=== PATIENT | female | born 1990 | race Caucasian/White ===

== ENCOUNTER 2020-02-15 14:23 | Outpatient (CLI) | payer OTHER, SELFPAY ==
--- NOTE | ~2020-02-15 | US_ITS ---
EXAMINATION: US thyroid DATE: 02/15/2020 15:30 INDICATION: Goiter TECHNIQUE: Multiple ultrasound images of the thyroid were obtained. COMPARISON: None. FINDINGS: The right thyroid lobe measures 4.7 x 1.2 x 1.5 cm. The left thyroid lobe measures 3.0 x 1.4 x 1.3 c m. The thyroid isthmus measures 3 mm in thickness. No discrete nodules identified. There is normal ec hotexture, echogenicity and vascular flow throughout the thyroid gland. IMPRESSION: 1. Normal thyroid ultrasound. Reviewed, dictated and finalized at location A.
--- NOTE | ~2020-02-15 | US_ITS ---
EXAMINATION: US pelvic complete w TV DATE: 02/15/2020 15:30 INDICATION: Pelvic and perineal pain TECHNIQUE: Multiple transabdominal and endovaginal sonographic images of the pelvis were obtained. COMPARISON: 04/13/2018 FINDINGS: The uterus measures 8.0 x 3.9 x 5.5 cm. The endometrial complex measures 4.1 mm. The right ovary measures 3.0 x 1.4 x 2.4 cm. The left ovary measures 3.1 x 1.7 x 2.6 cm. There is normal vascul ar flow in the ovaries. There is no free fluid in the pelvis. IMPRESSION: 1. No sonographic correlate for the patient's symptoms. Reviewed, dictated and finalized at location A.
== END 2020-02-15 14:24 | disposition home or self-care (01) ==
PROVIDERS: PCP Physician Assistant
DX: E04.9 Nontoxic goiter, unspecified (principal)
CPT/HCPCS: 76536; 76830; 76856

== ENCOUNTER 2020-02-24 11:02 | Emergency (ER) | payer OTHER, SELFPAY ==
[2020-02-24 11:05] VITALS: BP 145/97; PULSE 86; RESP 16; TEMP 36.6; O2SAT 100
[2020-02-24 11:31] LABS: Eosinophils Absolute Auto 0.1 K/mm3 (0-0.3); Eosinophils Percent Auto 0.8 % (0-4.4); Hematocrit 39.1 % (37.0-47.0); Immature Granulocyte Absolute 0.05 K/mm3 (0.00-0.031); Immature Granulocyte Percent A 0.5 % (0-0.5); Lymphocytes Absolute Auto 2.67 K/mm3 (0.9-3.2); Lymphocytes Percent Auto 25.7 % (18.3-44.2); Mean Corpuscular HGB Conc 33.2 g/dl (32-36); Mean Corpuscular Hemoglobin 28.3 pg (26-34); Mean Corpuscular Volume 85.2 fl (80-100); Mean Platelet Volume 9.4 fl (7.4-10.4); Monocytes Absolute Auto 0.6 K/mm3 (0.1-0.6); Platelet Count Result 281 k/mm3 (150-375); Red Blood Count 4.59 M/mm3 (4.2-5.4); Red Cell Distribution Width 11.9 % (11.5-14.5); White Blood Count 10.4 K/mm3 (4.5-10.0)
[2020-02-24 11:42] LABS: Prothrombin Time 12.7 Seconds (11.1-14.7)
[2020-02-24 11:43] LABS: Partial Thromboplastin Time 26.9 SECONDS (22.3-36.8)
[2020-02-24 11:44] LABS: Alanine Aminotransferase 24 U/L (4-35); Albumin Level 4.2 g/dL (3.5-5.1); Alkaline Phosphatase 94 U/L (38-126); Anion Gap 6 mmol/L (8-16); Aspartate Amino Transferase 31 U/L (14-36); Bilirubin,Total 0.6 mg/dL (0.2-1.3); Blood Urea Nitrogen 16 mg/dL (7-17); Carbon Dioxide 26 mmol/L (22-30); Chloride 104 mmol/L (98-107); Estimated CRCL calculation 99 ml/min; Estimated Glomerular Filt Rate > 60; Glucose 97 mg/dL (65-105); Sodium 136 mmol/L (137-145)
[2020-02-24 11:48] VITALS: BP 136/88; PULSE 92
[2020-02-24 11:49] VITALS: BP 135/94; BP 153/91; PULSE 91; PULSE 94
--- NOTE | 2020-02-24 12:50 | ED.GIBLEED ---
HPI - GI Bleed General Chief complaint: GI Bleed Stated complaint: blood in stool x 4 days Time Seen by Provider: 02/24/20 12:18 Source: patient and family Mode of arrival: ambulatory Limitations: no limitations History of Present Illness HPI Narrative: 29-year-old with no major medical problems here with complaints of rectal bleeding for past 5 days. Patient states that she has bright red blood per rectum every time she has a bowel movement. She states that on the first 2 days she had few clots while she was wiping. She denies any abdominal pain. Denies being lightheaded or dizzy. No previous history of GI bleeds. complaint: blood streaked stool Onset (ago): day(s) (5) Pain Consistency: constant Severity: mild Relieving factors: none Exacerbating factors: none Treatments Prior to Arrival: none Related Data Home Medications Medication Instructions Recorded Confirmed fluoxetine 10 mg PO 02/24/20 norelgestromin-ethin.estradiol 150 patch 02/24/20 [Xulane] Allergies Allergy/AdvReac Type Severity Reaction Status Date / Time amoxicillin AdvReac Unknown Diarrhea Verified 02/24/20 11:47 Review of Systems Review of Systems: All systems reviewed & are unremarkable except as noted in HPI and below Constitutional: Constitutional: Reports as per HPI Eyes: Eyes: Reports no additional eye complaints ENT: Reports system reviewed and no additional complaints, except as documented Cardiovascular: Cardiovascular: Reports no additional cardiovascular complaints Respiratory: Respiratory: Reports no additional respiratory complaints Genitourinary: Genitourinary: Reports no additional female genitourinary complaints Neurologic: Reports system reviewed and no additional complaints, except as documented Endocrine: Endocrine: Reports no additional endocrine complaints Hematologic/Lymphatic: Hematologic/Lymphatic: Reports no additional hematologic/lymphatic complaints PMFSH Family History Family History Grandparent Hypertension Family history of malignant neoplasm Family history of malignant neoplasm of breast Father Family history of cardiac disorder Other Cerebrovascular accident Family history of kidney disease Family history of lung cancer Social History Social History Smoking status: Former smoker Second hand tobacco smoke exposure: No Smoking end date: 06/27/15 Alcohol intake: never Exam Narrative: Exam Narrative: GENERAL: Well-appearing, well-nourished, and in no acute distress. HEAD: Normocephalic, atraumatic. EYES: PERRLA and EOMI. ENT: Nares clear, no rhinorrhea or epistaxis. Mucous membranes moist. NECK: Supple. CHEST: Clear to auscultation. No respiratory distress. HEART: Regular rate and rhythm. No murmur heard. Normal peripheral pulses. ABDOMEN: Soft, nontender, nondistended, normal active bowel sounds. Rectal no obvious external hemorrhoids however there is a small hemorrhoid at 5 o'clock position. No fissures noted EXTREMITIES: Normal range of motion. No edema. SKIN: Warm, dry, no rash. NEURO: No focal deficits. Alert and oriented x3. PSYCH: Normal mood and affect. Course Vital Signs Vital signs: Vital Signs Temperature 36.6 C 02/24/20 11:05 Pulse Rate 86 02/24/20 11:05 Respiratory Rate 16 02/24/20 11:05 Blood Pressure 145/97 H 02/24/20 11:05 Pulse Oximetry 100 02/24/20 11:05 Temperature 36.6 C 02/24/20 11:05 Pulse Rate 94 02/24/20 11:49 Respiratory Rate 16 02/24/20 11:05 Blood Pressure 153/91 H 02/24/20 11:49 Pulse Oximetry 100 02/24/20 11:05 MDM - GI Bleed Lab Data Result diagrams: 02/24/20 11:14 02/24/20 11:14 Labs: Lab Results 02/24/20 02/24/20 02/24/20 Range/Units 11:14 11:14 11:14 WBC 10.4 H (4.5-10.0) K/mm3 RBC 4.59 (4.2-5.4) M/mm3 Hgb 13.0 (12.0-15.0) g/dL
== END 2020-02-24 13:20 | disposition home or self-care (01) ==
PROVIDERS: Emergency Medicine; Emergency Provider Family Medicine; PCP Physician Assistant
DX: K64.9 Unspecified hemorrhoids (principal); Z87.891 Personal history of nicotine dependence
CPT/HCPCS: 36415; 80053; 85025; 85610; 85730; 86850; 86900; 86901; 99283

== ENCOUNTER 2020-11-11 11:09 | Outpatient (CLI) | payer OTHER, SELFPAY ==
[2020-11-11 18:34] LABS: Hematocrit 40.7 % (37.0-47.0); Hemoglobin 12.9 g/dL (12.0-15.0); Mean Corpuscular HGB Conc 31.7 g/dl (32-36); Mean Corpuscular Hemoglobin 27.9 pg (26-34); Mean Corpuscular Volume 87.9 fl (80-100); Platelet Count Result 338 k/mm3 (150-375); Red Blood Count 4.63 M/mm3 (4.2-5.4); Red Cell Distribution Width 11.8 % (11.5-14.5); White Blood Count 12.8 K/mm3 (4.5-10.0)
== END 2020-11-11 11:10 | disposition home or self-care (01) ==
LOC: ANHBWCLAB 11:10
PROVIDERS: PCP Physician Assistant; Visit Provider Obstetrics & Gynecology
DX: N92.1 Excessive and frequent menstruation with irregular cycle (principal)
CPT/HCPCS: 36415; 84443; 85027

== ENCOUNTER 2021-07-01 09:05 | Emergency (ER) | payer OTHER, SELFPAY ==
[2021-07-01 09:16] VITALS: BP 141/68; PULSE 100; RESP 16; TEMP 37.2; O2SAT 100
--- NOTE | 2021-07-01 09:47 | ED.URI ---
HPI - URI/Sore Throat General Chief Complaint: Upper Respiratory Infection Stated Complaint: Fever/Sore Throat/Congestion Time Seen by Provider: 07/01/21 09:47 Source: patient, RN notes reviewed and old records reviewed Mode of arrival: ambulatory Limitations: no limitations History of Present Illness HPI Narrative: 30-year-old female presents to the [facility] with fever, sore throat and congestion since Related Data Home Medications Medication Instructions Recorded Confirmed clonidine HCl 07/01/21 dexamethasone 07/01/21 ondansetron 07/01/21 promethazine-DM ml 07/01/21 Allergies Allergy/AdvReac Type Severity Reaction Status Date / Time amoxicillin AdvReac Unknown Diarrhea Verified 07/01/21 10:16 Review of Systems Review of Systems: All systems reviewed & are unremarkable except as noted in HPI and below Constitutional: Constitutional: Reports as per HPI and Reports fever(s) Eyes: Eyes: Reports no additional eye complaints ENT: Reports as per HPI and Reports sore throat Cardiovascular: Cardiovascular: Reports no additional cardiovascular complaints, Denies chest pain and Denies radiating jaw, neck or arm pain Respiratory: Respiratory: Reports no additional respiratory complaints, Denies cough and Denies dyspnea Gastrointestinal: Gastrointestinal: Reports no additional gastrointestinal complaints, Denies abdominal pain, Denies nausea and Denies vomiting Musculoskeletal: Musculoskeletal: Reports no additional musculoskeletal complaints Integumentary/Breasts: Skin/Breast: Reports system reviewed and no additional complaints, except as docu Neurologic: Reports system reviewed and no additional complaints, except as documented Psychiatric: Psychiatric: Reports no additional psychiatric complaints Allergic/Immunologic: Allergic/Immunologic: Reports no additional allergic/immunologic complaints PMF Past Medical History Medical History Atherosclerosis Chemical 2018 Enlarged thyroid Heart murmur Menometrorrhagia PCOS (polycystic ovarian syndrome) Vaginal delivery x3 Surgical History Surgical History History of cholecystectomy 2018 Family History Family History Grandparent Hypertension Family history of malignant neoplasm Family history of malignant neoplasm of breast History of blood clots grandmother, grandfather Diabetes mellitus grandmother Father Family history of cardiac disorder Other Cerebrovascular accident Family history of kidney disease Family history of lung cancer Social History Social History Smoking status: Former smoker Second hand tobacco smoke exposure: No Smoking end date: 06/27/15 Alcohol intake: never Substance use: former Substance use type: marijuana Last use: 5 years ago Comments At the time of my signature, I reviewed and agree with the nursing past medical, surgical, social, and family history. There is no relevant family history pertinent to the patient complaint. Exam Const: General: no acute distress, alert and ill appearing acutely (Mild) Nutritional Appearance: well nourished Orientation/consciousness: patient oriented x3 Limitations: no limitations HENMT: Head: normal to inspection Ears: external ears normal, EAC's normal and TM abnormal with fluid behind the TM bilateral General nose exam: Nasal discharge present clear Mouth: Yes moist mucous membranes Throat: uvula midline, posterior oropharynx abnormal erythema and postnasal drainage Eyes: Pupils: Equal, round and reactive pupils present Neck: Neck: normal visual inspection, no lymphadenopathy and no meningeal signs Chest: Chest palpation & inspection: normal inspection of the chest Resp: Effort & Inspection: normal respiratory effort and no us
== END 2021-07-01 10:45 | disposition home or self-care (01) ==
PROVIDERS: Emergency Provider Nurse Practitioner; PCP Nurse Practitioner Family
DX: J02.0 Streptococcal pharyngitis (principal); Z87.891 Personal history of nicotine dependence; E28.2 Polycystic ovarian syndrome; I70.90 Unspecified atherosclerosis; R01.1 Cardiac murmur, unspecified
CPT/HCPCS: 87804; 87880; 99213; G0463

== ENCOUNTER 2021-08-12 15:52 | Outpatient (CLI) | payer OTHER, SELFPAY ==
--- NOTE | ~2021-08-12 | US_ITS ---
EXAMINATION: US soft tissue head and neck DATE: 08/12/2021 16:37 INDICATION: Cervical lymphadenopathy TECHNIQUE: Multiple grayscale and Doppler ultrasound images of the region of concern at the posterior right neck were obtained. COMPARISON: None FINDINGS: There are 3 ovoid hypoechoic lymph nodes in the abdomen with echogenic hilum in the region of concern which per notation the departmental shipping clerk there is be located in the region of the right posterior triangle . These measure 1.1 x 0.7 x 0.9 cm, 1.0 x 0.7 x 0.3 cm and 1.2 x 1.1 x 0.4 cm, which remain within no rmal limits. No other abnormal masses or fluid collections identified. IMPRESSION: 1. 3 prominent but not yet pathologically enlarged cervical lymph nodes which are likely reactive. Reviewed, dictated and finalized at location A. CURER IMPRESSION: 1. 3 prominent but not yet pathologically enlarged cervical lymph nodes which a re likely reactive.
== END 2021-08-12 15:53 | disposition home or self-care (01) ==
PROVIDERS: PCP Nurse Practitioner Family; Visit Provider Nurse Practitioner Family
DX: N63.20 Unspecified lump in the left breast, unspecified quadrant (principal)
CPT/HCPCS: 76536

== ENCOUNTER 2021-11-19 09:11 | Outpatient (CLI) | payer OTHER, SELFPAY ==
--- NOTE | ~2021-11-19 | US_ITS ---
EXAMINATION: US soft tissue head and neck DATE: 11/19/2021 10:30 INDICATION: Cervical lymphadenopathy. TECHNIQUE: Multiple grayscale and Doppler ultrasound images of the neck were obtained. COMPARISON: Ultrasound 08/12/2021 FINDINGS: There is no abnormal mass or lymphadenopathy in the patient's area of concern in right neck . IMPRESSION: 1. No abnormal mass or lymphadenopathy in the patient's area of concern in right neck. Reviewed, dictated and finalized at location A. IMPRESSION: 1. No abnormal mass or lymphadenopathy in the patient's area of concern in righ t neck.
--- NOTE | ~2021-11-19 | US_ITS ---
EXAMINATION: US OB <= 14 weeks fetus DATE: 11/19/2021 10:28 INDICATION: Routine care. TECHNIQUE: Real-time transabdominal pelvic ultrasound was performed. COMPARISON: None. FINDINGS: The uterus measures 13.4 x 5.0 x 6.8 cm. There is an intrauterine gestational sac. The crown ru mp length measures 2.2 cm, which correlates with an estimated gestational age of 8 weeks and 6 day(s) (+/-) 6 day(s). heart motion is identified measuring 169 beats per minute (bpm) by M-mode Dopp ler. The right ovary measures 3.8 x 2.2 x 2.5 cm. The left ovary is not visualized. There is no free fluid in the pelvis. IMPRESSION: 1. Single living intrauterine gestation with estimated date of delivery of 06/25/2022. Reviewed, dictated and finalized at location A. IMPRESSION: 1. Single living intrauterine gestation with estimated date of delivery of .
== END 2021-11-19 09:12 | disposition home or self-care (01) ==
PROVIDERS: PCP Nurse Practitioner Family
DX: Z34.91 Encounter for supervision of normal pregnancy, unspecified, first trimester (principal); Z3A.01 Less than 8 weeks gestation of pregnancy
CPT/HCPCS: 76536; 76801

== ENCOUNTER → 2022-02-17 09:18 | Outpatient (CLI) | payer OTHER, SELFPAY ==
--- NOTE | ~2022-02-17 | US_ITS ---
EXAMINATION:US venous doppler LE LT INDICATION:Redness and pain. TECHNIQUE: Multiple grayscale, color flow and Doppler images of the left lower extremity deep venous systems were obtained and reviewed. COMPARISON:No prior studies for comparison. FINDINGS: The common femoral, superficial femoral and popliteal veins demonstrate normal respiratory variation, augmentation and compressibility. Color flow is also seen within the posterior tibial, pe roneal, greater saphenous and profunda veins. In the area of palpable concern there are thrombosed va ricose veins. IMPRESSION: 1: No lower extremity deep venous thrombosis. 2: Thrombosed varicose veins in the area of palpable concern. Reviewed, dictated and finalized at location A.
== END ==
PROVIDERS: PCP Obstetrics & Gynecology; Visit Provider Obstetrics & Gynecology
DX: M79.89 Other specified soft tissue disorders (principal); I82.812 Embolism and thrombosis of superficial veins of left lower extremity
CPT/HCPCS: 93971

== ENCOUNTER 2022-02-18 22:04 | Observation (INO) | payer OTHER, SELFPAY ==
[2022-02-18 22:43] LABS: Appearance Urine Clear (Clear); Bilirubin Urine Negative (Negative); Blood Urine Negative (Negative); Color Urine Yellow (Yellow); Glucose Urine UA Negative (Negative); Ketones Urine Negative (Negative); Leukocyte Esterase Ur Negative LEU/UL (NEGATIVE); Nitrate Urine Negative (Negative); Protein Urine Negative (Negative); Urobilinogen Urine 0.2 mg/dL (<2.0)
[2022-02-18 22:47] LABS: Add Urine Microscopic? NO
--- NOTE | 2022-03-16 11:40 | P.PNOB_ITS ---
OB - Triage/Final Diagnosis Visit Information Comments/Additional reasons for admission: I have assessed the risk for this patient, Barby Juárez, and determined that she would benefit from observation care. Evaluation Laboratory results: Laboratory Tests 02/18/22 22:35 Urine Color Yellow Urine Appearance Clear Urine pH 7.0 Ur Specific [place] 1.010 Urine Protein Negative Urine Glucose (UA) Negative Urine Ketones Negative Ur Blood (Man) Negative Urine Nitrate Negative Urine Bilirubin Negative Urine Urobilinogen 0.2 Ur Leukocyte Esterase Negative Final Diagnosis (1) False labor: Code(s): O47.9 - False labor, unspecified Status: Acute
== END 2022-02-19 00:05 | disposition home or self-care (01) ==
PROVIDERS: Obstetrics & Gynecology; Admitting Provider Obstetrics & Gynecology; Visit Provider Obstetrics & Gynecology
DX: O47.02 False labor before 37 completed weeks of gestation, second trimester (principal); Z3A.22 22 weeks gestation of pregnancy
CPT/HCPCS: 81003; 87086; 87088; G0378; G0379

== ENCOUNTER 2022-02-21 20:06 | Observation (INO) | payer OTHER, SELFPAY ==
--- NOTE | 2022-02-21 20:06 | OBADM ---
This patient, Barby Juárez, admitted to the OB room OB Post 113 for observation. Patient/family oriented to hospital policies and general routines including ID bracelet, bed and alarms, visiting hours, pain management, procedures, bathroom and other care routines, personal items, smoking policy, room service/diet, and visiting hours. Patient/Family are encouraged to report perceived risks to care and to ask questions if they do not understand what they are told or what they should do.
[2022-02-21 20:42] VITALS: BP 119/66; PULSE 84
[2022-02-21 20:45] VITALS: BP 120/55; PULSE 83
[2022-02-21 21:00] VITALS: BP 110/67; PULSE 79
--- NOTE | 2022-02-21 21:00 | PC.NURSE ---
Patient offered immodium for diarrhea, patient refused immodium and states I do not need that and will take some at home if I think I need it
[2022-02-21 21:15] VITALS: BP 114/60; PULSE 78
[2022-02-21 21:27] LABS: Appearance Urine Clear (Clear); Bilirubin Urine Negative (Negative); Blood Urine Negative (Negative); Color Urine Yellow (Yellow); Glucose Urine UA Negative (Negative); Ketones Urine Negative (Negative); Leukocyte Esterase Ur Negative LEU/UL (Negative); Nitrate Urine Negative (Negative); Protein Urine Negative (Negative); Urobilinogen Urine 0.2 mg/dL (<2.0); pH Urine 6.5 (5.0-9.0)
[2022-02-21 21:31] LABS: Mucus Urine Rare /lpf; RBC Urine 0-2 /hpf (0-2); Squamous Epithelial Cell Urine Occasional /hpf (Few); WBC Urine 0-3 /hpf
[2022-02-21 21:34] LABS: Add Urine Microscopic? NO
[2022-02-21 21:38] VITALS: BMI 37.5
--- NOTE | 2022-02-21 22:55 | PC.NURSE ---
Updated Dr. Jorge on maternal assessment. No contractions noted via toco monitor of per patient. Abdomen palpates soft. VSS. UA result given to Dr. Jorge. Discharge orders received.
--- NOTE | 2022-02-21 22:56 | PC.NURSE ---
Plan of care discussed with patient. Discharge plan discussed. Patient agrees to discharge and denies questions.
--- NOTE | 2022-03-16 11:39 | PM.OBTRLD ---
OB - Triage/Final Diagnosis Visit Information Comments/Additional reasons for admission: I have assessed the risk for this patient, Barby Juráez, and determined that she would benefit from observation care. Evaluation Laboratory results: Laboratory Tests 02/21/22 21:00 Urine Color Yellow Urine Appearance Clear Urine pH 6.5 Ur Specific [place] 1.010 Urine Protein Negative Urine Glucose (UA) Negative Urine Ketones Negative Ur Blood (Man) Negative Urine Nitrate Negative Urine Bilirubin Negative Urine Urobilinogen 0.2 Leukocyte Esterase Rfl Negative Urine RBC 0-2 Urine WBC 0-3 Ur Squamous Epith Cells Occasional Urine Mucus Rare Final Diagnosis (1) False labor: Code(s): O47.9 - False labor, unspecified Status: Acute
== END 2022-02-21 23:19 | disposition home or self-care (01) ==
PROVIDERS: Admitting Provider Obstetrics & Gynecology; Visit Provider Obstetrics & Gynecology
DX: O47.02 False labor before 37 completed weeks of gestation, second trimester (principal); Z3A.22 22 weeks gestation of pregnancy
CPT/HCPCS: 81003; G0378; G0379

== ENCOUNTER 2022-06-08 10:58 | Outpatient (CLI) | payer OTHER, SELFPAY ==
[2022-06-08 11:15] VITALS: BP 147/86; PULSE 77
[2022-06-08 11:27] LABS: Basophils Percent Auto 0.2 % (0.2-1.2); Eosinophils Percent Auto 0.3 % (0-4.4); Hematocrit 34.9 % (37.0-47.0); Hemoglobin 11.7 g/dL (12.0-15.0); Immature Granulocyte Absolute 0.04 K/mm3 (0.00-0.031); Immature Granulocyte Percent A 0.4 % (0-0.5); Lymphocytes Absolute Auto 1.85 K/mm3 (0.9-3.2); Lymphocytes Percent Auto 19.5 % (18.3-44.2); Mean Corpuscular HGB Conc 33.5 g/dl (32-36); Mean Corpuscular Hemoglobin 30.1 pg (26-34); Mean Corpuscular Volume 89.7 fl (80-100); Mean Platelet Volume 9.8 fl (7.4-10.4); Monocytes Absolute Auto 0.9 K/mm3 (0.1-0.6); Monocytes Percent Auto 9.4 % (2.6-8.5); Neutrophils Absolute Auto 6.7 K/mm3 (1.3-6.7); Neutrophils Percent Auto 70.2 % (45.5-73.1); Platelet Count Result 219 k/mm3 (150-375); Red Blood Count 3.89 M/mm3 (4.2-5.4); Red Cell Distribution Width 12.6 % (11.5-14.5); White Blood Count 9.5 K/mm3 (4.5-10.0)
[2022-06-08 11:31] VITALS: BP 144/77; PULSE 73
[2022-06-08 11:34] LABS: Creatinine Urine 73.1 mg/dL; Total Protein Urine Random 15 mg/dL; Ur Ttl Prot Creatinine Ratio 0.21 mg/mg (0-0.20)
[2022-06-08 11:40] LABS: Alanine Aminotransferase 18 U/L (6-35); Albumin Level 3.6 g/dL (3.5-5.1); Alkaline Phosphatase 279 U/L (38-126); Anion Gap 4 mmol/L (8-16); Aspartate Amino Transferase 26 U/L (14-36); Bilirubin,Total 0.5 mg/dL (0.2-1.3); Blood Urea Nitrogen 12 mg/dL (7-17); Calcium 8.5 mg/dL (8.4-10.2); Carbon Dioxide 24 mmol/L (22-30); Chloride 106 mmol/L (98-107); Estimated Glomerular Filt Rate > 60; Glucose 85 mg/dL (65-110); Potassium 4.3 mmol/L (3.4-5.0); Sodium 134 mmol/L (137-145); Uric Acid 7.3 mg/dL (2.5-7.5)
[2022-06-08 11:46] VITALS: BP 137/71; PULSE 71
--- NOTE | 2022-06-08 11:47 | P.PNOB_ITS ---
OB - Triage/Final Diagnosis Visit Information Date of evaluation: 06/08/22 Reason for evaluation: decreased movement and other (gest htn) Comments/Additional reasons for admission: I have assessed the risk for this patient, Barby Juárez, and determined that she would benefit from observation care. Evaluation Laboratory results: Laboratory Tests 06/08/22 06/08/22 06/08/22 11:16 11:16 11:16 WBC 9.5 RBC 3.89 L Hgb 11.7 L Hct 34.9 L MCV 89.7 MCH 30.1 MCHC 33.5 RDW 12.6 Plt Count 219 MPV 9.8 Immature Gran % (Auto) 0.4 Neut % (Auto) 70.2 Lymph % (Auto) 19.5 [place] % (Auto) 9.4 H Eos % (Auto) 0.3 Baso % (Auto) 0.2 Lymph # (Auto) 1.85 [place] # (Auto) 0.9 H Eos # (Auto) 0.0 Baso # (Auto) 0.0 Abs Immat Gran (auto) 0.04 H Absolute Neuts (auto) 6.7 Absolute Nucleated RBC 0.0 Nucleated RBC % 0.0 Sodium 134 L Potassium 4.3 Chloride 106 Carbon Dioxide 24 Anion Gap 4 L BUN 12 Creatinine 0.70 Estim Creat Clear Calc Not Reportable Estimated GFR > 60 Glucose 85 Uric Acid 7.3 Calcium 8.5 Total Bilirubin 0.5 AST 26 ALT 18 Alkaline Phosphatase 279 H Total Protein 7.0 Albumin 3.6 U Random Total Protein 15 Urine Creatinine 73.1 Protein/Creat Ratio 2 0.21 H Vital signs: Vital Signs - 24 hr 06/08/22 11:15 06/08/22 11:31 06/08/22 11:46 Pulse Rate 77 73 71 Blood Pressure 147/86 H 144/77 H 137/71
--- NOTE | 2022-06-08 11:50 | PC.NURSE ---
Dr. Eric Younger on unit. Lab result and BPs given. Lots of movement noted per pt and on tracing. October D/C home. Pt to return for induction of labor 06/09/22 at 0500.
== END 2022-06-08 12:00 | disposition home or self-care (01) ==
LOC: ANHOBOP 11:04 → ANHOBPP 11:05
PROVIDERS: Visit Provider Obstetrics & Gynecology
DX: O36.8190 Decreased fetal movements, unspecified trimester, not applicable or unspecified (principal); O24.419 Gestational diabetes mellitus in pregnancy, unspecified control
CPT/HCPCS: 36415; 59025; 80053; 82570; 84156; 84550; 85025; 99199

== ENCOUNTER 2022-06-09 05:04 | Inpatient (IN) | payer OTHER, SELFPAY ==
[2022-06-09] VITALS (60 sets, daily range): BP systolic 105–175; BP diastolic 58–104; PULSE 55–126; RESP 16; TEMP 36.2–37.3; O2SAT 98–100
--- NOTE | 2022-06-09 05:33 | LDADM ---
This patient, Barby Juárez, was admitted to Labor/Delivery/Recovery 104 on 06/09/22 at 05:04. Plans for labor, pain management and were discussed with patient. Patient/family oriented to hospital policies and general routines including ID bracelet, bed and alarms, visiting hours, pain management, procedures, bathroom and other care routines, personal items, smoking policy, room service/diet and guest tray routines, infant security routines, and visiting hours. Patient/Family are encouraged to report perceived risks to care and to ask questions if they do not understand what they are told or what they should do. See OBIX for further documentation.
--- NOTE | 2022-06-09 05:54 | PM.IMHP ---
H&P: HPI History of Present Illness Date/Time: 06/09/22 05:54 Chief Complaint: Elevated blood pressure at term Narrative: 31-year-old 4 para 3 whose last menstrual period was 09/21/2021, EDC is 06/22/2022, presents at 38 weeks gestation for induction of labor secondary to elevated blood pressure. She is positive for group B strep. Her blood pressure has broad been rising and PIH labs were drawn. [facility] Past Medical History Medical History Atherosclerosis Chemical 2018 Enlarged thyroid Heart murmur Menometrorrhagia PCOS (polycystic ovarian syndrome) Vaginal delivery x3 Surgical History Surgical History History of cholecystectomy 2018 Family History Family History Grandparent History of blood clots grandmother, grandfather FH: kidney cancer Diabetes mellitus grandmother Family history of malignant neoplasm Family history of malignant neoplasm of breast Cirrhosis of liver Family history of lung cancer Hypertension Cerebrovascular accident Parkinson disease Father Family history of cardiac disorder Mother Endometriosis Social History Social History Smoking status: Former smoker Tobacco type: cigarettes Second hand tobacco smoke exposure: No Smoking end date: 06/27/15 Alcohol intake: never Substance use: never Substance use type: marijuana Last use: 5 years ago Lack of Transportation: No Lack of Food: Never True Current Housing: I Have Housing Concerned About Future Housing: No Difficulty Paying Gas/Electric Bills: No Difficulty Paying for Meds: No Currently Unemployed: YES Education: High School Diploma/GED Difficulty w/ Childcare or Family Care: YES Spiritual care concerns: No Meds Home Medications and Allergies Allergies Allergy/AdvReac Type Severity Reaction Status Date / Time amoxicillin AdvReac Unknown Diarrhea Verified 06/08/22 13:39 Vital Signs Vital Signs - 24 hr 06/09/22 05:19 06/09/22 05:30 06/09/22 05:45 Temperature 98.2 F Pulse Rate 126 H 119 H 111 H Blood Pressure 140/104 H 135/91 H 130/75 Oxygen Delivery 06/09/22 05:32 Temperature Pulse Rate Blood Pressure Oxygen Delivery Room Air Exam Const: General: cooperative, healthy appearing and comfortable Nutritional Appearance: overweight Orientation/consciousness: oriented to person, oriented to place and oriented to time HENMT: Head: normal to inspection Resp: Effort & Inspection: normal respiratory effort Cardio: Rate: regular rate Rhythm: regular rhythm Heart sounds: S1 normal heart sound present and S2 normal heart sound present GI: Inspection: normal to inspection ( Gravid soft uterus) : External Female Exam: normal external appearance Speculum Exam - Vagina: normal appearance of the vagina Speculum Exam - Cervix: normal appearance of the cervix ( cervix 2/75/2. AROM clear. FHTs reassuring) Assessment and Plan Assessment and plan (1) Term : Code(s): Z34.90 - Encounter for supervision of normal , unspecified, unspecified trimester Status: Acute (2) induced hypertension: Code(s): O13.9 - Gestational [-induced] hypertension without significant proteinuria, unspecified trimester Status: Acute (3) Positive testing for group B Streptococcus: Code(s): B95.1 - Streptococcus, group B, as the cause of diseases classified elsewhere Status: Acute Plan PIH labs drawn. Medical induction of labor. Group B strep prophylaxis. Spontaneous vaginal delivery expected. She is an epidural candidate
[2022-06-09 05:57] LABS: Basophils Percent Auto 0.2 % (0.2-1.2); Eosinophils Percent Auto 0.3 % (0-4.4); Hematocrit 33.8 % (37.0-47.0); Hemoglobin 11.4 g/dL (12.0-15.0); Immature Granulocyte Absolute 0.05 K/mm3 (0.00-0.031); Immature Granulocyte Percent A 0.5 % (0-0.5); Lymphocytes Absolute Auto 2.64 K/mm3 (0.9-3.2); Lymphocytes Percent Auto 26.3 % (18.3-44.2); Mean Corpuscular HGB Conc 33.7 g/dl (32-36); Mean Corpuscular Hemoglobin 30.1 pg (26-34); Mean Corpuscular Volume 89.2 fl (80-100); Mean Platelet Volume 10.1 fl (7.4-10.4); Monocytes Absolute Auto 0.7 K/mm3 (0.1-0.6); Monocytes Percent Auto 7.1 % (2.6-8.5); Neutrophils Absolute Auto 6.6 K/mm3 (1.3-6.7); Neutrophils Percent Auto 65.6 % (45.5-73.1); Platelet Count Result 222 k/mm3 (150-375); Red Blood Count 3.79 M/mm3 (4.2-5.4); Red Cell Distribution Width 12.5 % (11.5-14.5)
[2022-06-09 06:16] LABS: Alanine Aminotransferase 31 U/L (6-35); Albumin Level 3.5 g/dL (3.5-5.1); Alkaline Phosphatase 259 U/L (38-126); Anion Gap 8 mmol/L (8-16); Aspartate Amino Transferase 31 U/L (14-36); Bilirubin,Total 0.6 mg/dL (0.2-1.3); Blood Urea Nitrogen 11 mg/dL (7-17); Calcium 8.5 mg/dL (8.4-10.2); Carbon Dioxide 19 mmol/L (22-30); Chloride 105 mmol/L (98-107); Estimated Glomerular Filt Rate > 60; Glucose 134 mg/dL (65-110); Potassium 3.8 mmol/L (3.4-5.0); Sodium 132 mmol/L (137-145); Uric Acid 7.8 mg/dL (2.5-7.5)
[2022-06-09] MEDS: LACTATED RINGERS 1,000 ML 125 ML IV CONT (06:29)
[2022-06-09] MEDS: AMPICILLIN 2 GM/NS 100 ML 2 GM/100 ML BAG IVPB (06:29)
[2022-06-09] MEDS: OXYTOCIN 30 UNITS/NS 500 ML 30 UNITS/500 ML BAG IV CONT (06:29)
--- NOTE | 2022-06-09 09:06 | WPDANESEPP ---
Anes - Eval Pre Procedure Procedure: labor epidural Date/Time: 06/09/22 09:06 Surgeon: brandan Preop Diagnosis: pain during labor Pre Op Diagnosis: IOL Patient Data Age: 31 Gender: F Height: Weight: Last Vital Signs Temp 36.6 C 06/09/22 07:30 Pulse 87 06/09/22 09:01 BP 175/102 H 06/09/22 09:01 O2 Del Method Room Air 06/09/22 05:32 Allergies Allergy/AdvReac Type Severity Reaction Status Date / Time amoxicillin AdvReac Unknown Diarrhea Verified 06/09/22 06:09 Home Medications Medication Instructions Recorded Confirmed Type cetirizine 10 mg tablet (Zyrtec) 10 mg PO DAILY PRN Allergy Symptoms 06/09/22 06/09/22 History omeprazole 20 mg capsule,delayed 20 mg PO DAILY 06/09/22 06/09/22 History release Laboratory Tests 06/09/22 06/09/22 06/09/22 05:39 05:39 05:39 WBC 10.0 K/mm3 K/mm3 (4.5-10.0) RBC 3.79 M/mm3 L M/mm3 (4.2-5.4) Hgb 11.4 g/dL L g/dL (12.0-15.0) Hct 33.8 % L % (37.0-47.0) MCV 89.2 fl fl (80-100) MCH 30.1 pg pg (26-34) MCHC 33.7 g/dl g/dl (32-36) RDW 12.5 % % (11.5-14.5) Plt Count 222 k/mm3 k/mm3 (150-375) MPV 10.1 fl fl (7.4-10.4) Immature Gran % (Auto) 0.5 % % (0-0.5) Neut % (Auto) 65.6 % % (45.5-73.1) Lymph % (Auto) 26.3 % % (18.3-44.2) [place] % (Auto) 7.1 % % (2.6-8.5) Eos % (Auto) 0.3 % % (0-4.4) Baso % (Auto) 0.2 % % (0.2-1.2) Lymph # (Auto) 2.64 K/mm3 K/mm3 (0.9-3.2) [place] # (Auto) 0.7 K/mm3 H K/mm3 (0.1-0.6) Eos # (Auto) 0.0 K/mm3 K/mm3 (0-0.3) Baso # (Auto) 0.0 K/mm3 K/mm3 (0.0-0.1) Abs Immat Gran (auto) 0.05 K/mm3 H K/mm3 (0.00-0.031) Absolute Neuts (auto) 6.6 K/mm3 K/mm3 (1.3-6.7) Absolute Nucleated RBC 0.0 K/mm3 K/mm3 (0.0-0.012) Nucleated RBC % 0.0 % % (0.0-0.2) Sodium Potassium Chloride Carbon Dioxide Anion Gap BUN Creatinine Estim Creat Clear Calc Estimated GFR Glucose Uric Acid Calcium Total Bilirubin AST ALT Alkaline Phosphatase Total Protein Albumin RPR Pending Blood Type A Positive Antibody Screen Negative 06/09/22 05:48 WBC RBC Hgb Hct MCV MCH MCHC RDW Plt Count MPV Immature Gran % (Auto) Neut % (Auto) Lymph % (Auto) [place] % (Auto) Eos % (Auto) Baso % (Auto) Lymph # (Auto) [place] # (Auto) Eos # (Auto) Baso # (Auto) Abs Immat Gran (auto) Absolute Neuts (auto) Absolute Nucleated RBC Nucleated RBC % Sodium 132 mmol/L L mmol/L (137-145) Potassium 3.8 mmol/L mmol/L (3.4-5.0) Chloride 105 mmol/L mmol/L (98-107) Carbon Dioxide 19 mmol/L L mmol/L (22-30) Anion Gap 8 mmol/L mmol/L (8-16) BUN 11 mg/dL mg/dL (7-17) Creatinine 0.70 mg/dL mg/dL (0.7-1.0) Estim Creat Clear Calc Not Reportable Estimated GFR > 60 (59 - ) Glucose 134 mg/dL H mg/dL (65-110) Uric Acid 7.8 mg/dL H mg/dL (2.5-7.5) Calcium 8.5 mg/dL mg/dL (8.4-10.2) Total Bilirubin 0.6 mg/dL mg/dL (0.2-1.3) AST 31 U/L U/L (14-36) ALT 31 U/L U/L (6-35) Alkaline Phosphatase 259 U/L H U/L (38-126) Total Protein 6.0 g/dL L g/dL (6.3-8.2) Albumin 3.5 g/dL g/dL (3.5-5.1) RPR Blood Type Antibody Screen Patient hx anesthesia problems: none Family hx anesthesia problems: none Results Review: All pre-operative results and documents have been reviewed as part of the pre-operative evaluatio
--- NOTE | 2022-06-09 10:37 | PM.OBPRVD ---
OB - Delivery Note Procedure Delivery date: 06/09/22 Procedure: mil/ group B strep prophylaxis Events: Elective Induction of Labor and Gestational Hypertension Induction method: AROM Delivery augmentation: Pitocin Delivery monitor: External FHT and Internal Uterine Route of delivery: Episiotomy description: None Laceration Description: None Quantitative Blood Loss (ml): 60 Anesthesia type: Epidural Disposition: Floor Baby Date of : 06/09/22 Time of : 10:24 Weeks of gestation at delivery: 38 gender: Female presentation: vertex position: Left Occiput Anterior Placenta delivery description: Spontaneous Cord Vessel Description: 3 Vessels and Delayed Cord Clamping score one minute: 6 score five minutes: 8 Narrative: ampicillin x1 for group B strep prophylaxis
[2022-06-09 11:07] LABS: Rapid Plasma Reagin Non-Reactive (NonReactive)
--- NOTE | 2022-06-09 12:08 | PC.NURSE ---
1145 - Nursery RN requested assistance with initiating pumping for mother. Reviewed education of milk production, Pumping her inverted nipples for 1-2 minutes to pull them out and practicing while is opening mouth and rooting. Mother declined stating she is tired and pumping was initiated. Breast pump provided due to mothers request. Instructions given on cleaning, care, usage, that there should be no pain, pumping schedule for milk production, collection, and storage of human milk. Parents are encouraged to record pumping schedule on the feeding sheet. Patient was assessed for correct placement, flange size, to pump for comfort and nipple stretching/stimulation for adequate milk production every 3 hours (8 times in 24 hours) 1-2 times at night. Mother voiced understanding of the education shared along with mom and baby guide for additional resource information. Reported to the primary RN.
--- NOTE | 2022-06-09 13:51 | OBPPTRN ---
Patient transferred to post room #280 via wheelchair. Support person present. Oriented to unit, room, information board, rooming in, admission packet and security measures. Patient verbalizes understanding.
[2022-06-09] MEDS: IBUPROFEN 600 MG TABLET PO (17:44)
[2022-06-09] MEDS: DOCUSATE SODIUM 100 MG CAPSULE PO (17:44)
[2022-06-10 05:02] VITALS: BP 138/65; PULSE 55; RESP 16; TEMP 36.6; O2SAT 97
[2022-06-10 05:37] LABS: Hematocrit 31.4 % (37.0-47.0); Hemoglobin 10.3 g/dL (12.0-15.0)
[2022-06-10 08:20] VITALS: BP 138/72; PULSE 69; RESP 16; TEMP 36.6; O2SAT 99
[2022-06-10] MEDS: DOCUSATE SODIUM 100 MG CAPSULE PO ×2 (09:03→16:19)
[2022-06-10] MEDS: IBUPROFEN 600 MG TABLET PO ×2 (09:03→22:03)
[2022-06-10] MEDS: MULTIVIT/MIN/PREN/FOL AC/IRON TABLET 1 TAB PO (09:03)
--- NOTE | 2022-06-10 10:24 | WPDANLDPN2 ---
Anes-Prog Note L&D Date/Time: 06/10/22 10:24 Comfortable throughout: labor and delivery Neuraxial method: epidural Epidural/Spinal procedure site: clean & non-tender Neuro status: Neuro function grossly intact. Cardiovascular status: normal Respiratory status: normal Airway patency: baseline Mental status: baseline Post-Op hydration status: normal Vital Signs: Last Vital Signs Temp 36.6 C 06/10/22 08:20 Pulse 69 06/10/22 08:20 Resp 16 06/10/22 08:20 BP 138/72 06/10/22 08:20 Pulse Ox 99 06/10/22 08:20 O2 Del Method Room Air 06/09/22 20:00 Pain score (VAS): 07/06 I/O: Intake & Output 06/09/22 06/10/22 06/10/22 23:59 07:59 15:59 Intake Total 200 Output Total 280 Balance -80 Post-procedural complaints: none Patient feedback: Patient satisfied with anesthetic care.
--- NOTE | 2022-06-10 11:28 | PM.DS ---
DS: Admitting Diagnosis Discharge Date Admitting Diagnosis Term with positive group B strep and mildly elevated blood pressures DS: Discharge Diagnosis Discharge Diagnosis (1) Positive testing for group B Streptococcus: Code(s): B95.1 - Streptococcus, group B, as the cause of diseases classified elsewhere Status: Acute (2) induced hypertension: Code(s): O13.9 - Gestational [-induced] hypertension without significant proteinuria, unspecified trimester Status: Acute (3) Term : Code(s): Z34.90 - Encounter for supervision of normal , unspecified, unspecified trimester Status: Acute DS: Summary Hospital Course Reason for hospitalization: Induction of labor 38 weeks positive group B strep and elevated blood pressures Hospital Course: This is a 31-year-old 4 now para 3 4 who was admitted at term for induction of labor with positive group B strep and elevated blood pressures. PIH labs were okay. She underwent spontaneous vaginal delivery without remarkable of the. She did receive only 1 dose of ampicillin. She was watched for 48hours. Her hospital course unremarkable. She remained afebrile. She was up, voiding without difficulty, ambulating, generally without complaints. Time Spent with Patient Time attestation: Total time spent providing and/or coordinating discharge services: Exam Const: General: cooperative, healthy appearing, comfortable and overweight Orientation/consciousness: oriented to person, oriented to place and oriented to time HENMT: Head: normal to inspection Resp: Effort & Inspection: normal respiratory effort Cardio: Rate: regular rate Rhythm: regular rhythm Heart sounds: S1 normal heart sound present and S2 normal heart sound present GI: Inspection: normal to inspection (Fundus firm below umbilicus) DS: Data Data Completed and Pending Labs on day of discharge: Labs from last 24 hours 06/10/22 03:58 Hgb 10.3 L Hct 31.4 L Discharge Plan Discharge Attending physician on discharge: Doe Garcia Discharging Clinician: Doe Garcia Patient Disposition: Home, Self-Care Activity: may shower, no straining and pelvic rest Diet: heart healthy Wound Care Instructions: follow printed instructions Patient Instructions: Antibiotic Form Stand Alone Forms: General Discharge Information Follow-up/Referrals: Doe Garcia MD [Physician] - Discharge Medications: Continued cetirizine [Zyrtec] 10 mg Tablet 10 mg PO DAILY PRN (Reason: Allergy Symptoms) omeprazole 20 mg capsule,delayed release(DR/EC) 20 mg PO DAILY Date of admission: 06/09/22 05:04 Primary Care Provider: UNKNOWN,DOCTOR Admitting Provider: Doe Garcia Attending physician on admission: Doe Garcia Condition: Stable
[2022-06-10 12:40] VITALS: BP 136/74; PULSE 64; RESP 16; TEMP 37.2; O2SAT 97
[2022-06-10 16:30] VITALS: BP 120/65; PULSE 74; RESP 16; TEMP 36.6; O2SAT 97
[2022-06-10 19:37] VITALS: BP 128/63; PULSE 73; RESP 16; TEMP 36.9; O2SAT 98
--- NOTE | 2022-06-11 06:22 | PM.OBPNVD ---
OB - PN: Subj Subjective Date/time seen: 06/11/22 06:22 Patient comments: no complaints and pain well controlled baby status: doing well and nursing well OB - PN: Obj Data Labs 06/10/22 03:58 06/09/22 05:48 OB - PN A/P Plan day: 2 Plan: routine care, discharge home and follow up 6 weeks Comments: will have her fitted for Omar's secondary to large varicose vein Time Spent With Patient Time: Total time spent is greater than 50% in coordination of care (as documented) at patient's floor/unit and/or counseling patient: Time with patient: less than 15 minutes Exam Const: General: cooperative, healthy appearing and comfortable Orientation/consciousness: oriented to person, oriented to place and oriented to time HENMT: Head: normal to inspection Resp: Effort & Inspection: normal respiratory effort GI: Inspection: normal to inspection ( fundus firm below the umbilicus)
--- NOTE | 2022-06-11 06:23 | PM.OBPNVD ---
OB - PN: Subj Subjective Date/time seen: 06/11/22 06:23 Patient comments: no complaints and pain well controlled baby status: doing well OB - PN: Obj Data Labs 06/10/22 03:58 06/09/22 05:48 OB - PN A/P Plan day: 2 Plan: routine care, discharge home and follow up 6 weeks Time Spent With Patient Time: Total time spent is greater than 50% in coordination of care (as documented) at patient's floor/unit and/or counseling patient: Time with patient: less than 15 minutes Exam Const: General: cooperative, healthy appearing and comfortable Orientation/consciousness: oriented to person, oriented to place and oriented to time HENMT: Head: normal to inspection Resp: Effort & Inspection: normal respiratory effort GI: Inspection: normal to inspection ( fundus firm below the umbilicus) Skin: Nails: other ( bilateral large varicose veins)
[2022-06-11] MEDS: DOCUSATE SODIUM 100 MG CAPSULE PO (08:37)
[2022-06-11] MEDS: MULTIVIT/MIN/PREN/FOL AC/IRON TABLET 1 TAB PO (08:37)
[2022-06-11 09:10] VITALS: BP 139/62; PULSE 58; RESP 18; TEMP 36.7; O2SAT 99
--- NOTE | 2022-06-11 12:12 | PC.NURSE ---
Patient viewed the discharge video Mother & Baby Care, The First Two Weeks . Patient was given the opportunity and encouraged to ask questions. Patient verbalized understanding of information shared and has been given the mother/baby guide for home reference.
--- NOTE | 2022-06-11 13:34 | PC.NURSE ---
[id number] Consulted with patient with her request for assistance with . Mother made a decision before going home to try to breastfeed. Mother has inverted nipples and the size fills the barrel of a 27mm breast shield flange. Infant appears to have a sublingual frenulum that is tight and can extend it somewhat over the gumline. We had a discussion regarding working with her to stimulate to wake and feed. Encouraged understanding of the benefits of skin to skin (demonstrating unwrapping infant and placing vertically on her chest), responsive feeding, massage touch, burping and how to watch for early feeding signs, frequency of feeding on demand about every 8-12 times in 24 hours (every 2-3 hours), milk production, duration of feeding, signs of adequate intake/output and how to record on the feeding sheet. Reviewed positioning and ear, shoulder, hip alignment, supporting the breast, asymmetrical latch (off-center), and leading with the chin with a big open side gape. Infant latched to the right breast in football position with rocking motion and flanged lips. was able to maintain latch without discomfort to mother; however, the nipple was misshaped after detaching from the breast. Nipple care reviewed with optimal latch and good positioning. Reminding mother of comfort measures of healing with a warm and wet washcloth to rinse breast, then leave open to air-dry as needed. Reviewed good handwashing when or touching the breast/nipples to prevent infection. Resources used to facilitate learning were used with the visual handouts, tool, mom and baby guide. Mother states she had been guided to feeding her the bottle every 3-4 hours and she had been stimulating her breast with pumping every 4 hours and feeding her infant every 4 hours. Mother voiced understanding of responsive feedings, stimulating with skin to skin, massage touch, talking to infant to encourage if it has been 3 hours since the start of the last feeding, to call if does not latch, doesn't wake to feed or there is discomfort with . Reviewed pumping instructions from 06/09, risks and benefits of using a nipple shield, inverted nipples, RN repeated assessment of the flange fit, pumping, bottle feeding breast milk, formula, redirected the Vitamin D question to her ICP, jaundice what it is and how to manage. Mother is feeding appropriately for growth of and understands stimulating to eat if needed. Infant has had appropriate feedings in the last 24 hours meets the outcomes for weight, output and jaundice at this time. Mother states she is confident to continue feed her at home or when to call for assistance and denies any additional assistance or education at this time. Reinforced understanding of milk production, transition of milk, signs of adequate intake, prevention/relief of engorgement, responsive after visualizing feeding cues, the different methods of stimulating infant to breastfeed 2-3 hours after the start of the last feeding, community resources, medication information reviewed per [employer] and when to call a provider using the resource of the mom and baby guide. Mother voiced understanding of the education shared. Primary RN is present and given report of the discussion.
[2022-06-12 07:42] VITALS: BP 130/62; PULSE 80; RESP 20; TEMP 37.1; O2SAT 100
== END 2022-06-11 14:10 | disposition home or self-care (01) | DRG 560 ==
LOC: ANHLDR 05:46 → ANHOB2 13:53
PROVIDERS: Admitting Provider Obstetrics & Gynecology; Visit Provider Obstetrics & Gynecology
DX: O13.4 Gestational [pregnancy-induced] hypertension without significant proteinuria, complicating childbirth (principal); Z37.0 Single live birth; Z3A.38 38 weeks gestation of pregnancy; O99.824 Streptococcus B carrier state complicating childbirth; E28.2 Polycystic ovarian syndrome; O99.284 Endocrine, nutritional and metabolic diseases complicating childbirth
CPT/HCPCS: 36415; 80053; 84550; 85014; 85018; 85025; 86592; 86850; 86900; 86901; A9270; J0290; J2590; J2795; J7120

== ENCOUNTER 2022-06-12 09:25 | Outpatient (CLI) | payer OTHER, SELFPAY ==
--- NOTE | ~2022-06-12 | US_ITS ---
EXAMINATION: US venous doppler [facility] DATE: 06/12/2022 10:15 INDICATION: Left lower limb pain and swelling TECHNIQUE: Priest scale images without and with compression and Doppler images of the left lower extrem ity veins were obtained. COMPARISON: None FINDINGS: There is partial thrombosis of the left popliteal vein. The left common femoral vein, profu nda femoral vein, femoral vein, peroneal trunk, posterior tibial veins, and greater saphenous vein ar e patent. IMPRESSION: 1. Partial thrombosis of the left popliteal vein, otherwise patent left lower extremity veins. Reviewed, dictated and finalized at location A. ER ADMINISTRATOR IMPRESSION: 1. Partial thrombosis of the left popliteal vein, otherwise patent left lower e xtremity veins.
== END 2022-06-12 09:26 | disposition home or self-care (01) ==
PROVIDERS: Visit Provider Obstetrics & Gynecology
DX: M79.652 Pain in left thigh (principal); I82.432 Acute embolism and thrombosis of left popliteal vein
CPT/HCPCS: 93971

== ENCOUNTER 2022-06-12 10:42 | Observation (INO) | payer OTHER, SELFPAY ==
--- NOTE | ~2022-06-12 | CT_ITS ---
EXAMINATION: CTA chest PE protocol DATE: 06/12/2022 12:43 INDICATION: Shortness of breath TECHNIQUE: Computed tomography angiography (CTA) of the chest was performed with 100 mL Omnipaque-350 intravenous contrast timed to evaluate the pulmonary arteries. Coronal maximum intensity projection 3D-reconstructions were created by the technologist. The dose-length product (DLP) was 385.83 mGy-cm. Automated exposure control and iterative reconstruction technique were employed. COMPARISON: 02/12/2018 FINDINGS: The pulmonary arteries are moderately well-opacified. No pulmonary embolism is identified. The lungs are free of acute opacities. No pleural effusion or pneumothorax. No pathologically enlarge d thoracic lymph nodes are identified. The heart size is normal. The gallbladder is surgically absent . IMPRESSION: 1. No pulmonary embolism or acute cardiopulmonary abnormality. Reviewed, dictated and finalized at location A. MENT MECHANIC
[2022-06-12 11:25] VITALS: BP 153/73; PULSE 68; BMI 34.1
[2022-06-12 11:54] VITALS: PULSE 70; O2SAT 98
[2022-06-12 12:08] LABS: Basophils Percent Auto 0.3 % (0.2-1.2); Eosinophils Absolute Auto 0.1 K/mm3 (0-0.3); Hematocrit 34.1 % (37.0-47.0); Hemoglobin 11.5 g/dL (12.0-15.0); Immature Granulocyte Absolute 0.05 K/mm3 (0.00-0.031); Immature Granulocyte Percent A 0.5 % (0-0.5); Lymphocytes Absolute Auto 2.03 K/mm3 (0.9-3.2); Lymphocytes Percent Auto 22.2 % (18.3-44.2); Mean Corpuscular HGB Conc 33.7 g/dl (32-36); Mean Corpuscular Hemoglobin 29.3 pg (26-34); Mean Platelet Volume 9.7 fl (7.4-10.4); Monocytes Absolute Auto 0.7 K/mm3 (0.1-0.6); Monocytes Percent Auto 7.5 % (2.6-8.5); Neutrophils Absolute Auto 6.3 K/mm3 (1.3-6.7); Neutrophils Percent Auto 68.5 % (45.5-73.1); Platelet Count Result 195 k/mm3 (150-375); Red Blood Count 3.92 M/mm3 (4.2-5.4); Red Cell Distribution Width 12.5 % (11.5-14.5); White Blood Count 9.2 K/mm3 (4.5-10.0)
[2022-06-12 12:22] LABS: Alanine Aminotransferase 28 U/L (6-35); Albumin Level 3.7 g/dL (3.5-5.1); Alkaline Phosphatase 217 U/L (38-126); Anion Gap 4 mmol/L (8-16); Aspartate Amino Transferase 43 U/L (14-36); Bilirubin,Total 0.5 mg/dL (0.2-1.3); Blood Urea Nitrogen 12 mg/dL (7-17); Calcium 8.6 mg/dL (8.4-10.2); Carbon Dioxide 27 mmol/L (22-30); Chloride 106 mmol/L (98-107); Estimated Glomerular Filt Rate > 60; Glucose 86 mg/dL (65-110); Sodium 137 mmol/L (137-145)
[2022-06-12 12:43] LABS: INR 0.9; Prothrombin Time 11.7 Seconds (11.1-14.7)
[2022-06-12 12:44] LABS: Fibrinogen 358 mg/dl (215-510); Partial Thromboplastin Time 25.6 SECONDS (22.3-36.8)
--- NOTE | 2022-06-12 13:40 | OBADM ---
This patient, Barby Juárez, admitted to the OB room OB Post 116 for observation. Patient/family oriented to hospital policies and general routines including ID bracelet, bed and alarms, visiting hours, pain management, procedures, bathroom and other care routines, personal items, smoking policy, room service/diet, and visiting hours. Patient/Family are encouraged to report perceived risks to care and to ask questions if they do not understand what they are told or what they should do.
--- NOTE | 2022-06-12 14:00 | PC.NURSE ---
Pedal pulses strong bilaterally. Patient measured for support stockings.
--- NOTE | 2022-06-12 14:24 | PM.IMHP ---
H&P: HPI History of Present Illness Date/Time: 06/12/22 14:24 Chief Complaint: pain and left leg Narrative: this is a 31-year-old 4 now para 4 who was discharged yesterday who returned for her visit in Labor and delivery with left leg pain. None was noted and a Doppler was undertaken. A partial left popliteal DVT was seen. She is admitted for anticoagulation PMFSH Past Medical History Medical History Atherosclerosis Chemical 2018 Enlarged thyroid Heart murmur Menometrorrhagia PCOS (polycystic ovarian syndrome) Vaginal delivery x3 Surgical History Surgical History History of cholecystectomy 2018 Family History Family History Grandparent History of blood clots grandmother, grandfather FH: kidney cancer Diabetes mellitus grandmother Family history of malignant neoplasm Family history of malignant neoplasm of breast Cirrhosis of liver Family history of lung cancer Hypertension Cerebrovascular accident Parkinson disease Father Family history of cardiac disorder Mother Endometriosis Social History Social History Smoking status: Former smoker Tobacco type: cigarettes Second hand tobacco smoke exposure: No Smoking end date: 06/27/15 Alcohol intake: never Substance use: never Substance use type: marijuana Last use: 5 years ago Lack of Transportation: No Lack of Food: Never True Current Housing: I Have Housing Concerned About Future Housing: No Difficulty Paying Gas/Electric Bills: No Difficulty Paying for Meds: No Currently Unemployed: YES Education: High School Diploma/GED Difficulty w/ Childcare or Family Care: YES Spiritual care concerns: No Meds Home Medications and Allergies Home Medications Medication Instructions Recorded Confirmed Type cetirizine 10 mg tablet (Zyrtec) 10 mg PO DAILY PRN Allergy Symptoms 06/09/22 06/09/22 History omeprazole 20 mg capsule,delayed 20 mg PO DAILY 06/09/22 06/09/22 History release Allergies Allergy/AdvReac Type Severity Reaction Status Date / Time amoxicillin AdvReac Unknown Diarrhea Verified 06/09/22 06:09 Vital Signs Vital Signs - 24 hr 06/12/22 11:25 06/12/22 11:54 06/12/22 11:25 Pulse Rate 68 Blood Pressure 153/73 H Pulse Oximetry 98 Oxygen Delivery Room Air Exam Const: General: cooperative, healthy appearing, comfortable and overweight Orientation/consciousness: oriented to person, oriented to place and oriented to time HENMT: Head: normal to inspection Resp: Effort & Inspection: normal respiratory effort GI: Inspection: normal to inspection Neuro: Sensory Exam: Abnormal lower extremity sensory exam Extrem: General: normal exam except as noted (knot palpable in left popliteal area) H&P: Results Labs Labs: Short CBC 06/12/22 Range/Units 11:53 WBC 9.2 (4.5-10.0) K/mm3 Hgb 11.5 L (12.0-15.0) g/dL Hct 34.1 L (37.0-47.0) % Plt Count 195 (150-375) k/mm3 BMP 06/12/22 11:53 Sodium 137 Potassium 4.0 Chloride 106 Carbon Dioxide 27 BUN 12 Creatinine 0.60 L Glucose 86 Calcium 8.6 Liver Function 06/12/22 Range/Units 11:53 Total Bilirubin 0.5 (0.2-1.3) mg/dL AST 43 H (14-36) U/L ALT 28 (6-35) U/L Alkaline Phosphatase 217 H (38-126) U/L Albumin 3.7 (3.5-5.1) g/dL Assessment and Plan Assessment and plan (1) deep vein thrombosis: Code(s): O87.1 - Deep phlebothrombosis in the puerperium Status: Acute Plan CT was negative for PE. Lovenox 80mg subQ q.day started. Will grab labs and follow carefully
[2022-06-12 14:58] VITALS: BP 158/70; PULSE 55; PULSE 60; O2SAT 95
[2022-06-12] MEDS: ENOXAPARIN 80 MG/0.8 ML SYRINGE SUB-Q (16:18)
--- NOTE | 2022-06-12 18:45 | WPDCN ---
Assessment and Plan Assessment and plan (1) Deep venous thrombosis of left popliteal vein: Code(s): I82.432 - Acute embolism and thrombosis of left popliteal vein Status: Acute Assessment and Plan: Currently on Lovenox 1 mg/kg b.i.d.. She would like to continue breast-feeding and will be started on warfarin this evening. She will need to be discharged home with Lovenox as a bridge until her INR is therapeutic. We discussed the importance of having her blood drawn in a couple of days to monitor her INR and that she will need close follow-up with her primary care provider. (2) deep vein thrombosis: Code(s): O87.1 - Deep phlebothrombosis in the puerperium Status: Acute Assessment and Plan: Plan is as detailed above. (3) Varicose veins during : Code(s): O22.00 - Varicose veins of lower extremity in , unspecified trimester Status: Acute Assessment and Plan: Patient encouraged to follow-up with vascular surgery as an outpatient for definitive management. (4) induced hypertension: Code(s): O13.9 - Gestational [-induced] hypertension without significant proteinuria, unspecified trimester Status: Acute Assessment and Plan: Blood pressures have been running in the 140s to 150 systolic. Continue to trend; initiate antihypertensives if indicated. (5) Normocytic anemia: Code(s): D64.9 - Anemia, unspecified Status: Acute Assessment and Plan: Likely related to recent delivery. Repeat H&H in a.m. to ensure stability. Plan Thank you for allowing us to participate in this patient's care. Please do not hesitate to contact us with any questions. Case discussed with Dr. Osmany Baca who is in agreement with the above plan. HPI Data of Consult Date/Time: 06/12/22 18:45 Requesting Physician: Doe Younger MD Primary Care Provider: Jyothi Perez NP Consult Narrative Reason for consult: DVT. Narrative: This is a very pleasant 31-year-old female with history of GERD and polycystic ovarian syndrome whom the hospitalist service has been consulted after she was found to have a partial thrombosis of the left popliteal vein. She is 3 days following induction of labor for -induced hypertension. Her delivery was uncomplicated and both mom and baby did well and were discharged home yesterday. Last evening while feeding the baby she felt a sore spot on the left anterolateral thigh and this morning she noticed that there was a knot with overlying redness at that site. She mentioned that today at her routine checkup and a venous Doppler ultrasound showed a partial thrombosis of the left popliteal vein. She has had issues with varicose veins with each of her 4 pregnancies and in fact an ultrasound done on 02/17/2022 showed thrombosed varicose veins in the leg leg at the area of palpable concern. She was given a prescription for Omar hose though her insurance would not cover the 200 dollar cost and she could not afford them. She has not had any chest pain, pleuritic pain, or shortness of breath and it is noted that a CTA of the chest today was negative for PE. At the time my evaluation she is resting comfortably and has no complaints but is understandably anxious about her diagnosis. She is breast-feeding the baby and would like to continue to do so. No epistaxis, hematuria, blood in stools, or significant vaginal bleeding. She denies personal and family history of venous thromboembolism. Review of Systems Review of Systems: Twelve systems were reviewed and are negative except for as per HPI. [facility] Past Medical History Medical History (Updated 06/12/22 @ 23:51 by Adelia Ventura PA-C) Heart murmur Presumed benign flow murmur. Mild obstructive sleep apnea Polycystic ovarian syndrome induced hypertension Surgical History Surgical History (Updated
[2022-06-12] MEDS: WARFARIN (*PBKC) 5 MG TABLET PO (19:57)
[2022-06-12] MEDS: MULTIVIT/MIN/PREN/FOL AC/IRON TABLET 1 TAB PO (19:57)
[2022-06-12] MEDS: PANTOPRAZOLE SOD SESQUIHYDRATE 20 MG TAB PO (19:58)
[2022-06-12] MEDS: LOPERAMIDE HCL 2 MG CAPSULE PO (19:58)
[2022-06-12 22:24] VITALS: BP 149/68; PULSE 57; TEMP 36.8
[2022-06-13 04:13] VITALS: BP 156/79; PULSE 53
--- NOTE | 2022-06-13 07:26 | P.PNOB_ITS ---
OB - PN: Subj Subjective Date/time seen: 06/13/22 07:26 Patient comments: no complaints and pain well controlled baby status: doing well OB - PN: Obj Data Labs 06/12/22 11:53 06/12/22 11:53 Labs: Laboratory Results - last 24 hr 06/12/22 06/12/22 06/12/22 11:53 11:53 12:22 WBC 9.2 RBC 3.92 L Hgb 11.5 L Hct 34.1 L MCV 87.0 MCH 29.3 MCHC 33.7 RDW 12.5 Plt Count 195 MPV 9.7 Immature Gran % (Auto) 0.5 Neut % (Auto) 68.5 Lymph % (Auto) 22.2 Shoshone % (Auto) 7.5 Eos % (Auto) 1.0 Baso % (Auto) 0.3 Lymph # (Auto) 2.03 Shoshone # (Auto) 0.7 H Eos # (Auto) 0.1 Baso # (Auto) 0.0 Abs Immat Gran (auto) 0.05 H Absolute Neuts (auto) 6.3 Absolute Nucleated RBC 0.0 Nucleated RBC % 0.0 PT 11.7 INR 0.9 APTT 25.6 Fibrinogen 358 Sodium 137 Potassium 4.0 Chloride 106 Carbon Dioxide 27 Anion Gap 4 L BUN 12 Creatinine 0.60 L Estim Creat Clear Calc Not Reportable Estimated GFR > 60 Glucose 86 Calcium 8.6 Magnesium 2.0 Total Bilirubin 0.5 AST 43 H ALT 28 Alkaline Phosphatase 217 H Total Protein 7.0 Albumin 3.7 Imaging Radiologist's impression: Impressions Chest CTA 06/12/22 12:46 IMPRESSION: 1. No pulmonary embolism or acute cardiopulmonary abnormality. OB - PN A/P Plan day: 4 Plan: routine care and follow up 6 weeks (1) Time Spent With Patient Time: Total time spent is greater than 50% in coordination of care (as documented) at patient's floor/unit and/or counseling patient: Time with patient: less than 15 minutes Exam Const: General: cooperative, healthy appearing and comfortable Orientation/consciousness: oriented to person, oriented to place and oriented to time Resp: Effort & Inspection: normal respiratory effort Cardio: Rate: regular rate Rhythm: regular rhythm Heart sounds: S1 normal heart sound present and S2 normal heart sound present GI: Inspection: normal to inspection
--- NOTE | 2022-06-13 07:56 | P.DS_ITS ---
DS: Admitting Diagnosis Discharge Date S Admitting Diagnosis deep venous thrombosis the left lower limb DS: Discharge Diagnosis Discharge Diagnosis (1) Deep venous thrombosis of left popliteal vein: Code(s): I82.432 - Acute embolism and thrombosis of left popliteal vein Status: Acute DS: Summary Hospital Course Reason for hospitalization: patient was admitted with pain in the left lower limb Hospital Course: patient was admitted with left lower limb pain. She underwent a Doppler which showed popliteal clot. She was begun on 80mg of Lovenox and is being transitioned to warfarin. She is to follow-up in a week Time Spent with Patient Time attestation: Total time spent providing and/or coordinating discharge services: DS: Data Data Completed and Pending Labs on day of discharge: Labs from last 24 hours 06/12/22 06/12/22 06/12/22 12:22 11:53 11:53 WBC 9.2 RBC 3.92 L Hgb 11.5 L Hct 34.1 L MCV 87.0 MCH 29.3 MCHC 33.7 RDW 12.5 Plt Count 195 MPV 9.7 Immature Gran % (Auto) 0.5 Neut % (Auto) 68.5 Lymph % (Auto) 22.2 Mcleod % (Auto) 7.5 Eos % (Auto) 1.0 Baso % (Auto) 0.3 Lymph # (Auto) 2.03 Mcleod # (Auto) 0.7 H Eos # (Auto) 0.1 Baso # (Auto) 0.0 Abs Immat Gran (auto) 0.05 H Absolute Neuts (auto) 6.3 Absolute Nucleated RBC 0.0 Nucleated RBC % 0.0 PT 11.7 INR 0.9 APTT 25.6 Fibrinogen 358 Sodium 137 Potassium 4.0 Chloride 106 Carbon Dioxide 27 Anion Gap 4 L BUN 12 Creatinine 0.60 L Estim Creat Clear Calc Not Reportable Estimated GFR > 60 Glucose 86 Calcium 8.6 Magnesium 2.0 Total Bilirubin 0.5 AST 43 H ALT 28 Alkaline Phosphatase 217 H Total Protein 7.0 Albumin 3.7 Discharge Plan Discharge Attending physician on discharge: Doe Garcia Consulting providers: Tony Kent Discharging Clinician: Doe Garcia Patient Disposition: Home, Self-Care Activity: no straining and pelvic rest Diet: heart healthy Wound Care Instructions: follow printed instructions Patient Instructions: Antibiotic Form Stand Alone Forms: General Discharge Information Follow-up/Referrals: Doe Garcia MD [Physician] - Discharge Medications: No Action cetirizine [Zyrtec] 10 mg Tablet 10 mg PO DAILY PRN (Reason: Allergy Symptoms) omeprazole 20 mg capsule,delayed release(DR/EC) 20 mg PO DAILY Date of admission: 06/12/22 10:42 Primary Care Provider: UNKNOWN,DOCTOR Admitting Provider: Doe Garcia Attending physician on admission: Doe Garcia Condition: Stable
--- NOTE | 2022-06-13 07:59 | P.PNOB_ITS ---
OB - PN: Subj Subjective Date/time seen: 06/13/22 07:59 Patient comments: no complaints and pain well controlled OB - PN: Obj Data Labs 06/12/22 11:53 06/12/22 11:53 Labs: Laboratory Results - last 24 hr 06/12/22 06/12/22 06/12/22 11:53 11:53 12:22 WBC 9.2 RBC 3.92 L Hgb 11.5 L Hct 34.1 L MCV 87.0 MCH 29.3 MCHC 33.7 RDW 12.5 Plt Count 195 MPV 9.7 Immature Gran % (Auto) 0.5 Neut % (Auto) 68.5 Lymph % (Auto) 22.2 [place] % (Auto) 7.5 Eos % (Auto) 1.0 Baso % (Auto) 0.3 Lymph # (Auto) 2.03 [place] # (Auto) 0.7 H Eos # (Auto) 0.1 Baso # (Auto) 0.0 Abs Immat Gran (auto) 0.05 H Absolute Neuts (auto) 6.3 Absolute Nucleated RBC 0.0 Nucleated RBC % 0.0 PT 11.7 INR 0.9 APTT 25.6 Fibrinogen 358 Sodium 137 Potassium 4.0 Chloride 106 Carbon Dioxide 27 Anion Gap 4 L BUN 12 Creatinine 0.60 L Estim Creat Clear Calc Not Reportable Estimated GFR > 60 Glucose 86 Calcium 8.6 Magnesium 2.0 Total Bilirubin 0.5 AST 43 H ALT 28 Alkaline Phosphatase 217 H Total Protein 7.0 Albumin 3.7 Imaging Radiologist's impression: Impressions Chest CTA 06/12/22 12:46 IMPRESSION: 1. No pulmonary embolism or acute cardiopulmonary abnormality. OB - PN A/P Plan Plan: discharge home Time Spent With Patient Time: Total time spent is greater than 50% in coordination of care (as documented) at patient's floor/unit and/or counseling patient: Time with patient: less than 15 minutes
[2022-06-13 08:12] VITALS: BP 151/76; PULSE 61; PULSE 65; O2SAT 99
[2022-06-13 08:18] VITALS: RESP 16; TEMP 37
[2022-06-13] MEDS: ENOXAPARIN 100 MG/ML SYRINGE 82 MG SUB-Q (09:35)
[2022-06-13 09:52] LABS: Hematocrit 35.1 % (37.0-47.0); Hemoglobin 11.7 g/dL (12.0-15.0); Mean Corpuscular HGB Conc 33.3 g/dl (32-36); Mean Corpuscular Hemoglobin 29.4 pg (26-34); Mean Corpuscular Volume 88.2 fl (80-100); Mean Platelet Volume 9.4 fl (7.4-10.4); Platelet Count Result 199 k/mm3 (150-375); Red Blood Count 3.98 M/mm3 (4.2-5.4); Red Cell Distribution Width 12.4 % (11.5-14.5); White Blood Count 7.7 K/mm3 (4.5-10.0)
[2022-06-13 10:05] LABS: Anion Gap 3 mmol/L (8-16); Blood Urea Nitrogen 13 mg/dL (7-17); Calcium 8.6 mg/dL (8.4-10.2); Carbon Dioxide 26 mmol/L (22-30); Chloride 108 mmol/L (98-107); Estimated CRCL calculation 97 ml/min; Estimated Glomerular Filt Rate > 60; Glucose 88 mg/dL (65-110); Potassium 4.2 mmol/L (3.4-5.0); Prothrombin Time 12.4 Seconds (11.1-14.7); Sodium 137 mmol/L (137-145)
== END 2022-06-13 12:55 | disposition home or self-care (01) ==
PROVIDERS: Physician Assistant; Admitting Provider Obstetrics & Gynecology; Visit Provider Obstetrics & Gynecology
DX: O87.1 Deep phlebothrombosis in the puerperium (principal); I82.432 Acute embolism and thrombosis of left popliteal vein; O87.8 Other venous complications in the puerperium; O13.5 Gestational [pregnancy-induced] hypertension without significant proteinuria, complicating the puerperium; O90.81 Anemia of the puerperium; Z87.891 Personal history of nicotine dependence; O90.89 Other complications of the puerperium, not elsewhere classified; F12.90 Cannabis use, unspecified, uncomplicated; Z83.2 Family history of diseases of the blood and blood-forming organs and certain disorders involving the immune mechanism; Z79.899 Other long term (current) drug therapy
CPT/HCPCS: 36415; 71275; 80048; 80053; 83735; 85025; 85027; 85384; 85610; 85730; 93971; 96372; A9270; G0378; G0379; J1650; Q9967

== ENCOUNTER 2022-06-14 20:10 | Emergency (ER) | payer OTHER, SELFPAY ==
--- NOTE | ~2022-06-14 | US_ITS ---
US venous doppler [facility] DATE: 06/14/2022 23:14 INDICATION: Deep venous thrombosis TECHNIQUE: Real-time and color flow imaging and Doppler analysis of the veins of the left lower extre mity COMPARISON: 06/12/2022 venous duplex examination of the left lower extremity FINDINGS: There is spontaneous and phasic flow and normal augmentation and color flow signal and norm al compression of the deep veins of the left lower extremity There are some thrombosed superficial veins demonstrated in the distal thigh and posterior calf. IMPRESSION: No evidence of deep venous thrombosis; popliteal vein partial thrombosis noted on 022 is not currently demonstrated Reviewed, dictated and finalized at [facility]. Reviewed, dictated and finalized at location [facility]. IC COORDINATOR IMPRESSION: No evidence of deep venous thrombosis; popliteal vein partial throm bosis noted on 06/12/2022 is not currently demonstrated
[2022-06-14 20:19] VITALS: BP 178/82; PULSE 66; RESP 16; TEMP 37.1; O2SAT 100
[2022-06-14 21:06] LABS: Basophils Percent Auto 0.2 % (0.2-1.2); Eosinophils Absolute Auto 0.1 K/mm3 (0-0.3); Hemoglobin 11.5 g/dL (12.0-15.0); Immature Granulocyte Absolute 0.04 K/mm3 (0.00-0.031); Immature Granulocyte Percent A 0.5 % (0-0.5); Lymphocytes Absolute Auto 2.73 K/mm3 (0.9-3.2); Mean Corpuscular HGB Conc 32.9 g/dl (32-36); Mean Corpuscular Hemoglobin 29.6 pg (26-34); Mean Platelet Volume 9.2 fl (7.4-10.4); Monocytes Absolute Auto 0.8 K/mm3 (0.1-0.6); Monocytes Percent Auto 9.3 % (2.6-8.5); Neutrophils Absolute Auto 5.1 K/mm3 (1.3-6.7); Platelet Count Result 235 k/mm3 (150-375); Red Blood Count 3.89 M/mm3 (4.2-5.4); Red Cell Distribution Width 12.6 % (11.5-14.5); White Blood Count 8.8 K/mm3 (4.5-10.0)
[2022-06-14 21:18] LABS: Alanine Aminotransferase 33 U/L (6-35); Albumin Level 3.7 g/dL (3.5-5.1); Alkaline Phosphatase 180 U/L (38-126); Anion Gap 4 mmol/L (8-16); Aspartate Amino Transferase 35 U/L (14-36); Bilirubin,Total 0.4 mg/dL (0.2-1.3); Blood Urea Nitrogen 14 mg/dL (7-17); Calcium 8.2 mg/dL (8.4-10.2); Carbon Dioxide 26 mmol/L (22-30); Chloride 108 mmol/L (98-107); Estimated CRCL calculation 80 ml/min; Estimated Glomerular Filt Rate > 60; Glucose 99 mg/dL (65-110); Partial Thromboplastin Time 32.7 SECONDS (22.3-36.8); Potassium 3.8 mmol/L (3.4-5.0); Sodium 138 mmol/L (137-145)
[2022-06-14] MEDS: ACETAMINOPHEN 500 MG TABLET 1000 MG PO (21:30)
[2022-06-14 21:31] VITALS: BP 134/75; PULSE 63; RESP 18; O2SAT 100
[2022-06-14 22:34] LABS: Add Urine Microscopic? YES; Appearance Urine Clear (Clear); Bilirubin Urine Negative (Negative); Blood Urine 3+ (Negative); Color Urine Light Yellow (Yellow); Glucose Urine UA Negative (Negative); Ketones Urine Negative (Negative); Leukocyte Esterase Ur Trace LEU/UL (Negative); Nitrate Urine Negative (Negative); Protein Urine Trace mg/dL (Negative); Urobilinogen Urine 0.2 mg/dL (<2.0); pH Urine 6.5 (5.0-9.0)
[2022-06-14 22:41] VITALS: BP 149/67; PULSE 59; RESP 18; O2SAT 99
[2022-06-14 22:41] LABS: Mucus Urine Rare /lpf; RBC Urine 51-75 /hpf (0-2); Squamous Epithelial Cell Urine Few /hpf (Few); WBC Urine 16-20 /hpf
--- NOTE | 2022-06-14 23:58 | ED.EXTPRO ---
HPI - Extremity Problem General Chief complaint: Extremity Problem,Nontraumatic Stated complaint: DVT in left leg - on Warfarin and Lovenox Time Seen by Provider: 06/14/22 20:40 History of Present Illness HPI Narrative: Patient is a 31-year-old female who presents ER with concerns for possible extension of a DVT. Diagnosed with popliteal DVT left lower extremity on 06/12/22. Currently taking warfarin and is on Lovenox. She is post follow-up to have an INR level tomorrow. She reports her PCP will not manage her INR for her. She has had some mild headache intermittently over the last couple days. Reports history of chronic hypertension which improved during until it started to increase and she had to be delivered. No chest pain or chest pressure. No exertional dyspnea. No pain with deep breaths. No new swelling in the leg but there is a small knot that is developed over the left lateral calf that has her concerned. Her OB is Dr. Eric Younger. Related Data Home Medications Medication Instructions Recorded Confirmed cetirizine 10 mg tablet (Zyrtec) 10 mg PO DAILY PRN Allergy Symptoms 06/09/22 06/13/22 omeprazole 20 mg capsule,delayed 20 mg PO DAILY 06/09/22 06/13/22 release Allergies Allergy/AdvReac Type Severity Reaction Status Date / Time No Known Allergies Allergy Verified 06/14/22 20:12 Review of Systems Review of Systems: All systems reviewed & are unremarkable except as noted in HPI and below Constitutional: Constitutional: Denies chills, Denies fatigue and Denies fever(s) ENT: Denies nasal congestion and Denies sore throat Cardiovascular: Cardiovascular: Denies chest pain, Denies rapid heart rate and Denies radiating jaw, neck or arm pain Respiratory: Respiratory: Denies cough and Denies dyspnea Gastrointestinal: Gastrointestinal: Denies abdominal pain, Denies nausea and Denies vomiting Musculoskeletal: Musculoskeletal: Denies arthralgias and Denies joint swelling Comments: knot in left calf. Neurologic: Reports headache(s), Denies focal weakness and Denies numbness PMFSH Past Medical History Medical History (Updated 06/15/22 @ 00:35 by Frederick Wilkins MD) Deep venous thrombosis of left popliteal vein Heart murmur Presumed benign flow murmur. Mild obstructive sleep apnea Polycystic ovarian syndrome induced hypertension Surgical History Surgical History (Updated 06/12/22 @ 23:45 by Adelia Ventura PA-C) History of cholecystectomy (2018) History of nasal polypectomy Family History Family History Grandparent History of blood clots grandmother, grandfather FH: kidney cancer Diabetes mellitus grandmother Family history of malignant neoplasm Family history of malignant neoplasm of breast Cirrhosis of liver Family history of lung cancer Hypertension Cerebrovascular accident Parkinson disease Father Family history of cardiac disorder Mother Endometriosis Social History Social History (Updated 06/12/22 @ 23:46 by Adelia Ventura PA-C) Social History: Surrogate medical decision maker: Doe Maeay, spouse. Code status: Full code. Smoking status: Former smoker Tobacco type: cigarettes Second hand tobacco smoke exposure: No Smoking end date: 06/27/15 Alcohol intake: never Substance use: never Substance use type: marijuana Last use: 5 years ago Lack of Transportation: No Lack of Food: Never True Current Housing: I Have Housing Concerned About Future Housing: No Difficulty Paying Gas/Electric Bills: No Difficulty Paying for Meds: No Currently Unemployed: YES Education: High School Diploma/GED Difficulty w/ Childcare or Family Care: YES Additional living arrangements comments: Lives with in 4 children in [place]. Spiritual care concerns: No Exam Narrative: GENERAL: Well-appearing, well-nourished, and in no acu
[2022-06-15 00:14] VITALS: BP 115/70; PULSE 62; RESP 18; O2SAT 98
[2022-06-15 00:49] VITALS: BP 139/74; PULSE 66; RESP 16; O2SAT 98
== END 2022-06-15 00:50 | disposition home or self-care (01) ==
PROVIDERS: Emergency Provider Emergency Medicine
DX: I80.02 Phlebitis and thrombophlebitis of superficial vessels of left lower extremity (principal); R79.1 Abnormal coagulation profile; I10 Essential (primary) hypertension; G47.33 Obstructive sleep apnea (adult) (pediatric); E28.2 Polycystic ovarian syndrome; Z87.891 Personal history of nicotine dependence; Z86.718 Personal history of other venous thrombosis and embolism; Z79.01 Long term (current) use of anticoagulants
CPT/HCPCS: 36415; 80053; 81001; 85025; 85610; 85730; 87086; 87088; 93971; 99284; A9270

== ENCOUNTER 2022-06-25 23:19 | Emergency (ER) | payer OTHER, SELFPAY ==
[2022-06-25 23:25] VITALS: PULSE 57; RESP 16; TEMP 36.8; O2SAT 98
[2022-06-25 23:36] VITALS: BP 184/97; PULSE 65; RESP 20; O2SAT 100
[2022-06-25 23:47] VITALS: BP 176/94; PULSE 52; RESP 17; O2SAT 99
--- NOTE | 2022-06-25 23:50 | PC.NURSE ---
pt states she is 2 weeks post- and has salgado and nausea. states bp has been elevated today. also states she is currently taking lovenox and coumadin for bilateral DVT. states she took both doses of labetalol but bp remains elevated. denies any cp or sob.
--- NOTE | 2022-06-26 00:01 | ECG_ITS ---
Measurements Intervals [place] Rate: 53 P: 44 SC: 151 QRS: 9 QRSD: 86 T: 52 QT: 453 QTc: 427 Interpretive Statements SINUS BRADYCARDIA DELAYED PRECORDIAL R/S TRANSITION BORDERLINE T WAVE ABNORMALITY- ANTERIOR LEADS BORDERLINE ECG NO PREVIOUS ECG AVAILABLE FOR COMPARISON Electronically Signed On 06-27-2022 7:25:41 SURGICAL INSTRUMENT MAKER by iKn Dhillon D.O.
--- NOTE | 2022-06-26 00:18 | ED.GENADULT ---
HPI - General Adult General Chief complaint: Recheck/Abnormal Lab/Rx Stated complaint: hypertension Time Seen by Provider: 06/25/22 23:40 Source: patient and RN notes reviewed Mode of arrival: ambulatory Limitations: no limitations History of Present Illness HPI narrative: This is a 31 year old female who is 2 weeks who presents for evaluation of hypertension. She has been taking labetolol 200 mg BID for her hypertension. She has noticed today that her blood pressure has been systolic 180s. She also reports frontal headache with nausea that has been present all day. She denies chest pain, abdominal pain, sob, leg swelling. She has taken her medication as prescribed. She took tylenol 1000mg for her headache 2 hours ago . She reports her pain was 4/10. She states her blood pressure since her has been running in 140s and 150s. She called Dr. Eric Younger who recommended that patient come to ER for evaluation. Related Data Home Medications Medication Instructions Recorded Confirmed cetirizine 10 mg tablet (Zyrtec) 10 mg PO DAILY PRN Allergy Symptoms 06/09/22 06/13/22 omeprazole 20 mg capsule,delayed 20 mg PO DAILY 06/09/22 06/13/22 release Allergies Allergy/AdvReac Type Severity Reaction Status Date / Time No Known Allergies Allergy Verified 06/14/22 20:12 [facility] Past Medical History Medical History (Updated 06/26/22 @ 02:58 by Deanna Garza MD) Deep venous thrombosis of left popliteal vein Heart murmur Presumed benign flow murmur. Mild obstructive sleep apnea Polycystic ovarian syndrome induced hypertension Surgical History Surgical History (Updated 06/12/22 @ 23:45 by Adelia Ventura PA-C) History of cholecystectomy (2018) History of nasal polypectomy Family History Family History Grandparent History of blood clots grandmother, grandfather FH: kidney cancer Diabetes mellitus grandmother Family history of malignant neoplasm Family history of malignant neoplasm of breast Cirrhosis of liver Family history of lung cancer Hypertension Cerebrovascular accident Parkinson disease Father Family history of cardiac disorder Mother Endometriosis Social History Social History (Updated 06/12/22 @ 23:46 by Adelia Ventura PA-C) Social History: Surrogate medical decision maker: Doe Juárez, spouse. Code status: Full code. Smoking status: Former smoker Tobacco type: cigarettes Second hand tobacco smoke exposure: No Smoking end date: 06/27/15 Alcohol intake: never Substance use: never Substance use type: marijuana Last use: 5 years ago Lack of Transportation: No Lack of Food: Never True Current Housing: I Have Housing Concerned About Future Housing: No Difficulty Paying Gas/Electric Bills: No Difficulty Paying for Meds: No Currently Unemployed: YES Education: High School Diploma/GED Difficulty w/ Childcare or Family Care: YES Additional living arrangements comments: Lives with in 4 children in [place]. Spiritual care concerns: No Exam Const: General: healthy appearing, no acute distress and alert Nutritional Appearance: well nourished Orientation/consciousness: patient oriented x3 Limitations: no limitations HENMT: Head: normal to inspection Face/Nose/Sinus: Normal external nose present Face and sinus: normal facial exam Mouth: Yes Normal oral and palatal mucosa present Teeth and gingiva: dentition normal Throat: posterior oropharynx normal Eyes: Conjunctivae: conjunctivae normal Pupils: Equal, round and reactive pupils present EOM: EOMs intact bilaterally Neck: Neck: normal visual inspection Chest: Chest palpation & inspection: normal inspection of the chest Resp: Effort & Inspection: normal respiratory effort Auscultation: clear to auscultation bilaterally Cardio: Rate: regular rate Rhythm: regular rhythm
[2022-06-26] MEDS: hydrALAZINE HCL 20 MG/ML VIAL 10 MG IV PUSH ×2 (00:28→01:59)
[2022-06-26 00:29] VITALS: BP 182/89; PULSE 51; RESP 16; O2SAT 100
[2022-06-26 00:31] LABS: Basophils Percent Auto 0.5 % (0.2-1.2); Eosinophils Absolute Auto 0.1 K/mm3 (0-0.3); Eosinophils Percent Auto 1.1 % (0-4.4); Hematocrit 38.4 % (37.0-47.0); Hemoglobin 12.4 g/dL (12.0-15.0); Immature Granulocyte Absolute 0.01 K/mm3 (0.00-0.031); Immature Granulocyte Percent A 0.2 % (0-0.5); Lymphocytes Absolute Auto 2.63 K/mm3 (0.9-3.2); Lymphocytes Percent Auto 40.8 % (18.3-44.2); Mean Corpuscular HGB Conc 32.3 g/dl (32-36); Mean Corpuscular Hemoglobin 29.6 pg (26-34); Mean Corpuscular Volume 91.6 fl (80-100); Mean Platelet Volume 9.3 fl (7.4-10.4); Monocytes Absolute Auto 0.7 K/mm3 (0.1-0.6); Monocytes Percent Auto 10.4 % (2.6-8.5); Platelet Count Result 259 k/mm3 (150-375); Red Blood Count 4.19 M/mm3 (4.2-5.4); White Blood Count 6.5 K/mm3 (4.5-10.0)
[2022-06-26 00:39] VITALS: BP 176/84; PULSE 52
[2022-06-26 00:42] LABS: Alanine Aminotransferase 60 U/L (6-35); Albumin Level 3.8 g/dL (3.5-5.1); Alkaline Phosphatase 150 U/L (38-126); Anion Gap 4 mmol/L (8-16); Aspartate Amino Transferase 48 U/L (14-36); Bilirubin,Total 0.5 mg/dL (0.2-1.3); Blood Urea Nitrogen 12 mg/dL (7-17); Calcium 8.6 mg/dL (8.4-10.2); Carbon Dioxide 28 mmol/L (22-30); Chloride 104 mmol/L (98-107); Estimated CRCL calculation 76 ml/min; Estimated Glomerular Filt Rate > 60; Glucose 94 mg/dL (65-110); Sodium 136 mmol/L (137-145)
[2022-06-26 00:49] LABS: Magnesium 1.9 mg/dL (1.6-2.3)
[2022-06-26 00:50] LABS: Lactate Dehydrogenase 195 U/L (120-246)
[2022-06-26 00:53] LABS: Add Urine Microscopic? YES; Appearance Urine Clear (Clear); Bilirubin Urine Negative (Negative); Blood Urine 1+ (Negative); Color Urine Yellow (Yellow); Glucose Urine UA Negative (Negative); Ketones Urine Negative (Negative); Leukocyte Esterase Ur 1+ LEU/UL (Negative); Nitrate Urine Negative (Negative); Protein Urine Negative (Negative); Specific Grav Ur 1.015 (1.001-1.035); Urobilinogen Urine 0.2 mg/dL (<2.0)
[2022-06-26 00:57] LABS: Bacteria Urine Trace /hpf; Mucus Urine Rare /lpf; Squamous Epithelial Cell Urine Rare /hpf (Few)
[2022-06-26 01:19] LABS: INR 1.2; Prothrombin Time 15.1 Seconds (11.1-14.7)
[2022-06-26 01:20] LABS: Partial Thromboplastin Time 42.9 SECONDS (22.3-36.8)
[2022-06-26 01:50] VITALS: BP 169/81; PULSE 60
[2022-06-26 02:18] VITALS: BP 139/74; PULSE 61
[2022-06-26 03:12] VITALS: BP 136/74; PULSE 61; RESP 16
== END 2022-06-26 03:15 | disposition home or self-care (01) ==
PROVIDERS: Emergency Provider General Practice
DX: O13.5 Gestational [pregnancy-induced] hypertension without significant proteinuria, complicating the puerperium (principal); O99.355 Diseases of the nervous system complicating the puerperium; G47.33 Obstructive sleep apnea (adult) (pediatric); O99.285 Endocrine, nutritional and metabolic diseases complicating the puerperium; E28.2 Polycystic ovarian syndrome; O99.893 Other specified diseases and conditions complicating puerperium; R00.1 Bradycardia, unspecified; Z87.891 Personal history of nicotine dependence; R94.31 Abnormal electrocardiogram [ECG] [EKG]
CPT/HCPCS: 36415; 80053; 81001; 83615; 83735; 84550; 85025; 85610; 85730; 87077; 87086; 87088; 93005; 96374; 96376; 99284; J0360

== ENCOUNTER 2022-07-23 08:52 | Outpatient (CLI) | payer OTHER, SELFPAY ==
[2022-07-23 12:45] LABS: Prothrombin Time 12.4 Seconds (11.1-14.7)
== END 2022-07-23 08:53 | disposition home or self-care (01) ==
LOC: ANHLAB 08:53
PROVIDERS: Internal Medicine Hematology & Oncology; Visit Provider Internal Medicine Hematology & Oncology
DX: O87.1 Deep phlebothrombosis in the puerperium (principal)
CPT/HCPCS: 36415; 85610

== ENCOUNTER 2022-09-20 13:35 | Outpatient (CLI) | payer OTHER, SELFPAY ==
--- NOTE | ~2022-09-20 | US_ITS ---
EXAMINATION: US venous doppler [facility] DATE: 09/20/2022 14:14 INDICATION: Left lower limb deep vein thrombosis. TECHNIQUE: Grayscale ultrasound images without and with compression and Doppler ultrasound images of the left lower extremity veins were obtained. COMPARISON: Ultrasound 06/14/2022 FINDINGS: The visualized portions of left common femoral vein, profunda (deep) femoral vein, femoral vein, popl iteal vein, peroneal veins, posterior tibial veins, and greater saphenous vein outflow are patent. IMPRESSION: 1. No deep venous thrombosis. Reviewed, dictated and finalized at location [facility].
--- NOTE | ~2022-09-20 | CT_ITS ---
EXAMINATION: CT abdomen pelvis wo con DATE: 09/20/2022 14:01 INDICATION: Lost IUD TECHNIQUE: Computed tomography (CT) of the abdomen and pelvis was performed without intravenous contr ast. The dose-length product (DLP) was 801.89 mGy-cm. Automated exposure control and iterative recons truction technique were employed. COMPARISON: None FINDINGS: The lung bases are clear. The heart size is normal. The gallbladder is surgically absent. T he liver, spleen, pancreas, and adrenal glands are normal. The kidneys are unremarkable. No pathologi luís enlarged abdominal or pelvic lymph nodes are identified. No free intraperitoneal gas or evidenc e of bowel obstruction. The IUD is displaced from the uterus and is present in the left pelvis abutti ng the proximal aspect of the left internal iliac artery. IMPRESSION: 1. Extrauterine position of the IUD in the left pelvis. Reviewed, dictated and finalized at location [facility].
== END 2022-09-20 13:36 | disposition home or self-care (01) ==
PROVIDERS: PCP Nurse Practitioner Family; Visit Provider Internal Medicine Hematology & Oncology
DX: O87.1 Deep phlebothrombosis in the puerperium (principal)
CPT/HCPCS: 74176; 93971

== ENCOUNTER 2022-10-04 10:00 | Outpatient (CLI) | payer OTHER, SELFPAY ==
[2022-10-04 10:42] LABS: Prothrombin Time 12.8 Seconds (11.1-14.7)
== END 2022-10-04 10:01 | disposition home or self-care (01) ==
PROVIDERS: PCP Nurse Practitioner Family; Visit Provider Obstetrics & Gynecology
DX: I82.432 Acute embolism and thrombosis of left popliteal vein (principal); T83.32XA Displacement of intrauterine contraceptive device, initial encounter
CPT/HCPCS: 36415; 85610; 86850; 86900; 86901

== ENCOUNTER 2022-10-08 00:54 | Day surgery (SDC) | payer OTHER, SELFPAY ==
[2022-09-29 15:46] VITALS: BMI 34.5
--- NOTE | 2022-09-29 16:14 | PC.NURSE ---
Report to the Outpatient Waiting Room, entrance under the green pavilion located off [facility], at time _1400 on date _10/08/22. Planned Procedure Time: 1600 Time changes happen often and if your time is changed the preop area will call you the afternoon before. - You and your visitor will be asked to self-screen and do not enter if you have any COVID symptoms. - Only one visitor is requested with a max of two and NO children visitors are allowed at this time. - The patient visitor may be requested to leave or wait in car when not with patient due to distancing restrictions. - A mask is optional within the hospital at this time. Patients may have clear liquids (water, carbonated beverages, clear teas, apple juice) until 3 hours prior to surgery with a maximum of 20 ounces. - No food from midnight until time of surgery - Infants may have breast milk until 4 hours before surgery, formula 6 hours prior to surgery. - Children will be allowed to drink immediately following surgery. If applicable, please bring a bottle or sippy cup to assist with drinking. Juice, water, soda, and popsicles are readily available. For infants on formula, please bring formula the day of surgery. Pacifiers are allowed. Take the following medications with a SIP of water the morning of surgery: _zyrtec__ DO NOT STOP ANY OF YOUR OTHER PRESCRIPTION MEDICATIONS PRIOR TO SURGERY ?EXCEPT THE FOLLOWING Medications to discontinue per physician _karrie(pt seeing dr about medication this week) Date to take last dose Please no make-up, nail sa[place]ian, hairspray, perfume, deodorant, or body powder the day of surgery. No jewelry (including any body piercings) or valuables the day of surgery, leave them at home. Please take a shower or bath the night before, or the morning of, surgery with an antibacterial soap. Wear comfortable, loose fitting clothing. Children are encouraged to wear pajamas. - Jewelry must be removed prior to entering the operating room. Rings and piercings that are not removed may be cut off. - The hospital will not accept responsibility for valuables. - Please leave all valuables, including medications, at home the day of surgery. If you are going home after surgery, a licensed driver license reviewing officer must drive you home. - NO public transportation without another adult if you receive anesthesia. - We recommend that an adult stay with you for 24 hours following discharge. - We also recommend that you do not drive, make important decision, drink alcoholic beverages, or take any drugs that were not prescribed by your health care provider for at least 24 hours after your discharge time. For Pediatric surgeries, we recommend two adults accompany the child home. Follow any additional instructions given to you from your surgeon. If you or anyone in your household have experienced Covid symptoms in the past week, please notify your surgeon or the nurse liaison at the phone number below for possible testing. Telephone instructions given to Barby Juárez and asked if any additional questions and then verbalized understanding. Patient advised to call surgeon office or pre surgery nurse liaison [phone] if any additional questions.
--- NOTE | 2022-10-05 13:20 | PM.IMHP ---
H&P: HPI History of Present Illness Date/Time: 10/05/22 13:20 Chief Complaint: Permanent sterilization and removal of ectopic IUD Narrative: This 31-year-old female a long history of difficult obstetric complications who is admitted for laparoscopic removal of the lost IUD as well as removal of both tubes. Her recent was complicated by DVT and she recently stopped Eliquis. She has also had hypertension and difficulty caring pregnancies she understands this to be a permanent irreversible procedure. Risks and benefits reviewed in great detail. She had all questions answered. She asked to proceed PMF Past Medical History Medical History Deep venous thrombosis of left popliteal vein Heart murmur Presumed benign flow murmur. Mild obstructive sleep apnea Polycystic ovarian syndrome induced hypertension Surgical History Surgical History History of cholecystectomy (2018) History of nasal polypectomy Family History Family History Grandparent History of blood clots grandmother, grandfather FH: kidney cancer Diabetes mellitus grandmother Family history of malignant neoplasm Family history of malignant neoplasm of breast Cirrhosis of liver Family history of lung cancer Hypertension Cerebrovascular accident Parkinson disease Father Family history of cardiac disorder Mother Endometriosis Social History Social History Social History: Surrogate medical decision maker: Doe Maeay, spouse. Code status: Full code. Smoking packs per day: 0.5 Smoking cigarettes per day: 10.0 Years smoked: 8 Smoking pack-years: 4.00 Smoking status: Former smoker Tobacco type: cigarettes Second hand tobacco smoke exposure: No Smoking end date: 06/27/15 Alcohol intake: never Substance use: never Substance use type: marijuana Last use: 5 years ago Lack of Transportation: No Lack of Food: Never True Current Housing: I Have Housing Concerned About Future Housing: No Difficulty Paying Gas/Electric Bills: No Difficulty Paying for Meds: No Currently Unemployed: YES Education: High School Diploma/GED Difficulty w/ Childcare or Family Care: YES Living arrangements: with family Additional living arrangements comments: Lives with in 4 children in [place]. Spiritual care concerns: No Meds Home Medications and Allergies Home Medications Medication Instructions Recorded Confirmed Type cetirizine 10 mg tablet (Zyrtec) 10 mg PO DAILY PRN Allergy Symptoms 06/09/22 09/29/22 History omeprazole 20 mg capsule,delayed 20 mg PO DAILY 06/09/22 09/29/22 History release apixaban 5 mg tablet (Eliquis) 5 mg PO DAILY 09/29/22 09/29/22 History norethindrone (contraceptive) 0.35 0.35 mg PO DAILY 09/29/22 09/29/22 History mg tablet Allergies Allergy/AdvReac Type Severity Reaction Status Date / Time No Known Allergies Allergy Verified 06/14/22 20:12 Exam Const: General: cooperative, healthy appearing, comfortable and overweight Orientation/consciousness: oriented to person, oriented to place and oriented to time HENMT: Head: normal to inspection Resp: Effort & Inspection: normal respiratory effort Cardio: Rate: regular rate Rhythm: regular rhythm Heart sounds: S1 normal heart sound present and S2 normal heart sound present GI: Inspection: normal to inspection Auscultation: normal bowel sounds : External Female Exam: normal external appearance Speculum Exam - Vagina: normal appearance of the vagina Speculum Exam - Cervix: normal appearance of the cervix Bimanual exam- vagina & uterus: enlarged Bimanual Exam- Adnexa, other: normal adnexae Assessment and Plan Assessment and plan (1) Sterilizatio
--- NOTE | 2022-10-07 10:47 | WPDANESEPPF ---
Anes - Initial Pre Proc Eval Procedure: Operation Date: 10/08/22 16:00 Proposed Procedures p Laparoscopic Removal of Intrauterine Device with Bilateral Salpingectomy - Doe Younger MD Date/Time: 10/07/22 10:47 Surgeon: Doe Younger MD Pre Op Diagnosis: Lost IUD & Desires Sterilization Patient Data Age: 31 Gender: F Height: 1.55 m Weight: 83 kg Allergies Allergy/AdvReac Type Severity Reaction Status Date / Time No Known Allergies Allergy Verified 10/08/22 13:41 Home Medications Medication Instructions Recorded Confirmed Type cetirizine 10 mg tablet (Zyrtec) 10 mg PO DAILY PRN Allergy Symptoms 06/09/22 10/08/22 History omeprazole 20 mg capsule,delayed 20 mg PO DAILY 06/09/22 10/08/22 History release apixaban 5 mg tablet (Eliquis) 5 mg PO DAILY 09/29/22 10/08/22 History norethindrone (contraceptive) 0.35 0.35 mg PO DAILY 09/29/22 10/08/22 History mg tablet hydrocodone 5 mg-acetaminophen 325 1 tablet PO Q4H PRN pain #20 tabs 10/08/22 Rx mg tablet Patient hx anesthesia problems: none Family hx anesthesia problems: none Results Review: All pre-operative results and documents have been reviewed as part of the pre-operative evaluation. [facility] Past Medical History Medical History (Updated 10/07/22 @ 10:48 by Tony Basurto DO) Anxiety Asthma Deep venous thrombosis of left popliteal vein Depression Heart murmur Presumed benign flow murmur. Hyperlipidemia Hypertension Mild obstructive sleep apnea GABE (obstructive sleep apnea) Polycystic ovarian syndrome induced hypertension Surgical History Surgical History History of cholecystectomy (2018) History of nasal polypectomy Family History Family History Grandparent History of blood clots grandmother, grandfather FH: kidney cancer Diabetes mellitus grandmother Family history of malignant neoplasm Family history of malignant neoplasm of breast Cirrhosis of liver Family history of lung cancer Hypertension Cerebrovascular accident Parkinson disease Father Family history of cardiac disorder Mother Endometriosis Social History Social History Social History: Surrogate medical decision maker: Doe Juárez, spouse. Code status: Full code. Smoking packs per day: 0.5 Smoking cigarettes per day: 10.0 Years smoked: 8 Smoking pack-years: 4.00 Smoking status: Former smoker Tobacco type: cigarettes Second hand tobacco smoke exposure: No Smoking end date: 06/27/15 Alcohol intake: never Substance use: never Substance use type: marijuana Last use: 5 years ago Lack of Transportation: No Lack of Food: Never True Current Housing: I Have Housing Concerned About Future Housing: No Difficulty Paying Gas/Electric Bills: No Difficulty Paying for Meds: No Currently Unemployed: YES Education: High School Diploma/GED Difficulty w/ Childcare or Family Care: YES Living arrangements: with family Additional living arrangements comments: Lives with in 4 children in [place]. Spiritual care concerns: No Anes - Eval Final PreProcedure Day of Procedure 10/07/22 10:47 Patient weight: obese Heart: regular rate and rhythm Lungs: clear to auscultation Airway: Mallampati scale class III Neurological: alert and oriented Last oral intake: >/= 8 hours ASA classification: III Emergent: no Anesthetic plan: proceed Anesthesia type and monitoring: general ETT and standard monitoring Results Review: All pre-operative results and documents have been reviewed as part of the pre-operative evaluation. Informed Consent: The patient's anesthetic plan and its attendant risks and benefits were discussed with the patient/family/POA. Questions were solicited and answers provid
[2022-10-08] VITALS (12 sets, daily range): BP systolic 112–146; BP diastolic 66–81; PULSE 58–103; RESP 15–20; TEMP 36.6–37.1; O2SAT 97–100
--- NOTE | 2022-10-08 06:27 | WPDHPUPDATE1 ---
History and Physical Update Update Date/Time: 10/08/22 06:27 History and Physical has been reviewed, including an updated exam of the patient. There are NO changes in the patient's condition. Risks, benefits, and alternatives have been discussed and questions answered. Patient agrees to proceed with procedure.
[2022-10-08] MEDS: ACETAMINOPHEN 500 MG TABLET 1000 MG PO (13:48)
[2022-10-08] MEDS: LACTATED RINGERS 1,000 ML 30 ML IV CONT ×2 (13:53→16:55)
[2022-10-08] MEDS: KETOROLAC 15 MG/ML VIAL (*BKC) IV PUSH (13:55)
--- NOTE | 2022-10-08 16:44 | P.OP_ITS ---
Procedure Note - Detailed Date of Procedure 10/08/22 Pre-op Diagnosis Lost IUD & Desires Sterilization Post-op Diagnosis Same Procedure Performed Laparoscopic removal of ectopic IUD/bilateral salpingectomy Surgeon Doe Younger MD Anesthesia General Indications this is a 31-year-old multiparous female desires sterilization with an IUD that was noted by imaging outside the uterus. Findings The IUD was outside the left fallopian tube retrieved easily. Description of Procedure Patient was prepped draped in the normal sterile fashion placed in lithotomy position. Under excellent trach anesthesia weighted speculum placed in posterior fornix. Anterior lip of the cervix grasped with single-tooth tenaculum and the Gutierrez's cannula inserted the cervix attached to the single- tooth. These were used later for uterine manipulation. Bladder was emptied of [id number] of urine. The remainder the instruments removed from the vagina and the gloves were changed. A supraumbilical incision made the Veress needle passed in the abdomen. Abdomen filled with CO2 gas to 15 the 5mm trocar advanced with the Optiview under direct visualization assuring injury. Patient placed in Trendelenburg and a suprapubic incision made. The 5mm trocar advanced in the abdomen and the suprapubic area under direct visualization assuring no left lower quadrant incision made the 5mm trocar under direct visualization assuring injury. The fallopian tube the was left was noted to have extruded the IUD. This was removed through the left lower quadrant without difficulty in piece. The next step was to remove the fallopian tubes. These were sharply dissected using LigaSure it from ovary until it reached the base the uterus and then cross burned and removed through the right lower quadrant incision this was repeated on the contralateral side like fashion. Photo documentation was undertaken. Blood loss estimated 5cc the gas was released from the abdomen. The trocars removed and the incision s closed with 4-0 Monocryl glue. Instruments removed from vagina. Patient went to recovery in satisfactory condition. All sponge, needle, instrument counts were correct. There were no immediate complications Estimated Blood Loss 5 Drains No Packing No Pathology Yes Complications No immediate complications Condition Stable Disposition PACU
--- NOTE | 2022-10-08 19:12 | SUR.PHASEI ---
At about 1900 RN paged and called Dr. Eric Younger's phone in regards to a vaginal cream he prescribed to patient on Tuesday.
== END 2022-10-08 19:57 | disposition home or self-care (01) ==
PROVIDERS: PCP Nurse Practitioner Family; Visit Provider Obstetrics & Gynecology
PROC: (CPT 49320; principal; 2022-10-08 16:00)
DX: T83.32XA Displacement of intrauterine contraceptive device, initial encounter (principal); Z30.2 Encounter for sterilization; Y84.8 Other medical procedures as the cause of abnormal reaction of the patient, or of later complication, without mention of misadventure at the time of the procedure; N83.8 Other noninflammatory disorders of ovary, fallopian tube and broad ligament; G47.33 Obstructive sleep apnea (adult) (pediatric); Z79.891 Long term (current) use of opiate analgesic; Z86.718 Personal history of other venous thrombosis and embolism; Z87.891 Personal history of nicotine dependence; E66.9 Obesity, unspecified; Z68.34 Body mass index [BMI] 34.0-34.9, adult
CPT/HCPCS: 58661; 88302; A9270; J0330; J1100; J1885; J2250; J2405; J2704; J3010; J7030; J7120

== ENCOUNTER 2022-11-16 13:14 | Outpatient (CLI) | payer OTHER, SELFPAY ==
--- NOTE | ~2022-11-16 | US_ITS ---
EXAMINATION: US venous doppler [facility] DATE: 11/16/2022 13:45 INDICATION: Acute deep vein thrombosis of left lower extremity. TECHNIQUE: Grayscale ultrasound images without and with compression and Doppler ultrasound images of the left lower extremity veins were obtained. COMPARISON: Ultrasound 08/23/2022 FINDINGS: The visualized portions of left common femoral vein, profunda (deep) femoral vein, femoral vein, popl iteal vein, peroneal veins, posterior tibial veins, and greater saphenous vein outflow are patent. IMPRESSION: 1. No deep venous thrombosis. Reviewed, dictated and finalized at location A.
== END 2022-11-16 13:15 | disposition home or self-care (01) ==
PROVIDERS: PCP Nurse Practitioner Family; Visit Provider Internal Medicine Hematology & Oncology
DX: I82.4Y2 Acute embolism and thrombosis of unspecified deep veins of left proximal lower extremity (principal)
CPT/HCPCS: 93971

== ENCOUNTER 2023-07-28 11:08 | Outpatient (CLI) | payer OTHER, SELFPAY ==
[2023-07-28 11:28] LABS: Basophils Percent Auto 0.3 % (0.2-1.2); Eosinophils Absolute Auto 0.1 K/mm3 (0-0.3); Eosinophils Percent Auto 0.8 % (0-4.4); Hematocrit 37.6 % (37.0-47.0); Hemoglobin 12.3 g/dL (12.0-15.0); Immature Granulocyte Absolute 0.01 K/mm3 (0.00-0.031); Immature Granulocyte Percent A 0.1 % (0-0.5); Lymphocytes Absolute Auto 1.89 K/mm3 (0.9-3.2); Lymphocytes Percent Auto 24.5 % (18.3-44.2); Mean Corpuscular HGB Conc 32.7 g/dl (32-36); Mean Corpuscular Hemoglobin 28.5 pg (26-34); Mean Corpuscular Volume 87.2 fl (80-100); Mean Platelet Volume 9.1 fl (7.4-10.4); Monocytes Absolute Auto 0.6 K/mm3 (0.1-0.6); Monocytes Percent Auto 7.9 % (2.6-8.5); Neutrophils Absolute Auto 5.1 K/mm3 (1.3-6.7); Neutrophils Percent Auto 66.4 % (45.5-73.1); Platelet Count Result 206 k/mm3 (150-375); Red Blood Count 4.31 M/mm3 (4.2-5.4); Red Cell Distribution Width 11.8 % (11.5-14.5); White Blood Count 7.7 K/mm3 (4.5-10.0)
[2023-07-28 11:41] LABS: Alanine Aminotransferase 42 U/L (6-35); Albumin Level 4.2 g/dL (3.5-5.1); Alkaline Phosphatase 100 U/L (38-126); Anion Gap 7 mmol/L (8-16); Aspartate Amino Transferase 40 U/L (14-36); Bilirubin,Total 1.1 mg/dL (0.2-1.3); Blood Urea Nitrogen 13 mg/dL (7-17); Calcium 9.4 mg/dL (8.4-10.2); Carbon Dioxide 30 mmol/L (22-30); Chloride 103 mmol/L (98-107); Estimated Glomerular Filt Rate > 60; Glucose 96 mg/dL (65-110); Potassium 4.1 mmol/L (3.4-5.0); Sodium 140 mmol/L (137-145)
== END 2023-07-28 11:09 | disposition home or self-care (01) ==
LOC: ANHLAB 11:09
PROVIDERS: PCP Family Medicine; Visit Provider Physician Assistant Medical
DX: E78.2 Mixed hyperlipidemia (principal); F41.9 Anxiety disorder, unspecified; R53.83 Other fatigue
CPT/HCPCS: 36415; 80053; 84443; 85025

== ENCOUNTER 2024-09-04 19:02 | Emergency (ER) | payer OTHER, SELFPAY ==
--- NOTE | ~2024-09-04 | CT_ITS ---
CT Facial Bones Clinical Indication: Facial swelling Technique: Following intravenous administration of 75 cc of Omnipaque 350 contrast material, axial sc ans were obtained through the facial bones followed by coronal and sagittal reconstructions. Dose red uction technique was used on this scan by utilizing automated exposure control and iterative reconstr uction technique. The dose-length product (DLP) was 500.07 mGy-cm. Findings: No fractures are identified. The visualized paranasal sinuses are clear. Intraorbital soft tissues appear normal. Probable mild inflammatory/edematous change along the right side of the mandible Impression: Probable mild inflammatory/edematous change along the right side of the mandible the soft tissues, no nspecific. This could reflect nonspecific infectious/inflammatory process. No abscess. Reviewed, dictated and finalized at location . Impression: Probable mild inflammatory/edematous change along the right side of the mandibl e the soft tissues, nonspecific. This could reflect nonspecific infectious/infl ammatory process. No abscess.
--- OUTSIDE RECORDS SUMMARY | 2024-09-04 19:05 | XMS_ITS | Clinical Summary ---
Author Organization [facility] Address [address] [place] [phone] Phone Care Team Providers Care Physiology Teacher Name Role Phone Unavailable Primary Care Provider Unavailabl e Allergies Active Allergy Reactions Criticality Noted Date Comments Amoxicillin Nausea and Vomiting Low 06/24/2022 Medications cetirizine (ZyrTEC) 10 mg tablet Take 10 mg by mouth daily. Active omeprazole (PriLOSEC) 20 mg Capsule, Delayed Release(E.C.) 04/21/2022 Activ e Kyleena 17.5 mcg/24 hrs (5 yrs) 19.5 mg IUD 07/08/2022 Ac tive NIFEdipine (ADALAT CC) 30 mg Extended Release tablet 07/03/2022 Acti ve Eliquis 5 mg tablet TAKE ONE (1) TABLET (5 MG) BY MOUTH TWO (2) TIMES DAILY. 60 Tablet 2 10/18/2022 Active Active Problems Problem Noted Date Diagnosed Date deep vein thrombosis 06/25/2022 Family History Medical History Relation Name Comments No Known Problems Brother 1 Heart murmur Brother 2 No Known Problems Daughter Diabetes Father Heart murmur Father DVT Mother No Known Problems Son 1 No Known Problems Son 2 No Known Problems Son 3 Relation Name Status Comments Brother 1 Alive Brother 2 Alive Daughter Alive Father Alive Mother Alive Son 1 Alive Son 2 Alive Son 3 Alive Social History Tobacco Use Types Packs/Day Years Used Date Smoking Tobacco: Former Cigarettes 0.5 2 0 06/27/2011 - 06/27/2013 Smokeless Tobacco: Never Tobacco Cessation:Counseling Given: Not Answered Alcohol Use Standard Drinks/Week Comments Never 0 (1 standard drink = 0.6 oz pur e alcohol) Comments Unknown Sex and Gender Information Value Date Recorded Sex Assigned at Not on file Legal Sex Female 12:09 PM CDT Gender Identity Not on file Sexual Orientation Not on file Last Filed Vital Signs Vital Sign Reading Time Taken Comments Blood Pressure 135/82 10/01/2022 12:44 PM CDT Pulse 77 10/01/2022 12:44 PM CDT Temperature 36.6 C (97.8 F) 10/01/2022 12:44 PM CDT Respiratory Rate 10 10/01/2022 12:44 PM CDT Oxygen Saturation 100% 10/01/2022 12:44 PM CDT Inhaled Oxygen Concentration - - Weight 82.1 kg (181 lb) 10/01/2022 12:44 PM CDT Height 154.9 cm (5' 1 ) 06/24/2022 3:50 PM TABLE FILLER Body Mass Index 34.2 06/24/2022 3:50 PM TABLE FILLER Plan of Treatment Health Maintenance Due Date Last Done Comments HEPATITIS B VACCINES (1 of 3 - 19+ 3-dose series) 2009 CERVICAL CANCER SCREENING 2020 INFLUENZA VACCINE (#1) 2024 5, 05/07/2014 DTAP/TDAP/TD VACCINES (2 - Td or Tdap) 09/09/2026 09/09/2016 HPV VACCINES Aged Out No longer eligi ble based on patient's age to complete this topic [id number]
--- OUTSIDE RECORDS SUMMARY | 2024-09-04 19:05 | XMS_ITS | Referral Summary ---
Author Organization [facility] Address [address] [place] [address] Care Team Providers Care Cone Machine Feeder Name Role Phone Heron Cavazos MD Unavailable [phone] Shanelle Ramirez MD Primary Care Provider [phone] Encounters Date Type Department Care Team Description 08/30/2024 Telephone [facility] [address] [place] [address] Mirta Astorga, TERRENCE 08/23/2024 Telephone [facility] Gastroenterology at [address] [place] [address] Vannesa Camacho Colonoscopy Wait List 08/21/2024 Telephone [facility] Gastroenterology at [address] [place] [address] Vannesa Camacho Colonoscopy Reschedule 08/13/2024 Results Follow-Up [facility] Gastroenterology at [address] [place] [address] Juan Francisco Rhoades NP 08/13/2024 Results Follow-Up [facility] Gastroenterology at [address] [place] [address] Juan Francisco Rhoades NP 08/09/2024 Telephone [facility] Gastroenterology at [address] [place] [address] Ashleigh Quiñonez MA 08/09/2024 Telephone [facility] [address] [place] [address] Modesto Olmstead RN 08/08/2024 12:45 PM PACKAGE REINSPECTOR Lab [address] Elevated sed rate 08/08/2024 Orders Only [facility] Gastroenterology at [address] [place] [address] Juan Francisco Rhoades NP Elevated sed rate (Primary Dx) 08/08/2024 Telephone [facility] Gastroenterology at [address] [place] [address] Jack London MA 08/08/2024 9:25 AM PACKAGE REINSPECTOR Lab [address] Flatulence; Gastroesophageal reflux disease without esophagitis; Nausea without vomiting; Irritable bowel syndrome with both constipation and diarrhea; Hepatic steatosis; Family history of cirrhosis of liver 08/08/2024 9:10 AM PACKAGE REINSPECTOR Lab [address] Abnormal prolactin level 08/08/2024 11:30 AM PACKAGE REINSPECTOR - 08/08/2024 11:59 PM PACKAGE REINSPECTOR Hospital Encounter [address] [address] Galactorrhea Discharge Disposition: Discharge to home or self care 08/08/2024 10:28 AM PACKAGE REINSPECTOR - 08/08/2024 11:59 PM PACKAGE REINSPECTOR Hospital Encounter [address] [address] Galactorrhea Discharge Disposition: Discharge to home or self care 08/08/2024 8:15 AM PACKAGE REINSPECTOR Office Visit [facility] Gastroenterology at [address] [place] [address] Bilderback, Juan Francisco Nicole, LAST PICKER BRBPR (bright red blood per rectum) (Primary Dx); Irritable bowel syndrome with both constipation and diarrhea; Flatulence; Hepatic steatosis; Family history of cirrhosis of liver; Internal hemorrhoids; Gastroesophageal reflux disease without esophagitis; Nausea without vomiting; Pelvic congestion syndrome 08/05/2024 9:04 PM PACKAGE REINSPECTOR - 08/06/2024 12:01 AM PACKAGE REINSPECTOR Emergency [facility] Emergency Department [address] [place] [address] Ml Hickey MD Lower GI bleed (Primary Dx); Abdominal pain Discharge Disposition: Discharge to home or self care 07/23/2024 Telephone [facility] [address] [place] [address] Nirmala Hair MA Successful Phone Call (AWV SCHEDULING) 07/18/2024 [facility] [address] [address] Neha Acosta MA Test Results (Request for Lab results. ) 07/18/2024 10:00 AM PACKAGE REINSPECTOR Ancillary Procedure [address], [place] [address] Pelvic and perineal pain 07/16/2024 Telephone [facility] [address] [place] [address] Modesto Olmstead RN 07/03/2024 3:15 PM PACKAGE REINSPECTOR Lab [address] Galactorrhea 07/03/2024 2:00 PM PACKAGE REINSPECTOR Office Visit [address] [address] Carson Mi MD Well woman exam (Primary Dx); Pelvic congestion syndrome; Galactorrhea; Pelvic and perineal pain; PMS (premenstrual syndrome) from Last 3 Months Allergies No known active allergies Medications PROzac 10 mg tablet/capsule 06/08/20 24 Active senna 8.6 mg tablet 07/09/19 25 Active hydrocortisone (ANUSOL-HC) 25 mg suppository Insert 1 suppository (25 mg total) into the rectum 2 (two) times a day as needed for hemorrhoids (Rectal bleeding) 24 suppository 3 08/08/19 25 Active Active Problems Problem Noted Date Diagnosed Date Rectal bleeding 08/08/2024 History of gestational hypertension 0 07/29/2024 Pelvic congestion syndrome 02/17/2024 Assessment & Plan (03/08/2024 3:06 PM CDT): CT and her history consistent with pelvic congestion syndrome. I discussed the importance of further evaluation by her vp organizational development to rule out any gynecological causes of her symptoms otherwise I do think venography with possible intervention if all other gynecologic reasons has been ruled out would be appropriate. She will call to schedule another appointment with me after she has seen her vp organizational development. Varicose veins of leg with pain, left 12/21/2023 Assessment & Plan (03/08/2024 3:08 PM CDT): Left lower extremity CEAP C3 disease with symptomatic varicosities despite compression therapy. No evidence of reflux in the great saphenous vein however there is an accessory saphenous vein with reflux for which I do think she would benefit from intervention. We will discuss further after further evaluation of her pelvic congestion syndrome. Assessment & Plan (12/22/2023 1:54 PM CDT): Impression: Patient complains of pain to left lower extremity associated with varicose veins since her last . She reports varicose veins that extend to her labia. She reports discomfort with direct contact to her labia. She also reports painful intercourse and with prolong sitting. She states a history of DVT to her left lower extremities 3 days after delivery and was placed on Eliquis. She has varicosities to her right upper thigh extending to right later calf. Unable to perform a vulvar exam due to patient on her menstrual cycle. Plan: Prescription for compression stockings 20-30 mm Hg given to patient. - Recommend venous duplex for further evaluation. - Recommend CTA abdomen/pelvis with venous phase for further evaluation of pelvic congestion. - Follow up in 4 weeks to review results. Irritable bowel syndrome with diarrhea Internal hemorrhoids 09/14/2023 Family history of cirrhosis of liver 09/14/2023 Cardiac murmur 11/24/2022 Secondary hypercoagulable state 07/15/2022 Overview (06/14/2023): Eliquis 5 mg bid for dvt Last Assessment & Plan: Condition: stable Follow up in: if symptoms worsen or fail to improve Eliquis 5 mg bid for dvt Last Assessment & Plan: Condition: stable Follow up in: if symptoms worsen or fail to improve deep vein thrombosis 06/25/2022 GERD (gastroesophageal reflux disease) Overview (06/14/2023): Last Assessment & Plan: Condition: stable Reviewed use of antacid medication and/or diet modifications of decreasing caffeine, spicy foods, chocolate, and avoiding alcohol, tobacco, NSAIDs, and reducing citrus acids. Follow up in: if symptoms worsen or fail to improve Recurrent major depressive disorder, in partial remission 02/20/2022 Overview (06/14/2023): Currently not taking medications due to concerns with . Recommended discussing symptoms with HEALTH DATA ADMINISTRATOR at next visit scheduled 02/22/2022 Last Assessment & Plan: Condition: stable No recent mental health visit. Advised to follow up Medications: Not currently being managed with medications If taking medications, do not stop treatment without consulting healthcare provider. If symptoms worsen or do not improve/stabilize, notify health care provider right away. If thoughts of harming self or others notify health care provider immediately &/or seek urgent/emergent care including calling Suicide Hotline (397 or ) or 751. Follow up in if symptoms worsen or fail to improve with Psychologist/Counselor/SupportGroup/Psychiatrist and PCP Sensorineural hearing loss (SNHL) of both ears 0 02/19/2022 Assessment & Plan (09/05/2023 9:36 AM CDT): Call to arrange Hearing test Assessment & Plan (02/19/2022 9:20 AM CDT): Hearing and Balance testing after Delivery [facility] Continue Zyrtec 64 ounces of caffeine free and soda free fluid daily Check blood pressure when having dizziness Dizziness and giddiness 02/19/2022 Assessment & Plan (02/19/2022 9:20 AM CDT): Hearing and Balance testing after [facility] Continue Zyrtec 64 ounces of caffeine free and soda free fluid daily Check blood pressure when having dizziness Seasonal allergic rhinitis due to pollen 022 Overview (06/14/2023): Last Assessment & Plan: Condition: stable Follow up in: if symptoms worsen or fail to improve Last Assessment & Plan: Hearing and Balance testing after [facility] Continue Zyrtec 64 ounces of caffeine free and soda free fluid daily Check blood pressure when having dizziness Last Assessment & Plan: Condition: stable Follow up in: if symptoms worsen or fail to improve Assessment & Plan (09/05/2023 9:33 AM CDT): Flonase 2 sprays into each nostril while looking down over the sink, do not sniff in or blow nose after use for at least 30 minutes daily For at least one month Finish left sided dental work 64 ounces of caffeine free and soda free fluid daily Warm compresses to left side of face when ear fullness occurs CT head: 06/2022: Sinuses and middle ear and mastoid ear were clear, mild left nasal septum spurring Assessment & Plan (02/19/2022 9:20 AM CDT): Hearing and Balance testing after [facility] Continue Zyrtec 64 ounces of caffeine free and soda free fluid daily Check blood pressure when having dizziness Diverticulosis of colon 07/13/2021 Overview (06/14/2023): Last Assessment & Plan: Condition: stable Follow up in: if symptoms worsen or fail to improve COVID-19 virus infection 06/20/2021 Nausea and vomiting 06/20/2021 Hepatic steatosis 06/09/2021 Overview (06/14/2023): Last Assessment & Plan: Condition: stable Follow up in: if symptoms worsen or fail to improve Last Assessment & Plan: Advised weight loss Last Assessment & Plan: Condition: stable Follow up in: if symptoms worsen or fail to improve Assessment & Plan (06/09/2021 2:00 PM PACKAGE REINSPECTOR): Advised weight loss Essential hypertension 02/16/2018 Overview (06/14/2023): Last Assessment & Plan: Condition: stable Discussed target blood pressure. Continue medication as prescribed from PCP/specialist. Take medications at the same time every day. Lifestyle modification advised: DASH diet, reduce stress/anxiety, discussed health weight management, activity as tolerated or advised from PCP, try to avoid alcohol and nicotine. Follow up in: if symptoms worsen or fail to improve Asthma 09/06/2016 Overview (06/14/2023): Reports not using inhalers due to concerns Advised to follow up if symptoms develop Last Assessment & Plan: Condition: stable Reviewed trigger avoidance and reviewed proper use of inhalers and rescue medications. Reviewed concerning signs/symptoms and ER precautions. Follow up in: if symptoms worsen or fail to improve Resolved Problems Problem Noted Date Diagnosed Date Resolved Date Severe pre-eclampsia, 07/01/2022 07/29/2024 Right upper quadrant abdominal pain 06/09/2021 09/14/2022 Assessment & Plan (06/09/2021 2:00 PM PACKAGE REINSPECTOR): Increase dietay fiber and try Levsin SL prn Palpitations 05/02/2019 09/14/2022 Obesity (BMI 30.0-34.9) 09/06/201608/26 Immunizations Immunization Administration Dates Next Due Influenza, Quadrivalent, Spl it, Preservative Free, Intramuscular 05/07/2014 Influenza, Trivalent, Preser vative Free, Intramuscular 04/27/2015 Influenza, Unspecified 09/24/2022(Deferr ed: Patient Refused),06/14/2022(Deferred: Patient Refused) Tdap 09/09/2016 Social History Tobacco Use Types Packs/Day Years Used Date Smoking Tobacco: Former Cigarettes Smokeless Tobacco: Never Tobacco Cessation:Counseling Given: Not Answered Social Connection and Isolat ion Panel [NHANES] Answer Date Recorded In a typical week, how many times do you talk on the phone with family, friends, or neighbors? More than three times a week 07/02/2022 How often do you get togethe r with friends or relatives? More than three times a week 07/02/2022 How often do you attend chur ch or jain services? Never 07/02/2022 Do you belong to any clubs o r organizations such as anabaptism groups, unions, fraternal or athletic groups, or school groups? No 07/02/2022 How often do you attend meet ings of the clubs or organizations you belong to? Never 07/02/2022 Are you , , di vorced, , never , or living with a partner? 07/02/2022 AUDIT-C Answer Date Recorded Q1: How often do you have a drink containing alc ohol? Never 02/17/2024 Average Number of Drinks Not on file 024 Frequency of Binge Drinking Not on file 01/26 Overall Financial Resource Strain (CARDIA) Answe r Date Recorded How hard is it for you to pa y for the very basics like food, housing, medical care, and heating? Not very hard 07/02/2022 PHQ-2 Answer Date Recorded PHQ-2 Total Score (If total score is 3 or more points, staff should administer the PHQ-9) 0 12/07/2022 Hunger Vital Sign Answer Date Recorded Within the past 12 months, y ou worried that your food would run out before you got the money to buy more. Never true 07/02/19 23 Within the past 12 months, t he food you bought just didn't last and you didn't have money to get more. Never true 07/02/2022 PRAPARE - Transportation Answer Date Re corded In the past 12 months, has l ack of transportation kept you from medical appointments or from getting medications? No 11/2022 In the past 12 months, has l ack of transportation kept you from meetings, work, or from getting things needed for daily living? No 07/02/2022 Housing Stability Vital Sign Answer [place] Recorded In the last 12 months, was t here a time when you were not able to pay the mortgage or rent on time? No 07/02/2022 Number of Places Lived in the Last Year Not on f ile 07/02/2022 In the last 12 months, was t here a time when you did not have a steady place to sleep or slept in a chcf (including now)? No 07/02/2022 Personal Safety Answer Date Recorded Have you ever been in or are you currently in a harmful physical or emotional relationship or is someone making you feel afraid or unsafe? Denies 08/05/2024 Comments No Sex and Gender Information Value Date Recorded Sex Assigned at Not on file Legal Sex Female 7:56 PM CDT Gender Identity Not on file Sexual Orientation Not on file Last Filed Vital Signs Vital Sign Reading Time Taken Comments Blood Pressure 131/85 08/08/2024 8:16 AM PACKAGE REINSPECTOR Pulse 81 08/08/2024 8:16 AM PACKAGE REINSPECTOR Temperature 36.8 C (98.3 F) 08/05/2024 6:11 PM PACKAGE REINSPECTOR Respiratory Rate 16 08/05/2024 9:58 PM PACKAGE REINSPECTOR Oxygen Saturation 95% 08/08/2024 8:16 AM PACKAGE REINSPECTOR Inhaled Oxygen Concentration - - Weight 91.3 kg (201 lb 4.8 oz) 08/08/2024 8:16 A M PACKAGE REINSPECTOR Height 154.9 cm (5' 1 ) 08/08/2024 10:40 AM PACKAGE REINSPECTOR Body Mass Index 38.04 08/08/2024 8:16 AM PACKAGE REINSPECTOR Plan of Treatment Upcoming Encounters Date Type Department Care Team (Late st Contact Info) Description 09/18/2024 1:30 PM CDT Hospital Encounter [facility] [address] [place] [address] Marleni Ruvalcaba MD [address] [facility] [address] [place] [address] 09/18/2024 1:30 PM CDT - 09/18/2024 2:00 PM CDT Surgery [facility] [address] [place] [address] Marleni Ruvalcaba MD 4 [facility] [address] [place] [address] COLONOSCOPY Scheduled Procedures Name Priority Associated Diagnoses Date/Ti me COLONOSCOPY Rectal bleeding 09/18/2024 1:30 PM CDT Procedures Procedure Name Priority Date/Time Associated Diagnosis Comments CALPROTECTIN, FECAL Routine 08/08/2024 1 2:40 PM PACKAGE REINSPECTOR Elevated sed rate US BREAST BILATERAL LIMITED Schedule Routine, Read Routine (OP Routine) 08/08/2024 12:07 PM PACKAGE REINSPECTOR Galactorrhea DIAGNOSTIC MAMMOGRAM BILATERAL W ANGELA Schedule Routine, Read Routine (OP Routine) 08/08/2024 10:48 AM PACKAGE REINSPECTOR Galactorrhea TISSUE TRANSGLUTAMINASE, IGA Routine 08/08/2024 9:13 AM PACKAGE REINSPECTOR EGFR Routine 08/08/2024 9:13 AM PACKAGE REINSPECTOR Hepatic steatosis Family history of cirrhosis of liver DIFFERENTIAL AUTO Routine 08/08/2024 9:1 3 AM PACKAGE REINSPECTOR Hepatic steatosis Family history of cirrhosis of liver FIBRO TEST-ACTI TEST Routine 08/08/2024 9:13 AM PACKAGE REINSPECTOR Hepatic steatosis CBC WITH AUTO DIFFERENTIAL Routine 08/08/2024 9:13 AM PACKAGE REINSPECTOR Hepatic steatosis Family history of cirrhosis of liver COMPREHENSIVE METABOLIC PANEL Routine 08/08/2024 9:13 AM PACKAGE REINSPECTOR Hepatic steatosis Family history of cirrhosis of liver THYROID FUNCTION CASCADE Routine 08/08/2024 9:13 AM PACKAGE REINSPECTOR Hepatic steatosis Family history of cirrhosis of liver ERYTHROCYTE SEDIMENTATION RATE Routine 08/08/2024 9:13 AM PACKAGE REINSPECTOR Hepatic steatosis Family history of cirrhosis of liver CRP (ACUTE PHASE) Routine 08/08/2024 9:1 3 AM PACKAGE REINSPECTOR Hepatic steatosis Family history of cirrhosis of liver CELIAC REFLEX PANEL Routine 08/08/2024 9 :13 AM PACKAGE REINSPECTOR Irritable bowel syndrome with both constipation and diarrhea Flatulence Nausea without vomiting PROLACTIN Routine 08/08/2024 9:13 AM PACKAGE REINSPECTOR Abnormal prolactin level H. PYLORI BREATH TEST Routine 08/08/2024 9:10 AM PACKAGE REINSPECTOR Flatulence Gastroesophageal reflux disease without esophagitis Nausea without vomiting CT ABDOMEN PELVIS W CONTRAST ED 08/05/2024 10:15 PM PACKAGE REINSPECTOR URINALYSIS AND REFLEX TO MICROSCOPIC AND CULTURE STAT 08/05/2024 9:51 PM PACKAGE REINSPECTOR POCT HCG, URINE Routine 08/05/2024 9:49 PM PACKAGE REINSPECTOR EGFR STAT 08/05/2024 6:29 PM PACKAGE REINSPECTOR MANUAL DIFFERENTIAL STAT 08/05/2024 6 :29 PM PACKAGE REINSPECTOR LIPASE STAT 08/05/2024 6:29 PM PACKAGE REINSPECTOR COMPREHENSIVE METABOLIC PANEL STAT 08/05/2024 6:29 PM PACKAGE REINSPECTOR CBC WITH AUTO DIFFERENTIAL STAT 08/05/2024 6:29 PM PACKAGE REINSPECTOR US PELVIS W ENDOVAGINAL Routine 07/18/2024 11:40 AM PACKAGE REINSPECTOR Pelvic and perineal pain PROLACTIN Routine 07/03/2024 3:17 PM PACKAGE REINSPECTOR Galactorrhea PAP AND HPV, REFLEX TO HPV GENOTYPES Routine 07/03/2024 3:04 PM PACKAGE REINSPECTOR Well woman exam from Last 3 Months Results * Calprotectin, fecal (08/08/2024 12:40 PM PACKAGE REINSPECTOR) Calprotectin, fecal <50.0 <50.0 (Normal) mcg/g [place] [facility] Comment: Test Performed by: [facility] [address] [id number] Media Technician: Bere Damon Ph.D.; CLIA# [id number] Stool 08/08/2024 12:4 0 PM PACKAGE REINSPECTOR 08/08/2024 1:45 PM PACKAGE REINSPECTOR Juan Francisco Rhoades LAST PICKER LAB BODY FLUIDS AND STOOLS ORDERABLES Final Result [facility]) 1 [facility] [place] [address] [place] [facility] * US BREAST LIMITED BILATERAL (08/08/2024 12:07 PM PACKAGE REINSPECTOR) Anatomical Region Laterality Modality Breast Bilateral Ultrasound 08/08/2024 1:17 PM PACKAGE REINSPECTOR Impressions 08/08/2024 1:17 PM PACKAGE REINSPECTOR No mammographic or sonographic evidence of malignancy. Bilateral nipple discharge is likely physiologic in nature. OVERALL FINAL ASSESSMENT: BI-RADS Category 2: Benign. RECOMMENDATION: Continued clinical follow-up is recommended. Unless earlier screening is clinically indicated, recommend annual screening mammography beginning at 40 years of age. Electronically signed by: Jovanna Cross M.D. Narrative 08/08/2024 1:17 PM PACKAGE REINSPECTOR EXAMINATION: BILATERAL DIGITAL DIAGNOSTIC MAMMOGRAM INCLUDING CAD AND BILATERAL DIGITAL BREAST TOMOSYNTHESIS; BILATERAL BREAST SONOGRAM HISTORY: Bilateral milky nipple discharge spontaneous. Focal left breast pain COMPARISON: 08/20/2021 TECHNIQUE: Full field digital mammographic views of BOTH breasts were performed, including computer aided detection (CAD) and BILATERAL digital breast tomosynthesis (DBT). Directed ultrasound evaluation of BOTH breasts was performed. BREAST PARENCHYMAL COMPOSITION: There are scattered areas of fibroglandular density. MAMMOGRAM FINDINGS: A marker is placed at site of the focal left breast pain. No mammographic abnormalities appreciated associated with the marker. No focal abnormalities appreciated in the subareolar tissues. There is no dominant densities or suspicious microcalcifications bilaterally. SONOGRAM FINDINGS: Targeted right breast ultrasound was performed in the region of interest. Few mildly dilated ducts are identified in the retroareolar tissues with no solid lesions appreciated. Targeted left breast ultrasound was performed in the region of interest. Per the patient, focal left breast pain correlates as the 12 o'clock position 5 cm from the nipple. No sonographic abnormalities appreciated. Sonographic interrogation of the retroareolar tissues demonstrates mild dilated ducts without evidence of a solid lesion. Carson Mi MD IMG MAMMO PROCEDURES Final Result * DIAGNOSTIC MAMMOGRAM BILATERAL W ANGELA (08/08/2024 10:48 AM PACKAGE REINSPECTOR) Anatomical Region Laterality Modality Breast Bilateral Mammography 08/08/2024 1:17 PM PACKAGE REINSPECTOR Impressions 08/08/2024 1:17 PM PACKAGE REINSPECTOR No mammographic or sonographic evidence of malignancy. Bilateral nipple discharge is likely physiologic in nature. OVERALL FINAL ASSESSMENT: BI-RADS Category 2: Benign. RECOMMENDATION: Continued clinical follow-up is recommended. Unless earlier screening is clinically indicated, recommend annual screening mammography beginning at 40 years of age. Electronically signed by: Jovanna Cross M.D. Narrative 08/08/2024 1:17 PM PACKAGE REINSPECTOR EXAMINATION: BILATERAL DIGITAL DIAGNOSTIC MAMMOGRAM INCLUDING CAD AND BILATERAL DIGITAL BREAST TOMOSYNTHESIS; BILATERAL BREAST SONOGRAM HISTORY: Bilateral milky nipple discharge spontaneous. Focal left breast pain COMPARISON: 08/20/2021 TECHNIQUE: Full field digital mammographic views of BOTH breasts were performed, including computer aided detection (CAD) and BILATERAL digital breast tomosynthesis (DBT). Directed ultrasound evaluation of BOTH breasts was performed. BREAST PARENCHYMAL COMPOSITION: There are scattered areas of fibroglandular density. MAMMOGRAM FINDINGS: A marker is placed at site of the focal left breast pain. No mammographic abnormalities appreciated associated with the marker. No focal abnormalities appreciated in the subareolar tissues. There is no dominant densities or suspicious microcalcifications bilaterally. SONOGRAM FINDINGS: Targeted right breast ultrasound was performed in the region of interest. Few mildly dilated ducts are identified in the retroareolar tissues with no solid lesions appreciated. Targeted left breast ultrasound was performed in the region of interest. Per the patient, focal left breast pain correlates as the 12 o'clock position 5 cm from the nipple. No sonographic abnormalities appreciated. Sonographic interrogation of the retroareolar tissues demonstrates mild dilated ducts without evidence of a solid lesion. us Carson Mi MD IM MAMMO PROCEDURES Final Result * Fibro Test-Acti Test (08/08/2024 9:13 AM PACKAGE REINSPECTOR) FibroTest Score 0.02 [facility] Lab FibroTest Stage F0 [facility] ([place]) FibroTest Interpretation no fibrosis [facility] ([place]) Comment: FibroTest estimates liver fibrosis FibroTest Score Stage Interpretation 0.00-0.21 F0 no fibrosis 0.21-0.27 F0-F1 no fibrosis 0.27-0.31 F1 minimal fibrosis 0.31-0.48 F1-F2 minimal fibrosis 0.48-0.58 F2 moderate fibrosis 0.58-0.72 F3 advanced fibrosis 0.72-0.74 F3-F4 advanced fibrosis 0.74-1.00 F4 severe fibrosis (Cirrhosis) ActiTest Score 0.13 [facility] ([place]) ActiTest Grade A0 [facility] ([place]) ActiTest Interpretation no activity [facility] MONTER[facility] ([place]) Comment: ActiTest estimates necroinflammatory activity ActiTest Score Grade Interpretation 0.00-0.17 A0 no activity 0.17-0.29 A0-A1 no activity 0.29-0.36 A1 minimal activity 0.36-0.52 A1-A2 minimal activity 0.52-0.60 A2 significant activity 0.60-0.62 A2-A3 significant activity 0.62-1.00 A3 severe activity FibroTest-ActiTest Comment See Comment [facility] ([place]) Comment: The reliability of results is dependent on compliance with the preanalytical and analytical conditions recommended by [employer]. The tests have to be deferred for: acute hemolysis, acute hepatitis, acute inflammation, extra hepatic cholestasis. The advice of a specialist should be sought for interpretation in chronic hemolysis and Gilbert's syndrome. The test interpretation is not validated in liver transplant patients. Isolated extreme values of one of the components should lead to caution in interpreting the results. In case of discordance between a biopsy result and a test, it is recommended to seek advice of a specialist. The causes of these discordances could be due to a flaw of the test or to a flaw in the biopsy: i.e. a liver biopsy has a 33% variability rate for one fibrosis stage. FibroTest is interpretable for chronic hepatitis B and C, alcoholic and non alcoholic steatosis. ActiTest is interpretable for chronic hepatitis B and C. ADDITIONAL INFORMATION This test was developed and its performance characteristics determined by [facility] in a manner consistent with CLIA requirements. This test has not been cleared or approved by the U.S. Food and Drug Administration. payleven Serial Number [id number] [facility] ([place]) APOLIPOPROTEIN A1 151 >=140 mg/dL [facility] ([place]) Ytyea-3-Qaehjfbuvjmga, Ser 108 100 - 280 mg/dL [facility] ([place]) Haptoglobin, S 197 30 - 200 mg/dL [facility] ([place]) Alanine Aminotransferase (ALT), S 35 7 - 45 Units/L [facility] ([place]) Gamma Glutamyltransferase (GGT), S 16 5 - 36 Units/L [facility] ([place]) Bilirubin, Total, S 0.5 0.0 - 1.2 mg/dL [facility] ([place]) Comment: Test Performed by: [facility] [address] [address] Media Technician: Bere Damon Ph.D.; CLIA# [id number] Test Performed by: [facility] [address] [place] [address] Media Technician: Bere Damon Ph.D.; CLIA# [id number] Blood 08/08/2024 9:13 AM PACKAGE REINSPECTOR 08/08/2024 10:14 AM PACKAGE REINSPECTOR [facility] Nicole [facility]the [facility] LAB BLOOD ORDERABLE S Final Result ADDIS MONTERO ([place]) 1 [facility] [place] [address] [place] [facility] * eGFR (08/08/2024 9:13 AM PACKAGE REINSPECTOR) eGFR >90 >=60 mL/min/1. 73 m2 Comment: Interpretive Data Reference Interval Normal >/= 90 mL/min/1.73m2 Mildly decreased* 60 - 89 mL/min/1.73m2 Mildly to moderately decreased 45 - 59 mL/min/1.73m2 Moderately to severely decreased 30 - 44 mL/min/1.73m2 Severely decreased 15 - 29 mL/min/1.73m2 Kidney Failure < 15 mL/min/1.73m2 *Relative to young adult level Estimated glomerular filtration rate is determined by the 2020 CKD-EPI equation recommended by the National Kidney Foundation (A Unifying Approach to GFR Estimation: Recommendations of the NKF-ASK Task Force on Reassessing the Inclusion of Race in Diagnosing Kidney Disease, JASN 2020). The CKD-EPI equation should not be used for patients with unstable renal function and has not been validated in children and those over 70. Current interpretive data was last reviewed 2021. Blood 08/08/2024 9:13 AM PACKAGE REINSPECTOR 08/08/2024 10:14 AM PACKAGE REINSPECTOR Juan Franciscodragan Rivera Biljadthe [facility] LAB BLOOD ORDERABLE S Final Result ADDIS MONTERO ([place]) 1 [facility] [place] [address] * Differential, auto (08/08/2024 9:13 AM PACKAGE REINSPECTOR) Neutrophil abs 5.2 1.5 - 6.5 K/cumm Imm gran abs 0.0 0.0 - 0.1 K/cumm [facility] ([place]) Lymphocyte abs 2.6 0.8 - 3.3 K/cumm [facility] ([place]) Monocyte abs 0.5 0.2 - 0.8 K/cumm [facility] ([place]) Eosinophil abs 0.1 0.0 - 0.5 K/cumm [facility] ([place]) Basophil abs 0.0 0.0 - 0.1 K/cumm [facility] ([place]) Neutrophil pct 61.5 % [facility] ([place]) Comment: Interpretive Data Percent cell count reference ranges are not reported, since discordance with absolute values may lead to misinterpretation of CBC data. Current Interpretive Data was last revised on 2017. Imm gran pct 0.5 % [facility] ([place]) Comment: Interpretive Data Percent cell count reference ranges are not reported, since discordance with absolute values may lead to misinterpretation of CBC data. Current Interpretive Data was last revised on 2017. Lymphocyte pct 30.5 % [facility] ([place]) Comment: Interpretive Data Percent cell count reference ranges are not reported, since discordance with absolute values may lead to misinterpretation of CBC data. Current Interpretive Data was last revised on 2017. Monocyte pct 6.2 % [facility] ([place]) Comment: Interpretive Data Percent cell count reference ranges are not reported, since discordance with absolute values may lead to misinterpretation of CBC data. Current Interpretive Data was last revised on 2017. Eosinophil pct 1.1 % [facility] ([place]) Comment: Interpretive Data Percent cell count reference ranges are not reported, since discordance with absolute values may lead to misinterpretation of CBC data. Current Interpretive Data was last revised on 2017. Basophil pct 0.2 % [facility] ([place]) Comment: Interpretive Data Percent cell count reference ranges are not reported, since discordance with absolute values may lead to misinterpretation of CBC data. Current Interpretive Data was last revised on 2017. Blood 08/08/2024 9:13 AM PACKAGE REINSPECTOR 08/08/2024 10:14 AM PACKAGE REINSPECTOR [facility] IreneNicole Arm[facility] LAB BLOOD ORDERABLE S Final Result ADDIS MONTERO ([place]) 1 [facility] [place] [address] * Thyroid Function [place] (08/08/2024 9:13 AM PACKAGE REINSPECTOR) Pathologist [facility] TSH 1.61 0.30 - 4.20 mcIUnit/mL Blood 08/08/2024 9:13 AM PACKAGE REINSPECTOR 08/08/2024 10:14 AM PACKAGE REINSPECTOR [facility] BLOOD ORDERABLE S Final Result Performing Organization Address City/[facility] de Phone Number ADDIS MONTERO ([place]) 1 [facility] [place] [address] * CBC with auto differential (08/08/2024 9:13 AM PACKAGE REINSPECTOR) WBC 8.5 3.8 - 9.9 K/cumm Hgb 13.3 11.9 - 15.5 g/dL [facility] Hct 39.9 35.6 - 45.5 % [facility] Plt 224 150 - 400 K/cumm [facility] ([place]) MPV 9.2 9.1 - 12.3 fL [facility] ([place]) RBC 4.67 3.90 - 5.20 M/cumm [facility] ([place]) MCV 85.4 81.3 - 96.4 fL [facility] ([place]) MCH 28.5 27.1 - 33.3 pg [facility] ([place]) MCHC 33.3 32.3 - 35.7 g/dL [facility] ([place]) RDW CV 11.8 11.1 - 14.9 % [facility] RDW SD 35.8 35.7 - 48.1 fL [facility] ([place]) NRBC abs 0.00 0.00 - 0.01 K/cumm [facility] ([place]) Blood 08/08/2024 9:13 AM PACKAGE REINSPECTOR 08/08/2024 10:14 AM PACKAGE REINSPECTOR [facility] LAB BLOOD ORDERABLE S Final Result Performing Organization Address [facility] de Phone Number ADDIS MONTERO ([place]) 1 [place] [address] * Celiac reflex panel (08/08/2024 9:13 AM PACKAGE REINSPECTOR) Pathologist [facility] IgA 151 61 - 356 mg/dL [place] [facility] Celiac disease interpretation See Comment ADDIS MONTERO ([place]) Comment: See Comment: Negative serology. Celiac disease unlikely. However, approximately 10% of patients with celiac disease are seronegative. Also, patients who are already adhering to a gluten-free diet may be seronegative. If celiac disease is highly clinically suspected, consider HLA-DQ typing. Test Performed by: [place] [address] Media Technician: Bere Damon Ph.D.; CLIA# [id number] Blood 08/08/2024 9:13 AM PACKAGE REINSPECTOR 08/08/2024 10:14 AM PACKAGE REINSPECTOR Juan Francisco Rhoades LAB BLOOD ORDERABLE S Final Result Performing Organization Address [facility] de Phone Number ADDIS MONTERO ([place]) 1 [place] [address] [place] ref [facility] * Tissue transglutaminase IgA (TGG-IgA Ab) (08/08/2024 9:13 AM PACKAGE REINSPECTOR) TTG ab, IgA <1.2 <4.0 (Negative) units/mL Comment: Test Performed by: [place] [address] Media Technician: Bere Damon Ph.D.; CLIA# [id number] Interpretive data Negative: <15 units/mL Positive: > or equal to 15 units/mL Current interpretive data was last revised on 2016. Testing performed by: [facility], [address] [place] [address], [id number] Blood 08/08/2024 9:13 AM PACKAGE REINSPECTOR 08/08/2024 10:14 AM PACKAGE REINSPECTOR Juan Francisco Rhoades [facility] LAB BLOOD ORDERABLE S Final Result [facility] ([place]) 1 [facility] [place] [address] * Prolactin (08/08/2024 9:13 AM PACKAGE REINSPECTOR) Prolactin 17.8 4.8 - 23.3 ng/mL Comment:Testing performed by : [facility], [address] [place] [address], [address] Blood 08/08/2024 9:13 AM PACKAGE REINSPECTOR 08/08/2024 2:49 PM PACKAGE REINSPECTOR Carson Mi MD LAB BLOOD ORDERABLES Final Result Performing Organization Address City/[facility]/ZIP Co de Phone Number [facility] ([place]) 1 [facility] [place] [address] * (ABNORMAL) Erythrocyte sedimentation rate (08/08/2024 9:13 AM PACKAGE REINSPECTOR) Erythrocyte sedimentation rate 48(H) 1 - 20 mm/hr Blood 08/08/2024 9:13 AM PACKAGE REINSPECTOR 08/08/2024 10:14 AM PACKAGE REINSPECTOR Juan Francisco Rhoades [facility] LAB BLOOD ORDERABLE S Final Result [facility] ([place]) 1 [facility] Department [place] [address] * CRP (acute phase) (08/08/2024 9:13 AM PACKAGE REINSPECTOR) CRP 8.2 <=10.0 mg/L Blood 08/08/2024 9:13 AM PACKAGE REINSPECTOR 08/08/2024 10:14 AM PACKAGE REINSPECTOR Juan Francisco Rhoades [facility] LAB BLOOD ORDERABLE S Final Result [facility] ([place]) 1 [facility] [place] [address] * Comprehensive metabolic panel (08/08/2024 9:13 AM PACKAGE REINSPECTOR) Sodium 137 135 - 145 mmol/L Potassium, pl 4.5 3.3 - 4.9 mmol/L [facility] ([place]) Chloride 103 97 - 110 mmol/L [facility] ([place]) CO2 25 22 - 32 mmol/L [facility] ([place]) Anion gap 9 2 - 15 mmol/L [facility] ([place]) BUN 14 6 - 25 mg/dL [facility] ([place]) Creatinine 0.74 0.60 - 1.10 mg/dL [facility] ([place]) Glucose 105 70 - 199 mg/dL [facility] ([place]) Comment: Interpretive Data Fasting glucose >/= 126 mg/dl is diagnostic for diabetes. Fasting is defined as no caloric intake for at least 8 hours. Fasting glucose between 100 mg/dl to 125 mg/dl is diagnostic of prediabetes. In a patient with classic symptoms of hyperglycemia or hyperglycemic crisis, a random glucose >/= 200 mg/dl is diagnostic for diabetes. In the absence of unequivocal hyperglycemia, results should be confirmed by repeat testing. The classification and Diagnosis of Diabetes Diabetes Care 202; 46: S19-S40. Current interpretive data was last revised 2022. Calcium 9.5 8.5 - 10.3 mg/dL [facility] ([place]) Bilirubin, total 0.5 0.1 - 1.2 mg/dL [facility] ([place]) Protein, pl 7.3 6.5 - 8.5 g/dL [facility] ([place]) Albumin 4.4 3.5 - 5.0 g/dL [facility] ([place]) Alk phos 120 40 - 130 Units/L [facility] ([place]) ALT 31 7 - 45 Units/L [facility] ([place]) AST 24 10 - 45 Units/L [facility] ([place]) Blood 08/08/2024 9:13 AM PACKAGE REINSPECTOR 08/08/2024 10:14 AM PACKAGE REINSPECTOR Juan Francisco Rhoades [facility] LAB BLOOD ORDERABLE S Final Result Performing Organization Address [facility] Co de Phone Number ADDIS MONTERO ([place]) 1 [place] [address] * H. pylori breath test (08/08/2024 9:10 AM PACKAGE REINSPECTOR) H. pylori, breath test Negative Negative [place] [facility] Comment: Result indicates the absence of current Helicobacter pylori infection. Test Performed by: [place] [address] Media Technician: Bere Damon Ph.D.; CLIA# [id number] Breath 08/08/2024 9:10 AM PACKAGE REINSPECTOR 08/08/2024 10:13 AM PACKAGE REINSPECTOR [facility]oad[facility] LAB BODY FLUIDS AND STOOLS ORDERABLES Final Result Performing Organization Address [facility] de Phone Number ADDIS MONTERO ([place]) 1 [place] [address] [place] ref [facility] * CT Abdomen Pelvis W Contrast (08/05/2024 10:15 PM PACKAGE REINSPECTOR) Anatomical Region Laterality Modality Body N/A Computed Tomogra phy 08/05/2024 10:5 8 PM PACKAGE REINSPECTOR Narrative 08/05/2024 11:07 PM PACKAGE REINSPECTOR EXAM DESCRIPTION: CT ABDOMEN PELVIS W CONTRAST REASON FOR STUDY: Abdominal pain, acute, nonlocalized Abdominal pain and pressure with bright red rectal bleeding, patient states she has a known internal hemorrhoids but has never had bleeding like this. TECHNIQUE: CT scan of the abdomen and pelvis performed with intravenous and without oral contrast using helical scanning technique with dynamic intravenous contrast injection. Reconstructed coronal and sagittal MPR images reviewed. All images stored on PACS. Automated exposure control was used as a dose optimization technique for this examination. CONTRAST TYPE/DOSE: 100mL of IOVERSOL 350 MG IODINE/ML INTRAVENOUS SYRINGE injected via intravenous COMPARISON: 02/08/2024 FINDINGS: LOWER CHEST: No significant pulmonary abnormalities. No effusion. LIVER: Normal size. No identified cystic or solid masses. GALLBLADDER: Surgically absent. BILE DUCTS: No intrahepatic or extrahepatic ductal dilatation. SPLEEN: Normal size. No focal lesions. PANCREAS: No identified cystic or solid masses. No significant calcifications. No adjacent inflammation or peripancreatic fluid collections. Pancreatic duct not dilated. ADRENALS: Stable 9 mm left adrenal adenoma. The right adrenal gland is normal. KIDNEYS/URINARY TRACT: No identified significant cystic or solid masses. No visualized stones. No hydronephrosis or hydroureter. Symmetric enhancement. Urinary bladder is unremarkable. GI: No dilated bowel loops. No obvious wall thickening. Normal appendix. No significant diverticular disease. PERITONEUM: No ascites or free air. RETROPERITONEUM: No mass or adenopathy. REPRODUCTIVE: No significant abnormality. VASCULATURE: No abdominal aortic aneurysm. MUSCULOSKELETAL: No significant abnormality. OTHER: No other abnormality. IMPRESSION: No acute finding. Stable 9 mm left adrenal adenoma. THIS IS AN ELECTRONICALLY VERIFIED FINAL REPORT 08/05/2024 11:07 PM - Electronically signed by Tony Mosher M.D. KT: PAIGE Report ID: [id number] [place] Location: [id number] Procedure Note Tony Mosher MD - 08/05/2024 EXAM DESCRIPTION: CT ABDOMEN PELVIS W CONTRAST REASON FOR STUDY: Abdominal pain, acute, nonlocalized Abdominal pain and pressure with bright red rectal bleeding, patientstates she has a known internal hemorrhoids but has never had bleeding like this. TECHNIQUE: CT scan of the abdomen and pelvis performed with intravenousand without oral contrast using helical scanning technique with dynamic intravenous contrast injection. Reconstructed coronal and sagittal MPRimages reviewed. All images stored on PACS. Automated exposure control was usedas a dose optimization technique for this examination. CONTRAST TYPE/DOSE: 100mL of IOVERSOL 350 MG IODINE/ML INTRAVENOUSSYRINGE injected via intravenous COMPARISON: 02/08/2024 FINDINGS: LOWER CHEST: No significant pulmonary abnormalities. No effusion. LIVER: Normal size. No identified cystic or solid masses. GALLBLADDER: Surgically absent. BILE DUCTS: No intrahepatic or extrahepatic ductal dilatation. SPLEEN: Normal size. No focal lesions. PANCREAS: No identified cystic or solid masses. No significant calcifications. No adjacent inflammation or peripancreatic fluidcollections. Pancreatic duct not dilated. ADRENALS: Stable 9 mm left adrenal adenoma. The right adrenal gland is normal. KIDNEYS/URINARY TRACT: No identified significant cystic or solid masses.No visualized stones. No hydronephrosis or hydroureter. Symmetricenhancement. Urinary bladder is unremarkable. GI: No dilated bowel loops. No obvious wall thickening. Normalappendix. No significant diverticular disease. PERITONEUM: No ascites or free air. RETROPERITONEUM: No mass or adenopathy. REPRODUCTIVE: No significant abnormality. VASCULATURE: No abdominal aortic aneurysm. MUSCULOSKELETAL: No significant abnormality. OTHER: No other abnormality. IMPRESSION: No acute finding. Stable 9 mm left adrenal adenoma. THIS IS AN ELECTRONICALLY VERIFIED FINAL REPORT 08/05/2024 11:07 PM - Electronically signed by Tony Mosher M.D. KT: PAIGE Report ID: [id number] [place] Location: [place] [address] Ml Hickey MD IMG CT PROCEDURES Final Result * Urinalysis reflex to microscopic and culture Urine (08/05/2024 9:51 PM PACKAGE REINSPECTOR) Color, ur Yellow Yellow Clarity, ur Clear Clear ADDIS Rodriguez ([place]) Specific gravity, ur 1.019 1.003 - 1.030 [facility] ([place]) pH, urine 5.5 ADDIS MONTERO ([place]) Comment: Interpretive Data U rine pH is affected by diet, medications, systemic acid-base disturbances, and renal tubular function. pH may affect urinary stone formation. For example, urine pH below 6.0 may help reduce the tendency for calcium phosphate stones and pH greater than 6.0 may reduce the tendency for uric acid stone formation. Source: [place] [employer] Current Interpretive Data was last revised on 2017 Protein, ur ql Negative Negative [facility] ([place]) Glucose, ur ql Negative Negative [facility] ([place]) Ketones, ur Negative Negative [facility] ([place]) Bilirubin, ur Negative Negative [facility] ([place]) Blood, ur Negative Negative [facility] ([place]) Urobilinogen, ur <2.0 <2.0 mg/dL [facility] ([place]) Nitrite, ur Negative Negative [facility] ([place]) Leukocyte esterase, ur Negative Negative [facility] ([place]) UA reflex comment Reflex conditions for microscopic UA and culture not met. [facility] ([place]) Urine 08/05/2024 9:51 PM PACKAGE REINSPECTOR 08/05/2024 9:54 PM PACKAGE REINSPECTOR Ml Hickey MD LAB MICROBIOLOGY - GENERAL ORDER KASSI Final Result [facility] ([place]) 1 [facility] [place] [address] * POCT hCG, urine (08/05/2024 9:49 PM PACKAGE REINSPECTOR) HCG, ur, POC Negative Negative Lot Number [id number] QC Backgroud Clear Acceptable QC Control Line Acceptable Urine 08/05/2024 9:49 PM PACKAGE REINSPECTOR Ml Hickey MD POINT OF CARE TEST ORDERABLES Fi nal Result * eGFR (08/05/2024 6:29 PM PACKAGE REINSPECTOR) eGFR >90 >=60 mL/min/1. 73 m2 Comment: Interpretive Data Reference Interval Normal >/= 90 mL/min/1.73m2 Mildly decreased* 60 - 89 mL/min/1.73m2 Mildly to moderately decreased 45 - 59 mL/min/1.73m2 Moderately to severely decreased 30 - 44 mL/min/1.73m2 Severely decreased 15 - 29 mL/min/1.73m2 Kidney Failure < 15 mL/min/1.73m2 *Relative to young adult level Estimated glomerular filtration rate is determined by the 2020 CKD-EPI equation recommended by the National Kidney Foundation (A Unifying Approach to GFR Estimation: Recommendations of the NKF-ASK Task Force on Reassessing the Inclusion of Race in Diagnosing Kidney Disease, JASN 2020). The CKD-EPI equation should not be used for patients with unstable renal function and has not been validated in children and those over 70. Current interpretive data was last reviewed 2021. Blood 08/05/2024 6:29 PM PACKAGE REINSPECTOR 08/05/2024 6:42 PM PACKAGE REINSPECTOR us Ml Hickey MD LAB BLOOD ORDERABLES Final Resul t [facility] ([place]) 1 [facility] [place] [address] * (ABNORMAL) CBC with auto differential (08/05/2024 6:29 PM PACKAGE REINSPECTOR) WBC 7.7 3.8 - 9.9 K/cumm Hgb 13.2 11.9 - 15.5 g/dL [facility] ([place]) Hct 39.2 35.6 - 45.5 % [facility] ([place]) Plt 200 150 - 400 K/cumm [facility] ([place]) MPV 9.0(L) 9.1 - 12.3 fL [facility] ([place]) RBC 4.60 3.90 - 5.20 M/cumm [facility] ([place]) MCV 85.2 81.3 - 96.4 fL [facility] ([place]) MCH 28.7 27.1 - 33.3 pg [facility] ([place]) MCHC 33.7 32.3 - 35.7 g/dL [facility] ([place]) RDW CV 11.5 11.1 - 14.9 % [facility] ([place]) RDW SD 35.7 35.7 - 48.1 fL [facility] ([place]) NRBC abs 0.00 0.00 - 0.01 K/cumm [facility] ([place]) Blood Venous blood specimen / Unknown 08/05/2024 6:29 PM PACKAGE REINSPECTOR 08/05/2024 6:42 PM PACKAGE REINSPECTOR us Ml Hickey MD LAB BLOOD ORDERABLES Final Resul t ADDIS MONTERO ([place]) 1 [facility] Department of Laboratories [place], [place] [id number] * (ABNORMAL) Manual Differential (08/05/2024 6:29 PM PACKAGE REINSPECTOR) Differential Manual Cells Counted 100 [facility] ([place]) Neutrophil abs 3.8 1.5 - 6.5 K/cumm [facility] ([place]) Lymphocyte abs 3.5(H) 0.8 - 3.3 K/cumm [facility] ([place]) Monocyte abs 0.3 0.2 - 0.8 K/cumm [facility] ([place]) Eosinophil abs 0.1 0.0 - 0.5 K/cumm [facility] ([place]) Neutrophil pct 49.0 % [facility] ([place]) Comment: Interpretive Data Percent cell count reference ranges are not reported, since discordance with absolute values may lead to misinterpretation of CBC data. Current Interpretive Data was last revised on 2017. Lymphocyte pct 40.0 % [facility] ([place]) Comment: Interpretive Data Percent cell count reference ranges are not reported, since discordance with absolute values may lead to misinterpretation of CBC data. Current Interpretive Data was last revised on 2017. Monocyte pct 4.0 % [facility] ([place]) Comment: Interpretive Data Percent cell count reference ranges are not reported, since discordance with absolute values may lead to misinterpretation of CBC data. Current Interpretive Data was last revised on 2017. Eosinophil pct 1.0 % [facility] ([place]) Comment: Interpretive Data Percent cell count reference ranges are not reported, since discordance with absolute values may lead to misinterpretation of CBC data. Current Interpretive Data was last revised on 2017. Variant lymph pct 6.0(H) 0.0 - 0.0 % [facility] ([place]) RBC morphology Consistent with RBC Indicies [facility] ([place]) Platelet estimate Adequate [facility] ([place]) Platelet clumping Present(A) [facility] ([place]) Blood 08/05/2024 6:29 PM PACKAGE REINSPECTOR 08/05/2024 6:42 PM PACKAGE REINSPECTOR Ml Hickey MD LAB BLOOD ORDERABLES Final Resul t ADDIS SALDANAN) 1 [facility] [place] [address] * Lipase (08/05/2024 6:29 PM PACKAGE REINSPECTOR) Lipase 29 10 - 99 Units/L Blood Venous blood specimen / Unknown 08/05/2024 6:29 PM PACKAGE REINSPECTOR 08/05/2024 6:42 PM PACKAGE REINSPECTOR Ml Hickey MD LAB BLOOD ORDERABLES Final Resul t Performing Organization Address [facility] Co de Phone Number ADDIS MONTERO ([place]) 1 [facility] [place] [address] * Comprehensive metabolic panel (08/05/2024 6:29 PM PACKAGE REINSPECTOR) Sodium 137 135 - 145 mmol/L Potassium, pl 3.9 3.3 - 4.9 mmol/L [facility] ([place]) Chloride 100 97 - 110 mmol/L [facility] ([place]) CO2 26 22 - 32 mmol/L [facility] ([place]) Anion gap 11 2 - 15 mmol/L [facility] ([place]) BUN 13 6 - 25 mg/dL [facility] ([place]) Creatinine 0.66 0.60 - 1.10 mg/dL [facility] ([place]) Glucose 118 70 - 199 mg/dL [facility] ([place]) Comment: Interpretive Data Fasting glucose >/= 126 mg/dl is diagnostic for diabetes. Fasting is defined as no caloric intake for at least 8 hours. Fasting glucose between 100 mg/dl to 125 mg/dl is diagnostic of prediabetes. In a patient with classic symptoms of hyperglycemia or hyperglycemic crisis, a random glucose >/= 200 mg/dl is diagnostic for diabetes. In the absence of unequivocal hyperglycemia, results should be confirmed by repeat testing. The classification and Diagnosis of Diabetes Diabetes Care 2021; 46: S19-S40. Current interpretive data was last revised 2022. Calcium 9.8 8.5 - 10.3 mg/dL [facility] Bilirubin, total 0.4 0.1 - 1.2 mg/dL [facility] Protein, pl 7.4 6.5 - 8.5 g/dL [facility] Albumin 4.2 3.5 - 5.0 g/dL [facility] Alk phos 117 40 - 130 Units/L [facility] ALT 42 7 - 45 Units/L [facility] AST 29 10 - 45 Units/L [facility] Blood 08/05/2024 6:29 PM PACKAGE REINSPECTOR 08/05/2024 6:42 PM PACKAGE REINSPECTOR us Ml Hickey MD LAB BLOOD ORDERABLES Final Resul t [facility] ([place]) 1 [facility] [place] [address] * US Pelvis W Endovaginal (07/18/2024 11:40 AM PACKAGE REINSPECTOR) Cul de Sac No free fluid visualized VIEWPOINT Endometrial Thickness 4.2 mm&millim eters VIEWPOINT Anatomical Region Laterality Modality Pelvis N/A Ultrasound 07/18/2024 10:2 5 AM PACKAGE REINSPECTOR Impressions 07/18/2024 8:21 PM PACKAGE REINSPECTOR 1. Normal appearing uterus. 2. Normal appearing ovaries. 3. Pelvic vascularity is present but appears within the normal range. Narrative Procedure Note Carson Mi MD - 07/18/2024 IMPRESSION: 1. Normal appearing uterus. 2. Normal appearing ovaries. 3. Pelvic vascularity is present but appears within the normal range. us Carson Mi MD IMG US PROCEDURES Final Re sult * (ABNORMAL) Prolactin (07/03/2024 3:17 PM PACKAGE REINSPECTOR) Prolactin 26.6(H) 4.8 - 23.3 ng/mL Comment:Testing performed by : [facility], [address] [place] [address], [place]., [address] Blood 07/03/2024 3:17 PM PACKAGE REINSPECTOR 07/03/2024 8:00 PM PACKAGE REINSPECTOR Carson Mi MD LAB BLOOD ORDERABLES Final Result Performing Organization Address City/State/[facility] Co de Phone Number [facility] MONTERO ([place]) 1 [facility] [place] [address] * Pap and HPV, reflex to HPV Genotypes (07/03/2024 3:04 PM PACKAGE REINSPECTOR) CLINICAL INFORMATION: [email or web address] Comment:WELL WOMAN EXAM, SCR EENING LMP [facility] Comment:[id number] Previous Pap [facility] Comment:NONE GIVEN Prev. Bx [email or web address] Comment:NONE GIVEN SOURCE: [facility] Comment:Cervix, Endocervix Pap, specimen adequacy [email or web address] Comment: Satisfactory for evaluation. Endocervical/transformation zone component present. Partially obscuring inflammation HPV interp [facility] Comment: Cytology Results: Negative for intraepithelial lesion or malignancy. COMMENTS [facility] Comment: This Pap test has been evaluated with computer assisted technology. [facility] [employer] [facility] Comment: AUC, CT(ASCP) CT Screening Location: [facility] [address] [address] Comment [email or web address] Comment: EXPLANATORY NOTE: The Pap is a screening test for cervical cancer. It is not a diagnostic test and is subject to false negative and false positive results. It is most reliable when a satisfactory sample, regularly obtained, is submitted with relevant clinical findings and history, and when the Pap result is evaluated along with historic and current clinical information. Human papillomavirus DNA, High Risk E6/E7 Not Detected NOT DETECTED [email or web address] Comment: Not Detected High Risk HPV types (16,18,31,33,35,39,45,51,52, 56,58,59,66,68) were not detected. Other HPV types which cause anogenital lesions may be present. The significance of the other types of HPV in malignant processes has not been established. Methodology: Real Time PCR Thin prep-Endocervica l 07/03/2024 3:04 PM PACKAGE REINSPECTOR 07/05/2024 12:20 AM PACKAGE REINSPECTOR Carson Mi MD LAB CYTOLOGY ORDERABLES Fi nal Result [facility] [address] [place] [address] from Last [address] [place] [address] [facility] Advance Directives For more information, please contact: [phone] * Full Code (Latest Code Status on File) Date Activated Date Inactivated Comments 07/02/2022 8:00 AM 07/03/2022 11:09 PM Care Teams Cone Machine Feeder Relationship Specialty Start Date End Date Shanelle Ramirez MD [address] [address] PCP - General Family Medicine 08/05/24 Heron Cavazos MD [address] [place] [address] Family Medicine 11/29/23
--- OUTSIDE RECORDS SUMMARY | 2024-09-04 19:05 | XMS_ITS | CONTINUITY OF CARE DOCUMENT ---
Author Name jaxson puri Address Unknown Organization [facility] Address [address] [place] [address] Phone [phone] Care Team Providers Care Agency Appointments Supervisor Name Role Phone Narayan GORMAN, Ileana Unavailable IFTIKHAR GORMAN, NAPOLEON Unavailable [phone] BUITRAGO X RAY TECHNOLOGIST-C, JAMMIE Unavailable [phone] PROBLEMS Condition Status Date Provider Notes Family History of Hypertension: completed - Jose Cruz Boyd MD Shortness of breath completed - Jose Cruz Boyd MD HTN completed - Jose Cruz Boyd MD Snoring - nml sleep study 2018 active Ileana Busch MD Palpitations completed - Jose Cruz Boyd MD Tobacco use, quit active Jose Cruz Boyd MD Screening active Jose Cruz Boyd MD lwo dd a nd nml pro bnp and zerocalxium and high crp amd high trop and echo Obesity active Jose Cruz Boyd MD covid 19;2020 active Jose Cruz Boyd MD Hyperlipidemia;with high crp active Jose Cruz Boyd MD Asthma active Jose Cruz Boyd MD Diverticulosis, colon active Jose Cruz Boyd MD fatty liver;elevated lft active Jose Cruz Boyd MD HTN borderline active Jose Cruz Boyd MD Palpitations;NML TSH active Jose Cruz Santiago ENCOUNTERS Date Type Provider Location Encounter Diag nosis - In-person encounter Office Visit Jose Cruz Boyd MD [place] [facility] Family History of Hypertension:Shortness of breathHTNPalpitationsTobacco use, quitScreeningObesitycovid 19;2020Hyperlipidemia;with high crpAsthmaDiverticulosis, colonfatty liver;elevated lftHTN borderlinePalpitations;NML TSH - In-person encounter Office Visit Ileana Busch MD [place] [facility] Snoring - nml sleep study 2017 - In-person encounter Office Visit Ileana Busch MD [place] [facility] - In-person encounter Office Visit Ileana Busch MD [place] [facility] VITAL SIGNS Date Observation Value Provider Body Mass Index (Ratio) 37.22 kg/m2 Harley Boyd MD blood pressure, diastolic 91 mm[Hg] Kathe nkLogic blood pressure, systolic 136 mm[Hg] Sara kLogic blood pressure, cuff size regular Luís Neville RN blood pressure, diastolic 91 mm[Hg] Luís Neville RN blood pressure, systolic 136 mm[Hg] Javier Neville RN oxygen saturation, oximetry 98 % Javier Neville RN respiratory rate E&M 20 /min Javier gamboa RN pulse rate 108 /min Javier Neville RN weight E&M 197 [lb_av] Javier Neville RN Body Mass Index (Ratio) 37.03 kg/m2 Cyrus santana Kyte blood pressure, diastolic 80 mm[Hg] Br ittany Block blood pressure, systolic 100 mm[Hg] Erin ttany Block pulse rate 83 /min Shelly Block oxygen saturation, oximetry 98 % Shelly Block weight E&M 196 [lb_av] Shelly Block blood pressure, resting No Brit pascual Block respiratory rate E&M 16 /min Elvis archibald Block height E&M 61 [in_i] Shelly Block Body Mass Index (Ratio) 36.65 kg/m2 Jose Busch MD blood pressure, diastolic 70 mm[Hg] [facility], systolic 110 mm[Hg] Ramiro trujillo Abrams oxygen saturation, oximetry 98 % respiratory rate E&M 16 /min Octavia pulse rate 75 /min [facility] weight E&M 194 [lb_av] [facility] height E&M 61 [in_i] Octavia Abrams Body Mass Index (Ratio) 33.63 kg/m2 Jose Busch MD blood pressure, diastolic 70 mm[Hg] Da dre Brian blood pressure, systolic 122 mm[Hg] Dac ia Brian oxygen saturation, oximetry 98 % Tamar Brian respiratory rate E&M 16 /min Tamar V oss pulse rate 69 /min Tamar Brian weight E&M 178 [lb_av] Tamar Brian height E&M 61 [in_i] Tamar Brian ALLERGIES No Known Drug Allergies RESULTS Date Observation Value Provider Reference Range Interpretation Location activated partial thromboplastin time (aPTT) 34 s LinkLogic 27-37 Normal C, [place] [address] troponin T 0.016 ng/mL LinkLogic Units converted. See lab report for original value. High C, [place] [address] LDL CHOLESTEROL 126 mg/dL LinkLogic <=129 Normal C, [place] [address] C-reactive protein, by highly sensitive test 9.94 mg/L Link[facility] C, [place] [address] Estimated Glomerular Filtration Rate (calc) 122 mL/min/{ 1.73_m2} [facility] C, [place] [address] cholesterol, non-HDL, total 151 mg/dL [facility] C, [place] [address] HDL CHOLESTEROL 46 mg/dL Link[facility]ic >=40 Normal C, [place] [address] triglyceride, serum, fasting 139 mg/dL LinkLogic <=149 Normal C, [place] [address] cholesterol, serum 197 mg/dL [facility] 30-199 Normal C, [place] [address] NT-pro BNP 27 LinkLogic <=300 Normal C, [place] [address] aspartate aminotransferase (SGOT), serum 58 1/L [facility] 10-45 High C, [place] [address] alanine aminotransferase (SGPT), serum 64 1/L [facility]ic 7-45 High C, [place] [address] Alkaline phosphatase 120 Link[facility]ic 40-130 Normal C, [place] [address] albumin, serum 4.4 g/dL LinkLogic 3.5-5.0 Normal C, [place] [address] protein, total, serum 7.2 g/dL LinkLogic 6.5-8.5 Normal C, [place] [address] bilirubin, serum, total 0.7 mg/dL [facility]ic 0.1-1.2 Normal C, [place] [address] calcium, serum 9.8 mg/dL [facility]ic 8.5-10.3 Normal , [place] [address] blood glucose, random 85 mg/dL [facility]ic 70-199 Normal , [place] [address] creatine, serum 0.64 mg/dL Link[facility]ic 0.60-1.10 Normal , [place] [address] urea nitrogen, blood 13 mg/dL LinkLogic 8-25 Normal C, [place] [address] anion gap, serum 14 mmol/L LinkLogic 2-15 Normal , [place] [address] carbon dioxide, venous blood 26 mmol/L LinkLogic 22-32 Normal [place] [address] chloride, serum 100 mmol/L LinkLogic 97-110 Normal , [place] [address] potassium, serum 4.4 MMOL/L LinkLogic 3.3-4.9 Normal [place] [address] sodium, serum 140 mmol/L LinkLogic 135-145 Normal , [place] [address] Absolute Basophils 0.0 K/CUMM LinkLogic 0.0-0.1 Normal , [place] [address] Absolute Monocytes 0.7 K/CUMM LinkLogic 0.2-0.8 Normal [place] [address] Absolute Lymphocytes 2.1 K/CUMM LinkLogic 0.8-3.3 Normal [place] [address] Absolute Neutrophils 4.4 K/CUMM LinkLogic 1.7-6.5 Normal [place] [address] nucleated red blood cells as percent of blood leukocytes 0.00 K/CUMM LinkLogic 0.00-0.01 Normal red blood cell distribution width, size density 39.3 fL LinkLogic 35.7-48.1 Normal mean corpuscular hemoglobin concentration, RBC 31.2 G/DL [facility]ic 32.3-35.7 Low mean corpuscular hemoglobin, RBC 27.9 pg [facility]ic 27.1-33.3 Normal mean corpuscular volume, RBC 89.4 fL [facility]Logic 81.3-96.4 Normal erythrocyte count, whole blood 4.80 M/CUMM LinkLogic 3.90-5.20 Normal mean platelet volume 9.7 fL LinkLogic 9.1-12.3 Normal platelet count 287 10*3/uL LinkLogic 150-400 Normal hematocrit, blood 42.9 % LinkLogic 35.6-45.5 Normal hemoglobin, blood 13.4 g/dL LinkLogic 11.9-15.5 Normal C-reactive protein, serum 1 mg/dL LinkLogic Units converted. See lab report for original value. High D-dimer quantitative mcg/mL 0.37 MCG/ML FEU LinkLogic <0.50 Normal NT-pro BNP 82 LinkLogic Normal cholesterol, non-HDL, total 135 MG/DL (CALC) LinkLogic <130 High cholesterol/HDL ratio, serum, percent 3.8 (calc) LinkLogic <5.0 Normal LDL cholesterol, serum 107 MG/DL (CALC) LinkLogic High triglyceride, serum, fasting 166 mg/dL LinkLogic <150 High HDL cholesterol, serum 49 mg/dL LinkLogic > OR = 50 Low cholesterol, serum 184 mg/dL LinkLogic <200 Normal HISTORY OF MEDICATION USE Medication Status Instructions Dates Provider Indications Com ments Crestor 20 mg tablet active TAKE 1 TABLET DAILY Jose Crzu Boyd MD norethindrone (contraceptive) 0.35 mg tablet active TAKE 1 TABLET BY MOUTH DAILY Jose Cruz Boyd MD albuterol sulfate 90 mcg/actuation HFA aerosol inhaler active Jose Cruz Boyd MD clonidine HCl unspecified unspecified completed takes for b/p 170/110 - Javier Neville RN Xulane 150-35 mcg/24 hr patch weekly completed Apply 1 patch once a week - Jose Cruz Boyd MD Xulane 150-35 mcg/24 hr patch weekly completed Apply 1 patch once a week - Javier Neville RN FLUOXETINE HCL 20 MG ORAL CAPSULE completed TK 1 C PO QAM - Shelly Block #30, 30 days supply, Prescribed by AIDEN LUGO, Filled 11/01/2018 NUVARING 0.12-0.015 MG/24HR VAGINAL RING completed - Shelly Frazier #1, 28 days supply, Prescribed by LUIS GOLD, Filled 11/16/2018 NORVASC 5 MG ORAL TABLET completed take once daily - Octavia Abrams SOCIAL HISTORY Date Observation Value Provider quit smoking, stage quit Jose Cruz rueda MD social history reviewed E&M revi ewed - no changes required Jose Cruz Boyd MD social history E&M S moking History: Anny georges is a former smoker. Ileana Busch MD social history reviewed E&M revi ewed - no changes required Ileana Busch MD smoking, year quit 2012 Shelly Frazier number of years as a smoker 4 a Shelly Frazier smoking history, total pack/day 1/2 Shelly Frazier cigarette use yes Shelly Frazier smoking status Former smoker Shelly mccall social history E&M S moking History: P atovidio is a former smoker. Ileana Busch MD social history reviewed E&M revi ewed - no changes required Ileana Busch MD alcohol use, average drinks per day social Octavia Abrams alcohol use no Octavia Abrams smoking, year quit 2012 Octavia Butler ngram number of years as a smoker 4 a Octavia Abrams smoking history, total pack/day 1/2 Octavia Abrams cigarette use yes Octavia Abrams smoking status Former smoker Tinnie Ingr am smoking status Former smoker Tamar Brian number of grandchildren Ileana Busch MD social history E&M S moking History: Anny georges is a former smoker. Ileana Busch MD social history reviewed E&M revi ewed - no changes required Ileana Busch MD number of years as a smoker 4 a Tamar Brian alcohol use, average drinks per day social Tamar Brian alcohol use no Tamar Brian smoking, year quit 2012 Tamar Leia s smoking history, total pack/day 1/2 Tamar Brian cigarette use yes Tamar Brian smoking status Former smoker Tamar Brian FAMILY HISTORY Family Member Condition Mother Family History of Hy pertension: Maternal Grandmother Family History of H ypertension: Maternal Grandfather Family History of H ypertension: INSURANCE PROVIDERS Payer name Policy type / Coverage type [place] red green party ID TO MEDICAID Medicaid [id number] ADVANCE DIRECTIVES Name Date DISCUSSED - NO DECISION MADE TREATMENT PLAN Date Name Performer [id number],Jose Cruz Sharma MD [id number],Jose Cruz Sharma MD [id number],Jose Cruz Sharma MD [id number],Jose Cruz Sharma MD [id number],Jose Cruz Sharma a [id number],S, Jose Cruz Serot a [id number],S, Jose Cruz Serot a [id number],S,n l tsh and holtere and stress and eho, neg ct pe Jose Cruz Serota [id number],B, Jose Cruz Serot a Cardiology Jose Cruz Serota Cardiology Jose Cruz Serota Cardiology Jose Cruz Serota Cardiology Jose Cruz Serota Cardiology Jose Cruz Serota Cardiology Jose Cruz Serota Cardiology Jose Cruz Serota Cardiology:nl tsh an d holtere and stress and eho, neg ct pe Jose Cruz Serota Cardiology Jose Cruz Serota Cardiology:Sleep yrn dy was normal. The patient has been reassured. Ileana Busch MD Cardiology:Associate d with palpitations. Will arrange telesentry monitor. Ileana Busch MD Cardiology:Blood pre ssure controlled off medications. Advised to monitor regularly. Ileana Busch MD Cardiology:Episodes of palpitations with shortness of breath and near syncope. Will arrange holter monitor. Ileana Busch MD Cardiology:Much impr kenneth since last seen. PFTs showed obstruction with significant response to bronchodilators. I did discuss with her an inhlaer for her symptoms, which she declined. Ileana Busch MD Cardiology:Persists. Negative sleep study. Patient has been reassured. Ileana Busch MD Cardiology:Blood pre ssure control is satisfactory. She is off medications. She was advised to monitor her blood pressure regularly and reduce her sodium intake. Her echocardiogram and stress test were normal. The patient has been reassured. Ileana Busch MD Cardiology New Patie nt:Blood pressure control is satisfactory. Ileana Busch MD Cardiology New Patie nt:New onset of symptoms after her recent . The etiology remains unclear. There is a history of progesterone intake which has now been discontinued. The CT of the chest done in the ER is not available. Clinical exam is unremarkable. Will arrange echocardiogram to assess the right and left ventricular function, PFTs and oximetry and routine stress test. Her EKG shows sinus rhythm with nonspecific ST-T wave changes. She also gives a history of snoring and a home sleep study will be done. If all these tests are normal, she would benefit from a VQ scan of the lung which will be arranged if needed. Ileana Busch MD Date Name CT, Coronary Calcium Score D-DIMER, QUANTITATIV E RPM (remote patient monitoring) Monitor - Telemetry (Mobile Cardiac) C-REACTIVE PROTEIN LIPID PANEL PROBNP, N TERMINAL Complete Echo DLCO - 10059 FRC - 80606 FVC - 01968 Holter Monitor 48 hr STR - Routine 6 minute walk test DLCO - 56337 FRC - 08647 FVC - 50046 Sleep Study Home Complete Echo HISTORY OF PROCEDURES Procedure Date Procedure Name Provider Procedure Notes S tatus CT- Coronary CA score Jose Cruz Boyd MD completed EKG Jose Cruz Boyd MD complete d EKG Ileana Busch MD complet ed EKG Ileana Busch MD complet ed Stress EKG Pilar sharma MD completed FVC / MVV with bronchodilator - 24318 Ileana Busch MD completed FRC - 86227 Ileana Busch MD comple gunner DLCO - 99881 Ileana Busch MD compl eted EKG Ileana Busch MD complet ed
--- OUTSIDE RECORDS SUMMARY | 2024-09-04 19:05 | XMS_ITS | Encounter Summary ---
Author Organization [facility] Healthcare Address [address] [place] [address] Care Team Providers Care Secret Service Agent Name Role Phone Heron Cavazos MD Unavailable [phone] Shanelle Ramirez MD Primary Care Provider [phone] Encounter Details Date Type Department Care Team (Late st Contact Info) Description 08/13/2024 Results Follow-Up [facility] Gastroenterology at [address] [place] [address] Juan Francisco Rhoades NP [address] [place] [address] [address] [place] [address] Social History Tobacco Use Types Packs/Day Years Used Date Smoking Tobacco: Former Cigarettes Smokeless Tobacco: Never Social Connection and Isolat ion Panel [NHANES] Answer Date Recorded In a typical week, how many times do you talk on the phone with family, friends, or neighbors? More than three times a week 07/02/2022 How often do you get togethe r with friends or relatives? More than three times a week 07/02/2022 How often do you attend chur or restoration services? Never 07/02/2022 Do you belong to any clubs o r organizations such as mandaeism groups, unions, fraternal or athletic groups, or [...] place to sleep or slept in a half-way (including now)? No 07/02/2022 Personal Safety Answer [...] on file Sexual Orientation Not on file documented as of this encounter Miscellaneous Notes * Result Encounter Note - Juan Francisco Rhoades NP - 08/13/2024 8:36 AM CST Stool testing is normal indicating no active inflammation in the GI tract. 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 encounter Plan of Treatment Upcoming Encounters Date Type Department Care Team (Late st Contact Info) Description 09/18/2024 1:30 PM CDT Hospital Encounter [address] [address] Marleni Ruvalcaba MD [address] [facility] [address] [place] [address] [place] [address] 09/18/2024 1:30 PM CDT - 09/18/2024 2:00 PM CDT Surgery [address] [address] Marleni Ruvalcaba MD [address] [place] [address] DR [place] [address] [place] [id number] COLONOSCOPY Scheduled Procedures Name Priority Associated Diagnoses Date/Ti me COLONOSCOPY Rectal bleeding 09/18/2024 1:30 PM CDT documented as of this encounter Visit Diagnoses Not on filedocumented in this encounter Care Teams Secret Service Agent Relationship Specialty Start Date End Date Shanelle Ramirez MD [address] [place] [address] PCP - General Family Medicine 08/05/24 Heron Cavazos MD [address] [place] [address] Family Medicine 11/29/23 documented as of this encounter
--- OUTSIDE RECORDS SUMMARY | 2024-09-04 19:05 | XMS_ITS | Clinical Summary ---
Author Organization [facility] Address [address] [place] [address] Phone Care Team Providers Care Aircraft Cabin Cleaner Name Role Phone Provider, Unknown Primary Care Provider Unavaila ble Allergies No known active allergies Medications Vit-Fe Fumarate-FA ( multivitamin) 27-0.8 MG Tablet nightly. 11/04/2021 Ac tive omeprazole (PriLOSEC) 20 MG CAPSULE DELAYED RELEASE Take 20 mg by mouth nightly. 11/13/2021 Active metoclopramide (REGLAN) 10 MG Tablet Take 10 mg by mouth as needed. 12/07/2021 Active Pyridoxine HCl (VITAMIN B-6 PO) Take by mouth nightly. Active cetirizine (ZyrTEC) 10 MG Tablet Take 10 mg by mouth as needed. 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 Gender Identity Not on file Sexual Orientation Not on file Last Filed Vital Signs Vital Sign Reading Time Taken Comments Blood Pressure 116/70 12/25/2021 11:26 AM CDT Pulse 90 12/25/2021 11:26 AM CDT Temperature 36.3 C (97.3 F) 12/25/2021 11:26 AM CDT Respiratory Rate 16 12/25/2021 11:26 AM CDT Oxygen Saturation 99% 12/25/2021 11:26 AM CDT Inhaled Oxygen Concentration - - Weight 86.6 kg (191 lb) 12/25/2021 11:26 AM CDT Height 154.9 cm (5' 1 ) 12/25/2021 11:26 AM CDT Body Mass Index 36.09 12/25/2021 11:26 AM CDT Plan of Treatment Health Maintenance Due Date Last Done Comments Hepatitis C Virus (HCV) Screening 1990 Hepatitis B Immunization (1 of 3 - 19+ 3-dose series) 2009 Pap Smear 11/22/2011 Cervical Cancer Screening (CCS) 2020 HPV/Cotest 2020 Influenza Immunization (#1) 2024 05/07/2014 SARS-COV-2 Immunization ( - season) 2024 Respiratory Syncytial Virus (RSV) Immunization (Adult) (1 - 1-dose 75+ series) 2065 DTaP/Tdap/Td Immunization Discontinued 09/09/2016 TdaP Immunization Completed 09/09/2016 Meningococcal Immunization (ACWY) Aged Out No longer eligible based on patient's age to complete this topic Pneumococcal Immunization Combined Aged Out No longer eligible b ased on patient's age to complete this topic Rotavirus Immunization Aged Out No lo nger eligible based on patient's age to complete this topic Insurance MEDICAID [place] Care Teams Aircraft Cabin Cleaner Relationship Specialty Start Date End Date Provider, Unknown UNKNOWN PCP - General 05/22/24
--- OUTSIDE RECORDS SUMMARY | 2024-09-04 19:05 | XMS_ITS | Clinical Summary ---
Author Organization [facility] Office Center Address [address] [place] [address] Care Team Providers Care Money Room Supervisor Name Role Phone Heron Cavazos MD Unavailable [phone] Shanelle Ramirez MD Primary Care Provider [phone] Allergies No known active allergies Medications PROzac [...] the importance of further evaluation by her drafter apprentice to rule out any gynecological causes of her symptoms otherwise I do think venography with possible intervention if all other gynecologic reasons has been ruled out would be appropriate. She will call to schedule another appointment with me after she has seen her drafter apprentice. Varicose veins of leg with pain, left [...] review results. Irritable bowel syndrome with diarrhea 4 Internal hemorrhoids 09/14/2023 Family history of cirrhosis [...] vein thrombosis 06/25/2022 GERD (gastroesophageal reflux disease) 2 Overview (06/14/2023): Last Assessment & Plan: Condition: [...] concerns with . Recommended discussing symptoms with GAS APPLIANCE ADJUSTER at next visit scheduled 02/22/2022 Last Assessment [...] seek urgent/emergent care including calling Suicide Hotline (782 or ) or 338. Follow up in if symptoms worsen or fail to improve with Psychologist/Counselor/SupportGroup/Psychiatrist and PCP Sensorineural hearing loss (SNHL) of both ears 0 02/19/2022 Assessment & Plan (09/05/2023 9:36 AM CDT): Call to arrange Hearing test Assessment & Plan (02/19/2022 9:20 AM CDT): Hearing and Balance testing after Delivery [facility] Continue Zyrtec 64 ounces of caffeine free and soda free fluid daily Check blood pressure when having dizziness Dizziness and giddiness 02/19/2022 Assessment & Plan (02/19/2022 9:20 AM CDT): Hearing and Balance testing after Delivery [facility] Continue Zyrtec 64 ounces of caffeine free and soda free fluid daily Check blood pressure when having dizziness Seasonal allergic rhinitis due to pollen 022 Overview (06/14/2023): Last Assessment & Plan: Condition: stable Follow up in: if symptoms worsen or fail to improve Last Assessment & Plan: Hearing and Balance testing after Delivery [facility] Continue Zyrtec 64 ounces of caffeine free [...] AM CDT): Hearing and Balance testing after [facility] Continue Zyrtec 64 ounces of caffeine [...] improve Assessment & Plan (06/09/2021 2:00 PM VOCATIONAL REHAB CONSULTANT): Advised weight loss Essential hypertension 02/16/2018 Overview [...] 09/14/2022 Assessment & Plan (06/09/2021 2:00 PM VOCATIONAL REHAB CONSULTANT): Increase dietay fiber and try Levsin SL prn Palpitations 05/02/2019 09/14/2022 Obesity (BMI 30.0-34.9) 09/06/201608/26 Encounters Date Type Department Care Team Description 08/30/2024 Telephone [facility] GI Center [address] [place] [address] Mirta Astorga RN 08/23/2024 Telephone [facility] Gastroenterology at [address] [place] [address] Vannesa Camacho Colonoscopy Wait List 08/21/2024 Telephone [facility] Gastroenterology at [address] [place] [address] Vannesa Camacho Colonoscopy Reschedule 08/13/2024 Results Follow-Up [facility] Gastroenterology at [address] [place] [address] Juan Francisco Rhoades, PAUL 08/13/2024 Results Follow-Up [facility] Gastroenterology at [address] [place] [address] Juan Francisco Rhoades NP 08/09/2024 Telephone [facility] Gastroenterology at [address] [place] [address] Ashleigh Quiñonez MA 08/09/2024 Telephone [facility] GI Center [address] [place] [address] Modesto Olmstead RN 08/08/2024 12:45 PM VOCATIONAL REHAB CONSULTANT Lab [address] Elevated sed rate 08/08/2024 11:30 AM VOCATIONAL REHAB CONSULTANT - 08/08/2024 11:59 PM VOCATIONAL REHAB CONSULTANT Hospital Encounter [address] [address] Galactorrhea Discharge Disposition: Discharge to home or self care 08/08/2024 10:28 AM VOCATIONAL REHAB CONSULTANT - 08/08/2024 11:59 PM VOCATIONAL REHAB CONSULTANT Hospital Encounter [address] [address] Galactorrhea Discharge Disposition: Discharge to home or self care 08/08/2024 9:25 AM VOCATIONAL REHAB CONSULTANT Lab [address] Flatulence; Gastroesophageal reflux disease without esophagitis; Nausea without vomiting; Irritable bowel syndrome with both constipation and diarrhea; Hepatic steatosis; Family history of cirrhosis of liver 08/08/2024 9:10 AM VOCATIONAL REHAB CONSULTANT Lab [address] Abnormal prolactin level 08/08/2024 8:15 AM VOCATIONAL REHAB CONSULTANT Office Visit [facility] Gastroenterology at [address] [place] [address] Juan Francisco Rhoades NP BRBPR (bright red blood per rectum) (Primary Dx); Irritable bowel syndrome with both constipation and diarrhea; Flatulence; Hepatic steatosis; Family history of cirrhosis of liver; Internal hemorrhoids; Gastroesophageal reflux disease without esophagitis; Nausea without vomiting; Pelvic congestion syndrome 08/08/2024 Orders Only [facility] Gastroenterology at [address] [place] [address] Juan Francisco Rhoades NP Elevated sed rate (Primary Dx) 08/08/2024 Telephone [facility] Gastroenterology at [address] [place] [address] Jack London MA 08/05/2024 9:04 PM VOCATIONAL REHAB CONSULTANT - 08/06/2024 12:01 AM VOCATIONAL REHAB CONSULTANT Emergency [facility] Emergency Department [address] [place] [address] Ml Hickey MD Lower GI bleed (Primary Dx); Abdominal pain Discharge Disposition: Discharge to home or self care 07/23/2024 Telephone [facility] Accountable Care Organization [address] [place] [address] Nirmala Hair MA Successful Phone Call (AWV SCHEDULING) 07/18/2024 10:00 AM VOCATIONAL REHAB CONSULTANT Ancillary Procedure [address] [address] Pelvic and perineal pain 07/18/[address] [place] [address] Neha Acosta MA Test Results (Request for Lab results. ) 07/16/2024 Telephone [facility] GI Center [address] [place] [address] Modesto Olmstead RN 07/03/2024 3:15 PM VOCATIONAL REHAB CONSULTANT Lab [address] Galactorrhea 07/03/2024 2:00 PM VOCATIONAL REHAB CONSULTANT Office Visit [facility] [address] [place] [address] [address] [place] [address] Carson Mi MD Well woman exam (Primary Dx); Pelvic congestion syndrome; Galactorrhea; Pelvic and perineal pain; PMS (premenstrual syndrome) from Last 3 Months Immunizations Immunization Administration Dates Next Due Influenza, Quadrivalent, Spl it, Preservative Free, Intramuscular 05/07/2014 Influenza, Trivalent, Preser vative Free, Intramuscular 04/27/2015 Influenza, Unspecified 09/24/2022(Deferr ed: Patient Refused),06/14/2022(Deferred: Patient Refused) Tdap 09/09/2016 Surgical History Surgery Date Site/Laterality Comments NASAL POLYP SURGERY 06/27/2002 - 06/26/2003 CHOLECYSTECTOMY 06/27/2017 - 06/26/2018 TUBAL LIGATION 10/08/2022 COLONOSCOPY 5-6 years ago Medical History Medical History Date Comments Gallstones Hypertension Fibrocystic breast Non-alcoholic fatty liver disease PCOS (polycystic ovarian syndrome) Family History Medical History Relation Name Comments Heart murmur Brother 1 [place] Asthma Brother 2 Rah Heart disease Father Heart murmur Father Hypertension Father Mitral valve prolapse Father Breast cancer Maternal Grandmother Cirrhosis Maternal Grandmother Kidney cancer Maternal Grandmother Thyroid disease Mother Ovarian cancer Neg Hx Thyroid cancer Neg Hx Relation Name Status Comments Brother 1 [place] Alive Brother 2 Rah Alive Father Alive Maternal Grandmother Mother Alive Social History Tobacco Use Types Packs/Day [...] often do you attend chur ch or muslim services? Never 07/02/2022 Do you belong to any clubs o r organizations such as muslim groups, unions, fraternal or athletic groups, or [...] place to sleep or slept in a [place] care facility (including now)? No 07/02/2022 Personal Safety Answer [...] on file Sexual Orientation Not on file Obstetrics History Para Term AB IAB SAB Ectopic Multiple Livin g Live Births 4 4 1 3 3 3 Date Outcome GA Total Labor Labor/2nd/3rd Weight Sex Type Anes PTL Tammy A1 A5 Name Clin Term 2.807 kg (6 lb 3 oz) F Vag-S pont Living 5 2.778 kg (6 lb 2 oz) M Vag-S pont 7 2.24 kg (4 lb 15 oz) M Vag-S pont Living 8 2.268 kg (5 lb) M Vag-S pont Living Last Filed Vital Signs Vital Sign Reading Time Taken Comments Blood Pressure 131/85 08/08/2024 8:16 AM VOCATIONAL REHAB CONSULTANT Pulse 81 08/08/2024 8:16 AM VOCATIONAL REHAB CONSULTANT Temperature 36.8 C (98.3 F) 08/05/2024 6:11 PM VOCATIONAL REHAB CONSULTANT Respiratory Rate 16 08/05/2024 9:58 PM VOCATIONAL REHAB CONSULTANT Oxygen Saturation 95% 08/08/2024 8:16 AM VOCATIONAL REHAB CONSULTANT Inhaled Oxygen Concentration - - Weight 91.3 kg (201 lb 4.8 oz) 08/08/2024 8:16 A M VOCATIONAL REHAB CONSULTANT Height 154.9 cm (5' 1 ) 08/08/2024 10:40 AM VOCATIONAL REHAB CONSULTANT Body Mass Index 38.04 08/08/2024 8:16 AM VOCATIONAL REHAB CONSULTANT Plan of Treatment Upcoming Encounters Date Type Department Care Team (Late st Contact Info) Description 09/18/2024 1:30 PM CDT Hospital Encounter [address] [address] Marleni Ruvalcaba MD [address] [place] [address] DR SMILEY [address] [place] [address] 09/18/2024 1:30 PM CDT - 09/18/2024 2:00 PM CDT Surgery [address] [address] Marleni Ruvalcaba MD [address] [place] [address] [place] [address] COLONOSCOPY Scheduled Procedures Name Priority Associated Diagnoses Date/Ti me COLONOSCOPY Rectal bleeding 09/18/2024 1:30 PM CDT Health Maintenance Due Date Last Done Comments Hepatitis C Screening 1990 Varicella Vaccines (1 of 2 - 13+ 2-dose series) 11/22/2003 Hepatitis B Screening 2008 Pneumococcal vaccine <65 (1 of 2 - PCV) 2009 Depression Screening 12/08/2023 12/07/2022, 09/14/2022, 07/01/2022 Influenza Vaccine (#1) 2024 5, 05/07/2014 Cervical Cancer Screening 07/03/2025 07/03/2024 Regular Well Visit/Exam 18-64 07/03/2025 07/03/2024 DTaP/Tdap/Td Vaccine (2 - Td or Tdap) 09/09/2026 09/09/2016 HPV Vaccines Aged Out No longer eligi ble based on patient's age to complete this topic Procedures Procedure Name Priority Date/Time Associated Diagnosis Comments CALPROTECTIN, FECAL Routine 08/08/2024 1 2:40 PM VOCATIONAL REHAB CONSULTANT Elevated sed rate US BREAST BILATERAL LIMITED Schedule Routine, Read Routine (OP Routine) 08/08/2024 12:07 PM VOCATIONAL REHAB CONSULTANT Galactorrhea DIAGNOSTIC MAMMOGRAM BILATERAL W ANGELA Schedule Routine, Read Routine (OP Routine) 08/08/2024 10:48 AM VOCATIONAL REHAB CONSULTANT Galactorrhea TISSUE TRANSGLUTAMINASE, IGA Routine 08/08/2024 9:13 AM VOCATIONAL REHAB CONSULTANT EGFR Routine 08/08/2024 9:13 AM VOCATIONAL REHAB CONSULTANT Hepatic steatosis Family history of cirrhosis of liver DIFFERENTIAL AUTO Routine 08/08/2024 9:1 3 AM VOCATIONAL REHAB CONSULTANT Hepatic steatosis Family history of cirrhosis of liver FIBRO TEST-ACTI TEST Routine 08/08/2024 9:13 AM VOCATIONAL REHAB CONSULTANT Hepatic steatosis CBC WITH AUTO DIFFERENTIAL Routine 08/08/2024 9:13 AM VOCATIONAL REHAB CONSULTANT Hepatic steatosis Family history of cirrhosis of liver COMPREHENSIVE METABOLIC PANEL Routine 08/08/2024 9:13 AM VOCATIONAL REHAB CONSULTANT Hepatic steatosis Family history of cirrhosis of liver THYROID FUNCTION CASCADE Routine 08/08/2024 9:13 AM VOCATIONAL REHAB CONSULTANT Hepatic steatosis Family history of cirrhosis of liver ERYTHROCYTE SEDIMENTATION RATE Routine 08/08/2024 9:13 AM VOCATIONAL REHAB CONSULTANT Hepatic steatosis Family history of cirrhosis of liver CRP (ACUTE PHASE) Routine 08/08/2024 9:1 3 AM VOCATIONAL REHAB CONSULTANT Hepatic steatosis Family history of cirrhosis of liver CELIAC REFLEX PANEL Routine 08/08/2024 9 :13 AM VOCATIONAL REHAB CONSULTANT Irritable bowel syndrome with both constipation and diarrhea Flatulence Nausea without vomiting PROLACTIN Routine 08/08/2024 9:13 AM VOCATIONAL REHAB CONSULTANT Abnormal prolactin level H. PYLORI BREATH TEST Routine 08/08/2024 9:10 AM VOCATIONAL REHAB CONSULTANT Flatulence Gastroesophageal reflux disease without esophagitis Nausea without vomiting CT ABDOMEN PELVIS W CONTRAST ED 08/05/2024 10:15 PM VOCATIONAL REHAB CONSULTANT URINALYSIS AND REFLEX TO MICROSCOPIC AND CULTURE STAT 08/05/2024 9:51 PM VOCATIONAL REHAB CONSULTANT POCT HCG, URINE Routine 08/05/2024 9:49 PM VOCATIONAL REHAB CONSULTANT EGFR STAT 08/05/2024 6:29 PM VOCATIONAL REHAB CONSULTANT MANUAL DIFFERENTIAL STAT 08/05/2024 6 :29 PM VOCATIONAL REHAB CONSULTANT LIPASE STAT 08/05/2024 6:29 PM VOCATIONAL REHAB CONSULTANT COMPREHENSIVE METABOLIC PANEL STAT 08/05/2024 6:29 PM VOCATIONAL REHAB CONSULTANT CBC WITH AUTO DIFFERENTIAL STAT 08/05/2024 6:29 PM VOCATIONAL REHAB CONSULTANT US PELVIS W ENDOVAGINAL Routine 07/18/2024 11:40 AM VOCATIONAL REHAB CONSULTANT Pelvic and perineal pain PROLACTIN Routine 07/03/2024 3:17 PM VOCATIONAL REHAB CONSULTANT Galactorrhea PAP AND HPV, REFLEX TO HPV GENOTYPES Routine 07/03/2024 3:04 PM VOCATIONAL REHAB CONSULTANT Well woman exam from Last 3 Months Results * Calprotectin, fecal (08/08/2024 12:40 PM VOCATIONAL REHAB CONSULTANT) Calprotectin, fecal <50.0 <50.0 (Normal) mcg/g [facility] Comment: Test Performed by: [facility] [address] [id number] Social Media Coordinator: Bere Damon Ph.D.; CLIA# [id number] Stool 08/08/2024 12:4 0 PM VOCATIONAL REHAB CONSULTANT 08/08/2024 1:45 PM VOCATIONAL REHAB CONSULTANT Juan Francisco Rhoades MINE CAPTAIN LAB BODY FLUIDS AND STOOLS ORDERABLES Final Result [facility] ([place]) 1 [facility] Department [place] [address] [place] [facility] * US BREAST LIMITED BILATERAL (08/08/2024 12:07 PM VOCATIONAL REHAB CONSULTANT) Anatomical Region Laterality Modality Breast Bilateral Ultrasound 08/08/2024 1:17 PM VOCATIONAL REHAB CONSULTANT Impressions 08/08/2024 1:17 PM VOCATIONAL REHAB CONSULTANT No mammographic or sonographic evidence of malignancy. Bilateral nipple discharge is likely physiologic in nature. OVERALL FINAL ASSESSMENT: BI-RADS Category 2: Benign. RECOMMENDATION: Continued clinical follow-up is recommended. Unless earlier screening is clinically indicated, recommend annual screening mammography beginning at 40 years of age. Electronically signed by: Jovanna Cross M.D. Narrative 08/08/2024 1:17 PM VOCATIONAL REHAB CONSULTANT EXAMINATION: BILATERAL DIGITAL DIAGNOSTIC MAMMOGRAM INCLUDING CAD [...] a solid lesion. us Carson Mi MD IMG MAMMO PROCEDURES Final Result * DIAGNOSTIC MAMMOGRAM BILATERAL W ANGELA (08/08/2024 10:48 AM VOCATIONAL REHAB CONSULTANT) Anatomical Region Laterality Modality Breast Bilateral Mammography 08/08/2024 1:17 PM VOCATIONAL REHAB CONSULTANT Impressions 08/08/2024 1:17 PM VOCATIONAL REHAB CONSULTANT No mammographic or sonographic evidence of malignancy. Bilateral nipple discharge is likely physiologic in nature. OVERALL FINAL ASSESSMENT: BI-RADS Category 2: Benign. RECOMMENDATION: Continued clinical follow-up is recommended. Unless earlier screening is clinically indicated, recommend annual screening mammography beginning at 40 years of age. Electronically signed by: Jovanna Cross M.D. Narrative 08/08/2024 1:17 PM VOCATIONAL REHAB CONSULTANT EXAMINATION: BILATERAL DIGITAL DIAGNOSTIC MAMMOGRAM INCLUDING CAD [...] a solid lesion. us Carson Mi MD IMG MAMMO PROCEDURES Final Result * Fibro Test-Acti Test (08/08/2024 9:13 AM VOCATIONAL REHAB CONSULTANT) Pathologist [facility] FibroTest Score 0.02 [place] [facility] FibroTest Stage F0 [facility] ([place]) FibroTest Interpretation no fibrosis [facility] ([place]) Comment: FibroTest estimates liver fibrosis FibroTest Score Stage Interpretation 0.00-0.21 F0 no fibrosis 0.21-0.27 F0-F1 no fibrosis 0.27-0.31 F1 minimal fibrosis 0.31-0.48 F1-F2 minimal fibrosis 0.48-0.58 F2 moderate fibrosis 0.58-0.72 F3 advanced fibrosis 0.72-0.74 F3-F4 advanced fibrosis 0.74-1.00 F4 severe fibrosis (Cirrhosis) ActiTest Score 0.13 [facility] ([place]) ActiTest Grade A0 [facility] ([place]) ActiTest Interpretation no activity [facility] ([place]) Comment: ActiTest estimates necroinflammatory activity ActiTest Score Grade Interpretation 0.00-0.17 A0 no activity 0.17-0.29 A0-A1 no activity 0.29-0.36 A1 minimal activity 0.36-0.52 A1-A2 minimal activity 0.52-0.60 A2 significant activity 0.60-0.62 A2-A3 significant activity 0.62-1.00 A3 severe activity FibroTest-ActiTest Comment See Comment [facility] ([place]) Comment: The reliability of results is dependent on compliance with the preanalytical and analytical conditions recommended by [employer]. The tests have to be deferred for: [...] developed and its performance characteristics determined by [facility] in a manner consistent with CLIA requirements. This test has not been cleared or approved by the U.S. Food and Drug Administration. [employer] Serial Number [id number] [facility] ([place]) APOLIPOPROTEIN A1 151 >=140 mg/dL [facility] ([place]) Skmwi-5-Hnrkeohcgstdq, Ser 108 100 - 280 mg/dL [facility] ([place]) Haptoglobin, S 197 30 - 200 mg/dL [facility] ([place]) Alanine Aminotransferase (ALT), S 35 7 - 45 Units/L [facility] ([place]) Gamma Glutamyltransferase (GGT), S 16 5 - 36 Units/L [facility] ([place]) Bilirubin, Total, S 0.5 0.0 - 1.2 mg/dL [facility] ([place]) Comment: Test Performed by: [address] [address] Social Media Coordinator: Bere Damon Ph.D.; CLIA# [id number] Test Performed by: [facility] [address] [place] [address] Social Media Coordinator: Bere Damon Ph.D.; CLIA# [id number] Blood 08/08/2024 9:13 AM VOCATIONAL REHAB CONSULTANT 08/08/2024 10:14 AM VOCATIONAL REHAB CONSULTANT [facility]LOOD ORDERABLE S Final Result [facility] ([place]) 1 [facility] [place] [address] [place] [facility] * eGFR (08/08/2024 9:13 AM VOCATIONAL REHAB CONSULTANT) eGFR >90 >=60 mL/min/1. 73 m2 Comment: [...] last reviewed 2021. Blood 08/08/2024 9:13 AM VOCATIONAL REHAB CONSULTANT 08/08/2024 10:14 AM VOCATIONAL REHAB CONSULTANT [facility] BLOOD ORDERABLE S Final Result [facility] ([place]) 1 [facility] [place] [address] * Differential, auto (08/08/2024 9:13 AM VOCATIONAL REHAB CONSULTANT) Neutrophil abs 5.2 1.5 - 6.5 K/cumm Imm gran abs 0.0 0.0 - 0.1 K/cumm [facility] ([place]) Lymphocyte abs 2.6 0.8 - 3.3 K/cumm [facility] ([place]) Monocyte abs 0.5 0.2 - 0.8 K/cumm [facility] ([place]) Eosinophil abs 0.1 0.0 - 0.5 K/cumm [facility] ([place]) Basophil abs 0.0 0.0 - 0.1 K/cumm [facility] ([place]) Neutrophil pct 61.5 % [facility] ([place]) Comment: Interpretive Data Percent cell count reference ranges are not reported, since discordance with absolute values may lead to misinterpretation of CBC data. Current Interpretive Data was last revised on 2017. Imm gran pct 0.5 % [facility] ([place]) Comment: Interpretive Data Percent cell count reference ranges are not reported, since discordance with absolute values may lead to misinterpretation of CBC data. Current Interpretive Data was last revised on 2017. Lymphocyte pct 30.5 % [facility] ([place]) Comment: Interpretive Data Percent cell count reference ranges are not reported, since discordance with absolute values may lead to misinterpretation of CBC data. Current Interpretive Data was last revised on 2017. Monocyte pct 6.2 % [facility] ([place]) Comment: Interpretive Data Percent cell count reference ranges are not reported, since discordance with absolute values may lead to misinterpretation of CBC data. Current Interpretive Data was last revised on 2017. Eosinophil pct 1.1 % [facility] ([place]) Comment: Interpretive Data Percent cell count reference ranges are not reported, since discordance with absolute values may lead to misinterpretation of CBC data. Current Interpretive Data was last revised on 2017. Basophil pct 0.2 % [facility] ([place]) Comment: Interpretive Data Percent cell count reference ranges are not reported, since discordance with absolute values may lead to misinterpretation of CBC data. Current Interpretive Data was last revised on 2017. Blood 08/08/2024 9:13 AM VOCATIONAL REHAB CONSULTANT 08/08/2024 10:14 AM VOCATIONAL REHAB CONSULTANT [facility] LAB BLOOD ORDERABLE S Final Result [facility] ([place]) 1 [facility] [place] [address] * Thyroid Function [place] (08/08/2024 9:13 AM VOCATIONAL REHAB CONSULTANT) Pathologist [facility] TSH 1.61 0.30 - 4.20 mcIUnit/mL Blood 08/08/2024 9:13 AM VOCATIONAL REHAB CONSULTANT 08/08/2024 10:14 AM VOCATIONAL REHAB CONSULTANT [facility] LAB BLOOD ORDERABLE S Final Result Performing Organization Address City/[facility] Co de Phone Number [facility] ([place]) 1 [facility] [place] [address] * CBC with auto differential (08/08/2024 9:13 AM VOCATIONAL REHAB CONSULTANT) [facility] WBC 8.5 3.8 - 9.9 K/cumm Hgb 13.3 11.9 - 15.5 g/dL [facility] ([place]) Hct 39.9 35.6 - 45.5 % [facility] ([place]) Plt 224 150 - 400 K/cumm [facility] ([place]) MPV 9.2 9.1 - 12.3 fL [facility] ([place]) RBC 4.67 3.90 - 5.20 M/cumm [facility] ([place]) MCV 85.4 81.3 - 96.4 fL [facility] ([place]) MCH 28.5 27.1 - 33.3 pg [facility] ([place]) MCHC 33.3 32.3 - 35.7 g/dL [facility] ([place]) RDW CV 11.8 11.1 - 14.9 % [facility] ([place]) RDW SD 35.8 35.7 - 48.1 fL [facility] ([place]) NRBC abs 0.00 0.00 - 0.01 K/cumm [facility] ([place]) Blood 08/08/2024 9:13 AM VOCATIONAL REHAB CONSULTANT 08/08/2024 10:14 AM VOCATIONAL REHAB CONSULTANT [facility] BLOOD ORDERABLE S Final Result Performing Organization Address [facility] de Phone Number [facility] ([place]) [address] [place] [address] * Celiac reflex panel (08/08/2024 9:13 AM VOCATIONAL REHAB CONSULTANT) IgA 151 61 - 356 mg/dL [place] [facility] Celiac disease interpretation See Comment [facility] ([place]) Comment: See Comment: Negative serology. Celiac disease unlikely. However, approximately 10% of patients with celiac disease are seronegative. Also, patients who are already adhering to a gluten-free diet may be seronegative. If celiac disease is highly clinically suspected, consider HLA-DQ typing. Test Performed by: [place] [address] Social Media Coordinator: Bere Damon Ph.D.; CLIA# [id number] Blood 08/08/2024 9:13 AM VOCATIONAL REHAB CONSULTANT 08/08/2024 10:14 AM VOCATIONAL REHAB CONSULTANT [facility] LAB BLOOD ORDERABLE S Final Result Performing Organization Address [facility] de Phone Number [facility] ([place]) [address] [place] [address] [facility] * Tissue transglutaminase IgA (TGG-IgA Ab) (08/08/2024 9:13 AM VOCATIONAL REHAB CONSULTANT) TTG ab, IgA <1.2 <4.0 (Negative) units/mL Comment: Test Performed by: [place] [address] Social Media Coordinator: Bere Damon Ph.D.; CLIA# [id number] Interpretive data Negative: <15 units/mL Positive: > or equal to 15 units/mL Current interpretive data was last revised on 2016. Testing performed by: [facility], 1 [facility], [place]., [address] Blood 08/08/2024 9:13 AM VOCATIONAL REHAB CONSULTANT 08/08/2024 10:14 AM VOCATIONAL REHAB CONSULTANT us Juan Francisco Rhoades MINE CAPTAIN LAB BLOOD ORDERABLE S Final Result ADDIS MONTERO ([place]) 1 [facility] [place] [address] * Prolactin (08/08/2024 9:13 AM VOCATIONAL REHAB CONSULTANT) Prolactin 17.8 4.8 - 23.3 ng/mL Comment:Testing performed by : [facility], [address] [place] [address], [address] Blood 08/08/2024 9:13 AM VOCATIONAL REHAB CONSULTANT 08/08/2024 2:49 PM VOCATIONAL REHAB CONSULTANT Carson Mi MD LAB BLOOD ORDERABLES Final Result [facility] ([place]) 1 [facility] [place] [address] * (ABNORMAL) Erythrocyte sedimentation rate (08/08/2024 9:13 AM VOCATIONAL REHAB CONSULTANT) Erythrocyte sedimentation rate 48(H) 1 - 20 mm/hr Blood 08/08/2024 9:13 AM VOCATIONAL REHAB CONSULTANT 08/08/2024 10:14 AM VOCATIONAL REHAB CONSULTANT us Juan Francisco Rhoades MINE CAPTAIN LAB BLOOD ORDERABLE S Final Result [facility] ([place]) 1 [facility] [place] [address] * CRP (acute phase) (08/08/2024 9:13 AM VOCATIONAL REHAB CONSULTANT) CRP 8.2 <=10.0 mg/L Blood 08/08/2024 9:13 AM VOCATIONAL REHAB CONSULTANT 08/08/2024 10:14 AM VOCATIONAL REHAB CONSULTANT Juan Francisco Nicoleyenni Rhoades MINE CAPTAIN LAB BLOOD ORDERABLE S Final Result [facility] ([place]) 1 [facility] Department [place] [address] * Comprehensive metabolic panel (08/08/2024 9:13 AM VOCATIONAL REHAB CONSULTANT) Sodium 137 135 - 145 mmol/L Potassium, [...] ([place]) AST 24 10 - 45 Units/L [facility] ([place]) Blood 08/08/2024 9:13 AM VOCATIONAL REHAB CONSULTANT 08/08/2024 10:14 AM VOCATIONAL REHAB CONSULTANT Juan Francisco Rhoades MINE CAPTAIN LAB BLOOD ORDERABLE S Final Result Performing Organization Address City/[facility]/ZIP Co de Phone Number ADDIS MONTERO ([place]) 1 [facility] [place] [address] * H. pylori breath test (08/08/2024 9:10 AM VOCATIONAL REHAB CONSULTANT) H. pylori, breath test Negative Negative [facility] Comment: Result indicates the absence of current Helicobacter pylori infection. Test Performed by: [place] [address] Social Media Coordinator: Bere Damon Ph.D.; CLIA# [id number] Breath 08/08/2024 9:10 AM VOCATIONAL REHAB CONSULTANT 08/08/2024 10:13 AM VOCATIONAL REHAB CONSULTANT Juan Francisco Rhoades MINE CAPTAIN LAB BODY FLUIDS AND STOOLS ORDERABLES Final Result Performing Organization Address [facility] Co de Phone Number ADDIS EmersonSA[place]AN[place]) 1 [place] [address] [facility] * CT Abdomen Pelvis W Contrast (08/05/2024 10:15 PM VOCATIONAL REHAB CONSULTANT) Anatomical Region Laterality Modality Body N/A Computed Tomogra phy 08/05/2024 10:5 8 PM VOCATIONAL REHAB CONSULTANT Narrative 08/05/2024 11:07 PM VOCATIONAL REHAB CONSULTANT EXAM DESCRIPTION: CT ABDOMEN PELVIS W CONTRAST [...] Tony Mosher M.D. KT: PAIGE Report ID: [id number] Reading Location: [place] [address] Procedure Note Tony Mosher MD - 08/05/2024 [...] Tony Mosher M.D. KT: PAIGE Report ID: [id number] Reading Location: [place] [address] Ml Hickey MD IM CT PROCEDURES Final Result * Urinalysis reflex to microscopic and culture Urine (08/05/2024 9:51 PM VOCATIONAL REHAB CONSULTANT) Color, ur Yellow Yellow Clarity, ur Clear Clear ADDIS A ([place]) Specific gravity, ur 1.019 1.003 - 1.030 [facility] ([place]) pH, urine 5.5 [facility] ([place]) Comment: Interpretive Data U rine pH is affected by diet, medications, systemic acid-base disturbances, and renal tubular function. pH may affect urinary stone formation. For example, urine pH below 6.0 may help reduce the tendency for calcium phosphate stones and pH greater than 6.0 may reduce the tendency for uric acid stone formation. Source: [employer] Current Interpretive Data was last revised on 2017 Protein, ur ql Negative Negative [facility] ([place]) Glucose, ur ql Negative Negative [facility] ([place]) Ketones, ur Negative Negative [facility] ([place]) Bilirubin, ur Negative Negative [facility] ([place]) Blood, ur Negative Negative [facility] ([place]) Urobilinogen, ur <2.0 <2.0 mg/dL [facility] ([place]) Nitrite, ur Negative Negative [facility] ([place]) Leukocyte esterase, ur Negative Negative [facility] ([place]) UA reflex comment Reflex conditions for microscopic UA and culture not met. [facility] ([place]) Urine 08/05/2024 9:51 PM VOCATIONAL REHAB CONSULTANT 08/05/2024 9:54 PM VOCATIONAL REHAB CONSULTANT Ml Hickey MD LAB MICROBIOLOGY - GENERAL ORDER KASSI Final Result [facility]DIS [facility] ([place]) 1 [facility] Department [place] [address] * POCT hCG, urine (08/05/2024 9:49 PM VOCATIONAL REHAB CONSULTANT) HCG, ur, POC Negative Negative Lot Number [id number] QC Backgroud Clear Acceptable QC Control Line Acceptable Urine 08/05/2024 9:49 PM VOCATIONAL REHAB CONSULTANT Ml Hickey MD POINT OF CARE TEST ORDERABLES Fi nal Result * eGFR (08/05/2024 6:29 PM VOCATIONAL REHAB CONSULTANT) eGFR >90 >=60 mL/min/1. 73 m2 Comment: [...] last reviewed 2021. Blood 08/05/2024 6:29 PM VOCATIONAL REHAB CONSULTANT 08/05/2024 6:42 PM VOCATIONAL REHAB CONSULTANT us Ml Hickey MD LAB BLOOD ORDERABLES Final Resul t [facility] ([place]) 1 [facility] Department [place] [address] * (ABNORMAL) CBC with auto differential (08/05/2024 6:29 PM VOCATIONAL REHAB CONSULTANT) WBC 7.7 3.8 - 9.9 K/cumm Hgb [...] blood specimen / Unknown 08/05/2024 6:29 PM VOCATIONAL REHAB CONSULTANT 08/05/2024 6:42 PM VOCATIONAL REHAB CONSULTANT us Ml Hickey MD LAB BLOOD ORDERABLES Final Resul t [facility]DIS [facility] ([place]) 1 [facility] Department [place] [address] * (ABNORMAL) Manual Differential (08/05/2024 6:29 PM VOCATIONAL REHAB CONSULTANT) Differential Manual Cells Counted 100 [facility] [...] [facility] ([place]) Blood 08/05/2024 6:29 PM VOCATIONAL REHAB CONSULTANT 08/05/2024 6:42 PM VOCATIONAL REHAB CONSULTANT Ml Hickey MD LAB BLOOD ORDERABLES Final Resul t Performing Organization Address City/[facility]/ZIP Co de Phone Number ADDIS MONTERO ([place]) 1 [facility] [place] [address] * Lipase (08/05/2024 6:29 PM VOCATIONAL REHAB CONSULTANT) Lipase 29 10 - 99 Units/L Blood Venous blood specimen / Unknown 08/05/2024 6:29 PM VOCATIONAL REHAB CONSULTANT 08/05/2024 6:42 PM VOCATIONAL REHAB CONSULTANT Ml Hickey MD LAB BLOOD ORDERABLES Final Resul t Performing Organization Address [facility] de Phone Number ADDIS MONTERO ([place]) 1 [place] [address] * Comprehensive metabolic panel (08/05/2024 6:29 PM VOCATIONAL REHAB CONSULTANT) Sodium 137 135 - 145 mmol/L Potassium, pl 3.9 3.3 - 4.9 mmol/L [facility] ([place]) Chloride 100 97 - 110 mmol/L [facility] ([place]) CO2 26 22 - 32 mmol/L [facility] ([place]) Anion gap 11 2 - 15 mmol/L [facility] ([place]) BUN 13 6 - 25 mg/dL [facility] ([place]) Creatinine 0.66 0.60 - 1.10 mg/dL [facility] ([place]) Glucose 118 70 - 199 mg/dL [facility] ([place]) Comment: Interpretive Data Fasting glucose [...] [facility] ([place]) Blood 08/05/2024 6:29 PM VOCATIONAL REHAB CONSULTANT 08/05/2024 6:42 PM VOCATIONAL REHAB CONSULTANT us Ml Hickey MD LAB BLOOD ORDERABLES Final Resul t [facility]DIS [facility] ([place]) 1 [facility] Department [place] [address] * US Pelvis W Endovaginal (07/18/2024 11:40 AM VOCATIONAL REHAB CONSULTANT) Cul de Sac No free fluid visualized [facility] Endometrial Thickness 4.2 mm&millim eters [facility] Anatomical Region Laterality Modality Pelvis N/A Ultrasound 07/18/2024 10:2 5 AM VOCATIONAL REHAB CONSULTANT Impressions 07/18/2024 8:21 PM VOCATIONAL REHAB CONSULTANT 1. Normal appearing uterus. 2. Normal appearing ovaries. 3. Pelvic vascularity is present but appears within the normal range. Narrative Procedure Note Carson Mi MD - 07/18/2024 IMPRESSION: 1. Normal appearing uterus. 2. Normal appearing ovaries. 3. Pelvic vascularity is present but appears within the normal range. us Carson Mi MD IMG US PROCEDURES Final Re sult * (ABNORMAL) Prolactin (07/03/2024 3:17 PM VOCATIONAL REHAB CONSULTANT) Prolactin 26.6(H) 4.8 - 23.3 ng/mL Comment:Testing performed by : [facility], [address] [place] [address], [place]., [address] Blood 07/03/2024 3:17 PM VOCATIONAL REHAB CONSULTANT 07/03/2024 8:00 PM VOCATIONAL REHAB CONSULTANT Carson Mi MD LAB BLOOD ORDERABLES Final Result ADDIS MONTERO ([place]) 1 [facility] Department [place] [address] * Pap and HPV, reflex to HPV Genotypes (07/03/2024 3:04 PM VOCATIONAL REHAB CONSULTANT) CLINICAL INFORMATION: [employer] [facility] Comment:WELL WOMAN EXAM, SCR EENING LMP [employer] [facility] Comment:[phone] Previous Pap [facility] [employer] [facility] Comment:NONE GIVEN Prev. Bx [employer] [facility] Comment:NONE GIVEN SOURCE: [employer] [facility] Comment:Cervix, Endocervix Pap, specimen adequacy [facility] [facility] Comment: Satisfactory for evaluation. Endocervical/transformation zone component present. Partially obscuring inflammation HPV interp [employer] [facility] Comment: Cytology Results: Negative for intraepithelial lesion or malignancy. COMMENTS [employer] [facility] Comment: This Pap test has been evaluated with computer assisted technology. Radio Television Technical Director Vimal [employer] Comment: AUC, CT(ASCP) CT Screening Location: [address] [address] Comment [employer] [facility] Comment: EXPLANATORY NOTE: The Pap is a [...] High Risk E6/E7 Not Detected NOT DETECTED [facility] Comment: Not Detected High Risk HPV types (16,18,31,33,35,39,45,51,52, 56,58,59,66,68) were not detected. Other HPV types which cause anogenital lesions may be present. The significance of the other types of HPV in malignant processes has not been established. Methodology: Real Time PCR Thin prep-Endocervica l 07/03/2024 3:04 PM VOCATIONAL REHAB CONSULTANT 07/05/2024 12:20 AM VOCATIONAL REHAB CONSULTANT Carson Mi MD LAB CYTOLOGY ORDERABLES Fi nal Result [facility] [address] [facility] [place] [address] from Last [address] [place] [address] [facility] Advance Directives For more information, please contact: [phone] * Full Code (Latest Code Status on File) Date Activated Date Inactivated Comments 07/02/2022 8:00 AM 07/03/2022 11:09 PM Care Teams Money Room Supervisor Relationship Specialty Start Date End Date Shanelle Ramirez MD [address] [place] [address] PCP - General Family Medicine 08/05/24 Heron Cavazos MD [address] [place] [address] Family Medicine 11/29/23
--- OUTSIDE RECORDS SUMMARY | 2024-09-04 19:05 | XMS_ITS | Clinical Summary ---
Author Organization [facility] Address [address] [place] [address] Care Team Providers Care Senior Coldfusion Developer Name Role Phone Jyothi Perez Primary Care Provider [phone] Allergies No known active allergies Social History Tobacco Use Types Packs/Day Years Used Date Smoking Tobacco: Never Smokeless Tobacco: Never Alcohol Use Standard Drinks/Week Comments Never 0 (1 standard drink = 0.6 oz pur e alcohol) Comments No Sex and Gender Information Value Date Recorded Sex Assigned at Not on file Legal Sex Female 6:36 PM CDT Gender Identity Not on file Sexual Orientation Not on file Last Filed Vital Signs Vital Sign Reading Time Taken Comments Blood Pressure 161/82 06/13/2021 11:25 AM MACHINE SHOP REPAIR TECHNICIAN Pulse 77 06/13/2021 11:25 AM MACHINE SHOP REPAIR TECHNICIAN Temperature 36.6 C (97.9 F) 06/13/2021 11:25 AM MACHINE SHOP REPAIR TECHNICIAN Respiratory Rate 18 06/13/2021 11:25 AM MACHINE SHOP REPAIR TECHNICIAN Oxygen Saturation 99% 06/13/2021 11:25 AM MACHINE SHOP REPAIR TECHNICIAN Inhaled Oxygen Concentration - - Weight 89 kg (196 lb 3.4 oz) 06/13/2021 11:25 AM MACHINE SHOP REPAIR TECHNICIAN Height 154.9 cm (5' 1 ) 06/13/2021 11:25 AM MACHINE SHOP REPAIR TECHNICIAN Body Mass Index 37.07 06/13/2021 11:25 AM MACHINE SHOP REPAIR TECHNICIAN Plan of Treatment Health Maintenance Due Date Last Done Comments Cervical Cancer Screening Pa p Smear (Age 30 to 64) Every 3 Years 1990 Annual Physical 1993 Hepatitis C 2008 Hepatitis B Vaccines (1 of 3 - 19+ 3-dose series) 2009 Cervical Cancer Screening Pa p with HPV Testing (Age 30 to 64) Every 5 Years 2020 Cervical Cancer Screening wi th HPV 2020 COVID-19 Vaccine (1 - 2023-2 5 season) 2024 Influenza Adult (#1) 2024 04/27/2015, 05/07/2014 DTaP, Tdap and Td Vaccines ( 2 - Td or Tdap) 09/09/2026 09/09/2016 HPV Vaccines Aged Out No longer eligi ble based on patient's age to complete this topic Meningococcal B Vaccine Aged Out No l onger eligible based on patient's age to complete this topic Meningococcal Vaccine Aged Out No shelby jhon eligible based on patient's age to complete this topic Pneumococcal Vaccine: Pediatrics (0 to 5 Years) and At-Risk Patients (6 to 64 Years) Aged Out No longer eligible b ased on patient's age to complete this topic RSV Immunizations Under 20 Months Aged Out No longer eligible b ased on patient's age to complete this topic Insurance Care Teams Senior Coldfusion Developer Relationship Specialty Start Date End Date Jyothi Perez APNP [address] [place] [address] PCP - General NURSE PRACTITIONER 06/13/21
--- OUTSIDE RECORDS SUMMARY | 2024-09-04 19:05 | XMS_ITS | Encounter Summary ---
Author Organization [facility] Address [address] [place] [address] Care Team Providers Care Aircraft Painter Name Role Phone Heron Cavazos MD Unavailable [phone] Shanelle Ramirez MD Primary Care Provider [phone] Encounter Details Date Type Department Care Team (Late st Contact Info) Description 08/13/2024 Results Follow-Up [facility] Gastroenterology at [address] [place] [address] Juan Francisco Rhoades NP [address] [place] [address] [address] [place] [address] Social History Tobacco Use Types Packs/Day Years [...] How often do you attend chur or hoahaoism services? Never 07/02/2022 Do you belong to any clubs o r organizations such as christianity groups, unions, fraternal or athletic groups, or [...] place to sleep or slept in a fdc (including now)? No 07/02/2022 Personal Safety Answer [...] - Juan Francisco Rhoades NP - 08/13/2024 8:37 AM CST Still waiting on the liver fibrosis test result. Sed rate elevated, but given your normal fecal calprotectin level this elevation is not from the GI tract. If you are having any significant joint pain issue, it could be from that. Screening test for celiac disease was normal. CRP inflammatory marker normal. Thyroid function, kidney function, liver function, and blood counts all look good. H pylori breath test negative. POLISHER documented in this encounter Plan of Treatment Upcoming Encounters Date Type Department Care Team (Late st Contact Info) Description 09/18/2024 1:30 PM CDT Hospital Encounter [address] [address] Marleni Ruvalcaba MD [address] [facility] [address] [address] [place] [address] 09/18/2024 1:30 PM CDT - 09/18/2024 2:00 PM CDT Surgery [address] [address] Marleni Ruvalcaba MD [address] [place] [address] DR [address] [address] [place] [address] COLONOSCOPY Scheduled Procedures Name Priority Associated Diagnoses Date/Ti me COLONOSCOPY Rectal bleeding 09/18/2024 1:30 PM CDT documented as of this encounter Visit Diagnoses Not on filedocumented in this encounter Care Teams Aircraft Painter Relationship Specialty Start Date End Date Shanelle Ramirez MD [address] [place] [address] PCP - General Family Medicine 08/05/24 Heron Cavazos MD [address] [place] [phone] Family Medicine 11/29/23 documented as of this encounter
[2024-09-04 19:22] VITALS: BP 150/93; PULSE 96; RESP 15; TEMP 36.6; O2SAT 100
--- OUTSIDE RECORDS SUMMARY | 2024-09-04 20:53 | XMS_ITS | Encounter Summary ---
Author Organization [facility] Address [address] [place] [address] Care Team Providers Care Poured Wall Foreman Name Role Phone Heron Cavazos MD Unavailable [phone] Shanelle Ramirez MD Primary Care Provider [phone] Encounter Details Date Type Department Care Team (Late st Contact Info) Description 08/13/2024 Results Follow-Up [facility] Gastroenterology at [address] [place] [address] Juan Francisco Rhoades NP [address] [place] [address] [address] [place] [address] Social History Tobacco Use Types Packs/Day Years [...] How often do you attend chur or uatsdin services? Never 07/02/2022 Do you belong to any clubs o r organizations such as holiness groups, unions, fraternal or athletic groups, or [...] No 07/02/2022 Housing Stability Vital Sign Answer Chnio e Recorded In the last 12 months, [...] place to sleep or slept in a fpc (including now)? No 07/02/2022 Personal Safety Answer [...] look good. H pylori breath test negative. WORKER documented in this encounter Plan of Treatment Upcoming Encounters Date Type Department Care Team (Late st Contact Info) Description 09/18/2024 1:30 PM CDT Hospital Encounter [address] [address] Marleni Ruvalcaba MD [address] [facility] [address] [place] [address] [place] [address] 09/18/2024 1:30 PM CDT - 09/18/2024 2:00 PM CDT Surgery [address] [address] Marleni Ruvalcaba MD [address] [place] [address] DR [address] [address] [place] [address] COLONOSCOPY Scheduled Procedures Name Priority Associated Diagnoses Date/Ti me COLONOSCOPY Rectal bleeding 09/18/2024 1:30 PM CDT documented as of this encounter Visit Diagnoses Not on filedocumented in this encounter Care Teams Poured Wall Foreman Relationship Specialty Start Date End Date Shanelle Ramirez MD [address] [place] [address] PCP - General Family Medicine 08/05/24 Heron Cavazos MD [address] [place] [phone] Family Medicine 11/29/23 documented as of this encounter
--- OUTSIDE RECORDS SUMMARY | 2024-09-04 20:53 | XMS_ITS | Clinical Summary ---
Author Organization [facility] Address [address] [place] [address] Phone Care Team Providers Care Shrinking Machine Operator Name Role Phone Provider, Unknown Primary Care [...] on file Legal Sex Female 9:49 PM EDITORIAL INTERN Gender Identity Not on file Sexual Orientation [...] this topic Insurance MEDICAID [place] Care Teams Shrinking Machine Operator Relationship Specialty Start Date End Date Provider, Unknown UNKNOWN PCP - General 05/22/24
--- OUTSIDE RECORDS SUMMARY | 2024-09-04 20:53 | XMS_ITS | Clinical Summary ---
Author Organization [facility] Address [address] [place] [phone] Phone Care Team Providers Care Tuck Pointer Name Role Phone Unavailable Primary Care Provider [...] cm (5' 1 ) 06/24/2022 3:50 PM TRICK RODEO RIDER Body Mass Index 34.2 06/24/2022 3:50 PM TRICK RODEO RIDER Plan of Treatment Health Maintenance Due Date [...]
--- OUTSIDE RECORDS SUMMARY | 2024-09-04 20:53 | XMS_ITS | Referral Summary ---
Author Organization [facility] Address [address] [place] [address] Care Team Providers Care Arborist Climber Name Role Phone Heron Cavazos MD Unavailable [phone] Shanelle Ramirez MD Primary Care Provider [phone] Encounters Date Type Department Care Team Description 08/30/2024 Telephone [facility] [address] [place] [address] Mirta Astorga, TERRENCE 08/23/2024 Telephone [facility] Gastroenterology at [address] [place] [address] Vannesa Camacho Colonoscopy Wait List 08/21/2024 Telephone [facility] Gastroenterology at [address] [place] [address] Vannesa Camacho Colonoscopy Reschedule 08/13/2024 Results Follow-Up [facility] Gastroenterology at [address] [place] [address] Juan Francisco Rhoades NP 08/13/2024 Results Follow-Up [facility] Gastroenterology at [address] [place] [address] Juan Francisco Rhoades NP 08/09/2024 Telephone [facility] Gastroenterology at [address] [place] [address] Ashleigh Quiñonez MA 08/09/2024 Telephone [facility] [address] [place] [address] Modesto Olmstead RN 08/08/2024 12:45 PM WET PROCESS MILLER Lab [address] Elevated sed rate 08/08/2024 Orders Only [facility] Gastroenterology at [address] [place] [address] Juan Francisco Rhoades NP Elevated sed rate (Primary Dx) 08/08/2024 Telephone [facility] Gastroenterology at [address] [place] [address] Jack London MA 08/08/2024 9:25 AM WET PROCESS MILLER Lab [address] Flatulence; Gastroesophageal reflux disease without esophagitis; Nausea without vomiting; Irritable bowel syndrome with both constipation and diarrhea; Hepatic steatosis; Family history of cirrhosis of liver 08/08/2024 9:10 AM WET PROCESS MILLER Lab [address] Abnormal prolactin level 08/08/2024 11:30 AM WET PROCESS MILLER - 08/08/2024 11:59 PM WET PROCESS MILLER Hospital Encounter [address] [address] Galactorrhea Discharge Disposition: Discharge to home or self care 08/08/2024 10:28 AM WET PROCESS MILLER - 08/08/2024 11:59 PM WET PROCESS MILLER Hospital Encounter [address] [address] Galactorrhea Discharge Disposition: Discharge to home or self care 08/08/2024 8:15 AM WET PROCESS MILLER Office Visit [facility] Gastroenterology at [address] [place] [address] Bilderback, Juan Francisco Nicole, MOUNTING MACHINE OPERATOR BRBPR (bright red blood per rectum) (Primary Dx); Irritable bowel syndrome with both constipation and diarrhea; Flatulence; Hepatic steatosis; Family history of cirrhosis of liver; Internal hemorrhoids; Gastroesophageal reflux disease without esophagitis; Nausea without vomiting; Pelvic congestion syndrome 08/05/2024 9:04 PM WET PROCESS MILLER - 08/06/2024 12:01 AM WET PROCESS MILLER Emergency [facility] Emergency Department [address] [place] [address] Ml Hickey MD Lower GI bleed (Primary Dx); Abdominal pain Discharge Disposition: Discharge to home or self care 07/23/2024 Telephone [facility] [employer] [facility] [address] [place] [address] Nirmala Hair MA Successful Phone Call (AWV SCHEDULING) [facility] [address] [address] Neha Acosta MA Test Results (Request for Lab results. ) 07/18/2024 10:00 AM WET PROCESS MILLER Ancillary Procedure [address], [place] [address] Pelvic and perineal pain 07/16/2024 Telephone [facility] [address] [place] [address] Modesto Olmstead RN 07/03/2024 3:15 PM WET PROCESS MILLER Lab [address] Galactorrhea 07/03/2024 2:00 PM WET PROCESS MILLER Office Visit [address] [address] Carson Mi MD Well woman exam (Primary [...] the importance of further evaluation by her inspector aide to rule out any gynecological causes of her symptoms otherwise I do think venography with possible intervention if all other gynecologic reasons has been ruled out would be appropriate. She will call to schedule another appointment with me after she has seen her inspector aide. Varicose veins of leg with pain, left [...] concerns with . Recommended discussing symptoms with TRAFFIC OPERATOR at next visit scheduled 02/22/2022 Last Assessment [...] seek urgent/emergent care including calling Suicide Hotline (518 or ) or 991. Follow up in if symptoms worsen or fail to improve with Psychologist/Counselor/SupportGroup/Psychiatrist and PCP Sensorineural hearing loss (SNHL) of both ears 0 02/19/2022 Assessment & Plan (09/05/2023 9:36 AM CDT): Call to arrange Hearing test Assessment & Plan (02/19/2022 9:20 AM CDT): Hearing and Balance testing after Delivery [facility] Continue Zyrtec 64 ounces of caffeine free and soda free fluid daily Check blood pressure when having dizziness Dizziness and giddiness 02/19/2022 Assessment & Plan (02/19/2022 9:20 AM CDT): Hearing and Balance testing after [facility] Continue Zyrtec 64 ounces of caffeine free and soda free fluid daily Check blood pressure when having dizziness Seasonal allergic rhinitis due to pollen 022 Overview (06/14/2023): Last Assessment & Plan: Condition: stable Follow up in: if symptoms worsen or fail to improve Last Assessment & Plan: Hearing and Balance testing after [facility] Continue Zyrtec 64 ounces of caffeine [...] AM CDT): Hearing and Balance testing after [facility] Continue Zyrtec 64 ounces of caffeine [...] improve Assessment & Plan (06/09/2021 2:00 PM WET PROCESS MILLER): Advised weight loss Essential hypertension 02/16/2018 Overview [...] 09/14/2022 Assessment & Plan (06/09/2021 2:00 PM WET PROCESS MILLER): Increase dietay fiber and try Levsin SL [...] often do you attend chur ch or sabianism services? Never 07/02/2022 Do you belong to any clubs o r organizations such as alevism groups, unions, fraternal or athletic groups, or [...] Comments Blood Pressure 131/85 08/08/2024 8:16 AM WET PROCESS MILLER Pulse 81 08/08/2024 8:16 AM WET PROCESS MILLER Temperature 36.8 C (98.3 F) 08/05/2024 6:11 PM WET PROCESS MILLER Respiratory Rate 16 08/05/2024 9:58 PM WET PROCESS MILLER Oxygen Saturation 95% 08/08/2024 8:16 AM WET PROCESS MILLER Inhaled Oxygen Concentration - - Weight 91.3 kg (201 lb 4.8 oz) 08/08/2024 8:16 A M WET PROCESS MILLER Height 154.9 cm (5' 1 ) 08/08/2024 10:40 AM WET PROCESS MILLER Body Mass Index 38.04 08/08/2024 8:16 AM WET PROCESS MILLER Plan of Treatment Upcoming Encounters Date Type Department Care Team (Late st Contact Info) Description 09/18/2024 1:30 PM CDT Hospital Encounter [facility] [address] [place] [address] Marleni Ruvalcaba MD [address] [place] [address] 09/18/2024 1:30 PM CDT - 09/18/2024 2:[address] [facility] [address] [place] [address] Marleni Ruvalcaba MD [address] [place] [address] COLONOSCOPY Scheduled Procedures Name Priority Associated Diagnoses Date/Ti me COLONOSCOPY Rectal bleeding 09/18/2024 1:30 PM CDT Procedures Procedure Name Priority Date/Time Associated Diagnosis Comments CALPROTECTIN, FECAL Routine 08/08/2024 1 2:40 PM WET PROCESS MILLER Elevated sed rate US BREAST BILATERAL LIMITED Schedule Routine, Read Routine (OP Routine) 08/08/2024 12:07 PM WET PROCESS MILLER Galactorrhea DIAGNOSTIC MAMMOGRAM BILATERAL W ANGELA Schedule Routine, Read Routine (OP Routine) 08/08/2024 10:48 AM WET PROCESS MILLER Galactorrhea TISSUE TRANSGLUTAMINASE, IGA Routine 08/08/2024 9:13 AM WET PROCESS MILLER EGFR Routine 08/08/2024 9:13 AM WET PROCESS MILLER Hepatic steatosis Family history of cirrhosis of liver DIFFERENTIAL AUTO Routine 08/08/2024 9:1 3 AM WET PROCESS MILLER Hepatic steatosis Family history of cirrhosis of liver FIBRO TEST-ACTI TEST Routine 08/08/2024 9:13 AM WET PROCESS MILLER Hepatic steatosis CBC WITH AUTO DIFFERENTIAL Routine 08/08/2024 9:13 AM WET PROCESS MILLER Hepatic steatosis Family history of cirrhosis of liver COMPREHENSIVE METABOLIC PANEL Routine 08/08/2024 9:13 AM WET PROCESS MILLER Hepatic steatosis Family history of cirrhosis of liver THYROID FUNCTION CASCADE Routine 08/08/2024 9:13 AM WET PROCESS MILLER Hepatic steatosis Family history of cirrhosis of liver ERYTHROCYTE SEDIMENTATION RATE Routine 08/08/2024 9:13 AM WET PROCESS MILLER Hepatic steatosis Family history of cirrhosis of liver CRP (ACUTE PHASE) Routine 08/08/2024 9:1 3 AM WET PROCESS MILLER Hepatic steatosis Family history of cirrhosis of liver CELIAC REFLEX PANEL Routine 08/08/2024 9 :13 AM WET PROCESS MILLER Irritable bowel syndrome with both constipation and diarrhea Flatulence Nausea without vomiting PROLACTIN Routine 08/08/2024 9:13 AM WET PROCESS MILLER Abnormal prolactin level H. PYLORI BREATH TEST Routine 08/08/2024 9:10 AM WET PROCESS MILLER Flatulence Gastroesophageal reflux disease without esophagitis Nausea without vomiting CT ABDOMEN PELVIS W CONTRAST ED 08/05/2024 10:15 PM WET PROCESS MILLER URINALYSIS AND REFLEX TO MICROSCOPIC AND CULTURE STAT 08/05/2024 9:51 PM WET PROCESS MILLER POCT HCG, URINE Routine 08/05/2024 9:49 PM WET PROCESS MILLER EGFR STAT 08/05/2024 6:29 PM WET PROCESS MILLER MANUAL DIFFERENTIAL STAT 08/05/2024 6 :29 PM WET PROCESS MILLER LIPASE STAT 08/05/2024 6:29 PM WET PROCESS MILLER COMPREHENSIVE METABOLIC PANEL STAT 08/05/2024 6:29 PM WET PROCESS MILLER CBC WITH AUTO DIFFERENTIAL STAT 08/05/2024 6:29 PM WET PROCESS MILLER US PELVIS W ENDOVAGINAL Routine 07/18/2024 11:40 AM WET PROCESS MILLER Pelvic and perineal pain PROLACTIN Routine 07/03/2024 3:17 PM WET PROCESS MILLER Galactorrhea PAP AND HPV, REFLEX TO HPV GENOTYPES Routine 07/03/2024 3:04 PM WET PROCESS MILLER Well woman exam from Last 3 Months Results * Calprotectin, fecal (08/08/2024 12:40 PM WET PROCESS MILLER) Calprotectin, fecal <50.0 <50.0 (Normal) mcg/g [facility] Comment: Test Performed by: [facility] [address] [id number] Hand Mold Maker: Bere Damon Ph.D.; CLIA# [id number] Stool 08/08/2024 12:4 0 PM WET PROCESS MILLER 08/08/2024 1:45 PM WET PROCESS MILLER Juan Francisco Rhoades MOUNTING MACHINE OPERATOR LAB BODY FLUIDS AND STOOLS ORDERABLES Final Result [facility] [place]) 1 [facility] [place] [address] [facility] * US BREAST LIMITED BILATERAL (08/08/2024 12:07 PM WET PROCESS MILLER) Anatomical Region Laterality Modality Breast Bilateral Ultrasound 08/08/2024 1:17 PM WET PROCESS MILLER Impressions 08/08/2024 1:17 PM WET PROCESS MILLER No mammographic or sonographic evidence of malignancy. Bilateral nipple discharge is likely physiologic in nature. OVERALL FINAL ASSESSMENT: BI-RADS Category 2: Benign. RECOMMENDATION: Continued clinical follow-up is recommended. Unless earlier screening is clinically indicated, recommend annual screening mammography beginning at 40 years of age. Electronically signed by: Jovanna Cross M.D. Narrative 08/08/2024 1:17 PM WET PROCESS MILLER EXAMINATION: BILATERAL DIGITAL DIAGNOSTIC MAMMOGRAM INCLUDING CAD [...] MAMMOGRAM BILATERAL W ANGELA (08/08/2024 10:48 AM WET PROCESS MILLER) Anatomical Region Laterality Modality Breast Bilateral Mammography 08/08/2024 1:17 PM WET PROCESS MILLER Impressions 08/08/2024 1:17 PM WET PROCESS MILLER No mammographic or sonographic evidence of malignancy. Bilateral nipple discharge is likely physiologic in nature. OVERALL FINAL ASSESSMENT: BI-RADS Category 2: Benign. RECOMMENDATION: Continued clinical follow-up is recommended. Unless earlier screening is clinically indicated, recommend annual screening mammography beginning at 40 years of age. Electronically signed by: Jovanna Cross M.D. Narrative 08/08/2024 1:17 PM WET PROCESS MILLER EXAMINATION: BILATERAL DIGITAL DIAGNOSTIC MAMMOGRAM INCLUDING CAD [...] * Fibro Test-Acti Test (08/08/2024 9:13 AM WET PROCESS MILLER) FibroTest Score 0.02 [facility] FibroTest Stage F0 [facility] [...] the preanalytical and analytical conditions recommended by Bio[employer]. The tests have to be deferred for: [...] developed and its performance characteristics determined by [facility] in a manner consistent with CLIA requirements. This test has not been cleared or approved by the U.S. Food and Drug Administration. [employer] Serial Number [id number] [facility] ([place]) APOLIPOPROTEIN A1 151 >=140 mg/dL [facility] ([place]) Mkvvg-[id number]-Pvdixvuwaqprt, Ser 108 100 - 280 mg/dL [facility] ([place]) Haptoglobin, S 197 30 - 200 mg/dL [facility] ([place] Alanine Aminotransferase (ALT), S 35 7 - 45 Units/L [facility] ([place] Gamma Glutamyltransferase (GGT), S 16 5 - 36 Units/L [facility] ([place]) Bilirubin, Total, S 0.5 0.0 - 1.2 mg/dL [facility] ([place]) Comment: Test Performed by: [facility] [address] [address] Hand Mold Maker: Bere Damon Ph.D.; CLIA# [id number] Test Performed by: [facility] [address] [place] [address] Hand Mold Maker: Bere Damon Ph.D.; CLIA# [id number] Blood 08/08/2024 9:13 AM WET PROCESS MILLER 08/08/2024 10:14 AM WET PROCESS MILLER [facility] MOUNTING MACHINE OPERATOR LAB BLOOD ORDERABLE S Final Result [facility] ([place]) 1 [facility] [place] [address] [facility] * eGFR (08/08/2024 9:13 AM WET PROCESS MILLER) eGFR >90 >=60 mL/min/1. 73 m2 Comment: [...] last reviewed 2021. Blood 08/08/2024 9:13 AM WET PROCESS MILLER 08/08/2024 10:14 AM WET PROCESS MILLER Juan Rfanciscodragan Rivera Biljadst. [facility] MOUNTING MACHINE OPERATOR LAB BLOOD ORDERABLE S Final Result [facility] ([place]) 1 [place] [address] * Differential, auto (08/08/2024 9:13 AM WET PROCESS MILLER) Neutrophil abs 5.2 1.5 - 6.5 K/cumm Imm gran abs 0.0 0.0 - 0.1 K/cumm [facility] ([place]) Lymphocyte abs 2.6 0.8 - 3.3 K/cumm [facility] ([place]) Monocyte abs 0.5 0.2 - 0.8 K/cumm [facility] ([place]) Eosinophil abs 0.1 0.0 - 0.5 K/cumm [facility] ([place]) Basophil abs 0.0 0.0 - 0.1 K/cumm [facility] ([place]) Neutrophil pct 61.5 % [facility] ([place]) Comment: Interpretive Data Percent cell count reference ranges are not reported, since discordance with absolute values may lead to misinterpretation of CBC data. Current Interpretive Data was last revised on 2017. Imm gran pct 0.5 % [facility] ([place]) Comment: Interpretive Data Percent cell count reference ranges are not reported, since discordance with absolute values may lead to misinterpretation of CBC data. Current Interpretive Data was last revised on 2017. Lymphocyte pct 30.5 % [facility] ([place]) Comment: Interpretive Data Percent cell count reference ranges are not reported, since discordance with absolute values may lead to misinterpretation of CBC data. Current Interpretive Data was last revised on 2017. Monocyte pct 6.2 % [facility] ([place]) Comment: Interpretive Data Percent cell count reference ranges are not reported, since discordance with absolute values may lead to misinterpretation of CBC data. Current Interpretive Data was last revised on 2017. Eosinophil pct 1.1 % [facility] ([place]) Comment: Interpretive Data Percent cell count reference ranges are not reported, since discordance with absolute values may lead to misinterpretation of CBC data. Current Interpretive Data was last revised on 2017. Basophil pct 0.2 % [facility] ([place]) Comment: Interpretive Data Percent cell count reference ranges are not reported, since discordance with absolute values may lead to misinterpretation of CBC data. Current Interpretive Data was last revised on 2017. Blood 08/08/2024 9:13 AM WET PROCESS MILLER 08/08/2024 10:14 AM WET PROCESS MILLER [facility] IreneNicole [facility] LAB BLOOD ORDERABLE S Final Result [facility] ([place]) 1 [facility] [place] [employer] [place] [address] * Thyroid Function Coc[place] (08/08/2024 9:13 AM WET PROCESS MILLER) Pathologist [facility] TSH 1.61 0.30 - 4.20 mcIUnit/mL Blood 08/08/2024 9:13 AM WET PROCESS MILLER 08/08/2024 10:14 AM WET PROCESS MILLER [facility]LOOD ORDERABLE S Final Result Performing Organization Address City/[facility] de Phone Number [facility] ([place]) 1 [facility] [place] [employer] [place] [address] * CBC with auto differential (08/08/2024 9:13 AM WET PROCESS MILLER) WBC 8.5 3.8 - 9.9 K/cumm Hgb 13.3 11.9 - 15.5 g/dL [facility] Hct 39.9 35.6 - 45.5 % [facility] ([place] Plt 224 150 [...] RDW CV 11.8 11.1 - 14.9 % [facility] RDW SD 35.8 35.7 - 48.1 fL [facility] ([place]) NRBC abs 0.00 0.00 - 0.01 K/cumm NAGIANIBAL [facility] ([place]) Blood 08/08/2024 9:13 AM WET PROCESS MILLER 08/08/2024 10:14 AM WET PROCESS MILLER [facility] LAB BLOOD ORDERABLE S Final Result Performing Organization Address [facility] de Phone Number [facility] ([place]) [address] [place] [address] * Celiac reflex panel (08/08/2024 9:13 AM WET PROCESS MILLER) Pathologist [facility] IgA 151 61 - 356 mg/dL [facility] Celiac disease interpretation See Comment [facility] ([place]) Comment: See Comment: Negative serology. Celiac disease unlikely. However, approximately 10% of patients with celiac disease are seronegative. Also, patients who are already adhering to a gluten-free diet may be seronegative. If celiac disease is highly clinically suspected, consider HLA-DQ typing. Test Performed by: [place] [id number] Hand Mold Maker: Bere Damon Ph.D.; CLIA# [id number] Blood 08/08/2024 9:13 AM WET PROCESS MILLER 08/08/2024 10:14 AM WET PROCESS MILLER Juan Francisco Rhoades LAB BLOOD ORDERABLE S Final Result Performing Organization Address City/[facility] de Phone Number [facility] ([place]) [address] [place] [address] [facility] * Tissue transglutaminase IgA (TGG-IgA Ab) (08/08/2024 9:13 AM WET PROCESS MILLER) TTG ab, IgA <1.2 <4.0 (Negative) units/mL Comment: Test Performed by: [place] [id number] Hand Mold Maker: Bere Damon Ph.D.; CLIA# [id number] Interpretive data Negative: <15 units/mL Positive: > or equal to 15 units/mL Current interpretive data was last revised on 2016. Testing performed by: [facility], [address] [place] [address], [id number] Blood 08/08/2024 9:13 AM WET PROCESS MILLER 08/08/2024 10:14 AM WET PROCESS MILLER Juan Francisco Rhoades MOUNTING MACHINE OPERATOR LAB BLOOD ORDERABLE S Final Result [facility] ([place]) 1 [facility] [place] [employer] [place] [address] * Prolactin (08/08/2024 9:13 AM WET PROCESS MILLER) Prolactin 17.8 4.8 - 23.3 ng/mL Comment:Testing performed by : [facility], [address] [place] [address], [id number] Blood 08/08/2024 9:13 AM WET PROCESS MILLER 08/08/2024 2:49 PM WET PROCESS MILLER Carson Mi MD LAB BLOOD ORDERABLES Final Result Performing Organization Address City/[facility]/ZIP Co de Phone Number [facility] ([place]) 1 [facility] [place] [employer] [place] [address] * (ABNORMAL) Erythrocyte sedimentation rate (08/08/2024 9:13 AM WET PROCESS MILLER) Erythrocyte sedimentation rate 48(H) 1 - 20 mm/hr Blood 08/08/2024 9:13 AM WET PROCESS MILLER 08/08/2024 10:14 AM WET PROCESS MILLER Juan Francisco Rhoades MOUNTING MACHINE OPERATOR LAB BLOOD ORDERABLE S Final Result [facility] ([place]) 1 [facility] Department [place] [employer] [place] [address] * CRP (acute phase) (08/08/2024 9:13 AM WET PROCESS MILLER) CRP 8.2 <=10.0 mg/L Blood 08/08/2024 9:13 AM WET PROCESS MILLER 08/08/2024 10:14 AM WET PROCESS MILLER Juan Francisco Rhoades MOUNTING MACHINE OPERATOR LAB BLOOD ORDERABLE S Final Result [facility] ([place]) 1 [facility] Department [place] [address] * Comprehensive metabolic panel (08/08/2024 9:13 AM WET PROCESS MILLER) Sodium 137 135 - 145 mmol/L Potassium, [...] [facility] ([place]) Blood 08/08/2024 9:13 AM WET PROCESS MILLER 08/08/2024 10:14 AM WET PROCESS MILLER Juan Francisco Rhoades MOUNTING MACHINE OPERATOR LAB BLOOD ORDERABLE S Final Result Performing Organization Address [facility] Co de Phone Number [facility] ([place]) [address] [place] [address] * H. pylori breath test (08/08/2024 9:10 AM WET PROCESS MILLER) H. pylori, breath test Negative Negative [facility] Comment: Result indicates the absence of current Helicobacter pylori infection. Test Performed by: [place] [id number] Hand Mold Maker: Bere Damon Ph.D.; CLIA# [id number] Breath 08/08/2024 9:10 AM WET PROCESS MILLER 08/08/2024 10:13 AM WET PROCESS MILLER [facility] Rhoades MOUNTING MACHINE OPERATOR LAB BODY FLUIDS AND STOOLS ORDERABLES Final Result Performing Organization Address [facility] de Phone Number [facility] ([place]) [address] [place] [address] [facility] * CT Abdomen Pelvis W Contrast (08/05/2024 10:15 PM WET PROCESS MILLER) Anatomical Region Laterality Modality Body N/A Computed Tomogra phy 08/05/2024 10:5 8 PM WET PROCESS MILLER Narrative 08/05/2024 11:07 PM WET PROCESS MILLER EXAM DESCRIPTION: CT ABDOMEN PELVIS W CONTRAST [...] Tony Mosher M.D. KT: PAIGE Report ID: [id number] Reading Location: [id number] Procedure Note Tony Mosher MD - 08/05/2024 [...] Tony Mosher M.D. KT: PAIGE Report ID: [id number] Reading Location: [place] [address] Ml Hickey MD IMG CT PROCEDURES Final Result * Urinalysis reflex to microscopic and culture Urine (08/05/2024 9:51 PM WET PROCESS MILLER) Color, ur Yellow Yellow Clarity, ur Clear Clear [facility] Rodriguez ([place]) Specific gravity, ur 1.019 1.003 - 1.030 [facility] ([place]) pH, urine 5.5 [facility] ([place]) Comment: Interpretive Data U rine pH is affected by diet, medications, systemic acid-base disturbances, and renal tubular function. pH may affect urinary stone formation. For example, urine pH below 6.0 may help reduce the tendency for calcium phosphate stones and pH greater than 6.0 may reduce the tendency for uric acid stone formation. Source: [employer] Current Interpretive Data was last revised on [...] [facility] ([place]) Urine 08/05/2024 9:51 PM WET PROCESS MILLER 08/05/2024 9:54 PM WET PROCESS MILLER Ml Hickey MD LAB MICROBIOLOGY - GENERAL ORDER KASSI Final Result [facility] ([place]) 1 [facility] Department [place] [address] * POCT hCG, urine (08/05/2024 9:49 PM WET PROCESS MILLER) HCG, ur, POC Negative Negative Lot Number [id number] QC Backgroud Clear Acceptable QC Control Line Acceptable Urine 08/05/2024 9:49 PM WET PROCESS MILLER Ml Hickey MD POINT OF CARE TEST ORDERABLES Fi nal Result * eGFR (08/05/2024 6:29 PM WET PROCESS MILLER) eGFR >90 >=60 mL/min/1. 73 m2 Comment: [...] last reviewed 2021. Blood 08/05/2024 6:29 PM WET PROCESS MILLER 08/05/2024 6:42 PM WET PROCESS MILLER us Ml Hickey MD LAB BLOOD ORDERABLES Final Resul t [facility] ([place]) 1 [facility] Department [place] [address] * (ABNORMAL) CBC with auto differential (08/05/2024 6:29 PM WET PROCESS MILLER) WBC 7.7 3.8 - 9.9 K/cumm Hgb [...] blood specimen / Unknown 08/05/2024 6:29 PM WET PROCESS MILLER 08/05/2024 6:42 PM WET PROCESS MILLER us Ml Hickey MD LAB BLOOD ORDERABLES Final Resul t ADDIS MONTERO ([place]) 1 [facility] Department of Laboratories [place], [place] [id number] * (ABNORMAL) Manual Differential (08/05/2024 6:29 PM WET PROCESS MILLER) Differential Manual Cells Counted 100 [facility] [...] [facility] ([place]) Blood 08/05/2024 6:29 PM WET PROCESS MILLER 08/05/2024 6:42 PM WET PROCESS MILLER Ml Hickey MD LAB BLOOD ORDERABLES Final Resul t ADDIS SALDANAN) 1 [facility] [place] [address] * Lipase (08/05/2024 6:29 PM WET PROCESS MILLER) Lipase 29 10 - 99 Units/L Blood Venous blood specimen / Unknown 08/05/2024 6:29 PM WET PROCESS MILLER 08/05/2024 6:42 PM WET PROCESS MILLER Ml Hickey MD LAB BLOOD ORDERABLES Final Resul t Performing Organization Address [facility] Co de Phone Number ADDIS MONTERO ([place]) 1 [facility] [place] [address] * Comprehensive metabolic panel (08/05/2024 6:29 PM WET PROCESS MILLER) Sodium 137 135 - 145 mmol/L Potassium, pl 3.9 3.3 - 4.9 mmol/L [facility] ([place]) Chloride 100 97 - 110 mmol/L [facility] ([place]) CO2 26 22 - 32 mmol/L [facility] ([place]) Anion gap 11 2 - 15 mmol/L [facility] ([place]) BUN 13 6 - 25 mg/dL [facility] ([place]) Creatinine 0.66 0.60 - 1.10 mg/dL [facility] ([place]) Glucose 118 70 - 199 mg/dL [facility] ([place]) Comment: Interpretive Data Fasting glucose >/= [...] [facility] ([place]) Blood 08/05/2024 6:29 PM WET PROCESS MILLER 08/05/2024 6:42 PM WET PROCESS MILLER us Ml Hickey MD LAB BLOOD ORDERABLES Final Resul t [facility] ([place]) 1 [facility] Department [place] [address] * US Pelvis W Endovaginal (07/18/2024 11:40 AM WET PROCESS MILLER) Cul de Sac No free fluid visualized [facility] Endometrial Thickness 4.2 mm&millim eters [facility] Anatomical Region Laterality Modality Pelvis N/A Ultrasound 07/18/2024 10:2 5 AM WET PROCESS MILLER Impressions 07/18/2024 8:21 PM WET PROCESS MILLER 1. Normal appearing uterus. 2. Normal appearing ovaries. 3. Pelvic vascularity is present but appears within the normal range. Narrative Procedure Note Carson Mi MD - 07/18/2024 IMPRESSION: 1. Normal appearing uterus. 2. Normal appearing ovaries. 3. Pelvic vascularity is present but appears within the normal range. us Carson Mi MD IMG US PROCEDURES Final Re sult * (ABNORMAL) Prolactin (07/03/2024 3:17 PM WET PROCESS MILLER) Prolactin 26.6(H) 4.8 - 23.3 ng/mL Comment:Testing performed by : [facility], [address] [place] [address], [place]., [address] Blood 07/03/2024 3:17 PM WET PROCESS MILLER 07/03/2024 8:00 PM WET PROCESS MILLER Carson Mi MD LAB BLOOD ORDERABLES Final Result Performing Organization Address City/State/[facility] Co de Phone Number ADDIS MONTERO ([place]) 1 [facility] Department [place] [address] * Pap and HPV, reflex to HPV Genotypes (07/03/2024 3:04 PM WET PROCESS MILLER) CLINICAL INFORMATION: [facility] Comment:WELL WOMAN EXAM, SCR EENING LMP [facility] Comment:[phone] Previous Pap [facility] Comment:NONE GIVEN Prev. Bx [facility] Comment:NONE GIVEN SOURCE: [facility] Comment:Cervix, Endocervix Pap, specimen adequacy [facility] Comment: Satisfactory for evaluation. Endocervical/transformation zone component present. Partially obscuring inflammation HPV interp [facility] Comment: Cytology Results: Negative for intraepithelial lesion or malignancy. COMMENTS [facility] Comment: This Pap test has been evaluated with computer assisted technology. Income Tax Investigator [facility] Comment: AUC, CT(ASCP) CT Screening Location: [facility] [address] [address] Comment [facility] Comment: EXPLANATORY NOTE: The Pap is a [...] High Risk E6/E7 Not Detected NOT DETECTED [facility] Comment: Not Detected High Risk HPV types (16,18,31,33,35,39,45,51,52, 56,58,59,66,68) were not detected. Other HPV types which cause anogenital lesions may be present. The significance of the other types of HPV in malignant processes has not been established. Methodology: Real Time PCR Thin prep-Endocervica l 07/03/2024 3:04 PM WET PROCESS MILLER 07/05/2024 12:20 AM WET PROCESS MILLER Carson Mi MD LAB CYTOLOGY ORDERABLES Fi nal Result [facility] [address] [place] [address] from Last [address] [place] [address] [facility] Advance Directives For more information, please contact: [phone] * Full Code (Latest Code Status on File) Date Activated Date Inactivated Comments 07/02/2022 8:00 AM 07/03/2022 11:09 PM Care Teams Arborist Climber Relationship Specialty Start Date End Date Shanelle Ramirez MD [address] [place] [address] PCP - General Family Medicine 08/05/24 Heron Cavazos MD [address] [place] [address] Family Medicine 11/29/23
--- OUTSIDE RECORDS SUMMARY | 2024-09-04 20:53 | XMS_ITS | Clinical Summary ---
Author Organization [facility] (formerly [facility]) at the [facility] Office Center Address [address] [place] [address] Care Team Providers Care Housekeeping Supervisor Hotel Name Role Phone Heron Cavazos MD Unavailable [phone] Shanelle Ramirez MD Primary Care Provider [phone] Allergies No known active allergies Medications PROzac [...] the importance of further evaluation by her drywall applicator to rule out any gynecological causes of her symptoms otherwise I do think venography with possible intervention if all other gynecologic reasons has been ruled out would be appropriate. She will call to schedule another appointment with me after she has seen her drywall applicator. Varicose veins of leg with pain, left [...] concerns with . Recommended discussing symptoms with WATER POLLUTION SCIENTIST at next visit scheduled 02/22/2022 Last Assessment [...] seek urgent/emergent care including calling Suicide Hotline (404 or ) or 806. Follow up in if symptoms worsen or fail to improve with Psychologist/Counselor/SupportGroup/Psychiatrist and PCP Sensorineural hearing loss (SNHL) of both ears 0 02/19/2022 Assessment & Plan (09/05/2023 9:36 AM CDT): Call to arrange Hearing test Assessment & Plan (02/19/2022 9:20 AM CDT): Hearing and Balance testing after Delivery [facility] Continue Zyrtec 64 ounces of caffeine free and soda free fluid daily Check blood pressure when having dizziness Dizziness and giddiness 02/19/2022 Assessment & Plan (02/19/2022 9:20 AM CDT): Hearing and Balance testing after Delivery [facility] Continue Zyrtec 64 ounces of caffeine free and soda free fluid daily Check blood pressure when having dizziness Seasonal allergic rhinitis due to pollen 022 Overview (06/14/2023): Last Assessment & Plan: Condition: stable Follow up in: if symptoms worsen or fail to improve Last Assessment & Plan: Hearing and Balance testing after Delivery [facility] Continue Zyrtec 64 ounces of caffeine [...] AM CDT): Hearing and Balance testing after [facility] Continue Zyrtec 64 ounces of [...] improve Assessment & Plan (06/09/2021 2:00 PM DRIVER MERCHANDISER): Advised weight loss Essential hypertension 02/16/2018 Overview [...] 09/14/2022 Assessment & Plan (06/09/2021 2:00 PM DRIVER MERCHANDISER): Increase dietay fiber and try Levsin SL prn Palpitations 05/02/2019 09/14/2022 Obesity (BMI 30.0-34.9) 09/06/201608/26 Encounters Date Type Department Care Team Description 08/30/2024 Telephone [facility] [address] [place] [address] Mirta Astorga RN 08/23/2024 Telephone [facility] Gastroenterology at [address] [place] [address] Vannesa Camacho Colonoscopy Wait List 08/21/2024 Telephone [facility] Gastroenterology at [address] [place] [address] Vannesa Camacho Colonoscopy Reschedule 08/13/2024 Results Follow-Up [facility] Gastroenterology at [address] [place] [address] Juan Francisco Rhoades, PAUL 08/13/2024 Results Follow-Up [facility] Gastroenterology at [address] [place] [address] Juan Francisco Rhoades NP 08/09/2024 Telephone [facility] Gastroenterology at [address] [place] [address] Ashleigh Quiñonez MA 08/09/2024 Telephone [facility] [address] [place] [address] Modesto Olmstead RN 08/08/2024 12:45 PM DRIVER MERCHANDISER Lab [address] Elevated sed rate 08/08/2024 11:30 AM DRIVER MERCHANDISER - 08/08/2024 11:59 PM DRIVER MERCHANDISER Hospital Encounter [address] [address] Galactorrhea Discharge Disposition: Discharge to home or self care 08/08/2024 10:28 AM DRIVER MERCHANDISER - 08/08/2024 11:59 PM DRIVER MERCHANDISER Hospital Encounter [address] [address] Galactorrhea Discharge Disposition: Discharge to home or self care 08/08/2024 9:25 AM DRIVER MERCHANDISER Lab [address] Flatulence; Gastroesophageal reflux disease without esophagitis; Nausea without vomiting; Irritable bowel syndrome with both constipation and diarrhea; Hepatic steatosis; Family history of cirrhosis of liver 08/08/2024 9:10 AM DRIVER MERCHANDISER Lab [address] Abnormal prolactin level 08/08/2024 8:15 AM DRIVER MERCHANDISER Office Visit [facility] Gastroenterology at [address] [place] [address] Juan Francisco Rhoades NP BRBPR (bright red blood per rectum) (Primary Dx); Irritable bowel syndrome with both constipation and diarrhea; Flatulence; Hepatic steatosis; Family history of cirrhosis of liver; Internal hemorrhoids; Gastroesophageal reflux disease without esophagitis; Nausea without vomiting; Pelvic congestion syndrome 08/08/2024 Orders Only [facility] Gastroenterology at [address] [place] [address] Juan Francisco Rhoades NP Elevated sed rate (Primary Dx) 08/08/2024 Telephone [facility] Gastroenterology at [address] [place] [address] Jack London MA 08/05/2024 9:04 PM DRIVER MERCHANDISER - 08/06/2024 12:01 AM DRIVER MERCHANDISER Emergency [facility] Emergency Department [address] [place] [address] Ml Hickey MD Lower GI bleed (Primary Dx); Abdominal pain Discharge Disposition: Discharge to home or self care 07/23/2024 Telephone [facility] Accountable Care Organization [address] [place] [address] Nirmala Hair MA Successful Phone Call (AWV SCHEDULING) 07/18/2024 10:00 AM DRIVER MERCHANDISER Ancillary Procedure [address] [address] Pelvic and perineal pain 07/18/[address] [place] [address] Neha Acosta MA Test Results (Request for Lab results. ) 07/16/2024 Telephone [facility] [address] [place] [address] Modesto Olmstead RN 07/03/2024 3:15 PM DRIVER MERCHANDISER Lab [address] Galactorrhea 07/03/2024 2:00 PM DRIVER MERCHANDISER Office Visit [facility] [address] [place] [address] [address] [place] [address] Carson Mi MD Well woman [...] Relation Name Comments Heart murmur Brother 1 [place] Asthma Brother 2 Rah Heart disease Father Heart murmur Father Hypertension Father Mitral valve prolapse Father Breast cancer Maternal Grandmother Cirrhosis Maternal Grandmother Kidney cancer Maternal Grandmother Thyroid disease Mother Ovarian cancer Neg Hx Thyroid cancer Neg Hx Relation Name Status Comments Brother 1 [place] Alive Brother 2 Rah Alive Father Alive [...] often do you attend chur ch or congregation services? Never 07/02/2022 Do you belong to any clubs o r organizations such as yarsani groups, unions, fraternal or athletic groups, or [...] Comments Blood Pressure 131/85 08/08/2024 8:16 AM DRIVER MERCHANDISER Pulse 81 08/08/2024 8:16 AM DRIVER MERCHANDISER Temperature 36.8 C (98.3 F) 08/05/2024 6:11 PM DRIVER MERCHANDISER Respiratory Rate 16 08/05/2024 9:58 PM DRIVER MERCHANDISER Oxygen Saturation 95% 08/08/2024 8:16 AM DRIVER MERCHANDISER Inhaled Oxygen Concentration - - Weight 91.3 kg (201 lb 4.8 oz) 08/08/2024 8:16 A M DRIVER MERCHANDISER Height 154.9 cm (5' 1 ) 08/08/2024 10:40 AM DRIVER MERCHANDISER Body Mass Index 38.04 08/08/2024 8:16 AM DRIVER MERCHANDISER Plan of Treatment Upcoming Encounters Date Type Department Care Team (Late st Contact Info) Description 09/18/2024 1:30 PM CDT Hospital Encounter [address] [address] Marleni Ruvalcaba MD [address] [place] [address] DR SMILEY [address] [place] [address] 09/18/2024 1:30 PM CDT - 09/18/2024 2:00 PM CDT Surgery [address] [address] Marleni Ruvalcaba MD [address] [place] [address] [place] [address] COLONOSCOPY Scheduled Procedures Name Priority Associated Diagnoses [...] CALPROTECTIN, FECAL Routine 08/08/2024 1 2:40 PM DRIVER MERCHANDISER Elevated sed rate US BREAST BILATERAL LIMITED Schedule Routine, Read Routine (OP Routine) 08/08/2024 12:07 PM DRIVER MERCHANDISER Galactorrhea DIAGNOSTIC MAMMOGRAM BILATERAL W ANGELA Schedule Routine, Read Routine (OP Routine) 08/08/2024 10:48 AM DRIVER MERCHANDISER Galactorrhea TISSUE TRANSGLUTAMINASE, IGA Routine 08/08/2024 9:13 AM DRIVER MERCHANDISER EGFR Routine 08/08/2024 9:13 AM DRIVER MERCHANDISER Hepatic steatosis Family history of cirrhosis of liver DIFFERENTIAL AUTO Routine 08/08/2024 9:1 3 AM DRIVER MERCHANDISER Hepatic steatosis Family history of cirrhosis of liver FIBRO TEST-ACTI TEST Routine 08/08/2024 9:13 AM DRIVER MERCHANDISER Hepatic steatosis CBC WITH AUTO DIFFERENTIAL Routine 08/08/2024 9:13 AM DRIVER MERCHANDISER Hepatic steatosis Family history of cirrhosis of liver COMPREHENSIVE METABOLIC PANEL Routine 08/08/2024 9:13 AM DRIVER MERCHANDISER Hepatic steatosis Family history of cirrhosis of liver THYROID FUNCTION CASCADE Routine 08/08/2024 9:13 AM DRIVER MERCHANDISER Hepatic steatosis Family history of cirrhosis of liver ERYTHROCYTE SEDIMENTATION RATE Routine 08/08/2024 9:13 AM DRIVER MERCHANDISER Hepatic steatosis Family history of cirrhosis of liver CRP (ACUTE PHASE) Routine 08/08/2024 9:1 3 AM DRIVER MERCHANDISER Hepatic steatosis Family history of cirrhosis of liver CELIAC REFLEX PANEL Routine 08/08/2024 9 :13 AM DRIVER MERCHANDISER Irritable bowel syndrome with both constipation and diarrhea Flatulence Nausea without vomiting PROLACTIN Routine 08/08/2024 9:13 AM DRIVER MERCHANDISER Abnormal prolactin level H. PYLORI BREATH TEST Routine 08/08/2024 9:10 AM DRIVER MERCHANDISER Flatulence Gastroesophageal reflux disease without esophagitis Nausea without vomiting CT ABDOMEN PELVIS W CONTRAST ED 08/05/2024 10:15 PM DRIVER MERCHANDISER URINALYSIS AND REFLEX TO MICROSCOPIC AND CULTURE STAT 08/05/2024 9:51 PM DRIVER MERCHANDISER POCT HCG, URINE Routine 08/05/2024 9:49 PM DRIVER MERCHANDISER EGFR STAT 08/05/2024 6:29 PM DRIVER MERCHANDISER MANUAL DIFFERENTIAL STAT 08/05/2024 6 :29 PM DRIVER MERCHANDISER LIPASE STAT 08/05/2024 6:29 PM DRIVER MERCHANDISER COMPREHENSIVE METABOLIC PANEL STAT 08/05/2024 6:29 PM DRIVER MERCHANDISER CBC WITH AUTO DIFFERENTIAL STAT 08/05/2024 6:29 PM DRIVER MERCHANDISER US PELVIS W ENDOVAGINAL Routine 07/18/2024 11:40 AM DRIVER MERCHANDISER Pelvic and perineal pain PROLACTIN Routine 07/03/2024 3:17 PM DRIVER MERCHANDISER Galactorrhea PAP AND HPV, REFLEX TO HPV GENOTYPES Routine 07/03/2024 3:04 PM DRIVER MERCHANDISER Well woman exam from Last 3 Months Results * Calprotectin, fecal (08/08/2024 12:40 PM DRIVER MERCHANDISER) Calprotectin, fecal <50.0 <50.0 (Normal) mcg/g [place] ref [facility] Comment: Test Performed by: [facility] [address] [id number] Mill Manager: Bere Damon Ph.D.; CLIA# [id number] Stool 08/08/2024 12:4 0 PM DRIVER MERCHANDISER 08/08/2024 1:45 PM DRIVER MERCHANDISER Juan Francisco Rhoades BUTADIENE CONVERTER HELPER LAB BODY FLUIDS AND STOOLS ORDERABLES Final Result [facility] ([place]) 1 [facility] Department [place] [address] [place] ref [facility] * US BREAST LIMITED BILATERAL (08/08/2024 12:07 PM DRIVER MERCHANDISER) Anatomical Region Laterality Modality Breast Bilateral Ultrasound 08/08/2024 1:17 PM DRIVER MERCHANDISER Impressions 08/08/2024 1:17 PM DRIVER MERCHANDISER No mammographic or sonographic evidence of malignancy. Bilateral nipple discharge is likely physiologic in nature. OVERALL FINAL ASSESSMENT: BI-RADS Category 2: Benign. RECOMMENDATION: Continued clinical follow-up is recommended. Unless earlier screening is clinically indicated, recommend annual screening mammography beginning at 40 years of age. Electronically signed by: Jovanna Cross M.D. Narrative 08/08/2024 1:17 PM DRIVER MERCHANDISER EXAMINATION: BILATERAL DIGITAL DIAGNOSTIC MAMMOGRAM INCLUDING CAD [...] MAMMOGRAM BILATERAL W ANGELA (08/08/2024 10:48 AM DRIVER MERCHANDISER) Anatomical Region Laterality Modality Breast Bilateral Mammography 08/08/2024 1:17 PM DRIVER MERCHANDISER Impressions 08/08/2024 1:17 PM DRIVER MERCHANDISER No mammographic or sonographic evidence of malignancy. Bilateral nipple discharge is likely physiologic in nature. OVERALL FINAL ASSESSMENT: BI-RADS Category 2: Benign. RECOMMENDATION: Continued clinical follow-up is recommended. Unless earlier screening is clinically indicated, recommend annual screening mammography beginning at 40 years of age. Electronically signed by: Jovanna Cross M.D. Narrative 08/08/2024 1:17 PM DRIVER MERCHANDISER EXAMINATION: BILATERAL DIGITAL DIAGNOSTIC MAMMOGRAM INCLUDING CAD [...] * Fibro Test-Acti Test (08/08/2024 9:13 AM DRIVER MERCHANDISER) Pathologist [facility] FibroTest Score 0.02 [place] ref [facility] FibroTest Stage F0 CERN ER [...] developed and its performance characteristics determined by [facility] in a manner consistent with CLIA requirements. This test has not been cleared or approved by the U.S. Food and Drug Administration. [employer] Serial Number [id number] [facility] ([place]) APOLIPOPROTEIN A1 151 >=140 mg/dL [facility] ([place]) Oulxo-4-Jkuvnyjldhcng, Ser 108 100 - 280 mg/dL [facility] ([place]) Haptoglobin, S 197 30 - 200 mg/dL [facility] ([place]) Alanine Aminotransferase (ALT), S 35 7 - 45 Units/L [facility] ([place]) Gamma Glutamyltransferase (GGT), S 16 5 - 36 Units/L [facility] ([place]) Bilirubin, Total, S 0.5 0.0 - 1.2 mg/dL [facility] ([place]) Comment: Test Performed by: [address] [address] Mill Manager: Bere Damon Ph.D.; CLIA# [id number] Test Performed by: [facility] [address] [place] [address] Mill Manager: Bere Damon Ph.D.; CLIA# [id number] Blood 08/08/2024 9:13 AM DRIVER MERCHANDISER 08/08/2024 10:14 AM DRIVER MERCHANDISER [facility]agan RamirezThe [facility] LAB BLOOD ORDERABLE S Final Result [facility] ([place]) 1 [facility] [place] [address] [place] ref Lab * eGFR (08/08/2024 9:13 AM DRIVER MERCHANDISER) eGFR >90 >=60 mL/min/1. 73 m2 Comment: [...] last reviewed 2021. Blood 08/08/2024 9:13 AM DRIVER MERCHANDISER 08/08/2024 10:14 AM DRIVER MERCHANDISER Juan Francisco [facility]conne[facility] BUTADIENE CONVERTER HELPER LAB BLOOD ORDERABLE S Final Result [facility] ([place]) 1 [facility] [place] [address] * Differential, auto (08/08/2024 9:13 AM DRIVER MERCHANDISER) Neutrophil abs 5.2 1.5 - 6.5 K/cumm [...] revised on 2017. Blood 08/08/2024 9:13 AM DRIVER MERCHANDISER 08/08/2024 10:14 AM DRIVER MERCHANDISER Juan Francisco [facility]conne[facility] hospital BUTADIENE CONVERTER HELPER LAB BLOOD ORDERABLE S Final Result [facility] ([place]) 1 [facility] [place] [address] * Thyroid Function [place] (08/08/2024 9:13 AM DRIVER MERCHANDISER) Pathologist [facility] TSH 1.61 0.30 - 4.20 mcIUnit/mL Blood 08/08/2024 9:13 AM DRIVER MERCHANDISER 08/08/2024 10:14 AM DRIVER MERCHANDISER [facility]usy Nicole RamirezThe [facility] LAB BLOOD ORDERABLE S Final Result Performing Organization Address City/[facility] Co de Phone Number [facility] ([place]) 1 [facility] [place] [address] * CBC with auto differential (08/08/2024 9:13 AM DRIVER MERCHANDISER) [facility] WBC 8.5 3.8 - 9.9 K/cumm Hgb 13.3 11.9 - 15.5 g/dL [facility] Hct 39.9 35.6 [...] 0.00 0.00 - 0.01 K/cumm [facility] ([place]) Blood 08/08/2024 9:13 AM DRIVER MERCHANDISER 08/08/2024 10:14 AM DRIVER MERCHANDISER [facility] AltusConsultedNicoleUNC [facility] LAB BLOOD ORDERABLE S Final Result Performing Organization Address [place]/[facility] de Phone Number [facility] ([place]) [address] [place] [address] * Celiac reflex panel (08/08/2024 9:13 AM DRIVER MERCHANDISER) IgA 151 61 - 356 mg/dL [place] ref [facility] Celiac disease interpretation See Comment [facility] ([place]) Comment: See Comment: Negative serology. Celiac disease unlikely. However, approximately 10% of patients with celiac disease are seronegative. Also, patients who are already adhering to a gluten-free diet may be seronegative. If celiac disease is highly clinically suspected, consider HLA-DQ typing. Test Performed by: [place] [address] Mill Manager: Bere Damon Ph.D.; CLIA# [id number] Blood 08/08/2024 9:13 AM DRIVER MERCHANDISER 08/08/2024 10:14 AM DRIVER MERCHANDISER [facility] Altusdragan IreneNicoleUNC Health [facility] LAB BLOOD ORDERABLE S Final Result Performing Organization Address [place]/[facility] de Phone Number [facility] ([place]) [address] [place] [address] [facility] * Tissue transglutaminase IgA (TGG-IgA Ab) (08/08/2024 9:13 AM DRIVER MERCHANDISER) TTG ab, IgA <1.2 <4.0 (Negative) units/mL Comment: Test Performed by: [place] [address] Mill Manager: Bere Damon Ph.D.; CLIA# [id number] Interpretive data Negative: <15 units/mL Positive: > or equal to 15 units/mL Current interpretive data was last revised on 2016. Testing performed by: [facility], [address] [facility], [place]., [address] Blood 08/08/2024 9:13 AM DRIVER MERCHANDISER 08/08/2024 10:14 AM DRIVER MERCHANDISER us Juan Francisco Rhoades BUTADIENE CONVERTER HELPER LAB BLOOD ORDERABLE S Final Result [facility] ([place]) 1 [facility] [place] [address] * Prolactin (08/08/2024 9:13 AM DRIVER MERCHANDISER) Prolactin 17.8 4.8 - 23.3 ng/mL Comment:Testing performed by : [facility], [address] [place] [address], [id number] Blood 08/08/2024 9:13 AM DRIVER MERCHANDISER 08/08/2024 2:49 PM DRIVER MERCHANDISER Carson Mi MD LAB BLOOD ORDERABLES Final Result [facility] ([place]) 1 [facility] [place] [address] * (ABNORMAL) Erythrocyte sedimentation rate (08/08/2024 9:13 AM DRIVER MERCHANDISER) Erythrocyte sedimentation rate 48(H) 1 - 20 mm/hr Blood 08/08/2024 9:13 AM DRIVER MERCHANDISER 08/08/2024 10:14 AM DRIVER MERCHANDISER us Juan Francisco Rhoades BUTADIENE CONVERTER HELPER LAB BLOOD ORDERABLE S Final Result [facility] ([place]) 1 [facility] [place] [address] * CRP (acute phase) (08/08/2024 9:13 AM DRIVER MERCHANDISER) CRP 8.2 <=10.0 mg/L Blood 08/08/2024 9:13 AM DRIVER MERCHANDISER 08/08/2024 10:14 AM DRIVER MERCHANDISER Juan Francisco Nicoleyenni Rhoades BUTADIENE CONVERTER HELPER LAB BLOOD ORDERABLE S Final Result [facility] ([place]) 1 [facility] Department [place] [address] * Comprehensive metabolic panel (08/08/2024 9:13 AM DRIVER MERCHANDISER) Sodium 137 135 - 145 mmol/L Potassium, [...] ([place]) AST 24 10 - 45 Units/L [facility] ([place]) Blood 08/08/2024 9:13 AM DRIVER MERCHANDISER 08/08/2024 10:14 AM DRIVER MERCHANDISER Juan Francisco Rhoades BUTADIENE CONVERTER HELPER LAB BLOOD ORDERABLE S Final Result Performing Organization Address City/[facility]/ZIP Co de Phone Number [facility] ([place]) 1 [facility] [place] [address] * H. pylori breath test (08/08/2024 9:10 AM DRIVER MERCHANDISER) H. pylori, breath test Negative Negative [place] ref [facility] Comment: Result indicates the absence of current Helicobacter pylori infection. Test Performed by: [place] [address] Mill Manager: Bere Damon Ph.D.; CLIA# [id number] Breath 08/08/2024 9:10 AM DRIVER MERCHANDISER 08/08/2024 10:13 AM DRIVER MERCHANDISER Juan Francisco Rhoades BUTADIENE CONVERTER HELPER LAB BODY FLUIDS AND STOOLS ORDERABLES Final Result Performing Organization Address [place]/[facility] Co de Phone Number [facility] EmersonCHE[place]) 1 [place] [address] [place] ref Lab * CT Abdomen Pelvis W Contrast (08/05/2024 10:15 PM DRIVER MERCHANDISER) Anatomical Region Laterality Modality Body N/A Computed Tomogra phy 08/05/2024 10:5 8 PM DRIVER MERCHANDISER Narrative 08/05/2024 11:07 PM DRIVER MERCHANDISER EXAM DESCRIPTION: CT ABDOMEN PELVIS W CONTRAST [...] Tony Mosher M.D. KT: PAIGE Report ID: [id number] Reading Location: [place] [address] Procedure Note Tony Mosher MD - 08/05/2024 [...] Tony Mosher M.D. KT: PAIGE Report ID: [id number] Reading Location: [place] [address] Ml Hickey MD IM CT PROCEDURES Final Result * Urinalysis reflex to microscopic and culture Urine (08/05/2024 9:51 PM DRIVER MERCHANDISER) Color, ur Yellow Yellow Clarity, ur Clear [...] tendency for uric acid stone formation. Source: [employer] Current Interpretive Data was last revised on [...] [facility] ([place]) Urine 08/05/2024 9:51 PM DRIVER MERCHANDISER 08/05/2024 9:54 PM DRIVER MERCHANDISER Ml Hickey MD LAB MICROBIOLOGY - GENERAL ORDER KASSI Final Result [facility] ([place]) 1 [facility] Department [place] [address] * POCT hCG, urine (08/05/2024 9:49 PM DRIVER MERCHANDISER) HCG, ur, POC Negative Negative Lot Number [id number] QC Backgroud Clear Acceptable QC Control Line Acceptable Urine 08/05/2024 9:49 PM DRIVER MERCHANDISER Ml Hickey MD POINT OF CARE TEST ORDERABLES Fi nal Result * eGFR (08/05/2024 6:29 PM DRIVER MERCHANDISER) eGFR >90 >=60 mL/min/1. 73 m2 Comment: [...] last reviewed 2021. Blood 08/05/2024 6:29 PM DRIVER MERCHANDISER 08/05/2024 6:42 PM DRIVER MERCHANDISER us Ml Hickey MD LAB BLOOD ORDERABLES Final Resul t [facility] ([place]) 1 [facility] Department [place] [address] * (ABNORMAL) CBC with auto differential (08/05/2024 6:29 PM DRIVER MERCHANDISER) WBC 7.7 3.8 - 9.9 K/cumm Hgb [...] blood specimen / Unknown 08/05/2024 6:29 PM DRIVER MERCHANDISER 08/05/2024 6:42 PM DRIVER MERCHANDISER us Ml Hickey MD LAB BLOOD ORDERABLES Final Resul t [facility] ([place]) 1 [facility] Department [place] [address] * (ABNORMAL) Manual Differential (08/05/2024 6:29 PM DRIVER MERCHANDISER) Differential Manual Cells Counted 100 [facility] [...] [facility] ([place]) Blood 08/05/2024 6:29 PM DRIVER MERCHANDISER 08/05/2024 6:42 PM DRIVER MERCHANDISER Ml Hickey MD LAB BLOOD ORDERABLES Final Resul t Performing Organization Address City/[facility]/ZIP Co de Phone Number [facility] ([place]) 1 [facility] [place] [address] * Lipase (08/05/2024 6:29 PM DRIVER MERCHANDISER) Lipase 29 10 - 99 Units/L Blood Venous blood specimen / Unknown 08/05/2024 6:29 PM DRIVER MERCHANDISER 08/05/2024 6:42 PM DRIVER MERCHANDISER Ml Hickey MD LAB BLOOD ORDERABLES Final Resul t Performing Organization Address [place]/[facility] de Phone Number [facility] ([place]) [address] [place] [address] * Comprehensive metabolic panel (08/05/2024 6:29 PM DRIVER MERCHANDISER) Sodium 137 135 - 145 mmol/L Potassium, pl 3.9 3.3 - 4.9 mmol/L [facility] ([place]) Chloride 100 97 - 110 mmol/L [facility] ([place]) CO2 26 22 - 32 mmol/L [facility] ([place]) Anion gap 11 2 - 15 mmol/L [facility] ([place]) BUN 13 6 - 25 mg/dL [facility] ([place]) Creatinine 0.66 0.60 - 1.10 mg/dL [facility] ([place]) Glucose 118 70 - 199 mg/dL [facility] ([place]) Comment: Interpretive Data Fasting [...] [facility] ([place]) Blood 08/05/2024 6:29 PM DRIVER MERCHANDISER 08/05/2024 6:42 PM DRIVER MERCHANDISER us Ml Hickey MD LAB BLOOD ORDERABLES Final Resul t [facility] ([place]) 1 [facility] Department [place] [address] * US Pelvis W Endovaginal (07/18/2024 11:40 AM DRIVER MERCHANDISER) Cul de Sac No free fluid visualized VIEWPOINT Endometrial Thickness 4.2 mm&millim eters VIEWPOINT Anatomical Region Laterality Modality Pelvis N/A Ultrasound 07/18/2024 10:2 5 AM DRIVER MERCHANDISER Impressions 07/18/2024 8:21 PM DRIVER MERCHANDISER 1. Normal appearing uterus. 2. Normal appearing ovaries. 3. Pelvic vascularity is present but appears within the normal range. Narrative Procedure Note Carson Mi MD - 07/18/2024 IMPRESSION: 1. Normal appearing uterus. 2. Normal appearing ovaries. 3. Pelvic vascularity is present but appears within the normal range. us Carson Mi MD IMG US PROCEDURES Final Re sult * (ABNORMAL) Prolactin (07/03/2024 3:17 PM DRIVER MERCHANDISER) Prolactin 26.6(H) 4.8 - 23.3 ng/mL Comment:Testing performed by : [facility], [address] [place] [address], [place]., [address] Blood 07/03/2024 3:17 PM DRIVER MERCHANDISER 07/03/2024 8:00 PM DRIVER MERCHANDISER Carson Mi MD LAB BLOOD ORDERABLES Final Result [facility] ([place]) 1 [facility] Department [place] [address] * Pap and HPV, reflex to HPV Genotypes (07/03/2024 3:04 PM DRIVER MERCHANDISER) [facility]INICAL INFORMATION: [facility]:WELL WOMAN EXAM, SCR EENING LMP [facility] Comment:[id number] Previous Pap [facility] Comment:NONE GIVEN Prev. Bx [facility] Comment:NONE GIVEN SOURCE: [facility] Comment:Cervix, Endocervix Pap, specimen adequacy [facility] Comment: Satisfactory for evaluation. Endocervical/transformation zone component present. Partially obscuring inflammation HPV interp [facility] Comment: Cytology Results: Negative for intraepithelial lesion or malignancy. COMMENTS [facility] Comment: This Pap test has been evaluated with computer assisted technology. Manager Inspection [facility] Comment: AUC, CT(ASCP) CT Screening Location: [address] [address] Comment [facility] Comment: EXPLANATORY NOTE: The Pap is a [...] High Risk E6/E7 Not Detected NOT DETECTED [employer] Comment: Not Detected High Risk HPV types (16,18,31,33,35,39,45,51,52, 56,58,59,66,68) were not detected. Other HPV types which cause anogenital lesions may be present. The significance of the other types of HPV in malignant processes has not been established. Methodology: Real Time PCR Thin prep-Endocervica l 07/03/2024 3:04 PM DRIVER MERCHANDISER 07/05/2024 12:20 AM DRIVER MERCHANDISER Carson Mi MD LAB CYTOLOGY ORDERABLES Fi nal Result [facility] [address] [place] [address] from Last [address] [place] [address] [facility] Advance Directives For more information, please contact: [phone] * Full Code (Latest Code Status on File) Date Activated Date Inactivated Comments 07/02/2022 8:00 AM 07/03/2022 11:09 PM Care Teams Housekeeping Supervisor Hotel Relationship Specialty Start Date End Date Shanelle Ramirez MD [address] [place] [address] PCP - General Family Medicine 08/05/24 Heron Cavazos MD [address] [place] [address] Family Medicine 11/29/23
--- OUTSIDE RECORDS SUMMARY | 2024-09-04 20:53 | XMS_ITS | Clinical Summary ---
Author Organization [facility] Address [address] [place] [address] Care Team Providers Care Finished Metal Repairer Name Role Phone Jyothi Perez Primary Care Provider [phone] Allergies No known active allergies Social History [...] Comments Blood Pressure 161/82 06/13/2021 11:25 AM DUST MILL OPERATOR Pulse 77 06/13/2021 11:25 AM DUST MILL OPERATOR Temperature 36.6 C (97.9 F) 06/13/2021 11:25 AM DUST MILL OPERATOR Respiratory Rate 18 06/13/2021 11:25 AM DUST MILL OPERATOR Oxygen Saturation 99% 06/13/2021 11:25 AM DUST MILL OPERATOR Inhaled Oxygen Concentration - - Weight 89 kg (196 lb 3.4 oz) 06/13/2021 11:25 AM DUST MILL OPERATOR Height 154.9 cm (5' 1 ) 06/13/2021 11:25 AM DUST MILL OPERATOR Body Mass Index 37.07 06/13/2021 11:25 AM DUST MILL OPERATOR Plan of Treatment Health Maintenance Due Date [...] to complete this topic Insurance Care Teams Finished Metal Repairer Relationship Specialty Start Date End Date Jyothi Perez APNP [address] [place] [address] PCP - General NURSE PRACTITIONER 06/13/21
--- OUTSIDE RECORDS SUMMARY | 2024-09-04 20:53 | XMS_ITS | CONTINUITY OF CARE DOCUMENT ---
Author Name jaxson puri Address Unknown Organization [facility] Address [address] [address] [place] [address] Phone [phone] Care Team Providers Care Therapeutic Program Worker Name Role Phone Narayan GORMAN, Ileana Unavailable [phone] IFTIKHAR GORMAN, NAPOLEON Unavailable [phone] BUITRAGO GEOLOGY PROFESSOR-C, JAMMIE Unavailable [phone] PROBLEMS Condition Status Date Provider Notes [...] Diag nosis - In-person encounter Office Visit Joes Cruz Boyd MD [place] [facility] Family History of Hypertension:Shortness of breathHTNPalpitationsTobacco use, quitScreeningObesitycovid 19;2020Hyperlipidemia;with high crpAsthmaDiverticulosis, colonfatty liver;elevated lftHTN borderlinePalpitations;NML TSH - In-person encounter Office Visit Ileana Busch MD [place] [facility] Snoring - nml sleep study 2017 - In-person encounter Office Visit Ileana Busch MD [place] [facility] - In-person encounter Office Visit Ileana Busch MD [place] [facility] VITAL SIGNS Date Observation Value Provider [...] MD blood pressure, diastolic 70 mm[Hg] [facility], systolic 110 mm[Hg] Ramiro trujillo Abrams oxygen saturation, oximetry 98 % respiratory rate E&M 16 /min Octavia pulse rate 75 /[facility] 194 [lb_av] [facility] height E&M 61 [in_i] Octavia Abrams Body [...] (aPTT) 34 s LinkLogic 27-37 Normal C, [place] [address] troponin T 0.016 ng/mL LinkLogic Units converted. See lab report for original value. High C, [place] [address] LDL CHOLESTEROL 126 mg/dL LinkLogic <=129 Normal C, [place] [address] C-reactive protein, by highly sensitive test 9.94 mg/L LinkLogic C, [place] [address] Estimated Glomerular Filtration Rate (calc) 122 mL/min/{ 1.73_m2} [facility]Log[facility] C, [place] [address] cholesterol, non-HDL, total 151 mg/dL LinkLogic C, [place] [address] HDL CHOLESTEROL 46 mg/dL LinkLogic >=40 Normal C, [place] [address] triglyceride, serum, fasting 139 mg/dL LinkLogic <=149 Normal C, [place] [address] cholesterol, serum 197 mg/dL LinkLogic 30-199 Normal C, [place] [address] NT-pro BNP 27 LinkLogic <=300 Normal C, [place] [address] aspartate aminotransferase (SGOT), serum 58 1/L [facility]ic 10-45 High C, [place] [address] alanine aminotransferase (SGPT), serum 64 1/L LinkLogic 7-45 High C, [place] [address] Alkaline phosphatase 120 LinkLogic 40-130 Normal C, [place] [address] albumin, serum 4.4 g/dL [facility]Logic 3.5-5.0 Normal C, [place] [address] protein, total, serum 7.2 g/dL [facility]Logic 6.5-8.5 Normal C, [place] [address] bilirubin, serum, total 0.7 mg/dL LinkLogic 0.1-1.2 Normal C, [place] [address] calcium, serum 9.8 mg/dL [facility]Logic 8.5-10.3 Normal , [place] [address] blood glucose, random 85 mg/dL [facility]ic 70-199 Normal , [place] [address] creatine, serum 0.64 mg/dL LinkLogic 0.60-1.10 Normal , [place] [address] urea nitrogen, blood 13 mg/dL [facility]Logic 8-25 Normal C, [place] [address] anion gap, serum 14 mmol/L LinkLogic 2-15 Normal , [place] [address] carbon dioxide, venous blood 26 mmol/L LinkLogic 22-32 Normal [place] [address] chloride, serum 100 mmol/L LinkLogic 97-110 Normal , [place] [address] potassium, serum 4.4 MMOL/L LinkLogic 3.3-4.9 Normal [place] [address] sodium, serum 140 mmol/L LinkLogic 135-145 Normal , [place] [address] Absolute Basophils 0.0 K/CUMM LinkLogic 0.0-0.1 Normal , [place] [address] Absolute Monocytes 0.7 K/CUMM LinkLogic 0.2-0.8 Normal [place] [address] Absolute Lymphocytes 2.1 K/CUMM LinkLogic 0.8-3.3 Normal [place] [address] Absolute Neutrophils 4.4 K/CUMM LinkLogic 1.7-6.5 Normal [place] [address] nucleated red blood cells as percent of [...] tablet active TAKE 1 TABLET DAILY Jose Cruz Boyd MD norethindrone (contraceptive) 0.35 mg tablet [...] yes Octavia Abrams smoking status Former smoker [place] Ingr am smoking status Former smoker Tamar [...] Payer name Policy type / Coverage type [place] red republican ID TO MEDICAID Medicaid [id number] ADVANCE DIRECTIVES Name Date DISCUSSED - NO DECISION MADE TREATMENT PLAN Date Name Performer [id number],Jose Cruz Sharma MD [id number],Jose Cruz Sharma MD [id number],Jose Cruz Sharma MD [id number],Jose Cruz Sharma MD [id number],Jose Cruz Sharma a [id number],S, Jose Cruz Serot a [id number],S, Jose Cruz Serot a [id number],S,n l tsh and holtere and stress and eho, neg ct pe Jose Cruz Serota [id number],B, Jose Cruz Serot a Cardiology Jose Cruz [...] PROBNP, N TERMINAL Complete Echo DLCO - 02363 FRC - 07154 FVC - 61388 Holter Monitor 48 hr STR - Routine 6 minute walk test DLCO - 70889 FRC - 06372 FVC - 24720 Sleep Study Home Complete Echo HISTORY OF PROCEDURES Procedure Date Procedure Name Provider Procedure Notes S tatus CT- Coronary CA score Jose Cruz Boyd MD completed EKG Jose Cruz Boyd MD complete d EKG Ileana Busch MD complet ed EKG Ileana Busch MD complet ed Stress EKG Pilar sharma MD completed FVC / MVV with bronchodilator - 25629 Ileana Busch MD completed FRC - 32510 Ileana Busch MD comple gunner DLCO - 78316 Ileana Busch MD compl eted EKG Ileana Busch MD complet ed
--- OUTSIDE RECORDS SUMMARY | 2024-09-04 20:53 | XMS_ITS | Encounter Summary ---
Author Organization [facility] Healthcare Address [address] [place] [address] Care Team Providers Care Shredder Tender Peat Name Role Phone Heron Cavazos MD Unavailable [phone] Shanelle Ramirez MD Primary Care Provider [phone] Encounter Details Date Type Department Care Team (Late st Contact Info) Description 08/13/2024 Results Follow-Up [facility] Gastroenterology at [address] [place] [address] Juan Francisco Rhoades NP [address] [place] [address] [address] [place] [address] Social History Tobacco Use Types Packs/Day Years [...] How often do you attend chur or gnosticist services? Never 07/02/2022 Do you belong to any clubs o r organizations such as gnosticism groups, unions, fraternal or athletic groups, or [...] place to sleep or slept in a custodial (including now)? No 07/02/2022 Personal Safety Answer [...] no active inflammation in the GI tract. PUNCHER documented in this encounter Plan of Treatment Upcoming Encounters Date Type Department Care Team (Late st Contact Info) Description 09/18/2024 1:30 PM CDT Hospital Encounter [address] [address] Marleni Ruvalcaba MD [address] [place] [address] [place] [address] 09/18/2024 1:30 PM CDT - 09/18/2024 2:00 PM CDT Surgery [address] [address] Marleni Ruvalcaba MD [address] [place] [address] [address] [place] [address] [place] [address] COLONOSCOPY Scheduled Procedures Name Priority Associated Diagnoses Date/Ti me COLONOSCOPY Rectal bleeding 09/18/2024 1:30 PM CDT documented as of this encounter Visit Diagnoses Not on filedocumented in this encounter Care Teams Shredder Tender Peat Relationship Specialty Start Date End Date Shanelle Ramirez MD [address] [place] [address] PCP - General Family Medicine 08/05/24 Heron Cavazos MD [address] [place] [address] Family Medicine 11/29/23 documented as of this encounter
--- NOTE | 2024-09-04 21:51 | ED_ITS ---
HPI - Skin/Abscess/Foreign Bdy General Chief complaint: Skin/Abscess/Foreign Body Stated complaint: rash on face Time Seen by Provider: 09/04/24 20:38 Source: patient Mode of arrival: ambulatory Limitations: no limitations History of Present Illness HPI narrative: This is a 33-year-old female who presents to the ED for chief complaint of right-sided facial swelling and pain onset today. Patient states that she was seen yesterday at the dentist office for possible infection. They did note that she had a likely infection to tooth #31. She states that she has been on 24 hours of amoxicillin, however today she started to have a rather rapid onset of swelling to the right side of the face/right jaw. Denies trismus, drooling, muffled voice, fevers, chills, nausea, vomiting. Related Data Allergies Allergy/AdvReac Type Severity Reaction Status Date / Time No Known Allergies Allergy Verified 09/04/24 19:29 Review of Systems 2 Review of Systems: All systems as dictated in HPI [facility] Past Medical History Medical History Anxiety Asthma Deep venous thrombosis of left popliteal vein Depression Heart murmur Presumed benign flow murmur. Hyperlipidemia Hypertension Mild obstructive sleep apnea GABE (obstructive sleep apnea) Polycystic ovarian syndrome induced hypertension Surgical History Surgical History History of cholecystectomy (2018) History of nasal polypectomy Tubal ligation status Family History Family History Grandparent History of blood clots grandmother, grandfather FH: kidney cancer Diabetes mellitus grandmother Family history of malignant neoplasm Family history of malignant neoplasm of breast Cirrhosis of liver Family history of lung cancer Hypertension Cerebrovascular accident Parkinson disease Father Family history of cardiac disorder Mother Endometriosis Social History Social History Social History: Surrogate medical decision maker: Doe Juárez, spouse. Code status: Full code. Smoking packs per day: 0.5 Smoking cigarettes per day: 10.0 Years smoked: 8 Smoking pack-years: 4.00 Smoking status: Former smoker Tobacco type: cigarettes Second hand tobacco smoke exposure: No Smoking end date: 06/27/15 Alcohol intake: never Substance use: never Substance use type: marijuana Last use: 5 years ago Lack of Transportation: No Lack of Food: Never True Current Housing: I Have Housing Concerned About Future Housing: No Difficulty Paying Gas/Electric Bills: No Difficulty Paying for Meds: No Currently Unemployed: YES Education: High School Diploma/GED Difficulty w/ Childcare or Family Care: YES Living arrangements: with family Additional living arrangements comments: Lives with in 4 children in [place]. Spiritual care concerns: No Exam 2 Narrative: GENERAL: Well-appearing, well-nourished, and in no acute distress. HEAD: Normocephalic, atraumatic. EYES: PERRLA and EOMI. ENT: Right submandibular swelling present. Mild tenderness to the area. No induration or fluctuance. Uvula midline. Floor of the mouth intact. No muffled voice, drooling or trismus. Nares clear, no rhinorrhea or epistaxis. Mucous membranes moist. NECK: Supple. No adenopathy or masses. CHEST: No respiratory distress. Clear to auscultation. No wheezes rales or rhonchi HEART: Regular rate and rhythm. No murmur heard. Normal peripheral pulses. ABDOMEN: Soft, nontender, nondistended, normal active bowel sounds. MSK: Normal range of motion. No edema. SKIN: Warm, dry, no rash. NEURO: Alert and oriented x4. No focal deficits. PSYCH: Normal mood and affect. Course Vital Signs Vital signs: Vital Signs Temperature 97.8 F 09/04/24 19:22 Pulse Rate 96 09/04/24 19:22 Respiratory Rate 15 09/04/24 19:22 Blood Pressure 150/93 H 09/04/24 19:22 Pulse Oximetry 100 09/04/24 19:22 Oxygen Delivery Room Air 09/04/24 19:22 Temperature 97.8 F 09/04/24 19:22 Pulse Rate 88 09/04/24 22:46 Respiratory Rate 17 09/04/24 22:46 Blood Pressure 146/89 H 09/04/24 22:46 Pulse Oximetry 100 09/04/24 22:46 Oxygen Delivery Room Air 09/04/24 19:22 MDM - Skin/Abscess/Foreign Bdy MDM Narrative Medical decision making narrative: This is a 33-year-old female who presents to the ED for chief complaint of right facial swelling. Vitals are normal. Exam remarkable for the above. Floor of the mouth intact. She does not appear and Dequan's angina or appear to have any kind of impending airway compromise. Lab work showing white count CBC. CRP is mildly elevated 2.0. CMP unremarkable. Facial CT shows evidence of mild right-sided facial cellulitis. No signs of deep space infection, abscess on CT exam today. Presentation consistent with mild facial cellulitis. She was given Toradol and Ancef IV here. On re-evaluation she is well-appearing and does not have any increase in her swelling. She previously was prescribed amoxicillin from dentist, however I will switch her to cephalexin today for more of a cellulitis. Patient will be discharged in stable condition. Supportive measures discussed and return precautions given. Patient is understanding and agreeable with plan for discharge with PCP follow-up. Lab Data 09/04/24 22:09 09/04/24 22:09 Labs: Lab Results 09/04/24 09/04/24 Range/Units 22:09 22:51 WBC 9.3 (4.5-10.0) K/mm3 RBC 4.13 L (4.2-5.4) M/mm3 Hgb 11.9 L (12.0-15.0) g/dL Hct 35.0 L (37.0-47.0) % MCV 84.7 (80-100) fl MCH 28.8 (26-34) pg MCHC 34.0 (32-36) g/dl RDW 11.9 (11.5-14.5) % Plt Count 173 (150-375) k/mm3 MPV 9.3 (7.4-10.4) fl Immature Gran % (Auto) 0.2 (0-0.5) % Neut % (Auto) 58.8 (45.5-73.1) % Lymph % (Auto) 30.0 (18.3-44.2) % [place] % (Auto) 9.3 H (2.6-8.5) % Eos % (Auto) 1.5 (0-4.4) % Baso % (Auto) 0.2 (0.2-1.2) % Lymph # (Auto) 2.80 (0.9-3.2) K/mm3 [place] # (Auto) 0.9 H (0.1-0.6) K/mm3 Eos # (Auto) 0.1 (0-0.3) K/mm3 Baso # (Auto) 0.0 (0.0-0.1) K/mm3 Abs Immat Gran (auto) 0.02 (0.00-0.031) K/mm3 Absolute Neuts (auto) 5.5 (1.3-6.7) K/mm3 Absolute Nucleated RBC 0.000 (0.0-0.012) K/mm3 Nucleated RBC % 0.0 (0.0-0.2) % Sodium 136 L (137-145) mmol/L Potassium 4.0 (3.4-5.0) mmol/L Chloride 104 (98-107) mmol/L Carbon Dioxide 24 (22-30) mmol/L Anion Gap 8 (4-12) mmol/L BUN 16 (7-17) mg/dL Creatinine 0.68 L (0.7-1.0) mg/dL Estim Creat Clear Calc 104 ml/min Estimated GFR > 60 (59 - ) Glucose 96 (65-110) mg/dL Calcium 8.9 (8.4-10.2) mg/dL Total Bilirubin 0.7 (0.2-1.3) mg/dL AST 27 (14-36) U/L ALT 24 (6-35) U/L Alkaline Phosphatase 97 (38-126) U/L C-Reactive Protein 2.0 H (<1.0) mg/dL Total Protein 7.0 (6.3-8.2) g/dL Albumin 4.2 (3.5-5.1) g/dL Serum HCG, Qual Negative Discharge Plan Discharge Clinical Impression: Facial cellulitis Patient Disposition: Home, Self-Care Condition: Stable Instructions: Antibiotic Form, Cellulitis (ED) Additional Instructions: Your exam and imaging today are reassuring. This is a facial cellulitis. It is mild at this point and should be treated well with oral antibiotics. There is no deep space involvement. Please follow-up with dentist for definitive management for infection source control. If you have any new or worsening symptoms please return to the ER for further evaluation. Patient Language: Yoruba Prescriptions: New cephalexin 750 mg capsule 750 mg PO Q12H Qty: 14 0RF No Action fluoxetine 10 mg capsule 10 mg PO DAILY Qty: 30 2RF Follow-up/Referrals: Shanelle Ramirez MD [Primary Care Provider] - Time of Disposition: 00:20
[2024-09-04] MEDS: KETOROLAC 15 MG/ML VIAL (*BKC) IV PUSH (22:07)
[2024-09-04] MEDS: ceFAZolin 1 GM/NS 50 ML 1 GM/50 ML BAG IVPB (22:07)
[2024-09-04 22:14] LABS: Basophils Percent Auto 0.2 % (0.2-1.2); Eosinophils Absolute Auto 0.1 K/mm3 (0-0.3); Eosinophils Percent Auto 1.5 % (0-4.4); Hemoglobin 11.9 g/dL (12.0-15.0); Immature Granulocyte Absolute 0.02 K/mm3 (0.00-0.031); Immature Granulocyte Percent A 0.2 % (0-0.5); Mean Corpuscular Hemoglobin 28.8 pg (26-34); Mean Corpuscular Volume 84.7 fl (80-100); Mean Platelet Volume 9.3 fl (7.4-10.4); Monocytes Absolute Auto 0.9 K/mm3 (0.1-0.6); Monocytes Percent Auto 9.3 % (2.6-8.5); Neutrophils Absolute Auto 5.5 K/mm3 (1.3-6.7); Neutrophils Percent Auto 58.8 % (45.5-73.1); Platelet Count Result 173 k/mm3 (150-375); Red Blood Count 4.13 M/mm3 (4.2-5.4); Red Cell Distribution Width 11.9 % (11.5-14.5); White Blood Count 9.3 K/mm3 (4.5-10.0)
[2024-09-04 22:26] LABS: Alanine Aminotransferase 24 U/L (6-35); Albumin Level 4.2 g/dL (3.5-5.1); Alkaline Phosphatase 97 U/L (38-126); Anion Gap 8 mmol/L (4-12); Aspartate Amino Transferase 27 U/L (14-36); Bilirubin,Total 0.7 mg/dL (0.2-1.3); Blood Urea Nitrogen 16 mg/dL (7-17); Calcium 8.9 mg/dL (8.4-10.2); Carbon Dioxide 24 mmol/L (22-30); Chloride 104 mmol/L (98-107); Estimated CRCL calculation 104 ml/min; Estimated Glomerular Filt Rate > 60; Glucose 96 mg/dL (65-110); Sodium 136 mmol/L (137-145)
[2024-09-04 22:46] VITALS: BP 146/89; PULSE 88; RESP 17; O2SAT 100
[2024-09-04 23:27] LABS: SPREG INTERNAL CONTROL Positive; Serum Qual hCG Negative
== END 2024-09-05 00:27 | disposition home or self-care (01) ==
PROVIDERS: Emergency Provider Physician Assistant; PCP Family Medicine
DX: L03.211 Cellulitis of face (principal); F41.9 Anxiety disorder, unspecified; J45.909 Unspecified asthma, uncomplicated; Z86.718 Personal history of other venous thrombosis and embolism; E78.5 Hyperlipidemia, unspecified; I10 Essential (primary) hypertension; G47.30 Sleep apnea, unspecified
CPT/HCPCS: 36415; 70487; 80053; 84703; 85025; 86140; 96365; 96375; 99284; J0690; J1885; Q9967

== ENCOUNTER 2024-09-28 09:39 | Outpatient (CLI) | payer OTHER, SELFPAY ==
--- NOTE | 2024-09-28 09:51 | ECG_ITS ---
Test Date: 2024-09-28 10:08:52 Measurements Intervals [place] Rate: 66 P: 43 [place]: 149 QRS: 33 QRSD: 88 T: 34 QT: 373 QTc: 392 Interpretive Statements SINUS RHYTHM MINIMAL Q WAVES- HIGH LATERAL LEADS BASELINE ARTIFACT- I, II, III, AVR, AVL, AVF, V1 BORDERLINE ECG No previous ECG available for comparison Electronically Signed On 09-28-2024 10:14:43 CDT by Kin Dhillon D.O.
--- OUTSIDE RECORDS SUMMARY | 2024-09-28 09:54 | XMS_ITS | CONTINUITY OF CARE DOCUMENT ---
Author Name jaxson puri Address Unknown Organization [facility] Address [address] [place] [address] Phone [phone] Care Team Providers Care Maintenance Repairman Name Role Phone Narayan GORMAN, Ileana Unavailable [phone] IFTIKHAR GORMAN, NAPOLEON Unavailable [phone] BUITRAGO SUPERVISOR ALUMINUM BOAT ASSEMBLY-C, JAMMIE Unavailable PROBLEMS Condition Status Date Provider Notes Family [...] encounter Office Visit Jose Cruz Boyd MD [facility] Family History of Hypertension:Shortness of breathHTNPalpitationsTobacco use, quitScreeningObesitycovid 19;2020Hyperlipidemia;with high crpAsthmaDiverticulosis, colonfatty liver;elevated lftHTN borderlinePalpitations;NML TSH - In-person encounter Office Visit Ileana Busch MD [facility] Snoring - nml sleep study 2017 - In-person encounter Office Visit Ileana Busch MD [facility] - In-person encounter Office Visit Ileana Busch MD [facility] VITAL SIGNS Date Observation Value Provider [...] MD blood pressure, diastolic 70 mm[Hg] [facility], systolic 110 mm[Hg] Ramiro trujillo Abrams oxygen saturation, oximetry 98 % respiratory rate E&M 16 /min Boron pulse rate 75 /min [facility]&M 194 [lb_av] [facility] height E&M 61 [in_i] Octavia Abrams Body Mass Index (Ratio) 33.63 kg/m2 Jose Busch MD blood pressure, diastolic 70 mm[Hg] Da dre Brian blood pressure, systolic 122 mm[Hg] Dac ia Brian oxygen saturation, oximetry 98 % Tamar Brian respiratory rate E&M 16 /min Tamar V oss pulse rate 69 /min Tamar Brian weight E&M 178 [lb_av] Tamar Brian height E&M 61 [in_i] Tamra Brian ALLERGIES No Known Drug Allergies RESULTS Date Observation Value Provider Reference Range Interpretation Location activated partial thromboplastin time (aPTT) 34 s [facility] 27-37 Normal C, [place] [address] troponin T 0.016 ng/mL [facility] Units converted. See lab report for original value. High C, [place] [address] LDL CHOLESTEROL 126 mg/dL [facility] <=129 Normal C, [place] [address] C-reactive protein, by highly sensitive test 9.94 mg/L [facility] C, [place] [address] Estimated Glomerular Filtration Rate (calc) 122 mL/min/{ 1.73_m2} [facility] C, [place] [address] cholesterol, non-HDL, total 151 mg/dL [facility] C, [place] [address] HDL CHOLESTEROL 46 mg/dL [facility] >=40 Normal C, [place] [address] triglyceride, serum, fasting 139 mg/dL [facility] <=149 Normal C, [place] [address] cholesterol, serum 197 mg/dL [facility] 30-199 Normal C, [place] [address] NT-pro BNP 27 [facility] <=300 Normal C, [place] [address] aspartate aminotransferase (SGOT), serum 58 1/L [facility] 10-45 High C, [place] [address] alanine aminotransferase (SGPT), serum 64 1/L [facility] 7-45 High C, [place] [address] Alkaline phosphatase 120 [facility] 40-130 Normal C, [place] [address] albumin, serum 4.4 g/dL [facility] 3.5-5.0 Normal C, [place] [address] protein, total, serum 7.2 g/dL [facility] 6.5-8.5 Normal C, [place] [address] bilirubin, serum, total 0.7 mg/dL [facility] 0.1-1.2 Normal C, [place] [address] calcium, serum 9.8 mg/dL [facility] 8.5-10.3 Normal , [place] [address] blood glucose, random 85 mg/dL [facility] 70-199 Normal , [place] [address] creatine, serum 0.64 mg/dL [facility] 0.60-1.10 Normal , [place] [address] urea nitrogen, blood 13 mg/dL [facility] 8-25 Normal C, [place] [address] anion gap, serum 14 mmol/L [facility] 2-15 Normal , [place] [address] carbon dioxide, venous blood 26 mmol/L [facility] 22-32 Normal [place] [address] chloride, serum 100 mmol/L [facility] 97-110 Normal , [place] [address] potassium, serum 4.4 MMOL/L [facility] 3.3-4.9 Normal [place] [address] sodium, serum 140 mmol/L [facility] 135-145 Normal , [place] [address] Absolute Basophils 0.0 K/CUMM [facility] 0.0-0.1 Normal , [place] [address] Absolute Monocytes 0.7 K/CUMM [facility] 0.2-0.8 Normal [place] [address] Absolute Lymphocytes 2.1 K/CUMM [facility] 0.8-3.3 Normal [place] [address] Absolute Neutrophils 4.4 K/CUMM [facility] 1.7-6.5 Normal [place] [address] nucleated red blood cells as percent of [...] day social Octavia Abrams alcohol use no Boron Abrams smoking, year quit 2012 Octavia Butler ngram number of years as a smoker 4 a Octavia Abrams smoking history, total pack/day 1/2 Octavia Abrams cigarette use yes Octavia Abrams smoking status Former smoker Boron Ingr am smoking status Former smoker Tamar [...] Payer name Policy type / Coverage type [place] red green party ID TO MEDICAID Medicaid [id number] ADVANCE DIRECTIVES Name Date DISCUSSED - NO DECISION MADE TREATMENT PLAN Date Name Performer [id number],Jose Cruz Sharma MD [id number],Jose Cruz Sharma MD [id number],Jose Cruz Sharma MD [id number],Jose Cruz Sharma MD [id number],Jose Cruz Sharma a [id number],S, Jose Cruz Serot a [id number],S, Jose Cruz Serot a [id number],S,n l tsh and holtere and stress and eho, neg ct pe Jose Cruz Serota [id number],B, Jose Cruz Serot a Cardiology Jose Cruz [...] PROBNP, N TERMINAL Complete Echo DLCO - 32301 FRC - 10573 FVC - 68838 Holter Monitor 48 hr STR - Routine 6 minute walk test DLCO - 95736 FRC - 12186 FVC - 32477 Sleep Study Home Complete Echo HISTORY OF PROCEDURES Procedure Date Procedure Name Provider Procedure Notes S tatus CT- Coronary CA score Jose Cruz Boyd MD completed EKG Jose Cruz Boyd MD complete d EKG Ileana Busch MD complet ed EKG Ileana Busch MD complet ed Stress EKG Pilar sharma MD completed FVC / MVV with bronchodilator - 67884 Ileana Busch MD completed FRC - 81252 Ileana Busch MD comple gunner DLCO - 86694 Ielana Busch MD compl eted EKG Ileana Busch MD complet ed
--- OUTSIDE RECORDS SUMMARY | 2024-09-28 09:54 | XMS_ITS | Encounter Summary ---
Author Organization [facility] Healthcare Address [address] [place] [address] Care Team Providers Care Home Office Claim Specialist Name Role Phone Heron Cavazos MD Unavailable [phone] Shanelle Ramirez MD Primary Care Provider [phone] Encounter Details Date Type Department Care Team (Late st Contact Info) Description 08/13/2024 Results Follow-Up [facility] Gastroenterology at [address] [place] [address] Juan Francisco Rhoades NP [address] [place] [address] [address] [place] [address] Social History Tobacco Use Types Packs/Day Years [...] How often do you attend chur or scientologist services? Never 07/02/2022 Do you belong to any clubs o r organizations such as pentecostal groups, unions, fraternal or athletic groups, or [...] place to sleep or slept in a retirement (including now)? No 07/02/2022 Personal Safety Answer [...] look good. 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
--- OUTSIDE RECORDS SUMMARY | 2024-09-28 09:54 | XMS_ITS | Clinical Summary ---
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
--- OUTSIDE RECORDS SUMMARY | 2024-09-28 09:54 | XMS_ITS | Clinical Summary ---
Author Organization 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
--- OUTSIDE RECORDS SUMMARY | 2024-09-28 09:54 | XMS_ITS | Encounter Summary ---
Author Organization [facility] Healthcare Address [address] [place] [address] Care Team Providers Care Sheriffs Name Role Phone Heron Cavazos MD Unavailable [phone] Shanelle Ramirez MD Primary Care Provider [phone] Encounter Details Date Type Department Care Team (Late st Contact Info) Description 08/13/2024 Results Follow-Up [facility] Medical [facility] Gastroenterology at [address] [place] [address] Juan Francisco Rhoades NP [address] [place] [address] [address] [place] [address] Social History Tobacco Use Types Packs/Day Years [...] How often do you attend chur or amish services? Never 07/02/2022 Do you belong to any clubs o r organizations such as religious groups, unions, fraternal or athletic groups, or [...] place to sleep or slept in a nursing home (including now)? No 07/02/2022 Personal Safety Answer [...] no active inflammation in the GI tract. 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
--- OUTSIDE RECORDS SUMMARY | 2024-09-28 09:54 | XMS_ITS | Clinical Summary ---
Author Organization [facility] Office Center Address [address] [place] [address] Care Team Providers Care Votator Machine Operator Name Role Phone Heron Cavazos MD Unavailable [phone] Shanelle Ramirez MD Primary Care Provider [phone] Allergies No known active allergies Medications PROzac 10 mg tablet/capsule 06/08/20 24 Active senna 8.6 mg tablet 07/09/19 25 Active hydrocortisone (ANUSOL-HC) 25 mg suppository Insert 1 suppository (25 mg total) into the rectum 2 (two) times a day as needed for hemorrhoids (Rectal bleeding) 24 suppository 3 08/08/19 25 Active amoxicillin (AMOXIL) 500 mg tablet/capsuleI ndications:Phar yngitis, unspecified etiology Take 1 tablet/capsule (500 mg total) by mouth 2 (two) times a day for 10 days 20 tablet/capsule 09/27/19 25 025 Active Active Problems Problem Noted Date Diagnosed Date Rectal bleeding 08/08/2024 History of gestational hypertension 0 07/29/2024 Pelvic congestion syndrome 02/17/2024 Assessment & Plan (03/08/2024 3:06 PM CDT): CT and her history consistent with pelvic congestion syndrome. I discussed the importance of further evaluation by her part maker to rule out any gynecological causes of her symptoms otherwise I do think venography with possible intervention if all other gynecologic reasons has been ruled out would be appropriate. She will call to schedule another appointment with me after she has seen her part maker. Varicose veins of leg with pain, left [...] concerns with . Recommended discussing symptoms with MANAGER PRINT at next visit scheduled 02/22/2022 Last Assessment [...] seek urgent/emergent care including calling Suicide Hotline (756 or ) or 781. Follow up in if symptoms worsen or fail to improve with Psychologist/Counselor/SupportGroup/Psychiatrist and PCP Sensorineural hearing loss (SNHL) of both ears 0 02/19/2022 Assessment & Plan (09/05/2023 9:36 AM CDT): Call to arrange Hearing test Assessment & Plan (02/19/2022 9:20 AM CDT): Hearing and Balance testing after Delivery [facility] Zyrtec 64 ounces of caffeine free and soda free fluid daily Check blood pressure when having dizziness Dizziness and giddiness 02/19/2022 Assessment & Plan (02/19/2022 9:20 AM CDT): Hearing and Balance testing after [facility] Continue Zyrtec 64 ounces of caffeine free and soda free fluid daily Check blood pressure when having dizziness Seasonal allergic rhinitis due to pollen 022 Overview (06/14/2023): Last Assessment & Plan: Condition: stable Follow up in: if symptoms worsen or fail to improve Last Assessment & Plan: Hearing and Balance testing after [facility] Continue Zyrtec 64 ounces of caffeine [...] AM CDT): Hearing and Balance testing after [facility] Continue Zyrtec 64 ounces of caffeine [...] improve Assessment & Plan (06/09/2021 2:00 PM TRIMMING MACHINE SET UP OPERATOR): Advised weight loss Essential hypertension 02/16/2018 Overview [...] 09/14/2022 Assessment & Plan (06/09/2021 2:00 PM TRIMMING MACHINE SET UP OPERATOR): Increase dietay fiber and try Levsin SL prn Palpitations 05/02/2019 09/14/2022 Obesity (BMI 30.0-34.9) 09/06/2016/06/2022 Encounters Date Type Department Care Team Description 09/27/2024 Results Follow-Up [facility] [place] [address] [place] [address] Keely Dumont NP 09/26/2024 11:29 AM CDT - 09/26/2024 11:59 PM CDT Hospital Encounter [address] [address] Pharyngitis, unspecified etiology Discharge Disposition: Discharge to home or self care 09/26/2024 11:15 AM CDT Office Visit [facility] [place] [address] [place] [address] Keely Dumont NP Pharyngitis, unspecified etiology (Primary Dx) 09/18/2024 1:02 PM CDT Anesthesia Event [address] [address] Brandon Charles DO 09/18/2024 11:44 AM CDT - 09/18/2024 2:31 PM CDT Hospital Encounter [address] [address] Marleni Ruvalcaba MD Discharge Disposition: Discharge to home or self care 09/18/2024 11:00 AM CDT - 09/18/2024 11:30 AM CDT Surgery [address] [address] Marleni Ruvalcaba MD COLONOSCOPY 08/30/2024 Telephone [facility] [address] [place] [address] Mirta Astorga RN 08/23/2024 Telephone [facility] Gastroenterology at [address], [place] [address] Vannesa Camacho Colonoscopy Wait List 08/21/2024 Telephone [facility] G[facility] at [address] [place] [address] Vannesa Camacho Colonoscopy Reschedule 08/13/2024 Results Follow-Up [facility] G[facility] at [address] [place] [address] Juan Francisco Rhoades NP 08/13/2024 Results Follow-Up [facility] Gastroenterology at [address] [place] [address] Juan Francisco Rhoades NP 08/09/2024 Telephone [facility] Gastroenterology at [address] [place] [address] Ashleigh Quiñonez MA 08/09/2024 Telephone [facility] [place] [address] Modesto Olmstead RN 08/08/2024 12:45 PM TRIMMING MACHINE SET UP OPERATOR Lab [address] Elevated sed rate 08/08/2024 11:30 AM TRIMMING MACHINE SET UP OPERATOR - 08/08/2024 11:59 PM TRIMMING MACHINE SET UP OPERATOR Hospital Encounter [address] [address] Galactorrhea Discharge Disposition: Discharge to home or self care 08/08/2024 10:28 AM TRIMMING MACHINE SET UP OPERATOR - 08/08/2024 11:59 PM TRIMMING MACHINE SET UP OPERATOR Hospital Encounter [address] [address] Galactorrhea Discharge Disposition: Discharge to home or self care 08/08/2024 9:25 AM TRIMMING MACHINE SET UP OPERATOR Lab [address] Flatulence; Gastroesophageal reflux disease without esophagitis; Nausea without vomiting; Irritable bowel syndrome with both constipation and diarrhea; Hepatic steatosis; Family history of cirrhosis of liver 08/08/2024 9:10 AM TRIMMING MACHINE SET UP OPERATOR Lab [address] Abnormal prolactin level 08/08/2024 8:15 AM TRIMMING MACHINE SET UP OPERATOR Office Visit [facility] Gastroenterology at [address], [place] [address] Juan Francisco Rhoades NP BRBPR (bright red blood per rectum) (Primary Dx); Irritable bowel syndrome with both constipation and diarrhea; Flatulence; Hepatic steatosis; Family history of cirrhosis of liver; Internal hemorrhoids; Gastroesophageal reflux disease without esophagitis; Nausea without vomiting; Pelvic congestion syndrome 08/08/2024 Orders Only [facility] Medical [facility] Gastroenterology at [address] [place] [address] Juan Francisco Rhoades NP Elevated sed rate (Primary Dx) 08/08/2024 Telephone [facility] Gastroenterology at [address] [place] [address] Jack London MA 08/05/2024 9:04 PM TRIMMING MACHINE SET UP OPERATOR - 08/06/2024 12:01 AM TRIMMING MACHINE SET UP OPERATOR Emergency [facility] Emergency Department [address] [place] [address] Ml Hickey MD Lower GI bleed (Primary Dx); Abdominal pain Discharge Disposition: Discharge to home or self care 07/23/2024 Telephone [facility] Care Organization [address] [place] [address] Nirmala Hair MA Successful Phone Call (AWV SCHEDULING) 07/18/2024 10:00 AM TRIMMING MACHINE SET UP OPERATOR Ancillary Procedure [place] JAIR [address], [place] [address] Pelvic and perineal pain 07/18/[address] [place] [address] Neha Acosta MA Test Results (Request for Lab results. ) 07/16/2024 Telephone [facility] [address] [place] [address] Modesto Olmstead RN 07/03/2024 3:15 PM TRIMMING MACHINE SET UP OPERATOR Lab [address] Galactorrhea 07/03/2024 2:00 PM TRIMMING MACHINE SET UP OPERATOR Office Visit [address] [place] [address] Carson Mi MD Well woman exam (Primary [...] TUBAL LIGATION 10/08/2022 COLONOSCOPY 5-6 years ago COLONOSCOPY 09/18/2024 Medical History Medical History Date Comments Gallstones Hypertension Fibrocystic breast Non-alcoholic fatty liver disease PCOS (polycystic ovarian syndrome) Family History Medical History Relation Name Comments Heart murmur Brother 1 Gavin Asthma Brother 2 Rah Heart disease Father Heart murmur Father Hypertension Father Mitral valve prolapse Father Breast cancer Maternal Grandmother Cirrhosis Maternal Grandmother Kidney cancer Maternal Grandmother Thyroid disease Mother Colon cancer Paternal Grandfather Ovarian cancer Neg Hx Thyroid cancer Neg Hx Relation Name Status Comments Brother 1 Chester Alive Brother 2 Rah Alive Father Alive Maternal Grandmother Mother Alive Paternal Grandfather Social History Tobacco Use Types Packs/Day Years [...] How often do you attend chur or samaritan services? Never 07/02/2022 Do you belong to any clubs o r organizations such as bahai groups, unions, fraternal or athletic groups, or school groups? No 07/02/2022 How often do you attend meet ings of the clubs or organizations you belong to? Never 07/02/2022 Are you , , di vorced, , never , or living with a partner? 07/02/2022 AUDIT-C Answer Date Recorded Q1: How often do you have a drink containing alcohol? Never 09/17/2024 Q2: How many drinks containi ng alcohol do you have on a typical day when you are drinking? Patient does not drink Q3: How often do you have si x or more drinks on one occasion? Never 09/17/2024 Overall Financial Resource Strain (CARDIA) Answe r [...] place to sleep or slept in a long term (including now)? No 07/02/2022 Personal Safety Answer Date Recorded Have you ever been in or are you currently in a harmful physical or emotional relationship or is someone making you feel afraid or unsafe? Denies 09/18/2024 Comments No Sex and Gender Information Value [...] Sign Reading Time Taken Comments Blood Pressure 142/94 09/26/2024 11:08 AM CDT Pulse 76 09/26/2024 11:08 AM CDT Temperature 37 C (98.6 F) 09/26/2024 11:08 AM CDT Respiratory Rate 18 09/26/2024 11:08 AM CDT Oxygen Saturation 98% 09/26/2024 11:08 AM CDT Inhaled Oxygen Concentration - - Weight 91.6 kg (202 lb) 09/26/2024 11:08 AM CDT Height 154.9 cm (5' 1 ) 09/26/2024 11:08 AM CDT Body Mass Index 38.17 09/26/2024 11:08 AM CDT Plan of Treatment Health Maintenance Due Date Last Done Comments Hepatitis C Screening 1990 Varicella Vaccines (1 of 2 - 13+ 2-dose series) 11/22/2003 Hepatitis B Screening 2008 Pneumococcal vaccine <65 (1 of 2 - PCV) 2009 Depression Screening 12/08/2023 12/07/2022, 09/14/2022, 07/01/2022 Influenza Vaccine (Season Ended) 2025 04/27/2015, 05/07/2014 Cervical Cancer Screening 07/03/2025 07/03/2024 Regular Well Visit/Exam 18-64 07/03/2025 07/03/2024 DTaP/Tdap/Td Vaccine (2 - Td or Tdap) 09/09/2026 09/09/2016 HPV Vaccines Aged Out No longer eligi ble based on patient's age to complete this topic Procedures Procedure Name Priority Date/Time Associated Diagnosis Comments THROAT CULTURE Routine 09/26/2024 11:29 AM CDT Pharyngitis, unspecified etiology POCT RAPID STREP Routine 09/26/2024 11:1 7 AM CDT Pharyngitis, unspecified etiology INFRARED COAGULATION OF HEMORRHOIDS 09/18/2024 12:55 PM CDT Rectal bleeding COLONOSCOPY 09/18/2024 12:55 PM CDT Rectal bleeding COLONOSCOPY 09/18/2024 12:16 PM CDT CALPROTECTIN, FECAL Routine 08/08/2024 1 2:40 PM TRIMMING MACHINE SET UP OPERATOR Elevated sed rate US BREAST BILATERAL LIMITED Schedule Routine, Read Routine (OP Routine) 08/08/2024 12:07 PM TRIMMING MACHINE SET UP OPERATOR Galactorrhea DIAGNOSTIC MAMMOGRAM BILATERAL W ANGELA Schedule Routine, Read Routine (OP Routine) 08/08/2024 10:48 AM TRIMMING MACHINE SET UP OPERATOR Galactorrhea TISSUE TRANSGLUTAMINASE, IGA Routine 08/08/2024 9:13 AM TRIMMING MACHINE SET UP OPERATOR EGFR Routine 08/08/2024 9:13 AM TRIMMING MACHINE SET UP OPERATOR Hepatic steatosis Family history of cirrhosis of liver DIFFERENTIAL AUTO Routine 08/08/2024 9:1 3 AM TRIMMING MACHINE SET UP OPERATOR Hepatic steatosis Family history of cirrhosis of liver FIBRO TEST-ACTI TEST Routine 08/08/2024 9:13 AM TRIMMING MACHINE SET UP OPERATOR Hepatic steatosis CBC WITH AUTO DIFFERENTIAL Routine 08/08/2024 9:13 AM TRIMMING MACHINE SET UP OPERATOR Hepatic steatosis Family history of cirrhosis of liver COMPREHENSIVE METABOLIC PANEL Routine 08/08/2024 9:13 AM TRIMMING MACHINE SET UP OPERATOR Hepatic steatosis Family history of cirrhosis of liver THYROID FUNCTION CASCADE Routine 08/08/2024 9:13 AM TRIMMING MACHINE SET UP OPERATOR Hepatic steatosis Family history of cirrhosis of liver ERYTHROCYTE SEDIMENTATION RATE Routine 08/08/2024 9:13 AM TRIMMING MACHINE SET UP OPERATOR Hepatic steatosis Family history of cirrhosis of liver CRP (ACUTE PHASE) Routine 08/08/2024 9:1 3 AM TRIMMING MACHINE SET UP OPERATOR Hepatic steatosis Family history of cirrhosis of liver CELIAC REFLEX PANEL Routine 08/08/2024 9 :13 AM TRIMMING MACHINE SET UP OPERATOR Irritable bowel syndrome with both constipation and diarrhea Flatulence Nausea without vomiting PROLACTIN Routine 08/08/2024 9:13 AM TRIMMING MACHINE SET UP OPERATOR Abnormal prolactin level H. PYLORI BREATH TEST Routine 08/08/2024 9:10 AM TRIMMING MACHINE SET UP OPERATOR Flatulence Gastroesophageal reflux disease without esophagitis Nausea without vomiting CT ABDOMEN PELVIS W CONTRAST ED 08/05/2024 10:15 PM TRIMMING MACHINE SET UP OPERATOR URINALYSIS AND REFLEX TO MICROSCOPIC AND CULTURE STAT 08/05/2024 9:51 PM TRIMMING MACHINE SET UP OPERATOR POCT HCG, URINE Routine 08/05/2024 9:49 PM TRIMMING MACHINE SET UP OPERATOR EGFR STAT 08/05/2024 6:29 PM TRIMMING MACHINE SET UP OPERATOR MANUAL DIFFERENTIAL STAT 08/05/2024 6 :29 PM TRIMMING MACHINE SET UP OPERATOR LIPASE STAT 08/05/2024 6:29 PM TRIMMING MACHINE SET UP OPERATOR COMPREHENSIVE METABOLIC PANEL STAT 08/05/2024 6:29 PM TRIMMING MACHINE SET UP OPERATOR CBC WITH AUTO DIFFERENTIAL STAT 08/05/2024 6:29 PM TRIMMING MACHINE SET UP OPERATOR US PELVIS W ENDOVAGINAL Routine 07/18/2024 11:40 AM TRIMMING MACHINE SET UP OPERATOR Pelvic and perineal pain PROLACTIN Routine 07/03/2024 3:17 PM TRIMMING MACHINE SET UP OPERATOR Galactorrhea PAP AND HPV, REFLEX TO HPV GENOTYPES Routine 07/03/2024 3:04 PM TRIMMING MACHINE SET UP OPERATOR Well woman exam from Last 3 Months Results * Throat culture Throat (09/26/2024 11:29 AM CDT) Report Final Report: No growth of pathogens. Comment:Testing performed by : [facility], [address] [place] [address] Throat 09/26/2024 11:2 9 AM CDT 09/26/2024 10:24 PM CDT Narrative [facility] OCHOA - 09/27/2024 7:05 PM CDT Testing performed by [facility] Microbiology Laboratory ([phone]). Keely Dumont NP LAB MICROBIOLOGY - GENERAL ORD ERABLES Final Result ADDIS [id number] [address] Department [place] [address] * POCT rapid strep A (09/26/2024 11:17 AM CDT) [facility] Rapid Strep A, POC Negative Negative Swab 09/26/2024 11:1 7 AM CDT Keely Dumont NP POINT OF CARE TEST ORDERABLES Final Result * Colonoscopy (09/18/2024 12:16 PM CDT) Anatomical Region Laterality Modality Other Narrative Procedure Note Marleni Ruvalcaba MD - 09/18/2024 12:[address] [facility] Patient Name: Audra Blount Procedure Date: 09/18/2024 12:16 PM Date of : 1990 Admit Type: Outpatient Age: 33 Gender: Female Attending MD: Marleni Ruvalcaba M.D. Room: [facility] ENDOSCOPY ROOM 1 Note Status: Finalized Patient Profile: This is a 33 year old female. Patient hascomplaints of recurrent episodes of bright red bleeding per rectum. Grandparent had colon cancer. Procedure: Colonoscopy Indications: Last colonoscopy 5-6 years ago Referring MD: Shanelle Ramirez M.D. Providers: Marleni Ruvalcaba M.D. Impression: - The entire examined colon is normal. - Internal hemorrhoids. Treated with thermaltherapy. - No specimens collected. Recommendation: - Repeat colonoscopy at age 45 for screeningpurposes. Medicines: Monitored Anesthesia Care Complications: No immediate complications. Estimated Blood Loss: Estimated blood loss: none. Procedure: Pre-Anesthesia Assessment: - Prior to the procedure, a History and Physicalwas performed, and patient medications and allergieswere reviewed. The patient's tolerance of previous anesthesia was also reviewed. The risks andbenefits of the procedure and the sedation options and risks were discussed with the patient. All questions were answered, and informed consent was obtained. Prior Anticoagulants: The patient has taken noanticoagulant or antiplatelet agents. ASA Grade Assessment: Per anesthesia note and evaluation. After reviewing the risks and benefits, the patient was deemed in satisfactory condition to undergo the procedure. The benefits, risks and alternatives of theprocedure and sedation were discussed and informed consentwas obtained. All questions were answered. Please referto the signed informed consent document in the medical record. The bowel preparation used was Miralax and bisacodyl tablets via extended prep with split dose instruction. The scope was passed under directvision. The Pediatric Colonoscope [id number] was introduced through the anus and advanced to the the cecum, identified by appendiceal orifice andileocecal valve. The quality of the bowel preparation wasgood. Bowel prep was administered using a split dose. Findings: The perianal and digital rectal examinations were normal. The cecum appeared normal. The colon (entire examined portion) appeared normal. Polyps and nomass lesions noted. Internal hemorrhoids were found during retroflexion. The hemorrhoids were medium-sized. Coagulation to prevent future bleeding of internal hemorrhoids using IRC (Infrared Coagulation) was successful. Electronically signed by Marleni Ruvalcaba M.D. Marleni Ruvalcaba M.D. 09/18/2024 2:09:11 PM Number of Addenda: 0 Note Initiated On: 09/18/2024 12:16 PM Procedure Code(s): --- Professional --- 08408, Colonoscopy, flexible; diagnostic, including collection of specimen(s) by brushing or washing, when performed (separateprocedure) 84819, Destruction of internal hemorrhoid(s) by thermal energy (eg, infrared coagulation, cautery, radiofrequency) Diagnosis Code(s): --- Professional --- K64.8, Other hemorrhoids CPT copyright 2020 [employer]. All rights reserved. The codes documented in this report are preliminary and upon equine breeder reviewmay be revised to meet current compliance requirements. Recognized by the [employer] for promoting quality in endoscopy Marleni Ruvalcaba MD ENDOSCOPY PROCEDURES Final Result * Calprotectin, fecal (08/08/2024 12:40 PM TRIMMING MACHINE SET UP OPERATOR) Calprotectin, fecal <50.0 <50.0 (Normal) mcg/g Dumont ref Lab Comment: Test Performed by: [facility] - [address] [address] Press Feeder: Bere Damon Ph.D.; CLIA# [id number] Stool 08/08/2024 12:4 0 PM TRIMMING MACHINE SET UP OPERATOR 08/08/2024 1:45 PM TRIMMING MACHINE SET UP OPERATOR Juan Francisco IreneNicoleyenni Rhodaes TELEVISION NEWS VIDEO EDITOR LAB BODY FLUIDS AND STOOLS ORDERABLES Final Result [facility] [place] [address] [facility] Department [place] [address] [facility] Lab * US BREAST LIMITED BILATERAL (08/08/2024 12:07 PM TRIMMING MACHINE SET UP OPERATOR) Anatomical Region Laterality Modality Breast Bilateral Ultrasound 08/08/2024 1:17 PM TRIMMING MACHINE SET UP OPERATOR Impressions 08/08/2024 1:17 PM TRIMMING MACHINE SET UP OPERATOR No mammographic or sonographic evidence of malignancy. Bilateral nipple discharge is likely physiologic in nature. OVERALL FINAL ASSESSMENT: BI-RADS Category 2: Benign. RECOMMENDATION: Continued clinical follow-up is recommended. Unless earlier screening is clinically indicated, recommend annual screening mammography beginning at 40 years of age. Electronically signed by: Jovanna Cross M.D. Narrative 08/08/2024 1:17 PM TRIMMING MACHINE SET UP OPERATOR EXAMINATION: BILATERAL DIGITAL DIAGNOSTIC MAMMOGRAM INCLUDING CAD [...] MAMMOGRAM BILATERAL W ANGELA (08/08/2024 10:48 AM TRIMMING MACHINE SET UP OPERATOR) Anatomical Region Laterality Modality Breast Bilateral Mammography 08/08/2024 1:17 PM TRIMMING MACHINE SET UP OPERATOR Impressions 08/08/2024 1:17 PM TRIMMING MACHINE SET UP OPERATOR No mammographic or sonographic evidence of malignancy. Bilateral nipple discharge is likely physiologic in nature. OVERALL FINAL ASSESSMENT: BI-RADS Category 2: Benign. RECOMMENDATION: Continued clinical follow-up is recommended. Unless earlier screening is clinically indicated, recommend annual screening mammography beginning at 40 years of age. Electronically signed by: Jovanna Cross M.D. Narrative 08/08/2024 1:17 PM TRIMMING MACHINE SET UP OPERATOR EXAMINATION: BILATERAL DIGITAL DIAGNOSTIC MAMMOGRAM INCLUDING CAD [...] * Fibro Test-Acti Test (08/08/2024 9:13 AM TRIMMING MACHINE SET UP OPERATOR) FibroTest Score 0.02 [place] ref Lab FibroTest Stage F0 CERN ER [...] A3 severe activity FibroTest-ActiTest Comment See Comment [facility] MONTERO ([place]) Comment: The reliability of results is [...] developed and its performance characteristics determined by [facility] in a manner consistent with CLIA requirements. This test has not been cleared or approved by the U.S. Food and Drug Administration. BioPredictive Serial Number [id number] [facility] ([place]) APOLIPOPROTEIN A1 151 >=140 mg/dL [facility] ([place]) Xoito-3-Yoreprfrlxrlm, Ser 108 100 - 280 mg/dL [facility] ([place]) Haptoglobin, S 197 30 - 200 mg/dL [facility] ([place]) Alanine Aminotransferase (ALT), S 35 7 - 45 Units/L [facility] ([place]) Gamma Glutamyltransferase (GGT), S 16 5 - 36 Units/L [facility] ([place]) Bilirubin, Total, S 0.5 0.0 - 1.2 mg/dL [facility] ([place]) Comment: Test Performed by: [place] [address] Press Feeder: Bere Damon Ph.D.; CLIA# [id number] Test Performed by: [place] [address] Press Feeder: Bere Damon Ph.D.; CLIA# [id number] Blood 08/08/2024 9:13 AM TRIMMING MACHINE SET UP OPERATOR 08/08/2024 10:14 AM TRIMMING MACHINE SET UP OPERATOR Juan Francisco Rhoades TELEVISION NEWS VIDEO EDITOR LAB BLOOD ORDERABLE S Final Result [facility] MONTER[facility] ([place]) [address] [facility] Department [place] [address] [place] ref Lab * eGFR (08/08/2024 9:13 AM TRIMMING MACHINE SET UP OPERATOR) eGFR >90 >=60 mL/min/1. 73 m2 Comment: [...] last reviewed 2021. Blood 08/08/2024 9:13 AM TRIMMING MACHINE SET UP OPERATOR 08/08/2024 10:14 AM TRIMMING MACHINE SET UP OPERATOR Juan Francisco Rhoades TELEVISION NEWS VIDEO EDITOR LAB BLOOD ORDERABLE S Final Result [facility] ([place]) [address] [facility] Department [place] [address] * Differential, auto (08/08/2024 9:13 AM TRIMMING MACHINE SET UP OPERATOR) Neutrophil abs 5.2 1.5 - 6.5 K/cumm [...] revised on 2017. Basophil pct 0.2 % [facility] ([place]) Comment: Interpretive Data Percent cell count reference ranges are not reported, since discordance with absolute values may lead to misinterpretation of CBC data. Current Interpretive Data was last revised on 2017. Blood 08/08/2024 9:13 AM TRIMMING MACHINE SET UP OPERATOR 08/08/2024 10:14 AM TRIMMING MACHINE SET UP OPERATOR Juan Francisco [facility] TELEVISION NEWS VIDEO EDITOR LAB BLOOD ORDERABLE S Final Result Performing Organization Address City/[facility]/ZIP Co de Phone Number [facility] MONTERO ([place]) [address] [facility] Department [place] [address] * Thyroid Function [place] (08/08/2024 9:13 AM TRIMMING MACHINE SET UP OPERATOR) TSH 1.61 0.30 - 4.20 mcIUnit/mL Blood 08/08/2024 9:13 AM TRIMMING MACHINE SET UP OPERATOR 08/08/2024 10:14 AM TRIMMING MACHINE SET UP OPERATOR [facility] TELEVISION NEWS VIDEO EDITOR LAB BLOOD ORDERABLE S Final Result ADDIS MONTERO ([place]) 1 [facility] [place] [address] * CBC with auto differential (08/08/2024 9:13 AM TRIMMING MACHINE SET UP OPERATOR) WBC 8.5 3.8 - 9.9 K/cumm Hgb 13.3 11.9 - 15.5 g/dL [facility] ([place]) Hct 39.9 35.6 - 45.5 [...] - 0.01 K/cumm [facility] ([place]) Blood 08/08/2024 9:13 AM TRIMMING MACHINE SET UP OPERATOR 08/08/2024 10:14 AM TRIMMING MACHINE SET UP OPERATOR Juan Francisco Rhoades TELEVISION NEWS VIDEO EDITOR LAB BLOOD ORDERABLE S Final Result ADDIS MONTERO ([place]) 1 [facility] Department [place] [address] * Celiac reflex panel (08/08/2024 9:13 AM TRIMMING MACHINE SET UP OPERATOR) Pathologist [facility] IgA 151 61 - 356 mg/dL [place] ref [facility] Celiac disease interpretation See Comment [facility] ([place]) Comment: See Comment: Negative serology. Celiac disease unlikely. However, approximately 10% of patients with celiac disease are seronegative. Also, patients who are already adhering to a gluten-free diet may be seronegative. If celiac disease is highly clinically suspected, consider HLA-DQ typing. Test Performed by: [place] [address] Press Feeder: Bere Damon Ph.D.; CLIA# [id number] Blood 08/08/2024 9:13 AM TRIMMING MACHINE SET UP OPERATOR 08/08/2024 10:14 AM TRIMMING MACHINE SET UP OPERATOR [facility] LAB BLOOD ORDERABLE S Final Result Performing Organization Address City/[facility]/ZIP Co de Phone Number [facility] ([place]) 1 [facility] [place] [address] [place] ref [facility] * Tissue transglutaminase IgA (TGG-IgA Ab) (08/08/2024 9:13 AM TRIMMING MACHINE SET UP OPERATOR) TTG ab, IgA <1.2 <4.0 (Negative) units/mL Comment: Test Performed by: [place] [address] Press Feeder: Bere Damon Ph.D.; CLIA# [id number] Interpretive data Negative: <15 units/mL Positive: > or equal to 15 units/mL Current interpretive data was last revised on 2016. Testing performed by: [facility], [address] [place] [address]., [id number] Blood 08/08/2024 9:13 AM TRIMMING MACHINE SET UP OPERATOR 08/08/2024 10:14 AM TRIMMING MACHINE SET UP OPERATOR [facility] TELEVISION NEWS VIDEO EDITOR LAB BLOOD ORDERABLE S Final Result [facility] ([place]) 1 [facility] [place] [address] * Prolactin (08/08/2024 9:13 AM TRIMMING MACHINE SET UP OPERATOR) Prolactin 17.8 4.8 - 23.3 ng/mL Comment:Testing performed by : [facility], [address] [place] [address]., [id number] Blood 08/08/2024 9:13 AM TRIMMING MACHINE SET UP OPERATOR 08/08/2024 2:49 PM TRIMMING MACHINE SET UP OPERATOR Carson Mi MD LAB BLOOD ORDERABLES Final Result ADDIS MONTERO ([place]) 1 [place] [address] * (ABNORMAL) Erythrocyte sedimentation rate (08/08/2024 9:13 AM TRIMMING MACHINE SET UP OPERATOR) [facility] Erythrocyte sedimentation rate 48(H) 1 - 20 mm/hr Blood 08/08/2024 9:13 AM TRIMMING MACHINE SET UP OPERATOR 08/08/2024 10:14 AM TRIMMING MACHINE SET UP OPERATOR Juan Francisco Rhoades NP LAB BLOOD ORDERABLE S Final Result Performing Organization Address [facility] Co de Phone Number ADDIS MONTERO ([place]) 1 [facility] [place] [address] * CRP (acute phase) (08/08/2024 9:13 AM TRIMMING MACHINE SET UP OPERATOR) [facility] CRP 8.2 <=10.0 mg/L Blood 08/08/2024 9:13 AM TRIMMING MACHINE SET UP OPERATOR 08/08/2024 10:14 AM TRIMMING MACHINE SET UP OPERATOR Juan Francisco Rhoades TELEVISION NEWS VIDEO EDITOR LAB BLOOD ORDERABLE S Final Result Performing Organization Address City/[facility]/ZIP Co de Phone Number ADDIS MONTERO ([place]) 1 [place] [address] * Comprehensive metabolic panel (08/08/2024 9:13 AM TRIMMING MACHINE SET UP OPERATOR) Pathologist [facility] Sodium 137 135 - 145 mmol/L Potassium, pl 4.5 3.3 - 4.9 mmol/L [facility] ([place]) Chloride 103 97 - 110 mmol/L [facility] ([place]) CO2 25 22 - 32 mmol/L [facility] ([place]) Anion gap 9 2 - 15 mmol/L [facility] ([place]) BUN 14 6 - 25 mg/dL [...] [facility] ([place]) Blood 08/08/2024 9:13 AM TRIMMING MACHINE SET UP OPERATOR 08/08/2024 10:14 AM TRIMMING MACHINE SET UP OPERATOR Juan Francisco Rhoades TELEVISION NEWS VIDEO EDITOR LAB BLOOD ORDERABLE S Final Result [facility] ([place]) 1 [facility] Department of Laboratories [place], [place] [id number] * H. pylori breath test (08/08/2024 9:10 AM TRIMMING MACHINE SET UP OPERATOR) H. pylori, breath test Negative Negative [place] ref [facility] Comment: Result indicates the absence of current Helicobacter pylori infection. Test Performed by: [address] [address] Press Feeder: Bere Damon Ph.D.; CLIA# [id number] Breath 08/08/2024 9:10 AM TRIMMING MACHINE SET UP OPERATOR 08/08/2024 10:13 AM TRIMMING MACHINE SET UP OPERATOR Juan Franciscodragan Chraegan Rhoades NP LAB BODY FLUIDS AND STOOLS ORDERABLES Final Result ADDIS MONTERO [place]) 1 [facility] Department of Laboratories [place], [place] [id number] [place] ref Lab * CT Abdomen Pelvis W Contrast (08/05/2024 10:15 PM TRIMMING MACHINE SET UP OPERATOR) Anatomical Region Laterality Modality Body N/A Computed Tomogra phy 08/05/2024 10:5 8 PM TRIMMING MACHINE SET UP OPERATOR Narrative 08/05/2024 11:07 PM TRIMMING MACHINE SET UP OPERATOR EXAM DESCRIPTION: CT ABDOMEN PELVIS W CONTRAST [...] Electronically signed by Tony Mosher M.D. KT: KT Report ID: [id number] Reading Location: [id number] Procedure Note Tony Mosher MD - 08/05/2024 [...] Tony Mosher M.D. KT: PAIGE Report ID: [id number] Reading Location: [place] [address] Ml Hickey MD IMG CT PROCEDURES Final Result * Urinalysis reflex to microscopic and culture Urine (08/05/2024 9:51 PM TRIMMING MACHINE SET UP OPERATOR) Color, ur Yellow Yellow Clarity, ur Clear Clear [facility] ([place]) Specific gravity, ur 1.019 1.003 - 1.030 [facility] ([place]) pH, urine 5.5 [facility] ([place]) Comment: Interpretive Data U rine pH is affected by diet, medications, systemic acid-base disturbances, and renal tubular function. pH may affect urinary stone formation. For example, urine pH below 6.0 may help reduce the tendency for calcium phosphate stones and pH greater than 6.0 may reduce the tendency for uric acid stone formation. Source: [facility] Current Interpretive Data was last revised on [...] [facility] ([place]) Urine 08/05/2024 9:51 PM TRIMMING MACHINE SET UP OPERATOR 08/05/2024 9:54 PM TRIMMING MACHINE SET UP OPERATOR us Ml Hickey MD LAB MICROBIOLOGY - GENERAL ORDER KASSI Final Result [facility] ([place]) 1 [facility] Department [place] [address] * POCT hCG, urine (08/05/2024 9:49 PM TRIMMING MACHINE SET UP OPERATOR) HCG, ur, POC Negative Negative Lot Number [id number] QC Backgroud Clear Acceptable QC Control Line Acceptable Urine 08/05/2024 9:49 PM TRIMMING MACHINE SET UP OPERATOR Ml Hickey MD POINT OF CARE TEST ORDERABLES Fi nal Result * eGFR (08/05/2024 6:29 PM TRIMMING MACHINE SET UP OPERATOR) eGFR >90 >=60 mL/min/1. 73 m2 Comment: [...] last reviewed 2021. Blood 08/05/2024 6:29 PM TRIMMING MACHINE SET UP OPERATOR 08/05/2024 6:42 PM TRIMMING MACHINE SET UP OPERATOR us Ml Hickey MD LAB BLOOD ORDERABLES Final Resul t ADDIS MONTERO [place] 1 [facility] Department [place] [address] * (ABNORMAL) CBC with auto differential (08/05/2024 6:29 PM TRIMMING MACHINE SET UP OPERATOR) Pathologist [facility] WBC 7.7 3.8 - 9.9 K/cumm Hgb [...] blood specimen / Unknown 08/05/2024 6:29 PM TRIMMING MACHINE SET UP OPERATOR 08/05/2024 6:42 PM TRIMMING MACHINE SET UP OPERATOR us Ml Hickey MD LAB BLOOD ORDERABLES Final Resul t [facility] ([place]) 1 [facility] Department [place] [address] * (ABNORMAL) Manual Differential (08/05/2024 6:29 PM TRIMMING MACHINE SET UP OPERATOR) Differential Manual Cells Counted 100 [facility] [...] [facility] ([place]) Blood 08/05/2024 6:29 PM TRIMMING MACHINE SET UP OPERATOR 08/05/2024 6:42 PM TRIMMING MACHINE SET UP OPERATOR Ml Hickey MD LAB BLOOD ORDERABLES Final Resul t Performing Organization Address City/[facility]/ZIP Co de Phone Number NAGIANIBAL WINSTON ([place]) 1 [facility] [place] [address] * Lipase (08/05/2024 6:29 PM TRIMMING MACHINE SET UP OPERATOR) Lipase 29 10 - 99 Units/L Blood Venous blood specimen / Unknown 08/05/2024 6:29 PM TRIMMING MACHINE SET UP OPERATOR 08/05/2024 6:42 PM TRIMMING MACHINE SET UP OPERATOR Ml Hickey MD LAB BLOOD ORDERABLES Final Resul t ADDIS WINSTON ([place]) 1 [facility] [place] [address] * Comprehensive metabolic panel (08/05/2024 6:29 PM TRIMMING MACHINE SET UP OPERATOR) Sodium 137 135 - 145 mmol/L Potassium, pl 3.9 3.3 - 4.9 mmol/L [facility] ([place]) Chloride 100 97 - 110 mmol/L [facility] ([place]) CO2 26 22 - 32 mmol/L [facility] ([place]) Anion gap 11 2 - 15 mmol/L [facility] ([place]) BUN 13 6 - 25 mg/dL [facility] ([place]) Creatinine 0.66 0.60 - 1.10 mg/dL [facility] ([place]) Glucose 118 70 - 199 mg/dL [facility] ([place]) [...] [facility] ([place]) Blood 08/05/2024 6:29 PM TRIMMING MACHINE SET UP OPERATOR 08/05/2024 6:42 PM TRIMMING MACHINE SET UP OPERATOR us Ml Hickey MD LAB BLOOD ORDERABLES Final Resul t [facility] ([place] 1 [facility] [place] [address] * US Pelvis W Endovaginal (07/18/2024 11:40 AM TRIMMING MACHINE SET UP OPERATOR) [place] Sac No free fluid visualized [facility] Endometrial Thickness 4.2 mm&millim eters [facility]IEW[facility] Anatomical Region Laterality Modality Pelvis N/A Ultrasound 07/18/2024 10:2 5 AM TRIMMING MACHINE SET UP OPERATOR Impressions 07/18/2024 8:21 PM TRIMMING MACHINE SET UP OPERATOR 1. Normal appearing uterus. 2. Normal appearing ovaries. 3. Pelvic vascularity is present but appears within the normal range. Narrative Procedure Note Carson Mi MD - 07/18/2024 IMPRESSION: 1. Normal appearing uterus. 2. Normal appearing ovaries. 3. Pelvic vascularity is present but appears within the normal range. Carson Mi MD IMG US PROCEDURES Final Re sult * (ABNORMAL) Prolactin (07/03/2024 3:17 PM TRIMMING MACHINE SET UP OPERATOR) Pathologist [facility] Prolactin 26.6(H) 4.8 - 23.3 ng/mL Comment:Testing performed by : [facility], [address] [place] [address]., [id number] Blood 07/03/2024 3:17 PM TRIMMING MACHINE SET UP OPERATOR 07/03/2024 8:00 PM TRIMMING MACHINE SET UP OPERATOR Carson Mi MD LAB BLOOD ORDERABLES Final Result [facility] ([place]) 1 [facility] [place] [address] * Pap and HPV, reflex to HPV Genotypes (07/03/2024 3:04 PM TRIMMING MACHINE SET UP OPERATOR) Pathologist [facility] CLINICAL INFORMATION: [facility] Comment:WELL WOMAN EXAM, SCR EENING LMP [facility] Comment:[id number] Previous Pap [facility] Comment:NONE GIVEN Prev. Bx [facility] Comment:NONE GIVEN SOURCE: [facility] Comment:Cervix, Endocervix Pap, specimen adequacy [facility] Comment: Satisfactory for evaluation. Endocervical/transformation zone component present. Partially obscuring inflammation HPV interp [facility] Comment: Cytology Results: Negative for intraepithelial lesion or malignancy. COMMENTS [facility] Comment: This Pap test has been evaluated with computer assisted technology. Electrical Engineering Drafting Officer [facility] Comment: AUC, CT(ASCP) CT Screening Location: [facility] [address] [place] [address] Comment [facility] Comment: EXPLANATORY NOTE: The Pap is a [...] High Risk E6/E7 Not Detected NOT DETECTED [facility] Comment: Not Detected High Risk HPV types (16,18,31,33,35,39,45,51,52, 56,58,59,66,68) were not detected. Other HPV types which cause anogenital lesions may be present. The significance of the other types of HPV in malignant processes has not been established. Methodology: Real Time PCR Thin prep-Endocervica l 07/03/2024 3:04 PM TRIMMING MACHINE SET UP OPERATOR 07/05/2024 12:20 AM TRIMMING MACHINE SET UP OPERATOR Carson Mi MD LAB CYTOLOGY ORDERABLES Fi nal Result [facility] [address] [place] [address] from Last 3 Months Insurance [facility] Advance Directives For more information, please contact: [phone] * Full Code (Latest Code Status on File) Date Activated Date Inactivated Comments 09/18/2024 11:47 AM 09/18/2024 6:41 PM * Full Code Date Activated Date Inactivated Comments 07/02/2022 8:00 AM 07/03/2022 11:09 PM Care Teams Votator Machine Operator Relationship Specialty Start Date End Date Shanelle Ramirez MD [address] [place] [address] PCP - General Family Medicine 08/05/24 Heron Cavazos MD [address] [address] Family Medicine 11/29/23
--- OUTSIDE RECORDS SUMMARY | 2024-09-28 09:54 | XMS_ITS | Referral Summary ---
Author Organization [facility] Address [address] [place] [address] Care Team Providers Care Welder Tack Name Role Phone Heron Cavazos MD Unavailable [phone] Shanelle Ramirez MD Primary Care Provider [phone] Encounters Date Type Department Care Team Description 09/27/2024 Results Follow-Up [facility] Convenient Care at [place] [address] [place] [phone] Keely Dumont NP 09/26/2024 11:29 AM CDT - 09/26/2024 11:59 PM CDT Hospital Encounter [address] [address] Pharyngitis, unspecified etiology Discharge Disposition: Discharge to home or self care 09/26/2024 11:15 AM CDT Office Visit [facility] Medical [facility] Care at [place] [address] [place] [address] Keely Dumont NP Pharyngitis, unspecified etiology (Primary Dx) 09/18/2024 1:02 PM CDT Anesthesia Event [facility] 1 [place] [address] Brandon Charles DO 09/18/2024 11:00 AM CDT - 09/18/2024 11:30 AM CDT Surgery [facility] 1 [place] [address] Marleni Ruvalcaba MD COLONOSCOPY 09/18/2024 11:44 AM CDT - 09/18/2024 2:31 PM CDT Hospital Encounter [facility] 1 [place] [address] Marleni Ruvalcaba MD Discharge Disposition: Discharge to home or self care 08/30/2024 Telephone [facility] [address] [place] [phone] Mirta Astorga RN 08/23/2024 Telephone [facility] Gastroenterology at [address] [place] [address] Vannesa Camacho Colonoscopy Wait List 08/21/2024 Telephone [facility] Gastroenterology at [address] [place] [address] Vannesa Camacho Colonoscopy Reschedule 08/13/2024 Results Follow-Up [facility] Gastroenterology at [address] [place] [address] Juan Francisco Rhoades NP 08/13/2024 Results Follow-Up [facility] Gastroenterology at [address] [place] [address] Juan Francisco Rhoades NP 08/09/2024 Telephone [facility] Gastroenterology at [address] [place] [address] Ashleigh Quiñonez MA 08/09/2024 Telephone [facility] [address] [place] [phone] Modesto Olmstead RN 08/08/2024 12:45 PM NET UI DEVELOPER Lab [address] Elevated sed rate 08/08/2024 Orders Only [facility] Gastroenterology at [address] [place] [address] Juan Francisco Rhoades NP Elevated sed rate (Primary Dx) 08/08/2024 Telephone [facility] Gastroenterology at [address] [place] [address] Jack London MA 08/08/2024 9:25 AM NET UI DEVELOPER Lab [address] Flatulence; Gastroesophageal reflux disease without esophagitis; Nausea without vomiting; Irritable bowel syndrome with both constipation and diarrhea; Hepatic steatosis; Family history of cirrhosis of liver 08/08/2024 9:10 AM NET UI DEVELOPER Lab [address] Abnormal prolactin level 08/08/2024 11:30 AM NET UI DEVELOPER - 08/08/2024 11:59 PM NET UI DEVELOPER Hospital Encounter [address] [address] Galactorrhea Discharge Disposition: Discharge to home or self care 08/08/2024 10:28 AM NET UI DEVELOPER - 08/08/2024 11:59 PM NET UI DEVELOPER Hospital Encounter [address] [address] Galactorrhea Discharge Disposition: Discharge to home or self care 08/08/2024 8:15 AM NET UI DEVELOPER Office Visit [facility] Gastroenterology at [address] [place] [address] Juan Francisco Rhoades NP BRBPR (bright red blood per rectum) (Primary Dx); Irritable bowel syndrome with both constipation and diarrhea; Flatulence; Hepatic steatosis; Family history of cirrhosis of liver; Internal hemorrhoids; Gastroesophageal reflux disease without esophagitis; Nausea without vomiting; Pelvic congestion syndrome 08/05/2024 9:04 PM NET UI DEVELOPER - 08/06/2024 12:01 AM NET UI DEVELOPER Emergency [facility] Emergency Department [address] [place] [address] Ml Hickey MD Lower GI bleed (Primary Dx); Abdominal pain Discharge Disposition: Discharge to home or self care 07/23/2024 Telephone [facility] Organization [address] [place] [address] Nirmala Hair MA Successful Phone Call (AWV SCHEDULING) 07/18/[address] [place] [phone] Neha Acosta MA Test Results (Request for Lab results. ) 07/18/2024 10:00 AM NET UI DEVELOPER Ancillary Procedure [address] [place] [phone] Pelvic and perineal pain 07/16/2024 Telephone [facility] [address] [place] [address] Modesto Olmstead RN 07/03/2024 3:15 PM NET UI DEVELOPER Lab [address] Galactorrhea 07/03/2024 2:00 PM NET UI DEVELOPER Office Visit [address] [place] [address] Carson Mi MD Well woman exam (Primary [...] the importance of further evaluation by her computerized table cutter to rule out any gynecological causes of her symptoms otherwise I do think venography with possible intervention if all other gynecologic reasons has been ruled out would be appropriate. She will call to schedule another appointment with me after she has seen her computerized table cutter. Varicose veins of leg with pain, left [...] concerns with . Recommended discussing symptoms with CERTIFIED SCRUB TECH at next visit scheduled 02/22/2022 Last Assessment [...] seek urgent/emergent care including calling Suicide Hotline (740 or ) or 971. Follow up in if symptoms worsen or fail to improve with Psychologist/Counselor/SupportGroup/Psychiatrist and PCP Sensorineural hearing loss (SNHL) of both ears 0 02/19/2022 Assessment & Plan (09/05/2023 9:36 AM CDT): Call to arrange Hearing test Assessment & Plan (02/19/2022 9:20 AM CDT): Hearing and Balance testing after Delivery [facility] Zyrtec 64 ounces of caffeine free and [...] Plan: Hearing and Balance testing after [facility] Continue Zyrtec 64 ounces of caffeine [...] CDT): Hearing and Balance testing after [facility] Continue Zyrtec 64 ounces of caffeine [...] improve Assessment & Plan (06/09/2021 2:00 PM NET UI DEVELOPER): Advised weight loss Essential hypertension 02/16/2018 Overview [...] 09/14/2022 Assessment & Plan (06/09/2021 2:00 PM NET UI DEVELOPER): Increase dietay fiber and try Levsin SL [...] often do you attend chur ch or islam services? Never 07/02/2022 Do you belong to any clubs o r organizations such as gnosticist groups, unions, fraternal or athletic groups, or [...] place to sleep or slept in a intermediate (including now)? No 07/02/2022 Personal Safety Answer [...] 09/26/2024 11:08 AM CDT Plan of Treatment Not on file Procedures Procedure Name Priority Date/Time Associated Diagnosis Comments THROAT CULTURE Routine 09/26/2024 11:29 AM CDT Pharyngitis, unspecified etiology POCT RAPID STREP Routine 09/26/2024 11:1 7 AM CDT Pharyngitis, unspecified etiology INFRARED COAGULATION OF HEMORRHOIDS 09/18/2024 12:55 PM CDT Rectal bleeding COLONOSCOPY 09/18/2024 12:55 PM CDT Rectal bleeding COLONOSCOPY 09/18/2024 12:16 PM CDT CALPROTECTIN, FECAL Routine 08/08/2024 1 2:40 PM NET UI DEVELOPER Elevated sed rate US BREAST BILATERAL LIMITED Schedule Routine, Read Routine (OP Routine) 08/08/2024 12:07 PM NET UI DEVELOPER Galactorrhea DIAGNOSTIC MAMMOGRAM BILATERAL W ANGELA Schedule Routine, Read Routine (OP Routine) 08/08/2024 10:48 AM NET UI DEVELOPER Galactorrhea TISSUE TRANSGLUTAMINASE, IGA Routine 08/08/2024 9:13 AM NET UI DEVELOPER EGFR Routine 08/08/2024 9:13 AM NET UI DEVELOPER Hepatic steatosis Family history of cirrhosis of liver DIFFERENTIAL AUTO Routine 08/08/2024 9:1 3 AM NET UI DEVELOPER Hepatic steatosis Family history of cirrhosis of liver FIBRO TEST-ACTI TEST Routine 08/08/2024 9:13 AM NET UI DEVELOPER Hepatic steatosis CBC WITH AUTO DIFFERENTIAL Routine 08/08/2024 9:13 AM NET UI DEVELOPER Hepatic steatosis Family history of cirrhosis of liver COMPREHENSIVE METABOLIC PANEL Routine 08/08/2024 9:13 AM NET UI DEVELOPER Hepatic steatosis Family history of cirrhosis of liver THYROID FUNCTION CASCADE Routine 08/08/2024 9:13 AM NET UI DEVELOPER Hepatic steatosis Family history of cirrhosis of liver ERYTHROCYTE SEDIMENTATION RATE Routine 08/08/2024 9:13 AM NET UI DEVELOPER Hepatic steatosis Family history of cirrhosis of liver CRP (ACUTE PHASE) Routine 08/08/2024 9:1 3 AM NET UI DEVELOPER Hepatic steatosis Family history of cirrhosis of liver CELIAC REFLEX PANEL Routine 08/08/2024 9 :13 AM NET UI DEVELOPER Irritable bowel syndrome with both constipation and diarrhea Flatulence Nausea without vomiting PROLACTIN Routine 08/08/2024 9:13 AM NET UI DEVELOPER Abnormal prolactin level H. PYLORI BREATH TEST Routine 08/08/2024 9:10 AM NET UI DEVELOPER Flatulence Gastroesophageal reflux disease without esophagitis Nausea without vomiting CT ABDOMEN PELVIS W CONTRAST ED 08/05/2024 10:15 PM NET UI DEVELOPER URINALYSIS AND REFLEX TO MICROSCOPIC AND CULTURE STAT 08/05/2024 9:51 PM NET UI DEVELOPER POCT HCG, URINE Routine 08/05/2024 9:49 PM NET UI DEVELOPER EGFR STAT 08/05/2024 6:29 PM NET UI DEVELOPER MANUAL DIFFERENTIAL STAT 08/05/2024 6 :29 PM NET UI DEVELOPER LIPASE STAT 08/05/2024 6:29 PM NET UI DEVELOPER COMPREHENSIVE METABOLIC PANEL STAT 08/05/2024 6:29 PM NET UI DEVELOPER CBC WITH AUTO DIFFERENTIAL STAT 08/05/2024 6:29 PM NET UI DEVELOPER US PELVIS W ENDOVAGINAL Routine 07/18/2024 11:40 AM NET UI DEVELOPER Pelvic and perineal pain PROLACTIN Routine 07/03/2024 3:17 PM NET UI DEVELOPER Galactorrhea PAP AND HPV, REFLEX TO HPV GENOTYPES Routine 07/03/2024 3:04 PM NET UI DEVELOPER Well woman exam from Last 3 Months Results * Throat culture Throat (09/26/2024 11:29 AM CDT) Report Final Report: No growth of pathogens. Comment:Testing performed by : [facility], [address] [place]., [address] Throat 09/26/2024 11:2 9 AM CDT 09/26/2024 10:24 PM CDT Narrative ADDIS OCHOA - 09/27/2024 7:05 PM CDT Testing performed by [facility] Microbiology Laboratory ([phone]). Keely Dumont NP LAB MICROBIOLOGY - GENERAL ORD ERABLES Final Result ADDIS [address] Department [place] [address] * POCT rapid strep A (09/26/2024 11:17 AM CDT) [facility] Rapid Strep A, POC Negative Negative Swab 09/26/2024 11:1 7 AM CDT Keely Dumont NP POINT OF CARE TEST ORDERABLES Final Result * Colonoscopy (09/18/2024 12:16 PM CDT) Anatomical Region Laterality Modality Other Narrative Procedure Note Marleni Ruvalcaba MD - 09/18/2024 12:16 PM CDT [facility] Patient Name: Audra Blount Procedure Date: 09/18/2024 12:16 PM Date of : 1990 Admit Type: Outpatient Age: 33 Gender: Female Attending MD: Marleni Ruvalcaba M.D. Room: [facility] ENDOSCOPY ROOM 1 Note Status: Finalized Patient [...] was passed under directvision. The Pediatric Colonoscope [id number] was introduced through the anus and advanced [...] 12:16 PM Procedure Code(s): --- Professional --- 51865, Colonoscopy, flexible; diagnostic, including collection of specimen(s) by brushing or washing, when performed (separateprocedure) 33438, Destruction of internal hemorrhoid(s) by thermal energy (eg, infrared coagulation, cautery, radiofrequency) Diagnosis Code(s): --- Professional --- K64.8, Other hemorrhoids CPT copyright 2020 [employer]. All rights reserved. The codes documented in this report are preliminary and upon study director reviewmay be revised to meet current compliance requirements. Recognized by the [employer] for promoting quality in endoscopy Marleni Ruvalcaba MD ENDOSCOPY PROCEDURES Final Result * Calprotectin, fecal (08/08/2024 12:40 PM NET UI DEVELOPER) Calprotectin, fecal <50.0 <50.0 (Normal) mcg/g [facility] ref [facility] Comment: Test Performed by: [facility] [address] [place] [id number] Combination Operator: Bere Damon Ph.D.; CLIA# [id number] Stool 08/08/2024 12:4 0 PM NET UI DEVELOPER 08/08/2024 1:45 PM NET UI DEVELOPER us Juan Francisco Nicoleyenni Rhoades OFFICE WORKER LAB BODY FLUIDS AND STOOLS ORDERABLES Final Result ADDIS MONTERO [place] [facility] Department [place] [address] [place] ref Lab * US BREAST LIMITED BILATERAL (08/08/2024 12:07 PM NET UI DEVELOPER) Anatomical Region Laterality Modality Breast Bilateral Ultrasound 08/08/2024 1:17 PM NET UI DEVELOPER Impressions 08/08/2024 1:17 PM NET UI DEVELOPER No mammographic or sonographic evidence of malignancy. Bilateral nipple discharge is likely physiologic in nature. OVERALL FINAL ASSESSMENT: BI-RADS Category 2: Benign. RECOMMENDATION: Continued clinical follow-up is recommended. Unless earlier screening is clinically indicated, recommend annual screening mammography beginning at 40 years of age. Electronically signed by: Jovanna Cross M.D. Narrative 08/08/2024 1:17 PM NET UI DEVELOPER EXAMINATION: BILATERAL DIGITAL DIAGNOSTIC MAMMOGRAM INCLUDING CAD [...] MAMMOGRAM BILATERAL W ANGELA (08/08/2024 10:48 AM NET UI DEVELOPER) Anatomical Region Laterality Modality Breast Bilateral Mammography 08/08/2024 1:17 PM NET UI DEVELOPER Impressions 08/08/2024 1:17 PM NET UI DEVELOPER No mammographic or sonographic evidence of malignancy. Bilateral nipple discharge is likely physiologic in nature. OVERALL FINAL ASSESSMENT: BI-RADS Category 2: Benign. RECOMMENDATION: Continued clinical follow-up is recommended. Unless earlier screening is clinically indicated, recommend annual screening mammography beginning at 40 years of age. Electronically signed by: Jovanna Cross M.D. Narrative 08/08/2024 1:17 PM NET UI DEVELOPER EXAMINATION: BILATERAL DIGITAL DIAGNOSTIC MAMMOGRAM INCLUDING CAD [...] a solid lesion. us Carson Mi MD [facility] MAMMO PROCEDURES Final Result * Fibro Test-Acti Test (08/08/2024 9:13 AM NET UI DEVELOPER) FibroTest Score 0.02 [place] ref [facility] FibroTest Stage F0 CERN ER [...] (Cirrhosis) ActiTest Score 0.13 [facility] ([place]) ActiTest Grade A0 [facility] ([place]) ActiTest Interpretation no activity ADDIS MONTERO ([place]) Comment: ActiTest estimates necroinflammatory activity ActiTest Score Grade Interpretation 0.00-0.17 A0 no activity 0.17-0.29 A0-A1 no activity 0.29-0.36 A1 minimal activity 0.36-0.52 A1-A2 minimal activity 0.52-0.60 A2 significant activity 0.60-0.62 A2-A3 significant activity 0.62-1.00 A3 severe activity FibroTest-ActiTest Comment See Comment ADDIS MONTERO ([place]) Comment: The reliability of results is dependent [...] developed and its performance characteristics determined by [facility] in a manner consistent with CLIA requirements. This test has not been cleared or approved by the U.S. Food and Drug Administration. [employer] Serial Number [id number] [facility] ([place]) APOLIPOPROTEIN A1 151 >=140 mg/dL [facility] ([place]) Xukmm-0-Hclguicmpunmm, Ser 108 100 - 280 mg/dL [facility] ([place]) Haptoglobin, S 197 30 - 200 mg/dL [facility] ([place]) Alanine Aminotransferase (ALT), S 35 7 - 45 Units/L [facility] ([place]) Gamma Glutamyltransferase (GGT), S 16 5 - 36 Units/L [facility] ([place]) Bilirubin, Total, S 0.5 0.0 - 1.2 mg/dL [facility] ([place]) Comment: Test Performed by: [facility] [place] [address] Combination Operator: Bere [place] Ph.D.; CLIA# [id number] Test Performed by: [place] [address] Combination Operator: Bere [place] Ph.D.; CLIA# [id number] Blood 08/08/2024 9:13 AM NET UI DEVELOPER 08/08/2024 10:14 AM NET UI DEVELOPER us Juan Francisco Rhoades OFFICE WORKER LAB BLOOD ORDERABLE S Final Result ADDIS MONTERO ([place]) 1 [facility] Department [place] [address] [place] ref Lab * eGFR (08/08/2024 9:13 AM NET UI DEVELOPER) eGFR >90 >=60 mL/min/1. 73 m2 Comment: [...] last reviewed 2021. Blood 08/08/2024 9:13 AM NET UI DEVELOPER 08/08/2024 10:14 AM NET UI DEVELOPER Juan Francisco Rhoades OFFICE WORKER LAB BLOOD ORDERABLE S Final Result [facility] ([place]) 1 [facility] Department [place] [address] * Differential, auto (08/08/2024 9:13 AM NET UI DEVELOPER) Neutrophil abs 5.2 1.5 - 6.5 K/cumm [...] revised on 2017. Blood 08/08/2024 9:13 AM NET UI DEVELOPER 08/08/2024 10:14 AM NET UI DEVELOPER [facility] BLOOD ORDERABLE S Final Result NAGIANIBAL MONTERO ([place]) 1 [facility] Department [place] [address] * Thyroid Function [place] (08/08/2024 9:13 AM NET UI DEVELOPER) TSH 1.61 0.30 - 4.20 mcIUnit/mL Blood 08/08/2024 9:13 AM NET UI DEVELOPER 08/08/2024 10:14 AM NET UI DEVELOPER [facility] Ramire[facility] OFFICE WORKER LAB BLOOD ORDERABLE S Final Result ADDIS MONTERO ([place]) 1 [facility] Department [place] [address] * CBC with auto differential (08/08/2024 9:13 AM NET UI DEVELOPER) Pathologist [facility] WBC 8.5 3.8 - 9.9 K/cumm Hgb [...] [facility] ([place]) Blood 08/08/2024 9:13 AM NET UI DEVELOPER 08/08/2024 10:14 AM NET UI DEVELOPER Juan Francisco Rhoades OFFICE WORKER LAB BLOOD ORDERABLE S Final Result ADDIS MONTERO ([place]) 1 [facility] Department [place] [address] * Celiac reflex panel (08/08/2024 9:13 AM NET UI DEVELOPER) Pathologist [facility] IgA 151 61 - 356 mg/dL [place] ref [facility] Celiac disease interpretation See Comment [facility] ([place]) Comment: See Comment: Negative serology. Celiac disease unlikely. However, approximately 10% of patients with celiac disease are seronegative. Also, patients who are already adhering to a gluten-free diet may be seronegative. If celiac disease is highly clinically suspected, consider HLA-DQ typing. Test Performed by: [place] [address] Combination Operator: Bere [place] Ph.D.; CLIA# [id number] Blood 08/08/2024 9:13 AM NET UI DEVELOPER 08/08/2024 10:14 AM NET UI DEVELOPER [facility] BLOOD ORDERABLE S Final Result [facility] ([place]) 1 [facility] [employer] [place] [address] [place] ref [facility] * Tissue transglutaminase IgA (TGG-IgA Ab) (08/08/2024 9:13 AM NET UI DEVELOPER) TTG ab, IgA <1.2 <4.0 (Negative) units/mL Comment: Test Performed by: [place] [address] Combination Operator: Bere [place] Ph.D.; CLIA# [id number] Interpretive data Negative: <15 units/mL Positive: > or equal to 15 units/mL Current interpretive data was last revised on 2016. Testing performed by: [facility], [address] [place] [address]., [address] Blood 08/08/2024 9:13 AM NET UI DEVELOPER 08/08/2024 10:14 AM NET UI DEVELOPER [facility] OFFICE WORKER LAB BLOOD ORDERABLE S Final Result [facility] ([place]) 1 [facility] [employer] [place] [address] * Prolactin (08/08/2024 9:13 AM NET UI DEVELOPER) Prolactin 17.8 4.8 - 23.3 ng/mL Comment:Testing performed by : [facility], [address] [place] [address]., [address] Blood 08/08/2024 9:13 AM NET UI DEVELOPER 08/08/2024 2:49 PM NET UI DEVELOPER Carson Mi MD LAB BLOOD ORDERABLES Final Result Performing Organization Address City/[facility]/ZIP Co de Phone Number ADDIS MONTERO ([place]) [address] [facility] [place] [address] * (ABNORMAL) Erythrocyte sedimentation rate (08/08/2024 9:13 AM NET UI DEVELOPER) Pathologist [facility] Erythrocyte sedimentation rate 48(H) 1 - 20 mm/hr Blood 08/08/2024 9:13 AM NET UI DEVELOPER 08/08/2024 10:14 AM NET UI DEVELOPER Juan Francisco Rhoades OFFICE WORKER LAB BLOOD ORDERABLE S Final Result Performing Organization Address [facility] Co de Phone Number DADIS MONTERO ([place]) 1 [facility] [place] [address] * CRP (acute phase) (08/08/2024 9:13 AM NET UI DEVELOPER) Pathologist [facility] CRP 8.2 <=10.0 mg/L Blood 08/08/2024 9:13 AM NET UI DEVELOPER 08/08/2024 10:14 AM NET UI DEVELOPER Juan Francisco Rhoades OFFICE WORKER LAB BLOOD ORDERABLE S Final Result Performing Organization Address City/[facility] Co de Phone Number ADDIS MONTERO ([place]) [address] [facility] [place] [address] * Comprehensive metabolic panel (08/08/2024 9:13 AM NET UI DEVELOPER) Sodium 137 135 - 145 mmol/L Potassium, pl 4.5 3.3 - 4.9 mmol/L [facility] ([place]) Chloride 103 97 - 110 mmol/L [facility] ([place]) CO2 25 22 - 32 mmol/L [facility] ([place]) Anion gap 9 2 - 15 [...] [facility] ([place]) Blood 08/08/2024 9:13 AM NET UI DEVELOPER 08/08/2024 10:14 AM NET UI DEVELOPER Juan Frnacisco Rhoades OFFICE WORKER LAB BLOOD ORDERABLE S Final Result [facility] ([place]) 1 [facility] Department of Laboratories [place], [place] [id number] * H. pylori breath test (08/08/2024 9:10 AM NET UI DEVELOPER) H. pylori, breath test Negative Negative [place] ref [facility] Comment: Result indicates the absence of current Helicobacter pylori infection. Test Performed by: [facility] [address] [place] [address] Combination Operator: Bere [place]on Ph.D.; CLIA# [id number] Breath 08/08/2024 9:10 AM NET UI DEVELOPER 08/08/2024 10:13 AM NET UI DEVELOPER Juan Franciscodragan Rivera Jf MILLER LAB BODY FLUIDS AND STOOLS ORDERABLES Final Result ADDIS MONTERO [place]) 1 [facility] Department [place] [address] [place] ref Lab * CT Abdomen Pelvis W Contrast (08/05/2024 10:15 PM NET UI DEVELOPER) Anatomical Region Laterality Modality Body N/A Computed Tomogra phy 08/05/2024 10:5 8 PM NET UI DEVELOPER Narrative 08/05/2024 11:07 PM NET UI DEVELOPER EXAM DESCRIPTION: CT ABDOMEN PELVIS W CONTRAST [...] Tony Mosher M.D. KT: KT Report ID: [id number] Reading Location: [id number] Procedure Note Tony Mosher MD - 08/05/2024 [...] Tony Mosher M.D. KT: KT Report ID: [id number] Reading Location: [place] [address] Ml Hickey MD IMG CT PROCEDURES Final Result * Urinalysis reflex to microscopic and culture Urine (08/05/2024 9:51 PM NET UI DEVELOPER) Color, ur Yellow Yellow Clarity, ur Clear [...] tendency for uric acid stone formation. Source: [facility] [employer] Current Interpretive Data was last revised on [...] [facility] ([place]) Urine 08/05/2024 9:51 PM NET UI DEVELOPER 08/05/2024 9:54 PM NET UI DEVELOPER us Ml Hickey MD LAB MICROBIOLOGY - GENERAL ORDER KASSI Final Result [facility] ([place]) 1 [facility] Department [place] [address] * POCT hCG, urine (08/05/2024 9:49 PM NET UI DEVELOPER) Pathologist [facility] HCG, ur, POC Negative Negative Lot Number [id number] QC Backgroud Clear Acceptable QC Control Line Acceptable Urine 08/05/2024 9:49 PM NET UI DEVELOPER Ml Hickey MD POINT OF CARE TEST ORDERABLES Fi nal Result * eGFR (08/05/2024 6:29 PM NET UI DEVELOPER) Pathologist [facility] eGFR >90 >=60 mL/min/1. 73 m2 Comment: [...] last reviewed 2021. Blood 08/05/2024 6:29 PM NET UI DEVELOPER 08/05/2024 6:42 PM NET UI DEVELOPER Ml Hickey MD LAB BLOOD ORDERABLES Final Resul t [facility] ([place]) 1 [facility] Department [place] [address] * (ABNORMAL) CBC with auto differential (08/05/2024 6:29 PM NET UI DEVELOPER) Pathologist [facility] WBC 7.7 3.8 - 9.9 K/cumm Hgb [...] blood specimen / Unknown 08/05/2024 6:29 PM NET UI DEVELOPER 08/05/2024 6:42 PM NET UI DEVELOPER us Ml Hickey MD LAB BLOOD ORDERABLES Final Resul t [facility] ([place]) 1 [facility] Department [place] [address] * (ABNORMAL) Manual Differential (08/05/2024 6:29 PM NET UI DEVELOPER) Differential Manual Cells Counted 100 [facility] [...] [facility] ([place]) Blood 08/05/2024 6:29 PM NET UI DEVELOPER 08/05/2024 6:42 PM NET UI DEVELOPER Ml Hickey MD LAB BLOOD ORDERABLES Final Resul t Performing Organization Address City/[facility]/ZIP Co de Phone Number [facility] ([place]) 1 [facility] Department [place] [employer] [place] [address] * Lipase (08/05/2024 6:29 PM NET UI DEVELOPER) Lipase 29 10 - 99 Units/L Blood Venous blood specimen / Unknown 08/05/2024 6:29 PM NET UI DEVELOPER 08/05/2024 6:42 PM NET UI DEVELOPER Ml Hickey MD LAB BLOOD ORDERABLES Final Resul t [facility] ([place]) 1 [facility] Department [place] [address] * Comprehensive metabolic panel (08/05/2024 6:29 PM NET UI DEVELOPER) Sodium 137 135 - 145 mmol/L Potassium, [...] [facility] ([place]) Blood 08/05/2024 6:29 PM NET UI DEVELOPER 08/05/2024 6:42 PM NET UI DEVELOPER us Ml Hickey MD LAB BLOOD ORDERABLES Final Resul t [facility] ([place]) 1 [facility] Department [place] [address] * US Pelvis W Endovaginal (07/18/2024 11:40 AM NET UI DEVELOPER) Cul de Sac No free fluid visualized [facility] Endometrial Thickness 4.2 mm&millim eters [facility] Anatomical Region Laterality Modality Pelvis N/A Ultrasound 07/18/2024 10:2 5 AM NET UI DEVELOPER Impressions 07/18/2024 8:21 PM NET UI DEVELOPER 1. Normal appearing uterus. 2. Normal appearing ovaries. 3. Pelvic vascularity is present but appears within the normal range. Narrative Procedure Note Carosn Mi MD - 07/18/2024 IMPRESSION: 1. Normal appearing uterus. 2. Normal appearing ovaries. 3. Pelvic vascularity is present but appears within the normal range. Carson Mi MD IMG US PROCEDURES Final Re sult * (ABNORMAL) Prolactin (07/03/2024 3:17 PM NET UI DEVELOPER) Prolactin 26.6(H) 4.8 - 23.3 ng/mL Comment:Testing performed by : [facility], [address] [place] [address], [place] [address] Blood 07/03/2024 3:17 PM NET UI DEVELOPER 07/03/2024 8:00 PM NET UI DEVELOPER Carson Mi MD LAB BLOOD ORDERABLES Final Result [facility] ([place]) 1 [facility] Department [place] [address] * Pap and HPV, reflex to HPV Genotypes (07/03/2024 3:04 PM NET UI DEVELOPER) CLINICAL INFORMATION: [facility] Comment:WELL WOMAN EXAM, SCR EENING LMP [facility] Comment:[id number] Previous Pap [facility] Comment:NONE GIVEN Prev. Bx [facility] Comment:NONE GIVEN SOURCE: [facility] Comment:Cervix, Endocervix Pap, specimen adequacy [facility] Comment: Satisfactory for evaluation. Endocervical/transformation zone component present. Partially obscuring inflammation HPV interp [facility] Comment: Cytology Results: Negative for intraepithelial lesion or malignancy. COMMENTS [facility] Comment: This Pap test has been evaluated with computer assisted technology. Enterprise Systems Administrator [facility] Comment: AUC, CT(ASCP) CT Screening Location: [facility] [address] [place] [address] Comment [facility] Comment: EXPLANATORY NOTE: The Pap is a [...] High Risk E6/E7 Not Detected NOT DETECTED [facility] Comment: Not Detected High Risk HPV types (16,18,31,33,35,39,45,51,52, 56,58,59,66,68) were not detected. Other HPV types which cause anogenital lesions may be present. The significance of the other types of HPV in malignant processes has not been established. Methodology: Real Time PCR Thin prep-Endocervica l 07/03/2024 3:04 PM NET UI DEVELOPER 07/05/2024 12:20 AM NET UI DEVELOPER Carson Mi MD LAB CYTOLOGY ORDERABLES Fi nal Result [facility] [address] [place] [address] from Last 3 Months Insurance [facility] Advance Directives For more information, please contact: [phone] * Full Code (Latest Code Status on File) Date Activated Date Inactivated Comments 09/18/2024 11:47 AM 09/18/2024 6:41 PM * Full Code Date Activated Date Inactivated Comments 07/02/2022 8:00 AM 07/03/2022 11:09 PM Care Teams Welder Tack Relationship Specialty Start Date End Date Shanelle Ramirez MD [address] [place] [address] PCP - General Family Medicine 08/05/24 Heron Cavazos MD [address] [place] [address] Family Medicine 11/29/23
--- OUTSIDE RECORDS SUMMARY | 2024-09-28 09:54 | XMS_ITS | Clinical Summary ---
Author Organization [facility] Address [address] [place] [id number] Care Team Providers Care Salesperson Recreational Vehicles Name Role Phone Jyothi Perez Primary Care Provider [phone] Allergies No known active allergies Social History [...] Comments Blood Pressure 161/82 06/13/2021 11:25 AM INPATIENT SERVICES DIRECTOR Pulse 77 06/13/2021 11:25 AM INPATIENT SERVICES DIRECTOR Temperature 36.6 C (97.9 F) 06/13/2021 11:25 AM INPATIENT SERVICES DIRECTOR Respiratory Rate 18 06/13/2021 11:25 AM INPATIENT SERVICES DIRECTOR Oxygen Saturation 99% 06/13/2021 11:25 AM INPATIENT SERVICES DIRECTOR Inhaled Oxygen Concentration - - Weight 89 kg (196 lb 3.4 oz) 06/13/2021 11:25 AM INPATIENT SERVICES DIRECTOR Height 154.9 cm (5' 1 ) 06/13/2021 11:25 AM INPATIENT SERVICES DIRECTOR Body Mass Index 37.07 06/13/2021 11:25 AM INPATIENT SERVICES DIRECTOR Plan of Treatment Health Maintenance Due Date [...] to complete this topic Insurance Care Teams Salesperson Recreational Vehicles Relationship Specialty Start Date End Date Jyothi Perez APNP [address] [place] [address] PCP - General NURSE PRACTITIONER 06/13/21
--- OUTSIDE RECORDS SUMMARY | 2024-09-28 09:54 | XMS_ITS | Encounter Summary ---
Author Organization [facility] Healthcare Address [address] [place] [address] Care Team Providers Care Patient Accounts Coordinator Name Role Phone Heron Cavazos MD Unavailable [phone] Shanelle Ramirez MD Primary Care Provider [phone] Encounter Details Date Type Department Care Team (Late st Contact Info) Description 09/27/2024 Results Follow-Up [facility] Medical [facility] at [place] [address] [place] [address] Keely Dumont, PAUL [address] [facility] [place] [address] Social History Tobacco Use Types Packs/Day Years [...] often do you attend chur ch or cheondoism services? Never 07/02/2022 Do you belong to any clubs o r organizations such as buddhist groups, unions, fraternal or athletic groups, or [...] place to sleep or slept in a long-term (including now)? No 07/02/2022 Personal Safety Answer [...] as of this encounter Miscellaneous Notes * Telephone Encounter - Ashley Myers MA - 09/27/2024 7:50 PM CDT Pt is aware * Telephone Encounter - Ashley Myers MA - 09/27/2024 7:50 PM CDT ----- Message from Keely Dumont NP sent at 09/27/2024 7:25 PM CDT ----- Please call pt and let them know their test results are normal-throat culture is negative. Please stop taking amoxicillin. documented in this encounter Plan of Treatment Not on file documented as of this encounter Visit Diagnoses Not on filedocumented in this encounter Care Teams Patient Accounts Coordinator Relationship Specialty Start Date End Date Shanelle Ramirez MD [address] [place] [address] PCP - General Family Medicine 08/05/24 Heron Cavazos MD [address] [place] [address] Family Medicine 11/29/23 documented as of this encounter
--- OUTSIDE RECORDS SUMMARY | 2024-09-28 09:54 | XMS_ITS | Encounter Summary ---
Author Organization [facility] Healthcare Address [address] [place] [address] Care Team Providers Care Band Log Mill And Carriage Operator Name Role Phone Heron Cavazos MD Unavailable [phone] Shanelle Ramirez MD Primary Care Provider [phone] Encounter Details Date Type Department Care Team (Latest Contact Info) Description 09/26/2024 11:29 AM CDT - 09/26/2024 11:59 PM CDT Hospital Encounter [facility] [address] [place] [address] Pharyngitis, unspecified etiology Discharge Disposition: Discharge to home or self care Social History Tobacco Use Types Packs/Day Years [...] often do you attend chur ch or samaritan services? Never 07/02/2022 Do you belong to any clubs o r organizations such as taoism groups, unions, fraternal or athletic groups, or [...] on file documented as of this encounter Medications at Time of Discharge amoxicillin (AMOXIL) 500 mg tablet/capsuleIn dications:Pharyn gitis, unspecified etiology Take 1 tablet/capsule (500 mg total) by mouth 2 (two) times a day for 10 days 20 tablet/capsule 09/26/2024 10/07/19 25 hydrocortisone (ANUSOL-HC) 25 mg suppository Insert 1 suppository (25 mg total) into the rectum 2 (two) times a day as needed for hemorrhoids (Rectal bleeding) 24 suppository 3 08/08/2024 PROzac 10 mg tablet/capsule 06/08/2024 senna 8.6 mg tablet 07/09/2024 documented as of this encounter Discharge Disposition Disposition Code Departure Means Destination Discharge to home or self care documented in this encounter Plan of Treatment Not on file documented as of this encounter Procedures Procedure Name Priority Date/Time Associated Diagnosis Comments THROAT CULTURE Routine 09/26/2024 11:29 AM CDT Pharyngitis, unspecified etiology documented in this encounter Results * Throat culture Throat (09/26/2024 11:29 AM CDT) Report Final Report: No growth of pathogens. Comment:Testing performed by : [facility], [address] [place] [address]., [address] Throat 09/26/2024 11:2 9 AM CDT 09/26/2024 10:24 PM CDT Narrative AD[facility] OCHOA - 09/27/2024 7:05 PM CDT Testing performed by [facility] ([phone]). us Keely Dumont NP LAB MICROBIOLOGY - GENERAL ORD ERABLES Final Result [facility] [address] [address] Department [place] [address] documented in this encounter Visit Diagnoses Diagnosis Pharyngitis, unspecified etiology documented in this encounter Care Teams Band Log Mill And Carriage Operator Relationship Specialty Start Date End Date Shanelle Ramirez MD [address] [place] [address] PCP - General Family Medicine 08/05/24 Heron Cavazos MD [address] [place] [address] Family Medicine 11/29/23 documented as of this encounter
== END 2024-09-28 09:40 | disposition home or self-care (01) ==
LOC: ANHCARD 09:41
PROVIDERS: PCP Family Medicine; Visit Provider Student in an Organized Health Care Education/Training Program
DX: R07.9 Chest pain, unspecified (principal)
CPT/HCPCS: 93005

== ENCOUNTER 2024-10-01 08:05 | Emergency (ER) | payer OTHER, SELFPAY ==
[2024-10-01 08:08] VITALS: BP 119/88; PULSE 82; RESP 20; TEMP 36.9; O2SAT 97
--- OUTSIDE RECORDS SUMMARY | 2024-10-01 08:14 | XMS_ITS | Encounter Summary ---
Author Organization [facility] Healthcare Address [address] [place] [address] Care Team Providers Care Shoe Worker Name Role Phone Heron Cavazos MD Unavailable [phone] Shanelle Ramirez MD Primary Care Provider [phone] Encounter Details Date Type Department Care Team (Late st Contact Info) Description 08/13/2024 Results Follow-Up [facility] Medical Group Gastroenterology at [address] [place] [address] Juan Francisco Rhoades NP [address] [place] [address] [address] [place] [address] Social History Tobacco Use Types Packs/Day Years [...] How often do you attend chur or jainism services? Never 07/02/2022 Do you belong to any clubs o r organizations such as tenriism groups, unions, fraternal or athletic groups, or [...] place to sleep or slept in a group home (including now)? No 07/02/2022 Personal Safety [...] no active inflammation in the GI tract. GER RECRUITMENT documented in this encounter Plan of Treatment Not on file documented as of this encounter Visit Diagnoses Not on filedocumented in this encounter Care Teams Shoe Worker Relationship Specialty Start Date End Date Shanelle Ramirez MD [address] [place] [address] PCP - General Family Medicine 08/05/24 Heron Cavazos MD [address] [place] [address] Family Medicine 11/29/23 documented as of this encounter
--- OUTSIDE RECORDS SUMMARY | 2024-10-01 08:14 | XMS_ITS | Referral Summary ---
Author Organization [facility] Address [address] [place] [address] Care Team Providers Care Cut Out Worker Name Role Phone Heron Cavazos MD Unavailable [phone] Shanelle Ramirez MD Primary Care Provider [phone] Encounters Date Type Department Care Team Description 09/27/2024 Results Follow-Up [facility] Con[facility]ient Care at [place] [address] [place] [address] Keely Dumont NP 09/26/2024 11:29 AM CDT - 09/26/2024 11:59 PM CDT Hospital Encounter [address] [address] Pharyngitis, unspecified etiology Discharge Disposition: Discharge to home or self care 09/26/2024 11:15 AM CDT Office Visit [facility] Medical [facility] Care at [place] [address] [place] [address] Keely Dumont NP Pharyngitis, unspecified etiology (Primary Dx) 09/18/2024 1:02 PM CDT Anesthesia Event [facility] [address] [place] [address] Brandon Charles DO 09/18/2024 11:00 AM CDT - 09/18/2024 11:30 AM CDT Surgery [facility] [address] [place] [address] Marleni Ruvalcaba MD COLONOSCOPY 09/18/2024 11:44 AM CDT - 09/18/2024 2:31 PM CDT Hospital Encounter [facility] [address] [place] [address] Marleni Ruvalcaba MD Discharge Disposition: Discharge to home or self care 08/30/2024 Telephone [facility] [address] [place] [phone] Mirta Astorga RN 08/23/2024 Telephone [facility] Medical Group Gastroenterology at [address] [place] [address] Vannesa Camacho Colonoscopy Wait List 08/21/2024 Telephone [facility] Gastroenterology at [address] [place] [address] Vannesa Camacho Colonoscopy Reschedule 08/13/2024 Results Follow-Up [facility] Gastroenterology at [address] [place] [address] Juan Francisco Rhoades NP 08/13/2024 Results Follow-Up [facility] Medical Group Gastroenterology at [address] [place] [address] Juan Francisco Rhoades NP 08/09/2024 Telephone [facility] Group Gastroenterology at [address] [place] [address] Ashleigh Quiñonez MA 08/09/2024 Telephone [facility] [address] [place] [phone] Modesto Olmstead RN 08/08/2024 12:45 PM [facility]EVE SETTER LOCKSTITCH Lab [address] Elevated sed rate 08/08/2024 Orders Only [facility] Group Gastroenterology at [address] [place] [address] Juan Francisco Rhoades NP Elevated sed rate (Primary Dx) 08/08/2024 Telephone [facility] Medical Group Gastroenterology at [address] [place] [address] Jack London MA 08/08/2024 9:25 AM SLEEVE SETTER LOCKSTITCH Lab [address] Flatulence; Gastroesophageal reflux disease without esophagitis; Nausea without vomiting; Irritable bowel syndrome with both constipation and diarrhea; Hepatic steatosis; Family history of cirrhosis of liver 08/08/2024 9:10 AM SLEEVE SETTER LOCKSTITCH Lab [address] Abnormal prolactin level 08/08/2024 11:30 AM SLEEVE SETTER LOCKSTITCH - 08/08/2024 11:59 PM SLEEVE SETTER LOCKSTITCH Hospital Encounter [address] [address] Galactorrhea Discharge Disposition: Discharge to home or self care 08/08/2024 10:28 AM SLEEVE SETTER LOCKSTITCH - 08/08/2024 11:59 PM SLEEVE SETTER LOCKSTITCH Hospital Encounter [address] [address] Galactorrhea Discharge Disposition: Discharge to home or self care 08/08/2024 8:15 AM SLEEVE SETTER LOCKSTITCH Office Visit [facility] Group Gastroenterology at [address] [place] [address] Juan Francisco Rhoades NP BRBPR (bright red blood per rectum) (Primary Dx); Irritable bowel syndrome with both constipation and diarrhea; Flatulence; Hepatic steatosis; Family history of cirrhosis of liver; Internal hemorrhoids; Gastroesophageal reflux disease without esophagitis; Nausea without vomiting; Pelvic congestion syndrome 08/05/2024 9:04 PM SLEEVE SETTER LOCKSTITCH - 08/06/2024 12:01 AM SLEEVE SETTER LOCKSTITCH Emergency [facility] Emergency Department [address] [place] [address] Ml Hickey MD Lower GI bleed (Primary Dx); Abdominal pain Discharge Disposition: Discharge to home or self care 07/23/2024 Telephone [facility] Organization [address] [place] [address] Nirmala Hair MA Successful Phone Call (AWV SCHEDULING) 07/18/[address] [place] [phone] Neha Acosta MA Test Results (Request for Lab results. ) 07/18/2024 10:00 AM SLEEVE SETTER LOCKSTITCH Ancillary Procedure [address] [place] [phone] Pelvic and perineal pain 07/16/2024 Telephone [facility] [address] [place] [address] Modesto Olmstead RN 07/03/2024 3:15 PM SLEEVE SETTER LOCKSTITCH Lab [address] Galactorrhea 07/03/2024 2:00 PM SLEEVE SETTER LOCKSTITCH Office Visit [address] [place] [phone] Carson Mi MD Well woman exam (Primary [...] the importance of further evaluation by her nurse practitioner to rule out any gynecological causes of her symptoms otherwise I do think venography with possible intervention if all other gynecologic reasons has been ruled out would be appropriate. She will call to schedule another appointment with me after she has seen her nurse practitioner. Varicose veins of leg with pain, left [...] concerns with . Recommended discussing symptoms with PAINTING AND COATING WORKER at next visit scheduled 02/22/2022 Last Assessment [...] seek urgent/emergent care including calling Suicide Hotline (751 or ) or 581. Follow up in if symptoms worsen or fail to improve with Psychologist/Counselor/SupportGroup/Psychiatrist and PCP Sensorineural hearing loss (SNHL) of both ears 0 02/19/2022 Assessment & Plan (09/05/2023 9:36 AM CDT): Call to arrange Hearing test Assessment & Plan (02/19/2022 9:20 AM CDT): Hearing and Balance testing after Delivery [facility] Zyrtec 64 ounces of caffeine free and soda free fluid daily Check blood pressure when having dizziness Dizziness and giddiness 02/19/2022 Assessment & Plan (02/19/2022 9:20 AM CDT): Hearing and Balance testing after Delivery [facility] Continue Zyrtec 64 ounces of caffeine free and soda free fluid daily Check blood pressure when having dizziness Seasonal allergic rhinitis due to pollen 022 Overview (06/14/2023): Last Assessment & Plan: Condition: stable Follow up in: if symptoms worsen or fail to improve Last Assessment & Plan: Hearing and Balance testing after [facility] Continue Zyrtec 64 ounces of caffeine [...] AM CDT): Hearing and Balance testing after [facility] Continue Zyrtec 64 ounces of caffeine [...] improve Assessment & Plan (06/09/2021 2:00 PM SLEEVE SETTER LOCKSTITCH): Advised weight loss Essential hypertension 02/16/2018 Overview [...] 09/14/2022 Assessment & Plan (06/09/2021 2:00 PM SLEEVE SETTER LOCKSTITCH): Increase dietay fiber and try Levsin SL [...] often do you attend chur ch or jewish services? Never 07/02/2022 Do you belong to any clubs o r organizations such as uatsdin groups, unions, fraternal or athletic groups, or [...] CALPROTECTIN, FECAL Routine 08/08/2024 1 2:40 PM SLEEVE SETTER LOCKSTITCH Elevated sed rate US BREAST BILATERAL LIMITED Schedule Routine, Read Routine (OP Routine) 08/08/2024 12:07 PM SLEEVE SETTER LOCKSTITCH Galactorrhea DIAGNOSTIC MAMMOGRAM BILATERAL W ANGELA Schedule Routine, Read Routine (OP Routine) 08/08/2024 10:48 AM SLEEVE SETTER LOCKSTITCH Galactorrhea TISSUE TRANSGLUTAMINASE, IGA Routine 08/08/2024 9:13 AM SLEEVE SETTER LOCKSTITCH EGFR Routine 08/08/2024 9:13 AM SLEEVE SETTER LOCKSTITCH Hepatic steatosis Family history of cirrhosis of liver DIFFERENTIAL AUTO Routine 08/08/2024 9:1 3 AM SLEEVE SETTER LOCKSTITCH Hepatic steatosis Family history of cirrhosis of liver FIBRO TEST-ACTI TEST Routine 08/08/2024 9:13 AM SLEEVE SETTER LOCKSTITCH Hepatic steatosis CBC WITH AUTO DIFFERENTIAL Routine 08/08/2024 9:13 AM SLEEVE SETTER LOCKSTITCH Hepatic steatosis Family history of cirrhosis of liver COMPREHENSIVE METABOLIC PANEL Routine 08/08/2024 9:13 AM SLEEVE SETTER LOCKSTITCH Hepatic steatosis Family history of cirrhosis of liver THYROID FUNCTION CASCADE Routine 08/08/2024 9:13 AM SLEEVE SETTER LOCKSTITCH Hepatic steatosis Family history of cirrhosis of liver ERYTHROCYTE SEDIMENTATION RATE Routine 08/08/2024 9:13 AM SLEEVE SETTER LOCKSTITCH Hepatic steatosis Family history of cirrhosis of liver CRP (ACUTE PHASE) Routine 08/08/2024 9:1 3 AM SLEEVE SETTER LOCKSTITCH Hepatic steatosis Family history of cirrhosis of liver CELIAC REFLEX PANEL Routine 08/08/2024 9 :13 AM SLEEVE SETTER LOCKSTITCH Irritable bowel syndrome with both constipation and diarrhea Flatulence Nausea without vomiting PROLACTIN Routine 08/08/2024 9:13 AM SLEEVE SETTER LOCKSTITCH Abnormal prolactin level H. PYLORI BREATH TEST Routine 08/08/2024 9:10 AM SLEEVE SETTER LOCKSTITCH Flatulence Gastroesophageal reflux disease without esophagitis Nausea without vomiting CT ABDOMEN PELVIS W CONTRAST ED 08/05/2024 10:15 PM SLEEVE SETTER LOCKSTITCH URINALYSIS AND REFLEX TO MICROSCOPIC AND CULTURE STAT 08/05/2024 9:51 PM SLEEVE SETTER LOCKSTITCH POCT HCG, URINE Routine 08/05/2024 9:49 PM SLEEVE SETTER LOCKSTITCH EGFR STAT 08/05/2024 6:29 PM SLEEVE SETTER LOCKSTITCH MANUAL DIFFERENTIAL STAT 08/05/2024 6 :29 PM SLEEVE SETTER LOCKSTITCH LIPASE STAT 08/05/2024 6:29 PM SLEEVE SETTER LOCKSTITCH COMPREHENSIVE METABOLIC PANEL STAT 08/05/2024 6:29 PM SLEEVE SETTER LOCKSTITCH CBC WITH AUTO DIFFERENTIAL STAT 08/05/2024 6:29 PM SLEEVE SETTER LOCKSTITCH US PELVIS W ENDOVAGINAL Routine 07/18/2024 11:40 AM SLEEVE SETTER LOCKSTITCH Pelvic and perineal pain PROLACTIN Routine 07/03/2024 3:17 PM SLEEVE SETTER LOCKSTITCH Galactorrhea PAP AND HPV, REFLEX TO HPV GENOTYPES Routine 07/03/2024 3:04 PM SLEEVE SETTER LOCKSTITCH Well woman exam from Last 3 Months Results * Throat culture Throat (09/26/2024 11:29 AM CDT) Report Final Report: No growth of pathogens. Comment:Testing performed by : [facility], [address] [place]., [address] Throat 09/26/2024 11:2 9 AM CDT 09/26/2024 10:24 PM CDT Narrative ADDIS OCHOA - 09/27/2024 7:05 PM CDT Testing performed by [facility] Microbiology Laboratory ([phone]). Keely Dumont NP LAB MICROBIOLOGY - GENERAL ORD ERABLES Final Result [facility] [id number] [address] [place] [address] * POCT rapid strep A (09/26/2024 11:17 AM CDT) [facility] Rapid Strep A, POC Negative Negative Swab [...] Female Attending MD: Marleni Ruvalcaba M.D. Room: [facility] ENDOSCOPY ROOM 1 Note Status: Finalized Patient [...] was passed under directvision. The Pediatric Colonoscope [id number] [id number] was introduced through the anus and advanced [...] 12:16 PM Procedure Code(s): --- Professional --- 21639, Colonoscopy, flexible; diagnostic, including collection of specimen(s) by brushing or washing, when performed (separateprocedure) 03410, Destruction of internal hemorrhoid(s) by thermal energy (eg, infrared coagulation, cautery, radiofrequency) Diagnosis Code(s): --- Professional --- K64.8, Other hemorrhoids CPT copyright 2020 [employer]. All rights reserved. The codes documented in this report are preliminary and upon orthodontist small business owner reviewmay be revised to meet current compliance requirements. Recognized by the [employer] for promoting quality in endoscopy Marleni Ruvalcaba MD ENDOSCOPY PROCEDURES Final Result * Calprotectin, fecal (08/08/2024 12:40 PM SLEEVE SETTER LOCKSTITCH) Calprotectin, fecal <50.0 <50.0 (Normal) mcg/g [facility] ref [facility] Comment: Test Performed by: [facility] [address] [place] [id number] Auto Rebuilder: Bere Damon Ph.D.; CLIA# [id number] Stool 08/08/2024 12:4 0 PM SLEEVE SETTER LOCKSTITCH 08/08/2024 1:45 PM SLEEVE SETTER LOCKSTITCH us Juan Francisco Nicoleyenni Rhoades AIR BRUSH ARTIST LAB BODY FLUIDS AND STOOLS ORDERABLES Final Result [facility] MONTERO [place]) 2 [facility] Department [place] [address] [facility] * US BREAST LIMITED BILATERAL (08/08/2024 12:07 PM SLEEVE SETTER LOCKSTITCH) Anatomical Region Laterality Modality Breast Bilateral Ultrasound 08/08/2024 1:17 PM SLEEVE SETTER LOCKSTITCH Impressions 08/08/2024 1:17 PM SLEEVE SETTER LOCKSTITCH No mammographic or sonographic evidence of malignancy. Bilateral nipple discharge is likely physiologic in nature. OVERALL FINAL ASSESSMENT: BI-RADS Category 2: Benign. RECOMMENDATION: Continued clinical follow-up is recommended. Unless earlier screening is clinically indicated, recommend annual screening mammography beginning at 40 years of age. Electronically signed by: Jovanna Cross M.D. Narrative 08/08/2024 1:17 PM SLEEVE SETTER LOCKSTITCH EXAMINATION: BILATERAL DIGITAL DIAGNOSTIC MAMMOGRAM INCLUDING CAD [...] MAMMOGRAM BILATERAL W ANGELA (08/08/2024 10:48 AM SLEEVE SETTER LOCKSTITCH) Anatomical Region Laterality Modality Breast Bilateral Mammography 08/08/2024 1:17 PM SLEEVE SETTER LOCKSTITCH Impressions 08/08/2024 1:17 PM SLEEVE SETTER LOCKSTITCH No mammographic or sonographic evidence of malignancy. Bilateral nipple discharge is likely physiologic in nature. OVERALL FINAL ASSESSMENT: BI-RADS Category 2: Benign. RECOMMENDATION: Continued clinical follow-up is recommended. Unless earlier screening is clinically indicated, recommend annual screening mammography beginning at 40 years of age. Electronically signed by: Jovanna Cross M.D. Narrative 08/08/2024 1:17 PM SLEEVE SETTER LOCKSTITCH EXAMINATION: BILATERAL DIGITAL DIAGNOSTIC MAMMOGRAM INCLUDING CAD [...] a solid lesion. us Carson Mi MD [facility] MAMMO PROCEDURES Final Result * Fibro Test-Acti Test (08/08/2024 9:13 AM SLEEVE SETTER LOCKSTITCH) FibroTest Score 0.02 [place] FibroTest Stage F0 CERN ER [...] (Cirrhosis) ActiTest Score 0.13 [facility] ([place]) ActiTest Grade A0 [facility] ([place]) ActiTest Interpretation no activity [facility] MONTERO ([place]) Comment: ActiTest estimates necroinflammatory activity ActiTest Score Grade Interpretation 0.00-0.17 A0 no activity 0.17-0.29 A0-A1 no activity 0.29-0.36 A1 minimal activity 0.36-0.52 A1-A2 minimal activity 0.52-0.60 A2 significant activity 0.60-0.62 A2-A3 significant activity 0.62-1.00 A3 severe activity FibroTest-ActiTest Comment See Comment [facility] MONTERO ([place]) Comment: The reliability of results is dependent [...] its performance characteristics determined by [facility] in a manner consistent with CLIA requirements. This test has not been cleared or approved by the U.S. Food and Drug Administration. BioPredict[employer] Serial Number [id number] [facility] ([place]) APOLIPOPROTEIN A1 151 >=140 mg/dL [facility] ([place]) Vsozh-9-Wriwguhxnwiep, Ser 108 100 - 280 mg/dL [facility] ([place]) Haptoglobin, S 197 30 - 200 mg/dL [facility] ([place]) Alanine Aminotransferase (ALT), S 35 7 - 45 Units/L [facility] ([place]) Gamma Glutamyltransferase (GGT), S 16 5 - 36 Units/L [facility] ([place]) Bilirubin, Total, S 0.5 0.0 - 1.2 mg/dL [facility] ([place]) Comment: Test Performed by: [facility] [place] [address] Auto Rebuilder: Bere Damon Ph.D.; CLIA# [id number] Test Performed by: [place] [address] Auto Rebuilder: Bere Damon Ph.D.; CLIA# [id number] Blood 08/08/2024 9:13 AM SLEEVE SETTER LOCKSTITCH 08/08/2024 10:14 AM SLEEVE SETTER LOCKSTITCH us Juan Francisco Rhoades AIR BRUSH ARTIST LAB BLOOD ORDERABLE S Final Result [facility] MONTERO ([place]) 1 [facility] Department [place] [address] [place] ref [facility] * eGFR (08/08/2024 9:13 AM SLEEVE SETTER LOCKSTITCH) eGFR >90 >=60 mL/min/1. 73 m2 Comment: [...] last reviewed 2021. Blood 08/08/2024 9:13 AM SLEEVE SETTER LOCKSTITCH 08/08/2024 10:14 AM SLEEVE SETTER LOCKSTITCH Juan Francisco Rhoades AIR BRUSH ARTIST LAB BLOOD ORDERABLE S Final Result [facility] ([place]) 1 [facility] Department [place] [address] * Differential, auto (08/08/2024 9:13 AM SLEEVE SETTER LOCKSTITCH) Neutrophil abs 5.2 1.5 - 6.5 K/cumm [...] revised on 2017. Blood 08/08/2024 9:13 AM SLEEVE SETTER LOCKSTITCH 08/08/2024 10:14 AM SLEEVE SETTER LOCKSTITCH [facility] LAB BLOOD ORDERABLE S Final Result NAGIANIBAL MONTERO ([place]) 1 [facility] Department [place] [address] * Thyroid Function [place] (08/08/2024 9:13 AM SLEEVE SETTER LOCKSTITCH) TSH 1.61 0.30 - 4.20 mcIUnit/mL Blood 08/08/2024 9:13 AM SLEEVE SETTER LOCKSTITCH 08/08/2024 10:14 AM SLEEVE SETTER LOCKSTITCH [facility] AIR BRUSH ARTIST LAB BLOOD ORDERABLE S Final Result ADDIS MONTERO ([place]) 1 [facility] Department [place] [address] * CBC with auto differential (08/08/2024 9:13 AM SLEEVE SETTER LOCKSTITCH) Pathologist [facility] WBC 8.5 3.8 - 9.9 K/cumm Hgb [...] [facility] ([place]) Blood 08/08/2024 9:13 AM SLEEVE SETTER LOCKSTITCH 08/08/2024 10:14 AM SLEEVE SETTER LOCKSTITCH Juan Francisco Rhoades AIR BRUSH ARTIST LAB BLOOD ORDERABLE S Final Result [facility] MONTERO ([place]) 1 [facility] Department [place] [address] * Celiac reflex panel (08/08/2024 9:13 AM SLEEVE SETTER LOCKSTITCH) Pathologist [facility] IgA 151 61 - 356 mg/dL [place] [facility] Celiac disease interpretation See Comment [facility] ([place]) Comment: See Comment: Negative serology. Celiac disease unlikely. However, approximately 10% of patients with celiac disease are seronegative. Also, patients who are already adhering to a gluten-free diet may be seronegative. If celiac disease is highly clinically suspected, consider HLA-DQ typing. Test Performed by: [place] [address] Auto Rebuilder: Bere Damon Ph.D.; CLIA# [id number] Blood 08/08/2024 9:13 AM SLEEVE SETTER LOCKSTITCH 08/08/2024 10:14 AM SLEEVE SETTER LOCKSTITCH [facility] LAB BLOOD ORDERABLE S Final Result [facility] ([place]) 1 [facility] [place] [address] [facility] ref [facility] * Tissue transglutaminase IgA (TGG-IgA Ab) (08/08/2024 9:13 AM SLEEVE SETTER LOCKSTITCH) TTG ab, IgA <1.2 <4.0 (Negative) units/mL Comment: Test Performed by: [place] [address] Auto Rebuilder: Bere Damon Ph.D.; CLIA# [id number] Interpretive data Negative: <15 units/mL Positive: > or equal to 15 units/mL Current interpretive data was last revised on 2016. Testing performed by: [facility], [address] [place] [address]., [address] Blood 08/08/2024 9:13 AM SLEEVE SETTER LOCKSTITCH 08/08/2024 10:14 AM SLEEVE SETTER LOCKSTITCH [facility] AIR BRUSH ARTIST LAB BLOOD ORDERABLE S Final Result [facility] ([place]) 1 [facility] [place] [address] * Prolactin (08/08/2024 9:13 AM SLEEVE SETTER LOCKSTITCH) Prolactin 17.8 4.8 - 23.3 ng/mL Comment:Testing performed by : [facility], [address] [place] [address]., [address] Blood 08/08/2024 9:13 AM SLEEVE SETTER LOCKSTITCH 08/08/2024 2:49 PM SLEEVE SETTER LOCKSTITCH Carson Mi MD LAB BLOOD ORDERABLES Final Result Performing Organization Address City/[facility]/ZIP Co de Phone Number ADDIS MONTERO ([place]) 1 [facility] [place] [address] * (ABNORMAL) Erythrocyte sedimentation rate (08/08/2024 9:13 AM SLEEVE SETTER LOCKSTITCH) Pathologist [facility] Erythrocyte sedimentation rate 48(H) 1 - 20 mm/hr Blood 08/08/2024 9:13 AM SLEEVE SETTER LOCKSTITCH 08/08/2024 10:14 AM SLEEVE SETTER LOCKSTITCH Juan Francisco Rhoades AIR BRUSH ARTIST LAB BLOOD ORDERABLE S Final Result Performing Organization Address [facility] Co de Phone Number [facility]DIS MONTERO ([place]) 1 [facility] [place] [address] * CRP (acute phase) (08/08/2024 9:13 AM SLEEVE SETTER LOCKSTITCH) Pathologist [facility] CRP 8.2 <=10.0 mg/L Blood 08/08/2024 9:13 AM SLEEVE SETTER LOCKSTITCH 08/08/2024 10:14 AM SLEEVE SETTER LOCKSTITCH Juan Francisco Rhoades AIR BRUSH ARTIST LAB BLOOD ORDERABLE S Final Result Performing Organization Address City/[facility] Co de Phone Number ADDIS MONTERO ([place]) 1 [facility] [place] [address] * Comprehensive metabolic panel (08/08/2024 9:13 AM SLEEVE SETTER LOCKSTITCH) Sodium 137 135 - 145 mmol/L Potassium, pl 4.5 3.3 - 4.9 mmol/L [facility] ([place]) Chloride 103 97 - 110 mmol/L [facility] ([place]) CO2 25 22 - 32 mmol/L [facility] ([place]) Anion gap 9 2 - 15 [...] [facility] ([place]) Blood 08/08/2024 9:13 AM SLEEVE SETTER LOCKSTITCH 08/08/2024 10:14 AM SLEEVE SETTER LOCKSTITCH Juan Francisco Rhoades AIR BRUSH ARTIST LAB BLOOD ORDERABLE S Final Result [facility] ([place]) 1 [facility] Department of Laboratories [place], [place] [address] * H. pylori breath test (08/08/2024 9:10 AM SLEEVE SETTER LOCKSTITCH) H. pylori, breath test Negative Negative [facility] Comment: Result indicates the absence of current Helicobacter pylori infection. Test Performed by: [facility] [address] [place] [id number] Auto Rebuilder: Bere Damon Ph.D.; CLIA# [id number] Breath 08/08/2024 9:10 AM SLEEVE SETTER LOCKSTITCH 08/08/2024 10:13 AM SLEEVE SETTER LOCKSTITCH Juan Franciscodragan Rivera Jf MILLER LAB BODY FLUIDS AND STOOLS ORDERABLES Final Result ADDIS MONTERO [place]) 1 [facility] Department [place] [address] [place] ref Lab * CT Abdomen Pelvis W Contrast (08/05/2024 10:15 PM SLEEVE SETTER LOCKSTITCH) Anatomical Region Laterality Modality Body N/A Computed Tomogra phy 08/05/2024 10:5 8 PM SLEEVE SETTER LOCKSTITCH Narrative 08/05/2024 11:07 PM SLEEVE SETTER LOCKSTITCH EXAM DESCRIPTION: CT ABDOMEN PELVIS W CONTRAST [...] Tony Mosher M.D. KT: KT Report ID: [id number] Reading Location: [id number] Procedure Note Tony Mosher MD - 08/05/2024 [...] Tony Mosher M.D. KT: KT Report ID: [id number] Reading Location: [place] [address] Ml Hickey MD IMG CT PROCEDURES Final Result * Urinalysis reflex to microscopic and culture Urine (08/05/2024 9:51 PM SLEEVE SETTER LOCKSTITCH) Color, ur Yellow Yellow Clarity, ur Clear [...] tendency for uric acid stone formation. Source: [facility] [employer] Current Interpretive Data was last revised on [...] [facility] ([place]) Urine 08/05/2024 9:51 PM SLEEVE SETTER LOCKSTITCH 08/05/2024 9:54 PM SLEEVE SETTER LOCKSTITCH us Ml Hickey MD LAB MICROBIOLOGY - GENERAL ORDER KASSI Final Result [facility] ([place]) 1 [facility] Department [place] [address] * POCT hCG, urine (08/05/2024 9:49 PM SLEEVE SETTER LOCKSTITCH) Pathologist [facility] HCG, ur, POC Negative Negative Lot Number [id number] QC Backgroud Clear Acceptable QC Control Line Acceptable Urine 08/05/2024 9:49 PM SLEEVE SETTER LOCKSTITCH Ml Hickey MD POINT OF CARE TEST ORDERABLES Fi nal Result * eGFR (08/05/2024 6:29 PM SLEEVE SETTER LOCKSTITCH) Pathologist [facility] eGFR >90 >=60 mL/min/1. 73 m2 Comment: [...] last reviewed 2021. Blood 08/05/2024 6:29 PM SLEEVE SETTER LOCKSTITCH 08/05/2024 6:42 PM SLEEVE SETTER LOCKSTITCH Ml Hickey MD LAB BLOOD ORDERABLES Final Resul t [facility] ([place]) 1 [facility] Department [place] [address] * (ABNORMAL) CBC with auto differential (08/05/2024 6:29 PM SLEEVE SETTER LOCKSTITCH) Pathologist [facility] WBC 7.7 3.8 - 9.9 K/cumm Hgb [...] blood specimen / Unknown 08/05/2024 6:29 PM SLEEVE SETTER LOCKSTITCH 08/05/2024 6:42 PM SLEEVE SETTER LOCKSTITCH us Ml Hickey MD LAB BLOOD ORDERABLES Final Resul t [facility] ([place]) 1 [facility] Department [place] [address] * (ABNORMAL) Manual Differential (08/05/2024 6:29 PM SLEEVE SETTER LOCKSTITCH) Differential Manual Cells Counted 100 [facility] [...] [facility] ([place]) Blood 08/05/2024 6:29 PM SLEEVE SETTER LOCKSTITCH 08/05/2024 6:42 PM SLEEVE SETTER LOCKSTITCH Ml Hickey MD LAB BLOOD ORDERABLES Final Resul t Performing Organization Address City/[facility]/ZIP Co de Phone Number [facility] ([place]) 1 [facility] Department [place] [address] * Lipase (08/05/2024 6:29 PM SLEEVE SETTER LOCKSTITCH) Lipase 29 10 - 99 Units/L Blood Venous blood specimen / Unknown 08/05/2024 6:29 PM SLEEVE SETTER LOCKSTITCH 08/05/2024 6:42 PM SLEEVE SETTER LOCKSTITCH Ml Hickey MD LAB BLOOD ORDERABLES Final Resul t [facility] ([place]) 1 [facility] Department [place] [address] * Comprehensive metabolic panel (08/05/2024 6:29 PM SLEEVE SETTER LOCKSTITCH) Sodium 137 135 - 145 mmol/L Potassium, [...] [facility] ([place]) Blood 08/05/2024 6:29 PM SLEEVE SETTER LOCKSTITCH 08/05/2024 6:42 PM SLEEVE SETTER LOCKSTITCH us Ml Hickey MD LAB BLOOD ORDERABLES Final Resul t [facility] ([place]) [facility] Department [place] [address] * US Pelvis W Endovaginal (07/18/2024 11:40 AM SLEEVE SETTER LOCKSTITCH) Cul de Sac No free fluid visualized VIEWPOINT Endometrial Thickness 4.2 mm&millim eters VIEWPOINT Anatomical Region Laterality Modality Pelvis N/A Ultrasound 07/18/2024 10:2 5 AM SLEEVE SETTER LOCKSTITCH Impressions 07/18/2024 8:21 PM SLEEVE SETTER LOCKSTITCH 1. Normal appearing uterus. 2. Normal appearing ovaries. 3. Pelvic vascularity is present but appears within the normal range. Narrative Procedure Note Carson Mi MD - 07/18/2024 IMPRESSION: 1. Normal appearing uterus. 2. Normal appearing ovaries. 3. Pelvic vascularity is present but appears within the normal range. Carson Mi MD IMG US PROCEDURES Final Re sult * (ABNORMAL) Prolactin (07/03/2024 3:17 PM SLEEVE SETTER LOCKSTITCH) Prolactin 26.6(H) 4.8 - 23.3 ng/mL Comment:Testing performed by : [facility], [address] [place] [address], [place]., [address] Blood 07/03/2024 3:17 PM SLEEVE SETTER LOCKSTITCH 07/03/2024 8:00 PM SLEEVE SETTER LOCKSTITCH Carson Mi MD LAB BLOOD ORDERABLES Final Result [facility] ([place]) 1 [facility] Department [place] [address] * Pap and HPV, reflex to HPV Genotypes (07/03/2024 3:04 PM SLEEVE SETTER LOCKSTITCH) CLINICAL INFORMATION: [facility] Comment:WELL WOMAN EXAM, SCR EENING LMP [facility] Comment:[id number] Previous Pap [facility] Comment:NONE GIVEN Prev. Bx [facility] Comment:NONE GIVEN SOURCE: [facility] Comment:Cervix, Endocervix Pap, specimen adequacy [facility] Comment: Satisfactory for evaluation. Endocervical/transformation zone component present. Partially obscuring inflammation HPV interp [facility] Comment: Cytology Results: Negative for intraepithelial lesion or malignancy. COMMENTS [facility] Comment: This Pap test has been evaluated with computer assisted technology. Printing Machine Operator [facility] Comment: AUC, CT(ASCP) CT Screening Location: [facility] [address] [place] [address] Comment [facility] Comment: EXPLANATORY NOTE: The Pap is a [...] High Risk E6/E7 Not Detected NOT DETECTED [facility] Comment: Not Detected High Risk HPV types (16,18,31,33,35,39,45,51,52, 56,58,59,66,68) were not detected. Other HPV types which cause anogenital lesions may be present. The significance of the other types of HPV in malignant processes has not been established. Methodology: Real Time PCR Thin prep-Endocervica l 07/03/2024 3:04 PM SLEEVE SETTER LOCKSTITCH 07/05/2024 12:20 AM SLEEVE SETTER LOCKSTITCH Carson Mi MD LAB CYTOLOGY ORDERABLES Fi nal Result [facility] [address] [place] [address] from Last 3 Months Insurance [facility] Advance Directives For more information, please contact: [phone] * Full Code (Latest Code Status on File) Date Activated Date Inactivated Comments 09/18/2024 11:47 AM 09/18/2024 6:41 PM * Full Code Date Activated Date Inactivated Comments 07/02/2022 8:00 AM 07/03/2022 11:09 PM Care Teams Cut Out Worker Relationship Specialty Start Date End Date Shanelle Ramirez MD [address] [place] [address] PCP - General Family Medicine 08/05/24 Heron Cavazos MD [address] [place] [address] Family Medicine 11/29/23
--- OUTSIDE RECORDS SUMMARY | 2024-10-01 08:14 | XMS_ITS | Clinical Summary ---
Author Organization [facility] Address [address] [place] [address] Care Team Providers Care Mixing Machine Attendant Name Role Phone Heron Cavazos MD Unavailable [phone] Shanelle Ramirez MD Primary Care Provider [phone] Allergies No known active allergies Medications PROzac [...] the importance of further evaluation by her adventure therapist to rule out any gynecological causes of her symptoms otherwise I do think venography with possible intervention if all other gynecologic reasons has been ruled out would be appropriate. She will call to schedule another appointment with me after she has seen her adventure therapist. Varicose veins of leg with pain, left [...] concerns with . Recommended discussing symptoms with RISK MANAGEMENT MANAGER at next visit scheduled 02/22/2022 Last Assessment [...] seek urgent/emergent care including calling Suicide Hotline (535 or ) or 551. Follow up in if symptoms worsen or fail to improve with Psychologist/Counselor/SupportGroup/Psychiatrist and PCP Sensorineural hearing loss (SNHL) of both ears 0 02/19/2022 Assessment & Plan (09/05/2023 9:36 AM CDT): Call to arrange Hearing test Assessment & Plan (02/19/2022 9:20 AM CDT): Hearing and Balance testing after Delivery [facility] Zyrtec 64 ounces of caffeine free and soda free fluid daily Check blood pressure when having dizziness Dizziness and giddiness 02/19/2022 Assessment & Plan (02/19/2022 9:20 AM CDT): Hearing and Balance testing after [facility] Continue Zyrtec 64 ounces of caffeine free and soda free fluid daily Check blood pressure when having dizziness Seasonal allergic rhinitis due to pollen 022 Overview (06/14/2023): Last Assessment & Plan: Condition: stable Follow up in: if symptoms worsen or fail to improve Last Assessment & Plan: Hearing and Balance testing after [facility] Continue Zyrtec 64 ounces of caffeine [...] Hearing and Balance testing after [facility] Continue Zyrtec 64 ounces of caffeine [...] improve Assessment & Plan (06/09/2021 2:00 PM OPTICIAN APPRENTICE): Advised weight loss Essential hypertension 02/16/2018 Overview [...] 09/14/2022 Assessment & Plan (06/09/2021 2:00 PM OPTICIAN APPRENTICE): Increase dietay fiber and try Levsin SL prn Palpitations 05/02/2019 09/14/2022 Obesity (BMI 30.0-34.9) 09/06/2016/06/2022 Encounters Date Type Department Care Team Description 09/27/2024 Results Follow-Up [facility] [place] [address] [place] [address] Keely [facility] NP 09/26/2024 11:29 AM CDT - 09/26/2024 11:59 PM CDT Hospital Encounter [address] [address] Pharyngitis, unspecified etiology Discharge Disposition: Discharge to home or self care 09/26/2024 11:15 AM CDT Office Visit [facility] [place] [address] [place] [address] Keely [facility] NP Pharyngitis, unspecified etiology (Primary Dx) 09/18/2024 1:02 PM CDT Anesthesia Event [address] [address] Brandon Charles DO 09/18/2024 11:44 AM CDT - 09/18/2024 2:31 PM CDT Hospital Encounter [address] [address] Marleni Ruvalcaba MD Discharge Disposition: Discharge to home or self care 09/18/2024 11:00 AM CDT - 09/18/2024 11:30 AM CDT Surgery [address] [address] Marleni Ruvalcaba MD COLONOSCOPY 08/30/2024 Telephone [facility] [address] [place] [address] Mirta Astorga RN 08/23/2024 Telephone [facility] Gastroenterology at [address], [place] [address] Vannesa Camacho Colonoscopy Wait List 08/21/2024 Telephone [facility] Gastroenterology at [address] [place] [address] Vannesa Camacho Colonoscopy Reschedule 08/13/2024 Results Follow-Up [facility] Gastroenterology at [address] [place] [address] Juan Francisco Rhoades NP 08/13/2024 Results Follow-Up [facility] Gastroenterology at [address] [place] [address] Juan Francisco Rhoades NP 08/09/2024 Telephone [facility] Gastroenterology at [address] [place] [address] Ashleigh Quiñonez MA 08/09/2024 Telephone [facility] [place] [address] Modesto Olmstead RN 08/08/2024 12:45 PM OPTICIAN APPRENTICE Lab [address] Elevated sed rate 08/08/2024 11:30 AM OPTICIAN APPRENTICE - 08/08/2024 11:59 PM OPTICIAN APPRENTICE Hospital Encounter [address] [address] Galactorrhea Discharge Disposition: Discharge to home or self care 08/08/2024 10:28 AM OPTICIAN APPRENTICE - 08/08/2024 11:59 PM OPTICIAN APPRENTICE Hospital Encounter [address] [address] Galactorrhea Discharge Disposition: Discharge to home or self care 08/08/2024 9:25 AM OPTICIAN APPRENTICE Lab [address] Flatulence; Gastroesophageal reflux disease without esophagitis; Nausea without vomiting; Irritable bowel syndrome with both constipation and diarrhea; Hepatic steatosis; Family history of cirrhosis of liver 08/08/2024 9:10 AM OPTICIAN APPRENTICE Lab [address] Abnormal prolactin level 08/08/2024 8:15 AM OPTICIAN APPRENTICE Office Visit [facility] Gastroenterology at [address], [place] [address] Juan Francisco Rhoades NP BRBPR (bright red blood per rectum) (Primary Dx); Irritable bowel syndrome with both constipation and diarrhea; Flatulence; Hepatic steatosis; Family history of cirrhosis of liver; Internal hemorrhoids; Gastroesophageal reflux disease without esophagitis; Nausea without vomiting; Pelvic congestion syndrome 08/08/2024 Orders Only [facility] Medical [facility] Gastroenterology at [address] [place] [address] Juan Francisco Rhoades NP Elevated sed rate (Primary Dx) 08/08/2024 Telephone [facility] Gastroenterology at [address] [place] [address] Jack London MA 08/05/2024 9:04 PM OPTICIAN APPRENTICE - 08/06/2024 12:01 AM OPTICIAN APPRENTICE Emergency [facility] Emergency Department [address] [place] [address] Ml Hickey MD Lower GI bleed (Primary Dx); Abdominal pain Discharge Disposition: Discharge to home or self care 07/23/2024 Telephone [facility] Care Organization [address] [place] [address] Nirmala Hair MA Successful Phone Call (AWV SCHEDULING) 07/18/2024 10:00 AM OPTICIAN APPRENTICE Ancillary Procedure [place] JAIR [address], [place] [address] Pelvic and perineal pain 07/18/[address] [place] [address] Neha Acosta MA Test Results (Request for Lab results. ) 07/16/2024 Telephone [facility] [address] [place] [address] Modesto Olmstead RN 07/03/2024 3:15 PM OPTICIAN APPRENTICE Lab [address] Galactorrhea 07/03/2024 2:00 PM OPTICIAN APPRENTICE Office Visit [address] [place] [address] Carson Mi MD Well woman exam (Primary [...] Hx Relation Name Status Comments Brother 1 [place] Alive Brother 2 Rah Alive Father Alive [...] How often do you attend chur or religion services? Never 07/02/2022 Do you belong to any clubs o r organizations such as faith groups, unions, fraternal or athletic groups, or [...] CALPROTECTIN, FECAL Routine 08/08/2024 1 2:40 PM OPTICIAN APPRENTICE Elevated sed rate US BREAST BILATERAL LIMITED Schedule Routine, Read Routine (OP Routine) 08/08/2024 12:07 PM OPTICIAN APPRENTICE Galactorrhea DIAGNOSTIC MAMMOGRAM BILATERAL W ANGELA Schedule Routine, Read Routine (OP Routine) 08/08/2024 10:48 AM OPTICIAN APPRENTICE Galactorrhea TISSUE TRANSGLUTAMINASE, IGA Routine 08/08/2024 9:13 AM OPTICIAN APPRENTICE EGFR Routine 08/08/2024 9:13 AM OPTICIAN APPRENTICE Hepatic steatosis Family history of cirrhosis of liver DIFFERENTIAL AUTO Routine 08/08/2024 9:1 3 AM OPTICIAN APPRENTICE Hepatic steatosis Family history of cirrhosis of liver FIBRO TEST-ACTI TEST Routine 08/08/2024 9:13 AM OPTICIAN APPRENTICE Hepatic steatosis CBC WITH AUTO DIFFERENTIAL Routine 08/08/2024 9:13 AM OPTICIAN APPRENTICE Hepatic steatosis Family history of cirrhosis of liver COMPREHENSIVE METABOLIC PANEL Routine 08/08/2024 9:13 AM OPTICIAN APPRENTICE Hepatic steatosis Family history of cirrhosis of liver THYROID FUNCTION CASCADE Routine 08/08/2024 9:13 AM OPTICIAN APPRENTICE Hepatic steatosis Family history of cirrhosis of liver ERYTHROCYTE SEDIMENTATION RATE Routine 08/08/2024 9:13 AM OPTICIAN APPRENTICE Hepatic steatosis Family history of cirrhosis of liver CRP (ACUTE PHASE) Routine 08/08/2024 9:1 3 AM OPTICIAN APPRENTICE Hepatic steatosis Family history of cirrhosis of liver CELIAC REFLEX PANEL Routine 08/08/2024 9 :13 AM OPTICIAN APPRENTICE Irritable bowel syndrome with both constipation and diarrhea Flatulence Nausea without vomiting PROLACTIN Routine 08/08/2024 9:13 AM OPTICIAN APPRENTICE Abnormal prolactin level H. PYLORI BREATH TEST Routine 08/08/2024 9:10 AM OPTICIAN APPRENTICE Flatulence Gastroesophageal reflux disease without esophagitis Nausea without vomiting CT ABDOMEN PELVIS W CONTRAST ED 08/05/2024 10:15 PM OPTICIAN APPRENTICE URINALYSIS AND REFLEX TO MICROSCOPIC AND CULTURE STAT 08/05/2024 9:51 PM OPTICIAN APPRENTICE POCT HCG, URINE Routine 08/05/2024 9:49 PM OPTICIAN APPRENTICE EGFR STAT 08/05/2024 6:29 PM OPTICIAN APPRENTICE MANUAL DIFFERENTIAL STAT 08/05/2024 6 :29 PM OPTICIAN APPRENTICE LIPASE STAT 08/05/2024 6:29 PM OPTICIAN APPRENTICE COMPREHENSIVE METABOLIC PANEL STAT 08/05/2024 6:29 PM OPTICIAN APPRENTICE CBC WITH AUTO DIFFERENTIAL STAT 08/05/2024 6:29 PM OPTICIAN APPRENTICE US PELVIS W ENDOVAGINAL Routine 07/18/2024 11:40 AM OPTICIAN APPRENTICE Pelvic and perineal pain PROLACTIN Routine 07/03/2024 3:17 PM OPTICIAN APPRENTICE Galactorrhea PAP AND HPV, REFLEX TO HPV GENOTYPES Routine 07/03/2024 3:04 PM OPTICIAN APPRENTICE Well woman exam from Last 3 Months Results * Throat culture Throat (09/26/2024 11:29 AM CDT) Report Final Report: No growth of pathogens. Comment:Testing performed by : [facility], [address] [facility]., [address] Throat 09/26/2024 11:2 9 AM CDT 09/26/2024 10:24 PM CDT Narrative ADDIS OCHOA - 09/27/2024 7:05 PM CDT Testing performed by [facility] Microbiology Laboratory ([phone]). Keely Dumont NP LAB MICROBIOLOGY - GENERAL ORD ERABLES Final Result ADDIS [address] Department [place] [address] * POCT rapid strep A (09/26/2024 11:17 AM CDT) [facility] Rapid Strep A, POC Negative Negative Swab 09/26/2024 11:1 7 AM CDT Keely Dumont NP POINT OF CARE TEST ORDERABLES Final Result * Colonoscopy (09/18/2024 12:16 PM CDT) Anatomical Region Laterality Modality Other Narrative Procedure Note Marleni Ruvalcaba MD - 09/18/2024 12:16 PM CDT [facility] Patient Name: Audra Blount Procedure Date: 09/18/2024 12:16 PM Date of : 1990 Admit Type: Outpatient Age: 33 Gender: Female Attending MD: Marleni Ruvalcaba M.D. Room: [facility] ENDOSCOPY ROOM 1 Note Status: Finalized Patient [...] was passed under directvision. The Pediatric Colonoscope [id number] was introduced through the anus and advanced [...] 12:16 PM Procedure Code(s): --- Professional --- 29724, Colonoscopy, flexible; diagnostic, including collection of specimen(s) by brushing or washing, when performed (separateprocedure) [address]3270, Destruction of internal hemorrhoid(s) by thermal energy (eg, infrared coagulation, cautery, radiofrequency) Diagnosis Code(s): --- Professional --- K64.8, Other hemorrhoids CPT copyright 2020 [employer]. All rights reserved. The codes documented in this report are preliminary and upon leader writer reviewmay be revised to meet current compliance requirements. Recognized by the [employer] for promoting quality in endoscopy Marleni Ruvalcaba MD ENDOSCOPY PROCEDURES Final Result * Calprotectin, fecal (08/08/2024 12:40 PM OPTICIAN APPRENTICE) Calprotectin, fecal <50.0 <50.0 (Normal) mcg/g [facility] ref Lab Comment: Test Performed by: [facility] - [address] [address] Instructor Correspondence [employer]: Bere Damon Ph.D.; CLIA# [id number] Stool 08/08/2024 12:4 0 PM OPTICIAN APPRENTICE 08/08/2024 1:45 PM OPTICIAN APPRENTICE Juan Francisco IreneNicoleyenni Rhoades INSPECTOR ELECTROMECHANICAL LAB BODY FLUIDS AND STOOLS ORDERABLES Final Result ADDIS MONTERO [place] [facility] Department [place] [address] [facility] * US BREAST LIMITED BILATERAL (08/08/2024 12:07 PM OPTICIAN APPRENTICE) Anatomical Region Laterality Modality Breast Bilateral Ultrasound 08/08/2024 1:17 PM OPTICIAN APPRENTICE Impressions 08/08/2024 1:17 PM OPTICIAN APPRENTICE No mammographic or sonographic evidence of malignancy. Bilateral nipple discharge is likely physiologic in nature. OVERALL FINAL ASSESSMENT: BI-RADS Category 2: Benign. RECOMMENDATION: Continued clinical follow-up is recommended. Unless earlier screening is clinically indicated, recommend annual screening mammography beginning at 40 years of age. Electronically signed by: Jovanna Cross M.D. Narrative 08/08/2024 1:17 PM OPTICIAN APPRENTICE EXAMINATION: BILATERAL DIGITAL DIAGNOSTIC MAMMOGRAM INCLUDING CAD [...] MAMMOGRAM BILATERAL W ANGELA (08/08/2024 10:48 AM OPTICIAN APPRENTICE) Anatomical Region Laterality Modality Breast Bilateral Mammography 08/08/2024 1:17 PM OPTICIAN APPRENTICE Impressions 08/08/2024 1:17 PM OPTICIAN APPRENTICE No mammographic or sonographic evidence of malignancy. Bilateral nipple discharge is likely physiologic in nature. OVERALL FINAL ASSESSMENT: BI-RADS Category 2: Benign. RECOMMENDATION: Continued clinical follow-up is recommended. Unless earlier screening is clinically indicated, recommend annual screening mammography beginning at 40 years of age. Electronically signed by: Jovanna Cross M.D. Narrative 08/08/2024 1:17 PM OPTICIAN APPRENTICE EXAMINATION: BILATERAL DIGITAL DIAGNOSTIC MAMMOGRAM INCLUDING CAD [...] * Fibro Test-Acti Test (08/08/2024 9:13 AM OPTICIAN APPRENTICE) FibroTest Score 0.02 [facility] FibroTest Stage F0 [facility] [...] developed and its performance characteristics determined by [facility] in a manner consistent with CLIA requirements. This test has not been cleared or approved by the U.S. Food and Drug Administration. Bio[employer] Serial Number [id number] [facility] ([place]) APOLIPOPROTEIN A1 151 >=140 mg/dL [facility] ([place]) Aazvr-6-Tfxfbvruavgkk, Ser 108 100 - 280 mg/dL [facility] ([place]) Haptoglobin, S 197 30 - 200 mg/dL [facility] ([place]) Alanine Aminotransferase (ALT), S 35 7 - 45 Units/L [facility] ([place]) Gamma Glutamyltransferase (GGT), S 16 5 - 36 Units/L [facility] ([place]) Bilirubin, Total, S 0.5 0.0 - 1.2 mg/dL [facility] ([place]) Comment: Test Performed by: [place] [address] Instructor Correspondence [employer]: Bere Damon Ph.D.; CLIA# [id number] Test Performed by: [place] [address] Instructor Correspondence School: Bere Damon Ph.D.; CLIA# [id number] Blood 08/08/2024 9:13 AM OPTICIAN APPRENTICE 08/08/2024 10:14 AM OPTICIAN APPRENTICE Juan Francisco Rhoades INSPECTOR ELECTROMECHANICAL LAB BLOOD ORDERABLE S Final Result ADDIS MONTERO ([place]) 1 [facility] Department [place] [address] [facility] * eGFR (08/08/2024 9:13 AM OPTICIAN APPRENTICE) eGFR >90 >=60 mL/min/1. 73 m2 Comment: [...] last reviewed 2021. Blood 08/08/2024 9:13 AM OPTICIAN APPRENTICE 08/08/2024 10:14 AM OPTICIAN APPRENTICE Juan Francisco Rhoades INSPECTOR ELECTROMECHANICAL LAB BLOOD ORDERABLE S Final Result [facility] ([place]) 1 [facility] Department [place] [address] * Differential, auto (08/08/2024 9:13 AM OPTICIAN APPRENTICE) Neutrophil abs 5.2 1.5 - 6.5 K/cumm [...] revised on 2017. Blood 08/08/2024 9:13 AM OPTICIAN APPRENTICE 08/08/2024 10:14 AM OPTICIAN APPRENTICE Juan Francisco [facility] INSPECTOR ELECTROMECHANICAL LAB BLOOD ORDERABLE S Final Result Performing Organization Address City/[facility]/ZIP Co de Phone Number ADDIS MONTERO ([place]) 1 [facility] Department [place] [address] * Thyroid Function [employer] (08/08/2024 9:13 AM OPTICIAN APPRENTICE) TSH 1.61 0.30 - 4.20 mcIUnit/mL Blood 08/08/2024 9:13 AM OPTICIAN APPRENTICE 08/08/2024 10:14 AM OPTICIAN APPRENTICE [facility] INSPECTOR ELECTROMECHANICAL LAB BLOOD ORDERABLE S Final Result ADDIS MONTERO ([place]) 1 [facility] Department [place] [address] * CBC with auto differential (08/08/2024 9:13 AM OPTICIAN APPRENTICE) WBC 8.5 3.8 - 9.9 K/cumm Hgb [...] [facility] ([place]) Blood 08/08/2024 9:13 AM OPTICIAN APPRENTICE 08/08/2024 10:14 AM OPTICIAN APPRENTICE Juan Francisco Rhoades INSPECTOR ELECTROMECHANICAL LAB BLOOD ORDERABLE S Final Result ADDIS MONTERO ([place]) 1 [facility] Department [place] [address] * Celiac reflex panel (08/08/2024 9:13 AM OPTICIAN APPRENTICE) Pathologist [facility] [place] IgA 151 61 - 356 mg/dL [facility] Celiac disease interpretation See Comment [facility] ([place]) Comment: See Comment: Negative serology. Celiac disease unlikely. However, approximately 10% of patients with celiac disease are seronegative. Also, patients who are already adhering to a gluten-free diet may be seronegative. If celiac disease is highly clinically suspected, consider HLA-DQ typing. Test Performed by: [place] [address] Instructor Correspondence [employer]: Bere Damon Ph.D.; CLIA# [id number] Blood 08/08/2024 9:13 AM OPTICIAN APPRENTICE 08/08/2024 10:14 AM OPTICIAN APPRENTICE [facility] Nicole [facility] LAB BLOOD ORDERABLE S Final Result Performing Organization Address City/[facility]/ZIP Co de Phone Number [facility] ([place]) 1 [place] [address] [facility] ref [facility] * Tissue transglutaminase IgA (TGG-IgA Ab) (08/08/2024 9:13 AM OPTICIAN APPRENTICE) TTG ab, IgA <1.2 <4.0 (Negative) units/mL Comment: Test Performed by: [place] [address] Instructor Correspondence School: Bere Damon Ph.D.; CLIA# [id number] Interpretive data Negative: <15 units/mL Positive: > or equal to 15 units/mL Current interpretive data was last revised on 2016. Testing performed by: [facility], [address] [place] [address]., [id number] Blood 08/08/2024 9:13 AM OPTICIAN APPRENTICE 08/08/2024 10:14 AM OPTICIAN APPRENTICE [facility] Nicole [facility] INSPECTOR ELECTROMECHANICAL LAB BLOOD ORDERABLE S Final Result [facility] ([place]) 1 [facility] [place] [address] * Prolactin (08/08/2024 9:13 AM OPTICIAN APPRENTICE) Prolactin 17.8 4.8 - 23.3 ng/mL Comment:Testing performed by : [facility], [address] [place] [address]., [address] Blood 08/08/2024 9:13 AM OPTICIAN APPRENTICE 08/08/2024 2:49 PM OPTICIAN APPRENTICE Carson Mi MD LAB BLOOD ORDERABLES Final Result ADDIS MONTERO ([place]) 1 [place] [address] * (ABNORMAL) Erythrocyte sedimentation rate (08/08/2024 9:13 AM OPTICIAN APPRENTICE) [facility] Erythrocyte sedimentation rate 48(H) 1 - 20 mm/hr Blood 08/08/2024 9:13 AM OPTICIAN APPRENTICE 08/08/2024 10:14 AM OPTICIAN APPRENTICE Juan Francisco Rhoades NP LAB BLOOD ORDERABLE S Final Result Performing Organization Address [facility] Co de Phone Number ADDIS MONTERO ([place]) 1 [facility] [place] [address] * CRP (acute phase) (08/08/2024 9:13 AM OPTICIAN APPRENTICE) [facility] CRP 8.2 <=10.0 mg/L Blood 08/08/2024 9:13 AM OPTICIAN APPRENTICE 08/08/2024 10:14 AM OPTICIAN APPRENTICE Juan Francisco Rhoades INSPECTOR ELECTROMECHANICAL LAB BLOOD ORDERABLE S Final Result Performing Organization Address City/[facility]/ZIP Co de Phone Number ADDIS MONTERO ([place]) [address] [place] [address] * Comprehensive metabolic panel (08/08/2024 9:13 AM OPTICIAN APPRENTICE) Pathologist [facility] [place] Sodium 137 135 - 145 mmol/L Potassium, pl 4.5 3.3 - 4.9 mmol/L [facility] ([place]) Chloride 103 97 - 110 mmol/L [facility] ([place]) CO2 25 22 - 32 mmol/L [facility] ([place]) Anion gap 9 2 - 15 mmol/L [facility] ([place]) BUN 14 6 - 25 [...] [facility] ([place]) Blood 08/08/2024 9:13 AM OPTICIAN APPRENTICE 08/08/2024 10:14 AM OPTICIAN APPRENTICE Juan Francisco Rhoades INSPECTOR ELECTROMECHANICAL LAB BLOOD ORDERABLE S Final Result [facility] ([place]) 1 [facility] Department of Laboratories [place], [place] [id number] * H. pylori breath test (08/08/2024 9:10 AM OPTICIAN APPRENTICE) H. pylori, breath test Negative Negative [facility] Comment: Result indicates the absence of current Helicobacter pylori infection. Test Performed by: [address] [address] Instructor Correspondence School: Bere Damon Ph.D.; CLIA# [id number] Breath 08/08/2024 9:10 AM OPTICIAN APPRENTICE 08/08/2024 10:13 AM OPTICIAN APPRENTICE Juan Franciscodragan Chraegan Rhoades NP LAB BODY FLUIDS AND STOOLS ORDERABLES Final Result ADDIS MONTERO [place]) 1 [facility] Department of Laboratories [place], [place] [id number] [facility] ref [facility] * CT Abdomen Pelvis W Contrast (08/05/2024 10:15 PM OPTICIAN APPRENTICE) Anatomical Region Laterality Modality Body N/A Computed Tomogra phy 08/05/2024 10:5 8 PM OPTICIAN APPRENTICE Narrative 08/05/2024 11:07 PM OPTICIAN APPRENTICE EXAM DESCRIPTION: CT ABDOMEN PELVIS W CONTRAST [...] Tony Mosher M.D. KT: KT Report ID: [id number] Reading Location: [id number] Procedure Note Tony Mosher MD - 08/05/2024 [...] Tony Mosher M.D. KT: PAIGE Report ID: [id number] Reading Location: [place] [address] Ml Hickey MD IMG CT PROCEDURES Final Result * Urinalysis reflex to microscopic and culture Urine (08/05/2024 9:51 PM OPTICIAN APPRENTICE) Color, ur Yellow Yellow Clarity, ur Clear [...] tendency for uric acid stone formation. Source: [facility] [employer] Current Interpretive Data was last revised on [...] [facility] ([place]) Urine 08/05/2024 9:51 PM OPTICIAN APPRENTICE 08/05/2024 9:54 PM OPTICIAN APPRENTICE us Ml Hickey MD LAB MICROBIOLOGY - GENERAL ORDER KASSI Final Result [facility] ([place]) 1 [facility] Department [place] [address] * POCT hCG, urine (08/05/2024 9:49 PM OPTICIAN APPRENTICE) HCG, ur, POC Negative Negative Lot Number [id number] QC Backgroud Clear Acceptable QC Control Line Acceptable Urine 08/05/2024 9:49 PM OPTICIAN APPRENTICE Ml Hickey MD POINT OF CARE TEST ORDERABLES Fi nal Result * eGFR (08/05/2024 6:29 PM OPTICIAN APPRENTICE) eGFR >90 >=60 mL/min/1. 73 m2 Comment: [...] last reviewed 2021. Blood 08/05/2024 6:29 PM OPTICIAN APPRENTICE 08/05/2024 6:42 PM OPTICIAN APPRENTICE us Ml Hickey MD LAB BLOOD ORDERABLES Final Resul t ADDIS MONTERO [place] 1 [facility] [place] [address] * (ABNORMAL) CBC with auto differential (08/05/2024 6:29 PM OPTICIAN APPRENTICE) Pathologist [facility] [place] WBC 7.7 3.8 - 9.9 K/cumm Hgb [...] blood specimen / Unknown 08/05/2024 6:29 PM OPTICIAN APPRENTICE 08/05/2024 6:42 PM OPTICIAN APPRENTICE us Ml Hickey MD LAB BLOOD ORDERABLES Final Resul t [facility] ([place]) 1 [facility] [place] [address] * (ABNORMAL) Manual Differential (08/05/2024 6:29 PM OPTICIAN APPRENTICE) Differential Manual Cells Counted 100 [facility] [...] [facility] (COBY) Blood 08/05/2024 6:29 PM OPTICIAN APPRENTICE 08/05/2024 6:42 PM OPTICIAN APPRENTICE Ml Hickey MD LAB BLOOD ORDERABLES Final Resul t Performing Organization Address City/[facility]/ZIP Co de Phone Number NAGIANIBAL WINSTON (COBY) 1 [facility] Department [place] [address] * Lipase (08/05/2024 6:29 PM OPTICIAN APPRENTICE) Lipase 29 10 - 99 Units/L Blood Venous blood specimen / Unknown 08/05/2024 6:29 PM OPTICIAN APPRENTICE 08/05/2024 6:42 PM OPTICIAN APPRENTICE Ml Hickey MD LAB BLOOD ORDERABLES Final Resul t ADDIS WINSTON (COBY) 1 [facility] [place] [address] * Comprehensive metabolic panel (08/05/2024 6:29 PM OPTICIAN APPRENTICE) Sodium 137 135 - 145 mmol/L Potassium, [...] [facility] (COBY) Blood 08/05/2024 6:29 PM OPTICIAN APPRENTICE 08/05/2024 6:42 PM OPTICIAN APPRENTICE us Ml Hickey MD LAB BLOOD ORDERABLES Final Resul t [facility] (COBY) 1 [facility] [place] [address] * US Pelvis W Endovaginal (07/18/2024 11:40 AM OPTICIAN APPRENTICE) Cul de Sac No free fluid visualized VIEWPOINT Endometrial Thickness 4.2 mm&millim eters VIEWPOINT Anatomical Region Laterality Modality Pelvis N/A Ultrasound 07/18/2024 10:2 5 AM OPTICIAN APPRENTICE Impressions 07/18/2024 8:21 PM OPTICIAN APPRENTICE 1. Normal appearing uterus. 2. Normal appearing ovaries. 3. Pelvic vascularity is present but appears within the normal range. Narrative Procedure Note Carson Mi MD - 07/18/2024 IMPRESSION: 1. Normal appearing uterus. 2. Normal appearing ovaries. 3. Pelvic vascularity is present but appears within the normal range. Carson Mi MD IMG US PROCEDURES Final Re sult * (ABNORMAL) Prolactin (07/03/2024 3:17 PM OPTICIAN APPRENTICE) Pathologist [facility] [place] Prolactin 26.6(H) 4.8 - 23.3 ng/mL Comment:Testing performed by : [facility], [address] [place] [address]., [id number] Blood 07/03/2024 3:17 PM OPTICIAN APPRENTICE 07/03/2024 8:00 PM OPTICIAN APPRENTICE Carson Mi MD LAB BLOOD ORDERABLES Final Result [facility] ([place]IG [place]END) 1 [facility] [place] [address] * Pap and HPV, reflex to HPV Genotypes (07/03/2024 3:04 PM OPTICIAN APPRENTICE) Pathologist [facility] [place] CLINICAL INFORMATION: [facility] Comment:WELL WOMAN EXAM, SCR EENING LMP [facility] Comment:[id number] Previous Pap [facility] Comment:NONE GIVEN Prev. Bx [facility] Comment:NONE GIVEN SOURCE: [facility] Comment:Cervix, Endocervix Pap, specimen adequacy [facility] Comment: Satisfactory for evaluation. Endocervical/transformation zone component present. Partially obscuring inflammation HPV interp [facility] Comment: Cytology Results: Negative for intraepithelial lesion or malignancy. COMMENTS [facility] Comment: This Pap test has been evaluated with computer assisted technology. Bricklayer Helper [facility] Comment: AUC, CT(ASCP) CT Screening Location: [facility] [address] [place] [address] Comment [facility] Comment: EXPLANATORY NOTE: The Pap is a [...] High Risk E6/E7 Not Detected NOT DETECTED [facility] Comment: Not Detected High Risk HPV types (16,18,31,33,35,39,45,51,52, 56,58,59,66,68) were not detected. Other HPV types which cause anogenital lesions may be present. The significance of the other types of HPV in malignant processes has not been established. Methodology: Real Time PCR Thin prep-Endocervica l 07/03/2024 3:04 PM OPTICIAN APPRENTICE 07/05/2024 12:20 AM OPTICIAN APPRENTICE Carson Mi MD LAB CYTOLOGY ORDERABLES Fi nal Result [facility] [address] [place] [address] from Last 3 Months Insurance [facility] Advance Directives For more information, please contact: [phone] * Full Code (Latest Code Status on File) Date Activated Date Inactivated Comments 09/18/2024 11:47 AM 09/18/2024 6:41 PM * Full Code Date Activated Date Inactivated Comments 07/02/2022 8:00 AM 07/03/2022 11:09 PM Care Teams Mixing Machine Attendant Relationship Specialty Start Date End Date Shanelle Ramirez MD [address] [place] [address] PCP - General Family Medicine 08/05/24 Heron Cavazos MD [address] [place] [address] Family Medicine 11/29/23
--- OUTSIDE RECORDS SUMMARY | 2024-10-01 08:14 | XMS_ITS | Clinical Summary ---
Author Organization [facility] Address [address] [place] [address] Phone Care Team Providers Care Fermenting Cellars Receiver Name Role Phone Unavailable Primary Care Provider [...] cm (5' 1 ) 06/24/2022 3:50 PM WATER CONSERVATION SPECIALIST Body Mass Index 34.2 06/24/2022 3:50 PM WATER CONSERVATION SPECIALIST Plan of Treatment Health Maintenance Due Date [...] Insurance [place] [employer] [facility] Address: [address] [address]
--- OUTSIDE RECORDS SUMMARY | 2024-10-01 08:14 | XMS_ITS | Encounter Summary ---
Author Organization [facility] Address [address] [place] [address] Care Team Providers Care Freelance Digital Project Manager Name Role Phone Heron Cavazos MD Unavailable [phone] Shanelle Ramirez MD Primary Care Provider [phone] Encounter Details Date Type Department Care Team (Late st Contact Info) Description 08/13/2024 Results Follow-Up [facility] Gastroenterology at [address] [place] [address] Juan Francisco Rhoades NP [address] [place] [address] [address] [place] [address] Social History Tobacco Use Types Packs/Day Years [...] How often do you attend chur or muslim services? Never 07/02/2022 Do you [...] place to sleep or slept in a penitentiary (including now)? No 07/02/2022 Personal Safety Answer [...] look good. H pylori breath test negative. ON BASTER documented in this encounter Plan of Treatment Not on file documented as of this encounter Visit Diagnoses Not on filedocumented in this encounter Care Teams Freelance Digital Project Manager Relationship Specialty Start Date End Date Shanelle Ramirez MD [address] [place] [address] PCP - General Family Medicine 08/05/24 Heron Cavazos MD [address] [place] [address] Family Medicine 11/29/23 documented as of this encounter
--- OUTSIDE RECORDS SUMMARY | 2024-10-01 08:14 | XMS_ITS | Clinical Summary ---
Author Organization [facility] Address [address] [place] [address] Care Team Providers Care Vulcanizing Machine Operator Name Role Phone Jyothi Perez Primary Care Provider [phone] Allergies No known active allergies Social History [...] Comments Blood Pressure 161/82 06/13/2021 11:25 AM PICKLE PUMPER Pulse 77 06/13/2021 11:25 AM PICKLE PUMPER Temperature 36.6 C (97.9 F) 06/13/2021 11:25 AM PICKLE PUMPER Respiratory Rate 18 06/13/2021 11:25 AM PICKLE PUMPER Oxygen Saturation 99% 06/13/2021 11:25 AM PICKLE PUMPER Inhaled Oxygen Concentration - - Weight 89 kg (196 lb 3.4 oz) 06/13/2021 11:25 AM PICKLE PUMPER Height 154.9 cm (5' 1 ) 06/13/2021 11:25 AM PICKLE PUMPER Body Mass Index 37.07 06/13/2021 11:25 AM PICKLE PUMPER Plan of Treatment Health Maintenance Due Date Last Done Comments Cervical Cancer Screening Pa p Smear (Age 30 to 64) Every 3 Years 1990 Annual Physical 1993 Hepatitis C 2008 Hepatitis B Vaccines (1 of 3 - 19+ 3-dose series) 2009 Cervical Cancer Screening Pa p with HPV Testing (Age 30 to 64) Every 5 Years 2020 Cervical Cancer Screening with HPV 2020 COVID-19 Vaccine (1 - 2023-2 5 season) 2024 DTaP, Tdap and Td Vaccines ( 2 [...] age to complete this topic Pneumococcal Vaccine: Pediat rics (0 to 5 Years) and At-Risk Patients (6 to 64 Years) Aged Out No longer eligi ble based on patient's age to complete this topic RSV Immunizations Under 20 Months Aged Out No longer eligible based on patient's age to complete this topic Insurance TO Care Teams Vulcanizing Machine Operator Relationship Specialty Start Date End Date Jyothi Perez APNP [address] [place] [address] PCP - General NURSE PRACTITIONER 06/13/21
--- OUTSIDE RECORDS SUMMARY | 2024-10-01 08:14 | XMS_ITS | Continuity of Care Document ---
Author Organization [facility] Address [address] [place] [address] Phone Care Team Providers Care Bleach Boiler Packer Name Role Phone Bill Downing MD Unavailable Unavailable Allergies, Adverse Reactions, Alerts Substance Reaction Status Criticality amoxicillin Nausea Active No Information Medications Medication Instructions Dosage Effective Dates (start - stop) Status Comments Zoloft 50 mg tablet take 1 tablet by ora l route every day 50 MG - Active Procedures Procedure Date OFFICE/OUTPATIENT VISIT, EST OFFICE/OUTPATIENT VISIT, EST OFFICE/OUTPATIENT VISIT, EST PREV VISIT, NEW, AGE 18-39 Advance Directives Directive Yes / No Effective Date File Name No Information Encounters Encounter Description Practice Location Reason(s) For Visit Diagnoses Date Provider Providers Copied on Encounter OFFICE/OUTPA TIENT VISIT, [facility], [address], [id number], [place] tel:[phone] [facility] weight gain1 (chief complaint) liver disease1 (chief complaint) HTN (chief complaint) depression 1 (chief complaint) Liver diseaseEssential (primary) hypertensionDisorde r of thyroid, unspecifiedAbnormal weight gainDepression NOS 201 [address] Chang Khan. [address] [place] [address] , [place]. tel:[phone] Referring Provider: Bill Downing [address] [facility] [place], [address]. tel:[phone] OFFICE/OUTPA TIENT VISIT, [facility], [address], [place], [place], [id number], [place] tel:[phone] [facility] Family Medicine HTN (chief complaint) sob1 (chief complaint) abd pain1 (chief complaint) chest lesion1 (chief complaint) PH (chief complaint) lfT (chief complaint) Essential (primary) hypertensionShortne ss of breathPrimary pulmonary hypertensionLiver disease 8 Chang Khan. [address], [place], [place], [address] , [place]. tel:[phone] Referring Provider: Mayra Mc [address], [place], [place], [address]. tel:[phone] OFFICE/OUTPA TIENT VISIT, EST [facility], [address], [place], [place], [id number], [place] tel:[phone] [facility] Medicine abd pain1 (chief complaint) HTN (chief complaint) LFT (chief complaint) mediastinu m nodule (chief complaint) SOB1 (chief complaint) Primary pulmonary hypertensionShortne ss of breathEssential (primary) hypertensionLiver diseaseDisease of gallbladder, unspecified 0 8 Chang Khan. [address], [place], [place], [address] , [place]. tel:[phone] Referring Provider: Mayra Mc [address], [place], [place], [address]. tel:[phone] PREV VISIT, NEW, AGE 18-39 [facility], [address], [place], [place], [id number], [place] tel:[phone] [facility] PHysical (chief complaint) Encntr for general adult medical exam w/o abnormal findingsPrimary pulmonary hypertensionEssenti al (primary) hypertensionShortne ss of breathLiver disease 8 Chang Khan. [address], [place], [place], [address] , [place]. tel:[phone] Referring Provider: Mayra [address], [place], [place], [address]. tel:[phone] Family History Family Member Type Diagnosis Age At Onset Father Problem (finding) unknown Paternal grandfather Problem (finding) lung CA 67 Paternal grandmother Problem (finding) breast [place] 62 Mother Problem (finding) Thyroid disorder Payers Payer name Insurance type Covered constitution party ID Authoriza tion(s) No Information Social History Type Description Quantity Date Captured Comments Alcohol Use Details No Caffeine Use Details Unknown Tobacco Use Status Ex-cigarette smoker 019 Smoking Status Former smoker Smoking Tobacco Use Details Cigarette: Age Started: 16, Age Stopped: 23, Years Used 7 Cigarette: 0.5 Packs per day, Pack Year: 3.5 Sex Female Vital Signs Date / Time: Height Weight BMI Pulse Rate Blood Pressure Temperature Respiratory Rate Body Surface Area Head Circumference BMI percentile Pulse Ox Inhaled Ox 10:18 AM 61.00 in 195.60 lbs 36.9 6 kg/m eter (2) 68 /min 134/82 mm[Hg] 98.0 F 18 /min Chief Complaint And Reason For Visit From encounter dated '07/18/2018 08:00'. weight gain1 (chief complaint). Description: Pt has been gaining weight. Pt gained 20 pounds since last year. Pt had childbirth 8 months ago. Pt never lost any weight. Pt does have positiveTPO. Her TSH was ok. Pt is not very active. liver disease1 (chief complaint). Description: Her LFT is ok recently. Her ultrasound is ok. Pt denies any abdominal pain or jaundice HTN (chief complaint). Description: Her BP remains normal without any BP med Pt states that her BP is around 130/80 at home. depression1 (chief complaint). Description: Pt has depression and she is on zoloft now since last month Pt denies any suicidal or homicidal thought. Pt denies any crying spells Pt states that zoloft is helping her mood. Plan Of Treatment Date Type Action Status Goal Special diet education compl eted Goal Tobacco cessation counseling completed Goal Special diet education compl eted Goal Special diet education compl eted Goal Special diet education compl eted Goal Special diet education compl eted Referral Ordered: US THYROID ordered Referral Referred To: Yuri Tillman MD [address] [place], [place], [id number] Ordered: Referrals: Yuri Tillman MD. Evaluate and treat ordered Referral Ordered: MRI CHEST W/DYE ordered Referral Ordered: DOPPLER ECHO EXAM, HEART ordered Referral Ordered: US EXAM, ABDOM, COMPLETE ordered Referral Ordered: NUC MED HIDA (HEPATOBILIARY) SCAN ordered Referral Ordered: SLEEP STUDY, ATTENDED ordered History Of Present Illness Encounter Date Complaint History Of Prese nt Illness depression1 Pt has postpartu m depression and she is on zoloft now since last month Pt denies any suicidal or homicidal thought. Pt denies any crying spells Pt states that zoloft is helping her mood. HTN Her BP remains n ormal without any BP med Pt states that her BP is around 130/80 at home. liver disease1 Her LFT is ok re cently. Her ultrasound is ok. Pt denies any abdominal pain or jaundice weight gain1 Pt has been gain ing weight. Pt gained 20 pounds since last year. Pt had childbirth 8 months ago. Pt never lost any weight. Pt does have positive TPO. Her TSH was ok. Pt is not very active. lfT Pt has borderlin e high LFT .pt just had her gallbladder removed. Pt denies any abd pain. Pt does not drink alcohol or use drugs PH Pt has signs of pulmonary HTN. Pt denies any sob anymore. Pt does not have sleep apnea chest lesion1 Pt has benign cy stic lesion on MRI. Pt denies any chest pain abd pain1 Pt states that a bdominal pain resolved post gallbladder removal. pt denies any nausea, vomiting sob1 Pt states that h er sob resolved completely pt had negative sleep study pt denies any fatigue HTN Pt has not been taking Norvasc and her Bp is stable abd pain1 Pt has intermitt ent right upper quadrant pain, sometimes waking her up from sleep. Pt denies pain with food. Pt denies any GERD. Her liver appears normal on ultrasound. Pt denies any acute pain SOB1 Pt has intermitt ent sob Pt states that ventolin does help. Pt denies any acute sob. Pt has more sob when she feels anxious mediastinum nodule Pt had anothe r chest CT done recently which showed density distinct from esophagus. Radiology recommend MRi. Pt denies any dysphagia LFT Pt has borderlin e high LFT. no hepatitis. HTN Her bp is ok tod ay with norvasc . no leg swelling PHysical Pt need annual p hysical. pt went to er recently for dizziness and her BP was high and she was found to be tachycardic. Pt denies any chest pain or palpitation. Pt also has low KCL and high glucose and hematuria. and high LFT. Pt also has gallstone Pt has midepigastric and RUQ pain for 2 months, not worse with food Pt denies any vomiting. pt has mild nausea. Pt denies any GERD. Pt denies any other complaints Pt has been feeling sob intermittently for several weeks Pt denies any calf pain or any recent travel or bedrest Pt denies any cp Instructions Date Instruction Additional Infor matjesus Weight management Related to Tammy er disease Increase physical activity Relat ed to Liver disease Special diet education Related t o Body mass index (BMI) 36.0-36.9, adult Follow a low sodium diet. Relate d to Essential (primary) hypertension Increase activity. Related to Es sential (primary) hypertension Special diet education Related t o Body mass index (BMI) 33.0-33.9, adult Special diet education Related t o Body mass index (BMI) 33.0-33.9, adult Special diet education Related t o Body mass index (BMI) 33.0-33.9, adult Increase activity. Related to Pr imary pulmonary hypertension Follow a low sodium diet. Relate d to Primary pulmonary hypertension Increase activity. Related to En cntr for general adult medical exam w/o abnormal findings Perform monthly self breast examinations. Related to Encntr for general adult medical exam w/o abnormal findings Special diet education Related t o Body mass index (BMI) 34.0-34.9, adult Assessments Type Assessment Date assessment Liver disease assessment Essential (primary) hypertension assessment Disorder of thyroid, unspecified assessment Abnormal weight gain assessment Depression NOS Mental Status Date Cognitive Assessment Orientation - Edwall ed to time, place, person, situation.
--- OUTSIDE RECORDS SUMMARY | 2024-10-01 08:14 | XMS_ITS | Continuity of Care Document ---
Author Organization [facility] Address [address] [place] [address] Phone Care Team Providers Care Special Events Assistant Name Role Phone MD CARVAJAL GILBERT Unavailable Unavailable Advance Directives Directive Yes / No Effective Date File Name No Information Encounters Encounter Description Practice Location Reason(s) For Visit Diagnoses Date Provider Providers Copied on Encounter [facility], [address] [facility], [place], [place], [id number], [place] tel:[phone] [facility] No Information MD KYRA CARVAJAL. [address] [place] [address], [id number], [place]. tel:[phone] Referring Provider: PHILIP GENTILE, [address] [place] [address],, [place], [address]. tel:[phone] Family History Family Member Type Diagnosis Age At Onset No Information Payers Payer name Insurance type Covered alliance party ID Authoriza timychal(s) [employer] [facility] [place] [id number] Social History Type Description Quantity Date Captured Comments Sex Female Smoking Status No Information Chief Complaint And Reason For Visit No Information History Of Present Illness Encounter Date Complaint History Of Prese nt Illness No Information Instructions Date Instruction Additional Infor mation No Information Assessments Type Assessment Date No Information
--- OUTSIDE RECORDS SUMMARY | 2024-10-01 08:15 | XMS_ITS | Clinical Summary ---
Author Organization [facility] Address [address] [place] [address] Phone Care Team Providers Care Supervisor Taping Name Role Phone Provider, Unknown Primary Care [...] on file Legal Sex Female 9:49 PM TRAINING LEAD Gender Identity Not on file Sexual Orientation [...] this topic Insurance MEDICAID [place] Care Teams Supervisor Taping Relationship Specialty Start Date End Date Provider, Unknown UNKNOWN PCP - General 05/22/24
--- OUTSIDE RECORDS SUMMARY | 2024-10-01 08:15 | XMS_ITS | Continuity of Care Document ---
Author Organization [facility] Address [address] [place] [address] [place] [address] Phone Care Team Providers Care Back Maker Name Role Phone Kevin Anthony Unavailable Unavailable Procedures Procedure Date Office/outpatient Visit, [facility] Advance Directives Directive Yes / No Effective Date File Name No Information Encounters Encounter Description Practice Location Reason(s) For Visit Diagnoses Date Provider Providers Copied on Encounter Office/outpat ient Visit, [facility], [address] [place] [address] [address], [place], [place], [id number], [place] tel:[phone] [facility] No Information Aug- 6-201 0 Gabrielle Kevin. [address] [facility] [address], [place], [address], [place]. tel:[phone] Family History Family Member Type Diagnosis Age At Onset No Information Payers Payer name Insurance type Covered democrat ID Authoriza tion(s) No Information Social History Type Description Quantity Date Captured Comments Sex Female Smoking Status No Information Chief Complaint And Reason For Visit No Information Reason For Referral Reason For Referral No Information History Of Present Illness Encounter Date Complaint History Of Prese nt Illness No Information Functional Status Date Functional Assessmen t No Information Instructions Date Instruction Additional Infor mation No Information Assessments Type Assessment Date No Information Patient Care Teams Name Effective Dates (start - stop) Status Members No Information
--- OUTSIDE RECORDS SUMMARY | 2024-10-01 08:15 | XMS_ITS | CONTINUITY OF CARE DOCUMENT ---
Author Name jaxson puri Address Unknown Organization [facility] Address [address] [place] [address] Phone [phone] Care Team Providers Care Lumber Carrier Operator Name Role Phone Narayan GORMAN, Ileana Unavailable IFTIKHAR GORMAN, NAPOLEON Unavailable [phone] BUITRAGO ATTENDING AMBULATORY CARE-C, JAMMIE Unavailable PROBLEMS Condition Status Date Provider Notes Family History of Hypertension: completed - JoseC ruz Boyd MD Shortness of breath completed - [...] encounter Office Visit Jose Cruz Boyd MD [facility] Family History of Hypertension:Shortness of breathHTNPalpitationsTobacco use, quitScreeningObesitycovid 19;2020Hyperlipidemia;with high crpAsthmaDiverticulosis, colonfatty liver;elevated lftHTN borderlinePalpitations;NML TSH - In-person encounter Office Visit Ileana Busch MD [facility] Snoring - nml sleep study 2017 - In-person encounter Office Visit Ileana Busch MD [facility] - In-person encounter Office Visit Ileana Busch MD [facility] VITAL SIGNS Date Observation Value Provider [...] MD blood pressure, diastolic 70 mm[Hg] [facility], systolic 110 mm[Hg] Ramiro trujillo Abrams oxygen saturation, oximetry 98 % respiratory rate E&M 16 /min Campbell pulse rate 75 /[facility] E&M 194 [lb_av] [facility] E&M 61 [in_i] Octavia Abrams [...] (aPTT) 34 s LinkLogic 27-37 Normal C, [place] [address] troponin T 0.016 ng/mL LinkLogic Units converted. See lab report for original value. High C, [place] [address] LDL CHOLESTEROL 126 mg/dL LinkLogic <=129 Normal C, [place] [address] C-reactive protein, by highly sensitive test 9.94 mg/L LinkLogic C, [place] [address] Estimated Glomerular Filtration Rate (calc) 122 mL/min/{ 1.73_m2} LinkLogic C, [place] [address] cholesterol, non-HDL, total 151 mg/dL LinkLogic C, [place] [address] HDL CHOLESTEROL 46 mg/dL LinkLogic >=40 Normal C, [place] [address] triglyceride, serum, fasting 139 mg/dL LinkLogic <=149 Normal C, [place] [address] cholesterol, serum 197 mg/dL LinkLogic 30-199 Normal C, [place] [address] NT-pro BNP 27 LinkLogic <=300 Normal C, [place] [address] aspartate aminotransferase (SGOT), serum 58 1/L LinkLogic 10-45 High C, [place] [address] alanine aminotransferase (SGPT), serum 64 1/L LinkLogic 7-45 High C, [place] [address] Alkaline phosphatase 120 LinkLogic 40-130 Normal C, [place] [address] albumin, serum 4.4 g/dL LinkLogic 3.5-5.0 Normal C, [place] [address] protein, total, serum 7.2 g/dL LinkLogic 6.5-8.5 Normal C, [place] [address] bilirubin, serum, total 0.7 mg/dL LinkLogic 0.1-1.2 Normal C, [place] [address] calcium, serum 9.8 mg/dL LinkLogic 8.5-10.3 Normal , [place] [address] blood glucose, random 85 mg/dL LinkLogic 70-199 Normal , [place] [address] creatine, serum 0.64 mg/dL LinkLogic 0.60-1.10 Normal , [place] [address] urea nitrogen, blood 13 mg/dL LinkLogic 8-25 Normal C, [place] [address] anion gap, serum 14 mmol/L LinkLogic 2-15 Normal , [place] [address] carbon dioxide, venous blood 26 mmol/L LinkLogic 22-32 Normal [place] [address] chloride, serum 100 mmol/L LinkLogic 97-110 Normal , [place] [address] potassium, serum 4.4 MMOL/L LinkLogic 3.3-4.9 Normal [place] [address] sodium, serum 140 mmol/L LinkLogic 135-145 Normal , [place] [address] Absolute Basophils 0.0 K/CUMM LinkLogic 0.0-0.1 Normal , [place] [address] Absolute Monocytes 0.7 K/CUMM LinkLogic 0.2-0.8 Normal [place] [address] Absolute Lymphocytes 2.1 K/CUMM LinkLogic 0.8-3.3 Normal [place] [address] Absolute Neutrophils 4.4 K/CUMM LinkLogic 1.7-6.5 Normal [place] [address] nucleated red blood cells as percent of [...] day social Octavia Abrams alcohol use no Campbell Abrams smoking, year quit 2012 Octavia Butler ngram number of years as a smoker 4 a Octavia Abrams smoking history, total pack/day 1/2 Octavia Abrams cigarette use yes Octavia Abrams smoking status Former smoker Campbell Ingr am smoking status Former smoker Tamar [...] Payer name Policy type / Coverage type [place] red alliance party ID TO MEDICAID Medicaid [id number] ADVANCE DIRECTIVES Name Date DISCUSSED - NO DECISION MADE TREATMENT PLAN Date Name Performer [id number],Jose Cruz Sharma MD [id number],Jose Cruz Sharma MD [id number],Jose Cruz Sharma MD [id number],Jose Cruz Sharma MD [id number],Jose Cruz Sharma a [id number],S, Jose Cruz Serot a [id number],S, Jose Cruz Serot a [id number],S,n l tsh and holtere and stress and eho, neg ct pe Jose Cruz Serota [id number],B, Jose Cruz Serot a Cardiology Jose Cruz [...] PROBNP, N TERMINAL Complete Echo DLCO - 72452 FRC - 11176 FVC - 62248 Holter Monitor 48 hr STR - Routine 6 minute walk test DLCO - 26273 FRC - 32855 FVC - 94522 Sleep Study Home Complete Echo HISTORY OF PROCEDURES Procedure Date Procedure Name Provider Procedure Notes S tatus CT- Coronary CA score Jose Cruz Boyd MD completed EKG Jose Cruz Boyd MD complete d EKG Ileana Busch MD complet ed EKG Ileana Busch MD complet ed Stress EKG Pilar sharma MD completed FVC / MVV with bronchodilator - 49134 Ileana Busch MD completed FRC - 59849 Ileana Busch MD comple gunner DLCO - 19831 Ileana Busch MD compl eted EKG Ileana Busch MD complet ed
--- OUTSIDE RECORDS SUMMARY | 2024-10-01 08:18 | XMS_ITS | Continuity of Care Document ---
Author Organization [facility] Address [address] [place] [address] [place] [address] Phone Care Team Providers Care Master In Chancery Name Role Phone Kevin Anthony Unavailable Unavailable Procedures Procedure Date Office/outpatient Visit, [facility] Advance Directives Directive Yes / No Effective Date File Name No Information Encounters Encounter Description Practice Location Reason(s) For Visit Diagnoses Date Provider Providers Copied on Encounter Office/outpat ient Visit, [facility], [address] [place] [address] [address], [place], [place], [id number], [place] tel:[phone] [facility] No Information Aug- 6-201 0 Gabrielle Kevin. [address] [facility] [address], [place], [address], [place]. tel:[phone] Family History Family Member Type Diagnosis Age At Onset No Information Payers Payer name Insurance type Covered libertarian ID Authoriza tion(s) No Information Social History [...]
--- OUTSIDE RECORDS SUMMARY | 2024-10-01 08:18 | XMS_ITS | Continuity of Care Document ---
Author Organization [facility] Address [address] [place] [address] Phone Care Team Providers Care Retail District Manager Name Role Phone MD CARVAJAL GILBERT Unavailable Unavailable Advance Directives Directive Yes / No Effective Date File Name No Information Encounters Encounter Description Practice Location Reason(s) For Visit Diagnoses Date Provider Providers Copied on Encounter [facility], [address] [facility], [place], [place], [address], [place] tel:[phone] [facility] No Information MD KYRA CARVAJAL. [address] [place] [address], [id number], [place]. tel:[phone] Referring Provider: PHILIP GENTILE, [address] [place] [address],, [place], [address]. tel:[phone] Family History Family Member Type Diagnosis Age At Onset No Information Payers Payer name Insurance type Covered republican ID Authoriza timychal(s) [employer] [facility] [employer] [facility] [place] [id number] Social History Type Description Quantity Date Captured Comments Sex Female Smoking Status No Information Chief Complaint And Reason For Visit No Information History Of Present Illness Encounter Date Complaint History Of Prese nt Illness No Information Instructions Date Instruction Additional Infor mation No Information Assessments Type Assessment Date No Information
--- OUTSIDE RECORDS SUMMARY | 2024-10-01 08:18 | XMS_ITS | CONTINUITY OF CARE DOCUMENT ---
Author Name jaxson puri Address Unknown Organization [facility] Address [address] [place] [address] Phone [phone] Care Team Providers Care Demo Specialist Name Role Phone Narayan GORMAN, Ileana Unavailable IFTIKHAR GORMAN, NAPOLEON Unavailable [phone] BUITRAGO BOAT RIDE OPERATOR-C, JAMMIE Unavailable [phone] PROBLEMS Condition Status Date Provider Notes [...] encounter Office Visit Jose Cruz Boyd MD [facility] Family History of Hypertension:Shortness of breathHTNPalpitationsTobacco use, quitScreeningObesitycovid 19;2020Hyperlipidemia;with high crpAsthmaDiverticulosis, colonfatty liver;elevated lftHTN borderlinePalpitations;NML TSH - In-person encounter Office Visit Ileana Busch MD [facility] Snoring - nml sleep study 2017 - In-person encounter Office Visit Ileana Busch MD [facility] - In-person encounter Office Visit Ileana Busch MD [facility] VITAL SIGNS Date Observation Value Provider [...] MD blood pressure, diastolic 70 mm[Hg] [facility] pressure, systolic 110 mm[Hg] Ramiro trujillo Abrams oxygen saturation, oximetry 98 % respiratory rate E&M 16 /min [place] pulse rate 75 /min [facility] E&M 194 [lb_av] [facility] height E&M 61 [in_i] Octavia Abrams Body [...] (aPTT) 34 s LinkLogic 27-37 Normal C, [place] [address] troponin T 0.016 ng/mL LinkLogic Units converted. See lab report for original value. High C, [place] [address] LDL CHOLESTEROL 126 mg/dL LinkLogic <=129 Normal C, [place] [address] C-reactive protein, by highly sensitive test 9.94 mg/L LinkLogic C, [place] [address] Estimated Glomerular Filtration Rate (calc) 122 mL/min/{ 1.73_m2} LinkLogic C, [place] [address] cholesterol, non-HDL, total 151 mg/dL LinkLogic C, [place] [address] HDL CHOLESTEROL 46 mg/dL LinkLogic >=40 Normal C, [place] [address] triglyceride, serum, fasting 139 mg/dL LinkLogic <=149 Normal C, [place] [address] cholesterol, serum 197 mg/dL LinkLogic 30-199 Normal C, [place] [address] NT-pro BNP 27 LinkLogic <=300 Normal C, [place] [address] aspartate aminotransferase (SGOT), serum 58 1/L LinkLogic 10-45 High C, [place] [address] alanine aminotransferase (SGPT), serum 64 1/L LinkLogic 7-45 High C, [place] [address] Alkaline phosphatase 120 LinkLogic 40-130 Normal C, [place] [address] albumin, serum 4.4 g/dL LinkLogic 3.5-5.0 Normal C, [place] [address] protein, total, serum 7.2 g/dL LinkLogic 6.5-8.5 Normal C, [place] [address] bilirubin, serum, total 0.7 mg/dL LinkLogic 0.1-1.2 Normal C, [place] [address] calcium, serum 9.8 mg/dL LinkLogic 8.5-10.3 Normal , [place] [address] blood glucose, random 85 mg/dL LinkLogic 70-199 Normal , [place] [address] creatine, serum 0.64 mg/dL LinkLogic 0.60-1.10 Normal , [place] [address] urea nitrogen, blood 13 mg/dL LinkLogic 8-25 Normal C, [place] [address] anion gap, serum 14 mmol/L LinkLogic 2-15 Normal , [place] [address] carbon dioxide, venous blood 26 mmol/L LinkLogic 22-32 Normal [place] [address] chloride, serum 100 mmol/L LinkLogic 97-110 Normal , [place] [address] potassium, serum 4.4 MMOL/L LinkLogic 3.3-4.9 Normal [place] [address] sodium, serum 140 mmol/L LinkLogic 135-145 Normal , [place] [address] Absolute Basophils 0.0 K/CUMM LinkLogic 0.0-0.1 Normal , [place] [address] Absolute Monocytes 0.7 K/CUMM LinkLogic 0.2-0.8 Normal [place] [address] Absolute Lymphocytes 2.1 K/CUMM LinkLogic 0.8-3.3 Normal [place] [address] Absolute Neutrophils 4.4 K/CUMM LinkLogic 1.7-6.5 Normal [place] [address] nucleated red blood cells as percent of [...] day social Octavia Abrams alcohol use no [place] Abrams smoking, year quit 2012 Octavia Butler ngram number of years as a smoker 4 a Octavia Abrams smoking history, total pack/day 1/2 Octavia Abrams cigarette use yes Octavia Abrams smoking status Former smoker [place] Ingr am smoking status Former smoker Tamar [...] Payer name Policy type / Coverage type [place] red green party ID TO MEDICAID Medicaid [id number] ADVANCE DIRECTIVES Name Date DISCUSSED - NO DECISION MADE TREATMENT PLAN Date Name Performer [id number],Jose Cruz Sharma MD [id number],Jose Cruz Sharma MD [id number],Jose Cruz Sharma MD [id number],Jose Cruz Sharma MD [id number],Jose Cruz Sharma a [id number],S, Jose Cruz Serot a [id number],S, Jose Cruz Serot a [id number],S,n l tsh and holtere and stress and eho, neg ct pe Jose Cruz Serota [id number],B, Jose Cruz Serot a Cardiology Jose Cruz [...] PROBNP, N TERMINAL Complete Echo DLCO - 11312 FRC - 77753 FVC - 34564 Holter Monitor 48 hr STR - Routine 6 minute walk test DLCO - 41319 FRC - 99392 FVC - 15350 Sleep Study Home Complete Echo HISTORY OF PROCEDURES Procedure Date Procedure Name Provider Procedure Notes S tatus CT- Coronary CA score Jose Cruz Boyd MD completed EKG Jose Cruz Boyd MD complete d EKG Ileana Busch MD complet ed EKG Ileana Busch MD complet ed Stress EKG Pilar sharma MD completed FVC / MVV with bronchodilator - 38258 Ileana Busch MD completed FRC - 92541 Ileana Busch MD comple gunner DLCO - 62600 Ileana Busch MD compl eted EKG Ileana Busch MD complet ed
--- OUTSIDE RECORDS SUMMARY | 2024-10-01 08:18 | XMS_ITS | Continuity of Care Document ---
Author Organization [facility] Address [address] [place] [address] Phone Care Team Providers Care Supplier Development Manager Name Role Phone Bill Downing MD Unavailable [...] Providers Copied on Encounter OFFICE/OUTPA TIENT VISIT, [facility], [address], [place], [address], [place] tel:[phone] [facility] weight gain1 (chief complaint) liver disease1 (chief complaint) HTN (chief complaint) depression 1 (chief complaint) Liver diseaseEssential (primary) hypertensionDisorde r of thyroid, unspecifiedAbnormal weight gainDepression NOS 201 [address] Chang Khan. [address] [facility] [facility] [place], [address] , [place]. tel:[phone] Referring Provider: Bill Downing [address] [facility] [place], [address]. tel:[phone] OFFICE/OUTPA TIENT VISIT, [facility], [address], [place], [place], [address], [place] tel:[phone] [facility] HTN (chief complaint) sob1 (chief complaint) abd pain1 (chief complaint) chest lesion1 (chief complaint) PH (chief complaint) lfT (chief complaint) Essential (primary) hypertensionShortne ss of breathPrimary pulmonary hypertensionLiver disease 8 Chang Khan. [address], [place], [place], [address] , [place]. tel:[phone] Referring Provider: Mayra Mc [address], [place], [place], [address]. tel:[phone] OFFICE/OUTPA TIENT VISIT, EST [facility], [address], [place], [place], [address], [place] tel:[phone] [facility] abd pain1 (chief complaint) HTN (chief complaint) LFT (chief complaint) mediastinu m nodule (chief complaint) SOB1 (chief complaint) Primary pulmonary hypertensionShortne ss of breathEssential (primary) hypertensionLiver diseaseDisease of gallbladder, unspecified 0 8 Chang Khan. [address], [place], [place], [address] , [place]. tel:[phone] Referring Provider: Mayra Mc [address], [place], [place], [address]. tel:[phone] PREV VISIT, NEW, AGE 18-39 [facility], [address], [place], [place], [address], [place] tel:[phone] [facility] PHysical (chief complaint) Encntr for general adult medical exam w/o abnormal findingsPrimary pulmonary hypertensionEssenti al (primary) hypertensionShortne ss of breathLiver disease 8 Chang Khan. [address], [place], [place], [address] , [place]. tel:[phone] Referring Provider: Mayra Mc [address], [place], [place], [address]. tel:[phone] Family History Family Member Type Diagnosis Age At Onset Father Problem (finding) unknown Paternal grandfather Problem (finding) lung CA 67 Paternal grandmother Problem (finding) breast CA 62 Mother Problem (finding) Thyroid disorder Payers Payer name Insurance type Covered alliance party ID Authoriza tion(s) No Information Social [...] Of Treatment Date Type Action Status Goal Tobacco cessation counseling completed Goal Special diet education compl eted Goal Special diet education compl eted Goal Special diet education compl eted Goal Special diet education compl eted Goal Special diet education compl eted Referral Ordered: US THYROID ordered Referral Referred To: Yuri Tillman MD [address] [place], [place], [address] Ordered: Referrals: Yuri Tillman MD. Evaluate and treat ordered Referral Ordered: MRI CHEST W/DYE ordered Referral Ordered: DOPPLER ECHO EXAM, HEART ordered Referral Ordered: US EXAM, ABDOM, COMPLETE ordered Referral Ordered: NUC MED HIDA (HEPATOBILIARY) SCAN ordered Referral Ordered: SLEEP STUDY, ATTENDED ordered History Of Present Illness Encounter Date Complaint History Of Prese nt Illness weight gain1 Pt has been gain ing weight. Pt gained 20 pounds since last year. Pt had childbirth 8 months ago. Pt never lost any weight. Pt does have positive TPO. Her TSH was ok. Pt is not very active. liver disease1 Her LFT is ok re cently. Her ultrasound is ok. Pt denies any abdominal pain or jaundice HTN Her BP remains n ormal without any BP med Pt states that her BP is around 130/80 at home. 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 Pt denies any crying spells Pt states that zoloft is helping her mood. HTN Pt has not been taking Norvasc and her Bp is stable sob1 Pt states that h er sob resolved completely pt had negative sleep study pt denies any fatigue abd pain1 Pt states that a bdominal pain resolved post gallbladder removal. pt denies any nausea, vomiting chest lesion1 Pt has benign cy stic lesion on MRI. Pt denies any chest pain PH Pt has signs of pulmonary HTN. Pt denies any sob anymore. Pt does not have sleep apnea lfT Pt has borderlin e high LFT .pt just had her gallbladder removed. Pt denies any abd pain. Pt does not drink alcohol or use drugs HTN Her bp is ok tod ay with norvasc . no leg swelling LFT Pt has borderlin e high LFT. no hepatitis. mediastinum nodule Pt had anothe r chest CT done recently which showed density distinct from esophagus. Radiology recommend MRi. Pt denies any dysphagia SOB1 Pt has intermitt ent sob Pt states that ventolin does help. Pt denies any acute sob. Pt has more sob when she feels anxious abd pain1 Pt has intermitt ent right upper quadrant pain, sometimes waking her up from sleep. Pt denies pain with food. Pt denies any GERD. Her liver appears normal on ultrasound. Pt denies any acute pain PHysical Pt need annual p hysical. pt [...] any cp Instructions Date Instruction Additional Infor blaze Special diet education Related t o Body mass index (BMI) 36.0-36.9, adult Increase physical activity Relat ed to Liver disease Weight management Related to Tammy er disease Special diet education Related t o Body mass index (BMI) 33.0-33.9, adult Special diet education Related t o Body mass index (BMI) 33.0-33.9, adult Increase activity. Related to Es sential (primary) hypertension Follow a low sodium diet. Relate d to Essential (primary) hypertension Special diet education Related t o Body mass index (BMI) 33.0-33.9, adult Increase activity. Related to Pr imary pulmonary hypertension Follow a low sodium diet. Relate d to Primary pulmonary hypertension Special diet education Related t o Body mass index (BMI) 34.0-34.9, adult Perform monthly self breast examinations. Related to Encntr for general adult medical exam w/o abnormal findings Increase activity. Related to En cntr for general adult medical exam w/o abnormal findings Assessments Type Assessment Date assessment Liver disease assessment Essential (primary) hypertension assessment Disorder of thyroid, unspecified assessment Abnormal weight gain assessment Depression NOS Mental Status Date Cognitive Assessment Orientation - Hayden ed to time, place, person, situation.
[2024-10-01 08:31] LABS: EDSTREPNEGPOS1 Negative (Negative)
--- NOTE | 2024-10-01 08:39 | ED.URI ---
HPI - URI/Sore Throat General Chief Complaint: Upper Respiratory Infection Stated Complaint: Sore Throat Time Seen by Provider: 10/01/24 08:09 Source: patient and RN notes reviewed Mode of arrival: ambulatory Limitations: no limitations History of Present Illness HPI Narrative: 33-year-old female presents [facility] complaining of a sore throat x3 days. She said one of her sons also has the same symptoms that she does. Last week 1 of her other children with diagnosis strep was placed on antibiotics. She was tested last week for strep and was negative. She denies any cough, chills, fevers, ear pain, difficulty swallowing, congestion, chest pain or shortness of breath. Related Data Allergies Allergy/AdvReac Type Severity Reaction Status Date / Time No Known Allergies Allergy Verified 09/04/24 19:29 Review of Systems Review of Systems: CONSTITUTIONAL: Denies fever, chills, or sweats. EYES: Denies visual changes, redness, or discharge. ENT: Denies rhinorrhea, congestion, difficulty swallowing, excessive drooling, or otalgia. Positive for sore throat. CARDIOVASCULAR: Denies chest pain, palpitations, or edema. RESPIRATORY: Denies cough or dyspnea. GASTROINTESTINAL: Denies abdominal pain, nausea, vomiting, or diarrhea. GENITOURINARY: Denies dysuria or hematuria. SKIN: Denies rash or itching. MUSCULOSKELETAL: Denies back pain, joint pain, or myalgia. NEUROLOGIC: Denies headache, numbness, or weakness. PSYCHIATRIC: Denies anxiety or depression. All other systems reviewed are negative, except as documented in HPI. [facility] Past Medical History Medical History Depression Anxiety GABE (obstructive sleep apnea) Asthma Hypertension Hyperlipidemia induced hypertension Deep venous thrombosis of left popliteal vein Mild obstructive sleep apnea Polycystic ovarian syndrome Heart murmur Presumed benign flow murmur. Surgical History Surgical History Tubal ligation status History of nasal polypectomy History of cholecystectomy (2018) Family History Family History Grandparent History of blood clots grandmother, grandfather FH: kidney cancer Diabetes mellitus grandmother Family history of malignant neoplasm Family history of malignant neoplasm of breast Cirrhosis of liver Family history of lung cancer Hypertension Cerebrovascular accident Parkinson disease Father Family history of cardiac disorder Mother Endometriosis Social History Social History Social History: Surrogate medical decision maker: Doe Juárez, spouse. Code status: Full code. Smoking packs per day: 0.5 Smoking cigarettes per day: 10.0 Years smoked: 8 Smoking pack-years: 4.00 Smoking status: Former smoker Tobacco type: cigarettes Second hand tobacco smoke exposure: No Smoking end date: 06/27/15 Alcohol intake: never Substance use: never Substance use type: marijuana Last use: 5 years ago Lack of Transportation: No Lack of Food: Never True Current Housing: I Have Housing Concerned About Future Housing: No Difficulty Paying Gas/Electric Bills: No Difficulty Paying for Meds: No Currently Unemployed: YES Education: High School Diploma/GED Difficulty w/ Childcare or Family Care: YES Living arrangements: with family Additional living arrangements comments: Lives with in 4 children in [place]. Spiritual care concerns: No Comments At the time of my signature, I reviewed and agree with the nursing past medical, surgical, social, and family history. There is no relevant family history pertinent to the patient complaint. Exam Narrative: GENERAL: This is a well-nourished, well-developed adult, in no apparent distress. They are non ill-appearing, nontoxic appearing. HEAD: normocephalic, atraumatic. EYES: Sclera clear/white. Vision is grossly intact. EARS: External ears normal, auditory canals clear and without drainage, TMs normal without perforation. Hearing grossly intact. NOSE: External nose normal with no obvious nasal discharge, nares without redness, no rhinorrhea. THROAT: Mucous membranes moist, posterior pharynx With erythema and postnasal drip. Uvula midline. NECK: Neck supple, non-tender without lymphadenopathy, masses or thyromegaly. CARDIOVASCULAR: Regular rate and rhythm without murmurs, gallops, or rubs. RESPIRATORY: Clear to auscultation. Breath sounds equal bilaterally. No wheezes, rales, or rhonchi. SKIN: warm, Dry, intact with no suspicious lesions or rash, good texture and turgor. NEURO: awake, alert, and oriented to person, place and time. There were no obvious focal neurologic abnormalities. EXTREMITIES: No joint tenderness, effusion, or edema noted. Course Course Emergency Course: Patient is aware of diagnosis, understands and agrees to treatment plan. Anticipatory guidance given. Patient agrees to follow-up as directed and is aware of reasons to seek care at the emergency department. Portions of this record may have been created with voice recognition software Level of Care: Express Care Visit Vital Signs Vital signs: Vital Signs Temperature 98.5 F 10/01/24 08:08 Pulse Rate 82 10/01/24 08:08 Respiratory Rate 20 10/01/24 08:08 Blood Pressure 119/88 10/01/24 08:08 Pulse Oximetry 97 10/01/24 08:08 Oxygen Delivery Room Air 10/01/24 08:08 Temperature 98.5 F 10/01/24 08:08 Pulse Rate 82 10/01/24 08:08 Respiratory Rate 20 10/01/24 08:08 Blood Pressure 119/88 10/01/24 08:08 Pulse Oximetry 97 10/01/24 08:08 Oxygen Delivery Room Air 10/01/24 08:08 Reviewed MDM - URI/Sore Throat MDM Narrative Medical decision making narrative: Rapid strep was negative. Will send off for a throat culture. It is presumed that this is likely a viral infection. Discussed physical exam findings. Advised supportive measures and signs/symptoms to go to the ER. Pt is appropriate for outpt treatment and f/u. Differential Diagnosis Differential diagnosis: Likely upper respiratory infection, viral infection and pharyngitis Lab Data Attestation: I reviewed the patient's lab results. Labs: Lab Results 10/01/24 Range/Units 08:12 POC Grp A Strep Screen Negative (Negative) Critical Care Time Critical Care Time Critical Care Time: No Discharge Plan Discharge Clinical Impression: Pharyngitis Qualifiers: Pharyngitis/tonsillitis etiology: unspecified etiology Qualified Code(s): J02.9 - Acute pharyngitis, unspecified Patient Disposition: Home Condition: Stable Instructions: Pharyngitis (ED) Additional Instructions: your rapid strep swab was negative today at [facility]. You will be notified in a few days if the culture comes back positive for strep, and appropriate antibiotics will be called in for you at that time. your symptoms are likely due to a viral illness, which is not treated with antibiotics. Viral symptoms can be present for up to 10-14 days. Take ibuprofen or Tylenol for fever or pain. Rest and stay hydrated. Follow up with your PCP in 3 days if symptoms are not improving. Go to the ER immediately if you difficulty breathing or swallowing Patient Language: Telugu Follow-up/Referrals: Shanelle Ramirez MD [Primary Care Provider] - Time of Disposition: 08:38
== END 2024-10-01 08:44 | disposition home or self-care (01) ==
PROVIDERS: PCP Family Medicine
DX: J02.9 Acute pharyngitis, unspecified (principal); Z87.891 Personal history of nicotine dependence; I10 Essential (primary) hypertension; E78.5 Hyperlipidemia, unspecified; E28.2 Polycystic ovarian syndrome; J45.909 Unspecified asthma, uncomplicated; Z86.718 Personal history of other venous thrombosis and embolism; R01.1 Cardiac murmur, unspecified
CPT/HCPCS: 87081; 87880; 99213; G0463